=== PATIENT | female | born 1990 | race Caucasian/White ===

== ENCOUNTER → 2023-08-31 09:54 | Outpatient (BNVA) | payer OTHER, SELFPAY | PROVIDERS: PCP Internal Medicine; Visit Provider Surgery ==

== ENCOUNTER 2023-10-16 08:13 | Outpatient (AMB) | payer OTHER, SELFPAY ==
--- NOTE | 2023-10-16 09:10 | A.OFFVIS_ITS ---
VS Expanded 10/16/23 09:25 Height 5 ft 5.5 in Weight 218 lb 8 oz BMI 35.8 Body Fat % 37.2 Body Fat Mass 81.4 Fat Free Mass 137.4 Visceral Fat Rating 8 Body Water % 45 Body Water Mass 98.4 Basal Metabolic Rate/Score 1,901 Intake Visit Reasons: [employer] BMI 35.9 Allergies Penicillins [PENICILLINS] Allergy (Unknown, Verified 10/16/23 09:11) SWELLING Medication List - Last Reconciled 10/16/23 by Rufus Stearns MD albuterol sulfate 90 mcg/actuation 2 puffs inhalation Q6H PRN aspirin 81 mg PO DAILY nifedipine ER 90 mg PO DAILY HPI HPI [employer] SW[employer] BMI 35.9: Details: Start time: 9.02am, End time: 9.52am ?I spent 45 minutes speaking with the patient on the phone plus an additional 5 minutes reviewing and updating records for a total of 50 minutes HPI Comments Details: Previous weight loss: Saxenda and Marcintoza Wakes up: 10am (Works 3-11pm), Sleeps: 12,30am Breakfast: skips Lunch: 11am (sandwich or waffles, or eggs) 2nd Lunch: 1.30pm (chicken and rice) Dinner: 6.30pm (chicken and rice) Snacks: none Exercise: has a treadmill at home Fluids:Coffee: none, tea: none, soda: (Pepsi regular 1-2 cans per day), juice: none, ETOH: none PFSH Medical History (Updated 10/16/23 @ 09:47 by Rufus Stearns MD) GERD (gastroesophageal reflux disease) Asthma Back pain Hypertension Obesity Surgical History (Updated 10/16/23 @ 09:18 by Rufus Stearns MD) Previous back surgery History of delivery Physical Exam Vital Signs: BMI result Body Mass Index 35.8 Telehealth Telehealth Telehealth Platform: Telephone Location of provider rendering services: practice address Location of patient: address on file Patient Identification confirmed using: Name, : Yes Telehealth method: voice only Patient verbally consented to treatment: Yes Patient verbally consented to billing insurance company: Yes Patient informed of any privacy concerns related to visit: Yes Minutes spent on Phone/Video with Pt.: 50 Assessment & Plan Assessment & Plan (1) Obesity: Code(s): E66.9 - Obesity, unspecified Category: Medical Qualifiers: Body mass index: BMI 35.0-35.9 Obesity classification: adult class 2 (BMI 35 - 39.9) Obesity type: due to excess calories Serious obesity comor bidity presence: with serious comorbidity Qualified Code(s): E66.01 - Morbid (severe) obesity due to excess calories; Z68.35 - Body mass index [BMI] 35.0- 35.9, adult Plan: 1.? Plan for lap sleeve gastrectomy. If diaphragmatic or ventral hernias are present at time of surgery, these will be repaired laparoscopically as well. Risks and complications were discussed in detail including possible conversion to an open procedure, anastomotic leak, bleeding requiring transfusion, small bowel obstruction, , DVT and pulmonary embolism, cardiac, or pulmonary complications, as shelter complications such as anastomotic ulcer, insufficient weight loss and vitamin deficiencies. I emphasized the importance of close follow-up, adherence to instructions and good communication. 2. You will receive a link of our software katlin to generate an individualized nutritional and exercise plan specific for you. Please send me a screenshot of the plans you will generate Meal to include lean meat (beef, fish, pork, turkey, chicken), or omani yogurt, or egg whites, or beans with a salad with olive oil and fruits (berries, pears, apples, kiwi). Avoid salt, breads, potatoes, rice, pasta, desserts. ?3. If you choose shakes, each shake would be drunk slowly, like coffee in a period of 2 hours. ?4. If you choose bars, cut each bar in 4 pieces and eat each piece in 30min ?to make each bar last 2 hours. ?5. I emphasized the importance of measuring accurately the food portion and measure it when serving the food in plate ?6. The meal portions include a specific number of forks of meat and salad. You always eat the meat portion but you can replace up to half of salad/vegetables portion with rice, potatoes or pasta, or a fruit ?if you like. The less you do it the better weight loss will be. ?7. One full-size fork is what it can be scooped on the fork without falling aside and not what can be bit with the fork. Use regular forks like those you find in a typical restaurant. ?8.? Please send me weight measurements as soon as possible and then once a week. Always include your diet and exercise plan. 9. The best choice would be to purchase a stationary bike, elliptical or treadmill at home that can track calories. Let me know if you do so I can give you an exercise plan. ?10.?It is important of avoiding and for at least 18 months postoperatively and has been discussed at the infosession. ?11. Goal is to lose at least 1.5-2lbs per week ?12. Goal to lose 10% of your weight before surgery, which is about 22lbs. Ultimate weight goal: 196lbs before surgery 13. Please follow the diet plan exactly without any change. If you don't like something about the plan or you feel hungry you need to communicate with me so I can help you revise the plan. You should not change the plan yourself. Orders: Orders Complete Blood Count Auto Diff Today E66.9 - Obesity, unspecified, I10 - Essential (primary) hypertension, J45.909 - Unspecified asthma, uncomplicated, K21.9 - Gastro-esophageal reflux disease without esophagitis, Z68.35 - Body mass index [BMI] 35.0-35.9, adult Lipid Panel Today E66.9 - Obesity, unspecified, I10 - Essential (primary) hypertension, J45.909 - Unspecified asthma, uncomplicated, K21.9 - Gastro- esophageal reflux disease without esophagitis, Z68.35 - Body mass index [BMI] 35.0-35.9, adult Vitamin B12 and Folate Today E66.9 - Obesity, unspecified, I10 - Essential (primary) hypertension, J45.909 - Unspecified asthma, uncomplicated, K21.9 - Gastro-esophageal reflux disease without esophagitis, Z68.35 - Body mass index [BMI] 35.0-35.9, adult TSH reflex Free T4 Today E66.9 - Obesity, unspecified, I10 - Essential (primary ) hypertension, J45.909 - Unspecified asthma, uncomplicated, K21.9 - Gastro- esophageal reflux disease without esophagitis, Z68.35 - Body mass index [BMI] 35.0-35.9, adult US abdomen comp w elastography Today E66.9 - Obesity, unspecified, I10 - Essential (primary) hypertension, J45.909 - Unspecified asthma, uncomplicated, K21.9 - Gastro-esophageal reflux disease without esophagitis, Z68.35 - Body mass index [BMI] 35.0-35.9, adult XR chest 2V Today E66.9 - Obesity, unspecified, I10 - Essential (primary) hypertension, J45.909 - Unspecified asthma, uncomplicated, K21.9 - Gastro- esophageal reflux disease without esophagitis, Z68.35 - Body mass index [BMI] 35.0-35.9, adult ECG 12 lead EKG Today E66.9 - Obesity, unspecified, I10 - Essential (primary) hypertension, J45.909 - Unspecified asthma, uncomplicated, K21.9 - Gastro- esophageal reflux disease without esophagitis, Z68.35 - Body mass index [BMI] 35.0-35.9, adult FL upper GI w air Today E66.9 - Obesity, unspecified, I10 - Essential (primary) hypertension, J45.909 - Unspecified asthma, uncomplicated, K21.9 - Gastro- esophageal reflux disease without esophagitis, Z68.35 - Body mass index [BMI] 35.0-35.9, adult Insulin Today E66.9 - Obesity, unspecified, I10 - Essential (primary) hypertension, J45.909 - Unspecified asthma, uncomplicated, K21.9 - Gastro- esophageal reflux disease without esophagitis, Z68.35 - Body mass index [BMI] 35.0-35.9, adult Hemoglobin A1c Today E66.9 - Obesity, unspecified, I10 - Essential (primary) hypertension, J45.909 - Unspecified asthma, uncomplicated, K21.9 - Gastro- esophageal reflux disease without esophagitis, Z68.35 - Body mass index [BMI] 35.0-35.9, adult H Pylori Breath Test Today E66.9 - Obesity, unspecified, I10 - Essential (primary) hypertension, J45.909 - Unspecified asthma, uncomplicated, K21.9 - Gastro-esophageal reflux disease without esophagitis, Z68.35 - Body mass index [BMI] 35.0-35.9, adult IRON PROFILE Today E66.9 - Obesity, unspecified, I10 - Essential (primary) hypertension, J45.909 - Unspecified asthma, uncomplicated, K21.9 - Gastro- esophageal reflux disease without esophagitis, Z68.35 - Body mass index [BMI] 35.0-35.9, adult Comprehensive Met. Panel Today E66.9 - Obesity, unspecified, I10 - Essential (primary) hypertension, J45.909 - Unspecified asthma, uncomplicated, K21.9 - Gastro-esophageal reflux disease without esophagitis, Z68.35 - Body mass index [BMI] 35.0-35.9, adult Zinc Today E66.9 - Obesity, unspecified, I10 - Essential (primary) hypertension, J45.909 - Unspecified asthma, uncomplicated, K21.9 - Gastro- esophageal reflux disease without esophagitis, Z68.35 - Body mass index [BMI] 35.0-35.9, adult C Reactive Protein Today E66.9 - Obesity, unspecified, I10 - Essential (primary) hypertension, J45.909 - Unspecified asthma, uncomplicated, K21.9 - Gastro-esophageal reflux disease without esophagitis, Z68.35 - Body mass index [BMI] 35.0-35.9, adult Vitamin B1 Today E66.9 - Obesity, unspecified, I10 - Essential (primary) hypertension, J45.909 - Unspecified asthma, uncomplicated, K21.9 - Gastro- esophageal reflux disease without esophagitis, Z68.35 - Body mass index [BMI] 35.0-35.9, adult Vitamin A Today E66.9 - Obesity, unspecified, I10 - Essential (primary) hypertension, J45.909 - Unspecified asthma, uncomplicated, K21.9 - Gastro- esophageal reflux disease without esophagitis, Z68.35 - Body mass index [BMI] 35.0-35.9, adult Ferritin Today E66.9 - Obesity, unspecified, I10 - Essential (primary) hypertension, J45.909 - Unspecified asthma, uncomplicated, K21.9 - Gastro- esophageal reflux disease without esophagitis, Z68.35 - Body mass index [BMI] 35.0-35.9, adult Vitamin D 25-OH Total Today E66.9 - Obesity, unspecified, I10 - Essential (primary) hypertension, J45.909 - Unspecified asthma, uncomplicated, K21.9 - Gastro-esophageal reflux disease without esophagitis, Z68.35 - Body mass index [BMI] 35.0-35.9, adult Referrals Behavioral Health Referral E66.9 - Obesity, unspecified, I10 - Essential (primary) hypertension, J45.909 - Unspecified asthma, uncomplicated, K21.9 - Gastro-esophageal reflux disease without esophagitis, Z68.35 - Body mass index [BMI] 35.0-35.9, adult Nutrition/Dietitian Referral E66.9 - Obesity, unspecified, I10 - Essential (primary) hypertension, J45.909 - Unspecified asthma, uncomplicated, K21.9 - Gastro-esophageal reflux disease without esophagitis, Z68.35 - Body mass index [BMI] 35.0-35.9, adult
[2023-10-16 09:25] VITALS: BMI 35.8
== END 2023-10-16 09:54 | disposition home or self-care (01) ==
LOC: HO.HBS 08:13
PROVIDERS: PCP Internal Medicine; Visit Provider Surgery
DX: E66.01 Morbid (severe) obesity due to excess calories (principal); Z68.35 Body mass index [BMI] 35.0-35.9, adult
CPT/HCPCS: 99204

== ENCOUNTER → 2023-10-16 08:13 | Outpatient (BNVA) | payer OTHER, SELFPAY | PROVIDERS: PCP Internal Medicine; Visit Provider Surgery ==

== ENCOUNTER 2023-10-17 08:48 | Outpatient (REF) | payer OTHER, SELFPAY ==
--- NOTE | ~2023-10-17 | XR_ITS ---
EXAMINATION: XR CHEST CLINICAL INFORMATION: Obesity. Preop. COMPARISON: None available. TECHNIQUE: 2 views of the chest were obtained. FINDINGS: No significant abnormality is noted involving the heart, lungs, mediastinum, bony thorax or soft tissues. XR/XR chest 2V IMPRESSION: Unremarkable examination.
--- NOTE | 2023-10-17 08:57 | ECG_ITS ---
Test Reason : OBESITY Blood Pressure : / mmHG Vent. Rate : 080 BPM Atrial Rate : 080 BPM P-R Int : 162 ms QRS Dur : 080 ms QT Int : 384 ms P-R-T Axes : 051 030 028 degrees QTc Int : 442 ms Normal sinus rhythm Normal ECG No previous ECGs available Referred By: Rufus Stearns Electronically Signed By:MATILDA GARCIA MD
[2023-10-17 09:38] LABS: Basophils Percent Auto 0.7 % (0-2); Eosinophils Percent Auto 0.7 % (0-4); Hematocrit 40.9 % (37.0-47.0); Hemoglobin 13.6 g/dl (12.0-16.0); Imm Gran Abs Auto 0.03 X10*3/uL (0.00-0.03); Imm Gran Pct Auto 0.5 % (0.0-0.4); Lymphocytes Absolute Auto 1.7 X10*3/uL (1.2-4.9); Lymphocytes Percent Auto 31.4 % (20-40); MANUAL DIFF FLAG SCAN; Mean Corpuscular HGB Conc 33.3 g/dl (31.0-35.0); Mean Corpuscular Hemoglobin 28.5 pg (27.0-33.0); Mean Corpuscular Volume 85.7 fL (80.0-98.0); Monocytes Absolute Auto 0.3 X10*3/uL (0.1-1.2); Neutrophils Absolute Auto 3.3 x10*3/uL (2.0-8.3); Neutrophils Percent Auto 60.7 % (45-73); PLT CLUMP 1; Red Blood Count 4.77 X10*6/uL (4.20-5.50); Red Cell Distribution Width 13.2 % (11.0-16.0); SCAN SMEAR FLAG 1
[2023-10-17 09:51] LABS: Estimated Average Glucose 94 mg/dL; Hemoglobin A1c % 4.9 % (<6.0)
[2023-10-17 10:21] LABS: Platelet Count 223 X10*3/uL (160-400); White Blood Count 5.6 X10*3/uL (4.8-10.8)
[2023-10-17 10:22] LABS: Mean Platelet Volume 11.2 fL (9.4-12.3); SLIDE REVIEW VERIFIED
[2023-10-17 10:31] LABS: Alanine Aminotransferase 12 U/L (0-31); Albumin Level 4.1 g/dL (3.5-5.0); Alkaline Phosphatase 114 U/L (39-117); Anion Gap 15 (12-20); Aspartate Amino Transferase 14 U/L (5-31); Bilirubin Total 0.8 mg/dL (0.0-1.0); Blood Urea Nitrogen 13 mg/dL (9-16); C Reactive Protein 0.24 mg/dL (< or = 0.50); Calcium 9.1 mg/dL (8.4-10.2); Carbon Dioxide 18 mmol/L (22-29); Chloride 111 mmol/L (96-108); Cholesterol 164 mg/dL (<200); Estimated Glomerular Filt Rate > 60; Glucose Random 86 mg/dL (60-115); HDL Cholesterol 43 mg/dL (>40); Iron 62 mcg/dL (30-160); LDL Cholesterol Calculated 107 mg/dL (<100); Percent Iron Saturation 25 % (15-50); Potassium 3.5 mmol/L (3.3-5.1); Sodium 140 mmol/L (135-145); Total Iron Binding Capacity 248 mcg/dL (228-428); Total Protein 7.1 g/dL (6.5-8.0); Triglycerides 73 mg/dL (<150); Unsaturated Iron Binding 186 ug/dL
[2023-10-17 10:37] LABS: Ferritin 41 ng/mL (10-122); Insulin 6 uU/mL (2-29); TSH reflex Free T4 1.32 uIU/mL (0.32-4.0); Vitamin D 25-OH Total 15.6 ng/mL (>30)
[2023-10-17 10:52] LABS: Vitamin B12 532 pg/mL (200-900)
[2023-10-20 02:39] LABS: Zinc 72 mcg/dL (60-130)
[2023-10-20 03:49] LABS: Vitamin A 45 mcg/dL (38-98)
[2023-10-21 11:48] LABS: Vitamin B1 10 nmol/L (8-30)
== END 2023-10-17 08:49 | disposition home or self-care (01) ==
LOC: HO.LAB 08:48
PROVIDERS: PCP Nurse Practitioner Family; Visit Provider Surgery
DX: E66.9 Obesity, unspecified (principal); I10 Essential (primary) hypertension; J45.909 Unspecified asthma, uncomplicated; K21.9 Gastro-esophageal reflux disease without esophagitis; Z68.35 Body mass index [BMI] 35.0-35.9, adult
CPT/HCPCS: 36415; 71046; 80053; 80061; 82306; 82607; 82728; 82746; 83036; 83525; 83540; 84425; 84443; 84590; 84630; 85025; 86140; 93005

== ENCOUNTER → 2023-10-17 08:57 | Outpatient (BNV) | payer OTHER, SELFPAY | PROVIDERS: PCP Nurse Practitioner Family; Visit Provider Internal Medicine Cardiovascular Disease | DX: E66.9 Obesity, unspecified (principal) | CPT/HCPCS: 93010 ==

== ENCOUNTER 2023-10-24 10:20 | Outpatient (AMB) | payer OTHER, SELFPAY ==
--- NOTE | 2023-10-24 09:13 | MHC.WMTHER ---
Intake Intake Visit Reasons: TV BH Intake Allergies Penicillins [PENICILLINS] Allergy (Unknown, Verified 10/16/23 09:11) SWELLING [facility] Medical History (Updated 10/24/23 @ 09:25 by Nohemi Sage) GERD (gastroesophageal reflux disease) Asthma Back pain Hypertension Obesity Surgical History (Updated 10/16/23 @ 09:18 by Rufus Stearns MD) Previous back surgery History of delivery Behavioral Health Assessment Weight Management Therapy Therapy Notes Details Patient is looking to improve her health and quality by having weight loss surgery. She reported loosing one baby due to high blood pressure during . Patient is not in therapy and reported that she has never been. No history of problems with alcohol or drugs and no history of inpatient psychiatric treatment. Presenting Concerns Referral Source provider Reason for referral weight loss surgery evaluation Precipitating Event obesity Living Situation Current Living Situation Rent At risk of losing current housing? No Satisfied with current living situation? Yes Comments Patient lives with her boyfriend and her three children ages 1, 9, and 13 years old. Her boyfriend is the father of her 1 year old and the baby she lost. Food/Weight/Diet Expectations of change weight loss and maintenance History/Relationship with food Pt stated that she would go out to eat about 3x's a week (fast food and restaurant food), soda drinker Peps[employer] about 2 a day. Also late night eating due to her job, she would eat at 630 on her break and then after work she would eat again, mostly cereal and then go to sleep. Sometimes would skip breakfast. History/Relationship with weight Pt stated that she has been struggling with her weight since she had her last baby. She is about at her heaviest 230lbs. has since lost 6lbs since starting the program. History/Relationship with dieting tried exercise and eating healthy, also tried medications from her doctor Binge Eating Do you frequently eat large amounts of food in short periods of time, not feeling physically hungry? No Do you feel out of control when you eat a large amount of food in a short period of time? No Do you eat large amounts of food rapidly and typically alone? No Night Eating Do you wake up at least once during the night to eat? No If you wake up in the night, do you find that it is necessary to eat something in order to fall back asleep? No Do you have little or no appetite in the morning and feel very hungry in the evening, often overeating between dinner and when you go to bed? Yes Social History Family history and relationship Patient is one of six siblings and raised by both her parents. They are both still living. Pt is and lives with her boyfriend and three children. She reported suffering many losses in her life, last one in 2019 when her baby in the NICU. 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 no legal issues. Education Highest grade completed some college, medical numerical control operator Preferred learning style Auditory, Verbal, Written, Learn by doing and Visual Currently enrolled in educational program? No Interested in further educational program? 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 No Meaningful activities has a treadmill at home she uses. Financial Situation Describe current financial situation Occasional struggle Financial assistance? None Service Service? No Mental Health and Addiction Treatment Current/Past substance abuse? No Current/Past addictive behavior concerns? No Psychiatric history none reported Medical and Physical Health Summary Physical exam in the last year? Yes Pain Screening Current pain? Yes Pain in the last few months? Yes Comments back pain Medications Is the patient compliant with medications? Yes Does the patient have [facility] Guardian in place? Not applicable Does the patient use complimentary health approaches? No Trauma/Abuse History History of trauma? Yes Questionnaires PHQ-9 Over the last 2 weeks, how often have you been bothered by any of the following problems? 1. Little interest or pleasure in doing things: not at all 2. Feeling down, depressed, or hopeless: not at all 3. Trouble falling or staying asleep, or sleeping too much: several days 4. Feeling tired or having little energy: several days 5. Poor appetite or overeating: several days 6. Feeling bad about yourself - or that you are a failure or have let yourself or your family down: not at all 7. Trouble concentrating on things, such as reading the newspaper or watching television: not at all 8. Moving or speaking so slowly that other people could have noticed. Or the opposite - being so fidgety or restless that you have been moving around a lot more than usual: not at all 9. Thoughts that you would be better off or of hurting yourself in some way: not at all Total score: 3 Depression Screening Interpretation: Negative Depression Screening Done: Yes Source: Developed by Drs. Washington De La Cruz, Nehal Jasso, Lazaro Acosta and colleagues, with an educational pat from [employer]. Binge Eating Scale Group 1 A. I don't feel self-conscious about my wt. or body size when I'm with others. B. I feel concerned about how I look to others, but it normally does not make me fell disappointed with myself C. I do get self-conscious about my appearance and wt. which makes me feel disappointed in myself. D. I feel very self-conscious about my wt. and frequently I feel intense shame and disgust for myself. I try to avoid social contacts because of my self-consciousness. Response Group 1: B Group 2 A. I don't have any difficulty eating slowly in the proper manner. B. Although I seem to gobble down foods, I don't end up feeling stuffed because of eating to much. C. At times, I tend to eat quickly and then, I feel uncomfortably full afterwards. D. I have the habit of bolting down my food, without really chewing it. When this happens I usually feel uncomfortably stuffed because I've eaten to much. Response Group 2: A Group 3 A. I feel capable to control my eating urges when I want to. B. I feel like I have failed to control my eating more than the average person. C. I feel utterly helpless when it comes to feeling in control of my eating urges. D. Because I feel so helpless about controlling my eating I have become very desperate about trying to get control. Response Group 3: B Group 4 A. I don't have the habit of eating when I'm bored. B. I sometimes eat when I'm bored, but often I'm able to get busy and get my mind off food. C. I have a regular habit of eating when I'm bored, but occasionally, I can use some other activity to get my mind off eating. D. I have a strong habit of eating when I'm bored. Nothing seems to help me breath the habit. Response Group 4: A Group 5 A. I'm usually physically hungry when I eat something. B. Occasionally, I eat something on impulse even though I really am not hungry. C. I have the regular habit of eating foods, that I might not really enjoy, to satisfy a hungry feeling even though physically, I don't need the food. D. Although I'm not physically hungry, I get a hungry feeling in my mouth that only seems to be satisfied when I eat a food, like sandwich, that fills my mouth. Sometimes, when I eat the food to satisfy my mouth hunger, I then spit the food out so I won't gain weight. Response Group 5: A Group 6 A. I don't feel any guilt or self-hate after I overeat. B. After I overeat, occasionally I feel guilt or self-hate. C. Almost all the time I experience strong guilt or self-hate after I overeat. Response Group 6: A Group 7 A. I don't lose total control of my eating when dieting even after periods when I overeat. B. Sometimes when I eat a forbidden food on a diet, I feel like I blew it and eat even more. C. Frequently, I have the habit of saying to myself, I've blown it now, why not go all the way, when I overeat on a diet. When that happens I eat more. D. I have a regular habit of starting a strict diets for myself but I break the diets by going on an eating binge. My life seems to be either a feast or famine. Response Group 7: A Group 8 A. I rarely eat so much food that I feel uncomfortably stuffed afterwards. B. Usually about once a month, I each such a quantity of food, I end up feeling very stuffed. C. I have regular periods during the month when I eat large amounts of food, either at mealtime or at snacks. D. I eat so much food that I regularly feel quite uncomfortable after eating and sometimes a bit nauseous. Response Group 8: A Group 9 A. My level of calorie intake does not go up very high or go down very low on a regular basis. B. Sometimes after I overeat, I will try to reduce my caloric intake to almost nothing to compensate for the excess calories I've eaten. C. I have a regular habit of overeating during the night. It seems that my routine is not to be hungry in the morning but overeat in the evening. D. In my adult years, I have had week-long periods where I practically starve myself. This follows periods when I overeat. It seems I live a life of either feast or famine. Response Group 9: C Group 10 A. I usually am able to stop eating when I want to. I know when enough is enough. B. Every so often, I experience a compulsion to eat which I can't seem to control. C. Frequently, I experience strong urges to eat which I seem unable to control, but at other times I can control my eating urges. D. I feel incapable of controlling urges to eat. I have a fear of not being able to stop eating voluntarily. Response Group 10: A Group 11 A. I don't have any problem stopping eating when I feel full. B. I usually can stop eating when I feel full but occasionally overeat leaving me feeling uncomfortably stuffed. C. I have a problem stopping eating once I start and usually I feel uncomfortably stuffed after I eat a meal. D. Because I have a problem not being able to stop eating when I want, I sometimes have to induce vomiting to relieve my stuffed feeling. Response Group 11: A Group 12 A. I seem to eat just as much when I'm with others, Family social gatherings as when I'm by myself. B. Sometimes, when I'm with other persons, I don't eat as much as I want to eat because I'm self-conscious about my eating. C. Frequently, I eat only a small amount of food when others are present, because I'm very embarrassed about my eating. D. I feel so ashamed about overeating that I pick times to overeat when I know no one will see me. I feel like a closet eater. Response Group 12: A Group 13 A. I eat three meals a day with only an occasional between meal snack. B. I eat 3 meals a day, but I also normally snack between meals. C. When I am snacking heavily, I get in the habit of skipping regular meals. D. There are regular periods when I seem to be continually eating, with no planned meals. Response Group 13: B Group 14 A. I don't think much about trying to control unwanted eating urges. B. At least some of the time, I feel my thoughts are pre-occupied with trying to control my eating urges. C. I feel that frequently I spend much time thinking about how much I ate or about trying not to eat anymore. D. It seems to me that most of my waking hours are pre-occupied by thoughts about eating or not eating. I feel like I'm constantly struggling not to eat. Response Group 14: A Group 15 A. I don't think about food a great deal. B. I have strong craving for food but they last only for brief periods of time. C. I have days when I can't seem to think about anything else but food. D. Most of my days seem to be pre-occupied with thoughts about food. I feel like I live to eat. Response Group 15: A Group 16 A. I usually know whether or not I'm physically hungry. I take the right portion of food to satisfy me. B. Occasionally, I feel uncertain about knowing whether or not I'm physically hungry. A these times it's hard to know how much food I should take to satisfy me. C. Even though I might know how many calories I should eat, I don't have any idea what is a normal amount of food for me. Response Group 16: B Binge Eating Score: 6 Score less than 17 Minimal Risk Score between 18-26 Moderate Risk Score between 27-46 High Risk Assessment & Plan Assessment & Plan (1) Adjustment disorder, unspecified: Code(s): F43.20 - Adjustment disorder, unspecified (2) Obesity: Code(s): E66.9 - Obesity, unspecified Qualifiers: Obesity type: due to excess calories Obesity classification: adult class 2 (BMI 35 - 39.9) Serious obesity comorbidity presence: with serious comorbidity Body mass index: BMI 35.0-35.9 Qualified Code(s): E66.01 - Morbid (severe) obesity due to excess calories; Z68.35 - Body mass index [BMI] 35.0-35.9, adult Plan Patient denied any mental health history or other serious barriers. She is cleared for surgery when ready. Telehealth Telehealth Telehealth Platform: Telephone Location of provider rendering services: other Location of patient: address on file Patient Identification confirmed using: Name, : Yes Telehealth method: voice only Patient verbally consented to treatment: Yes Patient verbally consented to billing insurance company: Yes Patient informed of any privacy concerns related to visit: Yes Minutes spent on Phone/Video with Pt.: 45 Coding Level of Care Code Tele Psy Diag Eval ([id number]) Diagnoses Adjustment disorder, unspecified F43.20 Class 2 severe obesity due to excess calories with serious comorbidity and body mass index (BMI) of 35.0 to 35.9 in adult E66.01; Z68.35 Obesity type: due to excess calories Obesity classification: adult class 2 (BMI 35 - 39.9) Serious obesity comorbidity presence: with serious comorbidity Body mass index: BMI 35.0-35.9 Time Spent (min) 45
== END 2023-10-24 10:32 | disposition home or self-care (01) ==
LOC: HO.HBST 10:20
PROVIDERS: PCP Nurse Practitioner Family; Visit Provider Counselor Mental Health
DX: F43.20 Adjustment disorder, unspecified (principal); E66.01 Morbid (severe) obesity due to excess calories; Z68.35 Body mass index [BMI] 35.0-35.9, adult
CPT/HCPCS: 90791

== ENCOUNTER → 2023-10-24 10:20 | Outpatient (BNVA) | payer OTHER, SELFPAY | PROVIDERS: PCP Nurse Practitioner Family; Visit Provider Counselor Mental Health | DX: F43.20 Adjustment disorder, unspecified (principal); E66.01 Morbid (severe) obesity due to excess calories; Z68.35 Body mass index [BMI] 35.0-35.9, adult ==

== ENCOUNTER 2023-10-31 08:47 | Outpatient (REF) | payer OTHER, SELFPAY ==
--- NOTE | ~2023-10-31 | US_ITS ---
EXAMINATION: US COMPLETE ABDOMEN WITH LIVER ELASTOGRAPHY CLINICAL INFORMATION: Obesity. COMPARISON: None available. TECHNIQUE: Real-time imaging of the abdominal viscera. Noninvasive ultrasound liver fibrosis assessment is performed using Etienne ElastPQ point quantification shear wave elastography (2D-SWE) with a C5-2 MHz transducer. Multiple elastography samples are obtained. FINDINGS: PANCREAS: Pancreas could not be evaluated as it was obscured by bowel gas. ABDOMINAL AORTA: The proximal, middle, and distal aortic segments are normal in caliber. INFERIOR VENA CAVA: Visualized portions are normal. LIVER: The liver demonstrates normal contour. Minimal increased echogenicity suggests possible steatosis. No focal lesion or intrahepatic biliary duct dilatation. The right lobe measures 14.1 cm in length. The left lobe measures 8.1 cm in length. Portal flow is towards the liver (hepatopetal). Shear wave liver elastography median stiffness is 1.34 m/s (reference: normal median stiffness is 1.3 m/s or less). IQR/median stiffness to assess sampling precision is 0.06 (reference: good quality data set is IQR/median stiffness of 0.15 or less). GALLBLADDER: The gallbladder is physiologically distended without evidence of stones, sludge, polyps, wall thickening or pericholecystic fluid. COMMON BILE DUCT: Normal in caliber measuring 0.4 cm in diameter. RIGHT KIDNEY: Single small echogenic focus in the mid kidney measuring 3 mm without shadowing or twinkle artifact could be a nonobstructing calculus. No hydronephrosis. No additional renal calculi or focal parenchymal lesions. The kidney measures 10.1 cm in maximum dimension. LEFT KIDNEY: Overlying bowel gas obscures detail. No hydronephrosis. No renal calculi or focal parenchymal lesions. The kidney measures 10.8 cm in maximum dimension. SPLEEN: Normal. The spleen measures 9.8 cm in maximum dimension. FREE FLUID: None. US/US abdomen comp w elastography IMPRESSION: 1. Borderline echogenic liver suggesting steatosis. 2. Liver Elastography: In the absence of other known clinical signs, measurements rule out compensated advanced chronic liver disease. If there are known clinical signs, further testing may be needed for confirmation. REFERENCE: Society of Radiologists in Ultrasound Liver Stiffness Thresholds (2020): LIVER STIFFNESS THRESHOLDS: *Liver Stiffness equal or less than 1.3 m/s: High probability of being normal. *Liver Stiffness less than 1.7 m/s: In the absence of other known clinical signs, rules out compensated advanced chronic liver disease. *Liver Stiffness 1.7-2.1 m/s: Suggestive of compensated advanced chronic liver disease but need further test for confirmation. *Liver Stiffness over 2.1 m/s: Rules in compensated advanced chronic liver disease. *Liver Stiffness over 2.4 m/s: Suggestive of clinically significant portal hypertension. QUALITY OF DATA SET: *IQR/Median value equal or less than 0.15 implies a quality data set. *IQR/Median value over 0.15 implies a poor quality data set. SIGNIFICANT CHANGE FROM PRIOR EXAM: Significant change if liver stiffness measurement is 10% or greater from prior exam. OTHER CONSIDERATIONS: The stage of liver fibrosis may be overestimated in the setting of acute hepatitis, liver inflammation, elevated liver function tests, hepatic vascular congestion, obstructive cholestasis, non-fasting state, and infiltrative diseases such as amyloidosis and lymphoma. In some patients with NAFLD, the liver stiffness thresholds for compensated advanced chronic liver disease may be lower. In causes other than viral hepatitis and NAFLD, liver stiffness thresholds are not well established.
== END 2023-10-31 08:48 | disposition home or self-care (01) ==
LOC: HO.US 08:47
PROVIDERS: PCP Nurse Practitioner Family; Visit Provider Surgery
DX: E66.9 Obesity, unspecified (principal); I10 Essential (primary) hypertension; J45.909 Unspecified asthma, uncomplicated; K21.9 Gastro-esophageal reflux disease without esophagitis; Z68.35 Body mass index [BMI] 35.0-35.9, adult
CPT/HCPCS: 76700; 76981

== ENCOUNTER 2023-11-15 08:47 | Day surgery (SDC) | payer OTHER, SELFPAY ==
--- NOTE | 2023-11-13 12:42 | HO.ANESPROP2 ---
Documented by User: Kait Feliciano NP 11/13/23 12:42 HPI - Anesthesia Eval Consult details Narrative: 33yo F for Upper Endoscopy PMFSH Active Problems Active Problems: All Active Problems Vitamin D deficiency (Acute) Adjustment disorder, unspecified (Acute) GERD (gastroesophageal reflux disease) (Acute) Asthma (Acute) Back pain (Acute) Hypertension (Acute) BMI 35.0-35.9,adult (Acute) Obesity (Acute) Past Medical History Medical History GERD (gastroesophageal reflux disease) Asthma Back pain Hypertension Obesity Surgical History Surgical History Previous back surgery History of delivery Social History Social History Patient Tobacco Use Status: Never used Tobacco Meds Allergies Allergy/AdvReac Type Severity Reaction Status Date / Time Penicillins [PENICILLINS] Allergy Unknown SWELLING Verified 10/16/23 09:11 Home Medications ?Medication ?Instructions ?Recorded ?Confirmed ?Last Taken ?Type aspirin 81 mg tablet,delayed 81 mg PO DAILY 08/31/23 10/16/23 Unknown History release nifedipine 90 mg tablet,extended 90 mg PO DAILY 08/31/23 10/16/23 Unknown History release albuterol sulfate 90 mcg/actuation 2 puff inhalation Q6H PRN 10/16/23 10/16/23 Unknown History aerosol inhaler Assessment and Plan Assessment Anesthesia Assessment: Chart Reviewed Documented by User: Trudy Cabezas MD 11/15/23 16:26 PMFSH Active Problems Active Problems: All Active Problems Vitamin D deficiency (Acute) Adjustment disorder, unspecified (Acute) GERD (gastroesophageal reflux disease) (Acute) Asthma (Acute) Back pain (Acute) Hypertension (Acute)- did not take nifedipine today. Diastolic BP up to >100 BMI 35.0-35.9,adult (Acute) Obesity (Acute) Past Medical History Medical History GERD (gastroesophageal reflux disease) Asthma Back pain Hypertension Obesity Family History Family history of problems with anesthesia: No Surgical History Surgical History Previous back surgery History of delivery History of Problems with Anesthesia: No Social History Social History Patient Tobacco Use Status: Never used Tobacco Meds Allergies Allergy/AdvReac Type Severity Reaction Status Date / Time Penicillins [PENICILLINS] Allergy Unknown SWELLING Verified 10/16/23 09:11 Home Medications ?Medication ?Instructions ?Recorded ?Confirmed ?Last Taken ?Type aspirin 81 mg tablet,delayed 81 mg PO DAILY 08/31/23 10/16/23 Unknown History release nifedipine 90 mg tablet,extended 90 mg PO DAILY 08/31/23 10/16/23 Unknown History release albuterol sulfate 90 mcg/actuation 2 puff inhalation Q6H PRN 10/16/23 10/16/23 Unknown History aerosol inhaler Exam Height,Weight and Vital Signs: Height 5 ft 5.5 in Weight 91.342 kg Vital Signs Temp Pulse Resp BP Pulse Ox O2 Del Method 97.4 F 80 16 153/88 H 99 Room Air 11/15/23 10:14 11/15/23 10:14 11/15/23 10:14 11/15/23 10:14 11/15/23 10:14 11/15/23 10:14 Pertinent Lab Results Pertinent Lab Results: Lab Results 11/15/23 Range/Units 09:05 Urine Test NEGATIVE (NEGATIVE) Airway Mallampati Class: I TM Dist: >3cm Neck ROM: Full Partial: Lower Loose/Missing/Broken Teeth: Yes Heart: RRR Lungs: CTAB Assessment and Plan Assessment Anesthesia Assessment: Anesthesia Plan Discussed and Chart Reviewed Final Anesthetic Review Family History of Problems with Anesthesia: No History of Problems with Anesthesia: No NPO: Yes ASA Class: II Final Preanesthetic Review: No Changes in Pt Med Stat, Meds/Allgs Chart Reviewed, Consent Obtained/Reviewed and Anes Risks/Benef Reviewed Patient Risk: Intermediate Procedure Risk: Low Assessment/Block/Sedation in SS: Assess/Block/Sedation-SS Anesthetic Plan Anesthetic Plan: GA and TIVA Disposition: Standard PACU
[2023-11-13 12:51] VITALS: BMI 35.8
[2023-11-15 08:58] VITALS: BMI 33.0
[2023-11-15 09:16] LABS: UPreg QC Valid YES; Urine Pregnancy NEGATIVE (NEGATIVE)
--- NOTE | 2023-11-15 10:09 | P.HPSUR_ITS ---
Pre-Procedural Eval Section A - 24 Hr Update-Section A only Date of Service: 11/15/23 The patient is an INPATIENT: No The patient has been examined within 24 hours of the surgical procedure. The History & Physical has been completed within 30 days and I have reviewed it.: No Section B - Complete if H&P > 30 days Chief Complaint: Morbid (severe) obesity due to excess calories Details of Present Illness: GERD Relevant Family History (Specify if Yes): No Relevant Social History: None Present Medications: None Medical History: No relevant PMH History of Previous Operations: No relevant previous surgery Allergies: Allergies Allergy/AdvReac Type Severity Reaction Status Date / Time Penicillins [PENICILLINS] Allergy Unknown SWELLING Verified 10/16/23 09:11 Review of Systems Sugical H&P ROS: Negative: Constitution, Cardiovascular, Respiratory, Neurological, Psychiatric, Hem-Onc, Allergic/Immunologic, Gastrointestinal, Genitourinary, Musculoskeletal, Integumentary, Endocrine and Eyes /Ears/Nose/Throat Exam Surgical H&P Exam: Normal: HEENT, Normal: Heart, Normal: Lungs, Normal: Extremities, Normal: Abdomen, Normal: Skin and Normal: Neurological Plan Diagnosis/Plan: Unchanged (EGD to assess the anatomy of the stomach. Risks of bleeding and perforation were discussed with the patient and she is in agreement with the plan.) I have reviewed the history and physical and performed a pertinent physical examination on my patient. No changes have occurred unless specified. Time Spent With Patient Time: Total time managing care of this patient today ____ minutes.
[2023-11-15 10:14] VITALS: BP 153/88; PULSE 80; RESP 16; TEMP 36.3; O2SAT 99
--- NOTE | 2023-11-15 10:21 | PM.OP ---
Brief Operative Note Date of Service: 11/15/23 Pre-op diagnosis: GERD Post-op diagnosis: same Procedure: PROCEDURE DATE: 11/15/2023 PREOPERATIVE DIAGNOSIS: GERD POSTOPERATIVE DIAGNOSIS: ?Same as above. 1) normal endoscopy PROCEDURE: [id number] with biopsies Surgeon: Abel Stearns M.D.. Ph.D. Forensic Toxicologist: None ? Anesthesia: IV sedation Estimated blood loss: ?Minimal FINDINGS AND PROCEDURE: ? OPERATIVE INDICATIONS: ?The patient is a 33 year old female known to me who is interested in bariatric surgery. The patient has GERD. Based on this information I recommended an upper endoscopy to evaluate the patient's symptoms. Risks and complications of the surgery were discussed with the patient in advance particularly the possibility of perforation or bleeding that may require surgical intervention. The patient understood the risks and was in agreement with the plan. ? PROCEDURE: After informed consent was obtained by the patient, the patient was ?transferred to the Operating Room and was placed in the supine position.? After successful induction of IV sedation, a mouth block was inserted and the patient was placed in the left lateral decubitus position. An upper endoscopy was performed next, the oropharynx and esophagus appeared within the normal limits. There was no hiatal hernia. The z-line was smooth. Two biopsies were obtained from the distal esophagus 2-3 cm proximal to the GE junction and two additional biopsies from the GE junction. The stomach was entered and it appeared to be of normal size. There was no gastritis. There was no stricture or ulcer. A biopsy was obtained from the gastric fundus and the antrum. No significant bleeding was noted from any of the biopsy sites. Retroflexion of the scope revealed a normal GE junction. The scope was then advanced into the duodenum which appeared to be normal as well. At that point the duodenum ?and the stomach were decompressed and the scope was withdrawn from the patient's mouth. The patient extubated and was transferred in stable condition to the Recovery Room for further care. I was present and performed all steps of the procedure. There were no residents to assist with this case. Jayesh Stearns M.D., Ph.D. Surgeon: Rufus Stearns MD Anesthesia: MAC Was an Forensic Toxicologist used for this Procedure?: No Estimated blood loss (mL): 0 IV fluids (mL): 400 Urine output (mL): 0 (No Ruiz to record output) Pathology: other (1) antrum x1, 2) fundus x1, 3) GE junction x2, 4) distal esophagus x2) Condition: stable Disposition: PACU
[2023-11-15 11:21] VITALS: BP 136/87; PULSE 81; RESP 16; TEMP 36.4; O2SAT 98
[2023-11-15 11:36] VITALS: BP 153/102; PULSE 71; RESP 16; O2SAT 100
[2023-11-15 11:51] VITALS: BP 162/101; PULSE 71; RESP 16; TEMP 36.4; O2SAT 99
== END 2023-11-15 12:17 | disposition home or self-care (01) ==
PROVIDERS: Nurse Practitioner; PCP Nurse Practitioner Family; Visit Provider Surgery
PROC: 0DJ08ZZ Inspection of Upper Intestinal Tract, Via Natural or Artificial Opening Endoscopic (ICD-10-PCS; CPT 43235; principal; 2023-11-15 11:30)
DX: K21.9 Gastro-esophageal reflux disease without esophagitis (principal); E66.01 Morbid (severe) obesity due to excess calories; Z68.35 Body mass index [BMI] 35.0-35.9, adult; I10 Essential (primary) hypertension; J45.909 Unspecified asthma, uncomplicated; Z79.82 Long term (current) use of aspirin; Z79.899 Other long term (current) drug therapy; Z88.0 Allergy status to penicillin
CPT/HCPCS: 43239; 81025; 88305; 88313; 88342; J2704

== ENCOUNTER → 2023-11-15 08:47 | Outpatient (BNV) | payer OTHER, SELFPAY | PROVIDERS: PCP Nurse Practitioner Family; Visit Provider Surgery | DX: K21.9 Gastro-esophageal reflux disease without esophagitis (principal) | CPT/HCPCS: 43239 ==

== ENCOUNTER 2023-11-21 09:29 | Outpatient (REF) | payer OTHER, SELFPAY ==
--- NOTE | ~2023-11-21 | FL_ITS ---
EXAMINATION: XR FLUOROSCOPY UPPER GI WITH AIR CLINICAL INFORMATION: Preop evaluation prior to bariatric surgery COMPARISON: None TECHNIQUE: Fluoroscopic air contrast upper GI examination was performed utilizing standard techniques with thin and thick barium and effervescent granules. Numerous spot images were obtained. FINDINGS: Dual and single contrast images of the esophagus demonstrate a normal caliber, and contour. There is felinization of the mid esophageal mucosa. No definite evidence of mass or stricture. Mild granular appearance to the mid and distal esophageal mucosa may indicate erosive esophagitis. There is mild esophageal dysmotility. A small type I hiatal hernia is present. Gastroesophageal reflux is seen up to the midesophagus. Dual contrast and single contrast images of the stomach demonstrated normal contour and mucosal pattern without evidence of mass, ulceration, or other abnormality. Contrast freely passed into the gastric antrum and duodenal bulb without delay. Single and air-contrast images of the duodenal bulb demonstrate no abnormality. The duodenal sweep has a normal appearance, course, and mucosal fold appearance. No malrotation. FLUOROSCOPY TIME: 4 minutes 40 seconds Number of Spot Images: 13 Number of Cine: 13 DOSE AREA PRODUCT: 3131 uGy-m2 (microgray-meter squared) FL/FL upper GI w air IMPRESSION: 1. Felinization of the mid esophageal mucosa. This is a benign finding that is associated with chronic gastroesophageal reflux. 2. Small type I hiatal hernia. 3. Moderate gastroesophageal reflux. 4. Mild granular appearance to the mid and distal esophageal mucosa, possibly indicating underlying erosive esophagitis. This procedure was performed by Alen Durán PA-C, and supervised by Dr. Blount
== END 2023-11-21 09:30 | disposition home or self-care (01) ==
LOC: HO.XRAY 09:29
PROVIDERS: PCP Nurse Practitioner Family; Visit Provider Surgery
DX: E66.9 Obesity, unspecified (principal); Z68.35 Body mass index [BMI] 35.0-35.9, adult; K21.9 Gastro-esophageal reflux disease without esophagitis
CPT/HCPCS: 74246

== ENCOUNTER → 2023-11-21 09:30 | Outpatient (BNV) | payer OTHER, SELFPAY | PROVIDERS: PCP Nurse Practitioner Family; Visit Provider Physician Assistant Surgical | DX: E66.9 Obesity, unspecified (principal); Z01.818 Encounter for other preprocedural examination | CPT/HCPCS: 74246 ==

== ENCOUNTER 2023-11-22 12:35 | Outpatient (AMB) | payer OTHER, SELFPAY ==
--- NOTE | 2023-11-22 13:02 | A.OFFVIS_ITS ---
VS Expanded 11/22/23 13:09 BP 141/93 H Blood Pressure Location Rt brachial Blood Pressure Position Sitting Pulse 78 Pulse Source Pulse Oximeter Temp 96.9 F Temperature Source Temporal Artery Scan Pulse Oximetry 99 Oxygen Delivery Method Room Air Height 5 ft 5.5 in Weight 193 lb 9.6 oz BMI 31.7 Body Fat % 37.4 Body Fat Mass 72.4 Fat Free Mass 121.2 Visceral Fat Rating 7.0 Body Water % 44.9 Body Water Mass 86.8 Muscle Mass/Score 115.0 Basal Metabolic Rate/Score 1,680 Intake Visit Reasons: (OV) F/U SWL [employer] Consultant Required: No Allergies Penicillins [PENICILLINS] Allergy (Unknown, Verified 11/22/23 13:04) SWELLING Medication List - Last Reconciled 11/22/23 by MALCOLM Orta albuterol sulfate 90 mcg/actuation 2 puffs inhalation Q6H PRN aspirin 81 mg PO DAILY cholecalciferol (vitamin D3) 125 mcg PO DAILY losartan 25 mg PO DAILY nifedipine ER 90 mg PO DAILY omeprazole 40 mg PO DAILY HPI Comments Details: Patient is a pleasant 33-year-old female who returns to the office today in follow-up for surgical weight loss clinic. She was initially seen on 10/16/2023 with a weight of 218.8 lb and a BMI of 35.8. Weight today is 193.6 with a BMI of 31.7. She has lost 25.2 pounds or 11.5 % total body weight loss. She states she is doing very well and following the meal plans. She continues to use the Right BMI katlin and has no complaints. Meal plan: Pure protein rtd 4 oz/ 4 oz almond milk, 10-121 Pure protein bar, half,2-4 Meal with 6 forks protein, 6 forks veggies at5 pm Another half pure protein bar at 9-11 Drinking 64 oz water. Exercise plan Treadmill daily 280-300 calories. [facility] Medical History GERD (gastroesophageal reflux disease) Asthma Back pain Hypertension Obesity Surgical History Previous back surgery History of delivery Social History (Updated 11/22/23 @ 13:07 by Leigh Berry CMA) Alcohol intake: never Patient Tobacco Use Status: Never used Tobacco Physical Exam Vital Signs: Last Vital Signs Temp 96.9 F 11/22/23 13:09 Pulse 78 11/22/23 13:09 BP 141/93 H 11/22/23 13:09 Pulse Ox 99 11/22/23 13:09 Oxygen Delivery Method Room Air 11/22/23 13:09 BMI result Body Mass Index 31.7 Const General: healthy appearing and no acute distress Resp Effort & Inspection: normal respiratory effort Auscultation: clear to auscultation bilaterally Cardio Rate: regular rate Rhythm: regular rhythm GI Auscultation: normal bowel sounds Extrem General: Yes normal to inspection Assessment & Plan Assessment & Plan (1) Obesity: Code(s): E66.9 - Obesity, unspecified Category: Medical Qualifiers: Obesity type: due to excess calories Obesity classification: adult class 2 (BMI 35 - 39.9) Serious obesity comorbidity presence: with serious comorbidity Body mass index: BMI 35.0-35.9 Qualified Code(s): E66.01 - Morbid (severe) obesity due to excess calories; Z68.35 - Body mass index [BMI] 35.0- 35.9, adult Plan: Patient is making excellent progress. She is following the directions on the right BMI katlin. she is exercising appropriately. We will have her return to the office in approximately 1 month.
[2023-11-22 13:09] VITALS: BP 141/93; PULSE 78; TEMP 36.1; O2SAT 99; BMI 31.7
== END 2023-11-22 13:38 | disposition home or self-care (01) ==
PROVIDERS: PCP Nurse Practitioner Family; Visit Provider Physician Assistant Surgical
DX: E66.01 Morbid (severe) obesity due to excess calories (principal); Z68.35 Body mass index [BMI] 35.0-35.9, adult
CPT/HCPCS: 99213

== ENCOUNTER → 2023-11-22 12:35 | Outpatient (BNVA) | payer OTHER, SELFPAY | PROVIDERS: PCP Nurse Practitioner Family; Visit Provider Physician Assistant Surgical | DX: E66.9 Obesity, unspecified (principal); Z68.31 Body mass index [BMI] 31.0-31.9, adult | CPT/HCPCS: 99212 ==

== ENCOUNTER 2023-12-26 09:43 | Outpatient (AMB) | payer OTHER, SELFPAY ==
--- NOTE | 2023-12-26 09:31 | A.OFFVIS_ITS ---
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 She was initially seen on 10/16/2023 with a weight of 218.8 lb and a BMI of 35.8. Weight today is 188.8 with a BMI of 30.9. She has lost 30 pounds or 13.7 % total body weight loss. She states she is doing very well and following the meal plans. She continues to use the [employer] katlin and has no complaints. Meal plan: Pure protein rtd 4 oz/ 4 oz almond milk, 10-12 Pure protein bar, half,2-4 Meal with 6 forks protein, 6 forks veggies at 5 pm Another half pure protein bar at 9-11 Drinking 64 oz water. Exercise plan Treadmill daily 280-300 calories. [facility] Medical History GERD (gastroesophageal reflux disease) Asthma Back pain Hypertension Obesity Surgical History Previous back surgery History of delivery Social History (Updated 11/22/23 @ 13:07 by Leigh Berry CMA) Alcohol intake: never Patient Tobacco Use Status: Never used Tobacco Telehealth Telehealth Telehealth Platform: Telephone Location of provider rendering services: practice address Location of patient: address on file Patient Identification confirmed using: Name, : Yes Telehealth method: voice only Patient verbally consented to treatment: Yes Patient verbally consented to billing insurance company: Yes Patient informed of any privacy concerns related to visit: Yes Minutes spent on Phone/Video with Pt.: 10 Assessment & Plan Assessment & Plan (1) Obesity: Code(s): E66.9 - Obesity, unspecified Category: Medical Qualifiers: Obesity type: due to excess calories Obesity classification: adult class 2 (BMI 35 - 39.9) Serious obesity comorbidity presence: with serious comorbidity Body mass index: BMI 35.0-35.9 Qualified Code(s): E66.01 - Morbid (severe) obesity due to excess calories; Z68.35 - Body mass index [BMI] 35.0- 35.9, adult Plan: Patient is doing very well, updating her progress on the katlin. She has lost 13% total body weight since starting the program in October. We will refer her back to Dr. Stearns for continued preoperative care.
[2023-12-26 09:33] VITALS: BMI 30.9
== END 2023-12-26 09:50 | disposition home or self-care (01) ==
LOC: HO.HBS 09:43
PROVIDERS: PCP Nurse Practitioner Family; Visit Provider Physician Assistant Surgical
DX: E66.01 Morbid (severe) obesity due to excess calories (principal); Z68.35 Body mass index [BMI] 35.0-35.9, adult
CPT/HCPCS: 99213

== ENCOUNTER → 2023-12-26 09:43 | Outpatient (BNVA) | payer OTHER, SELFPAY | PROVIDERS: PCP Nurse Practitioner Family; Visit Provider Physician Assistant Surgical ==

== ENCOUNTER → 2024-02-01 10:21 | Outpatient (BNVA) | payer OTHER, SELFPAY | PROVIDERS: PCP Nurse Practitioner Family; Visit Provider Surgery ==

== ENCOUNTER 2024-02-02 07:55 | Outpatient (AMB) | payer OTHER, SELFPAY ==
--- NOTE | 2024-02-02 09:14 | MHC.OFFVISWM ---
VS Expanded 02/02/24 09:27 Height 5 ft 5.5 in Weight 181 lb 6 oz BMI 29.7 Body Fat % 37.2 Body Fat Mass 67.5 Fat Free Mass 114.2 Visceral Fat Rating 12 Body Water % 43 Body Water Mass 78 Basal Metabolic Rate/Score 1,487 Intake Visit Reasons: TV Pre Op LSG 02/07/24 Allergies Penicillins [PENICILLINS] Allergy (Intermediate, Verified 02/02/24 09:15) SWELLING Medication List - Last Reconciled 02/02/24 by Rufus Stearns MD albuterol sulfate 90 mcg/actuation 2 puffs inhalation Q6H PRN aspirin 81 mg PO DAILY cholecalciferol (vitamin D3) 125 mcg PO DAILY losartan 25 mg PO DAILY nifedipine ER 90 mg PO DAILY omeprazole 40 mg PO DAILY ondansetron 4 mg PO Q12H pantoprazole 40 mg PO DAILY polyethylene glycol 3350 17 grams PO DAILY sucralfate 10 mL PO BID HPI HPI TV Pre Op LSG 02/07/24: Details: Start time: 9.07amam, End time: 9.40am ?I spent 18 minutes speaking with the patient on the phone plus an additional 5 minutes reviewing and updating records for a total of 23 minutes HPI Comments Details: Overall weight loss: 37.2lbs, or 17% TBWL Is doing 2 premade Pure protein shakes (4oz of the shake plus 4oz almond milk), one ONE protein bar and one meal (6 forks of protein and 6 forks of salad or vegetables) Exercise: is doing treadmill daily for 300 calories PFSH Medical History (Updated 02/01/24 @ 13:55 by Caity Arana RN) GERD (gastroesophageal reflux disease) Asthma Back pain Hypertension Obesity Surgical History (Updated 02/01/24 @ 09:59 by Caity Arana RN) History of esophagogastroduodenoscopy (EGD) Previous back surgery History of delivery Social History (Updated 11/22/23 @ 13:07 by Leigh Berry CMA) Are you a primary manager primary care to a significant other at home: No Do you presently have visiting nurse or other home services: No Alcohol intake: never Patient Tobacco Use Status: Never used Tobacco Telehealth Telehealth Telehealth Platform: Telephone Location of provider rendering services: practice address Location of patient: address on file Patient Identification confirmed using: Name, : Yes Telehealth method: voice only Patient verbally consented to treatment: Yes Patient verbally consented to billing insurance company: Yes Patient informed of any privacy concerns related to visit: Yes Minutes spent on Phone/Video with Pt.: 23 Assessment & Plan Assessment & Plan (1) Obesity: Code(s): E66.9 - Obesity, unspecified Category: Medical Qualifiers: Obesity type: due to excess calories Obesity classification: adult class 2 (BMI 35 - 39.9) Serious obesity comorbidity presence: with serious comorbidity Body mass index: BMI 35.0-35.9 Qualified Code(s): E66.01 - Morbid (severe) obesity due to excess calories; Z68.35 - Body mass index [BMI] 35.0-35.9, adult Plan: 1. Plan for lap sleeve gastrectomy including upper GI endoscopy. All tests has been completed and reviewed and the patient is cleared for the surgery. ?If diaphragmatic or ventral hernias are present at time of surgery, these will be repaired laparoscopically as well. Risks and complications were discussed in detail including possible conversion to an open procedure, anastomotic leak, bleeding requiring transfusion, small bowel obstruction, , DVT and pulmonary embolism, cardiac, or pulmonary complications, as [facility] complications such as anastomotic ulcer, insufficient weight loss and vitamin deficiencies. I emphasized the importance of close follow-up, adherence to instructions and good communication. So far she has proven to be an excellent communicator and very compliant with all our directions accomplishing a great weight loss. I believe that she is an excellent candidate and she is ready. 2. Preop prescriptions were provided and explained the purpose of each one. Need to be purchased preop. Start Pantoprazole now as you get it from the pharmacy, 1 pill per day. Sucralfate and Zofran are for after surgery as needed. 3. Bowel prep: please do 7 packets ?of Miralax mixing each one with a an 8oz glass of water, crystal light, gatorade zero, or propel ?on 02/05/24 and the same amount on 02/06/24. The Miralax you begin with one packet at a time in 8oz water or crystal light, gatorade zero, or propel ?as early in the day as you can and you do them back to back until you finish them. Continue the protein shakes during ?the bowel prep. 4. Needs to purchase 1oz medicine cups . 5. Needs to purchase Children's liquid Tylenol for postop pain control. 6. She needs to stop the aspirin as of today 02/02/24. Avoid aspirin, motrin, Advil, Aleve, Ibuprofen, Naproxyn. Tylenol is OK. 7. She needs to purchase the Celebrate 4:1 protein shakes from the hospital's gift shop. 8. Importance of adherence to postop folllow-up and recommendations was underscored and she understands that. 9. Stop food and bars as of tomorrow 02/03/24 and continue with only the premade ?Pure protein shakes. Use the Nub[employer] katlin to create a meal plan (aggressive with only shakes) and send me a screenshot of the plan 10. No soups, broths or V8 11. The patient's?medical?history has been reviewed and they are considered low risk for post op DVT and therefore DVT prophylaxis is not considered necessary. Travel after surgery was reviewed. The patient has not disclosed any travel plans during the first 30 days after surgery and they have been advised that within the first 30 days after surgery any bus, plane, train or car travel over 2 hours in duration is contraindicated due to the possibility of developing blood clots from immobility. Any travel, needs to include periods of ambulation of 10 minutes in duration every 2 hours.? Patient was instructed to discuss any plans for travel during this period with their bariatric surgeon.? 12. Please take at the day of surgery the following medications: Only the Losartan and Nifedipine under the following parameters: Going forward please measure your blood pressure daily in the morning. If the blood pressure is: Below 120/70: do not take the Losartan or Nifedipine 121/71 to 130/80: Take 30mg Nifedipine 131/81: 140/90: take 90mg Nifedipine Over 141/91: take 30mg Nifedipine and 25mg Losartan 13. Stop any control pills and don't use them for one month after surgery 14. Absolutely no smoking or vaping, or marijuana until the surgery and for at least the first 4 weeks. Only nicotine patches are allowed. 15. Send me weight measurements on Monday02/07/24, on the day of surgery before you go to the hospital. 16. Avoid any steroids by mouth for any reason. Let me know if someone prescribes them to you 17. These instructions supersede anything else you read in the handbook, anything you watched in videos or classes or you were told by any other provider. If there is any conflict, you follow the above instructions and nothing else. Medications: New pantoprazole 40 mg PO DAILY 90 tabs 0RF K20.90 - Esophagitis, unspecified without bleeding, K21.9 - Gastro-esophageal reflux disease without esophagitis sucralfate 10 mL PO BID 600 mL 2RF K20.90 - Esophagitis, unspecified without bleeding, K21.9 - Gastro-esophageal reflux disease without esophagitis polyethylene glycol 3350 Mix each measuring cup with 8oz of water, Crystal light, or Gatorade zero, or Propel and do 7 measuring cups on 02/05/24 and another 7 measuring cups on 02/06/24 17 grams PO DAILY 238 grams 0RF Z01.818 - Encounter for other preprocedural examination ondansetron Denies any nausea/vomiting/GERD/pain/complications 4 mg PO Q12H 20 tabs 0RF nausea and vomiting R11.0 - Nausea
[2024-02-02 09:27] VITALS: BMI 29.7
== END 2024-02-02 09:41 | disposition home or self-care (01) ==
LOC: HO.HBS 07:55
PROVIDERS: PCP Nurse Practitioner Family; Visit Provider Surgery
DX: E66.01 Morbid (severe) obesity due to excess calories (principal); Z68.35 Body mass index [BMI] 35.0-35.9, adult
CPT/HCPCS: 99213

== ENCOUNTER → 2024-02-02 07:55 | Outpatient (BNVA) | payer OTHER, SELFPAY | PROVIDERS: PCP Nurse Practitioner Family; Visit Provider Surgery ==

== ENCOUNTER 2024-02-07 06:02 | Inpatient (IN) | payer OTHER, SELFPAY ==
[2024-02-01 10:13] LABS: MANUAL DIFF FLAG NO
[2024-02-01 10:34] LABS: Basophils Absolute Auto 0.1 X10*3/uL (0.0-0.2); Basophils Percent Auto 0.8 % (0-2); Eosinophils Percent Auto 0.7 % (0-4); Hematocrit 38.8 % (37.0-47.0); Hemoglobin 13.2 g/dl (12.0-16.0); Imm Gran Abs Auto 0.02 X10*3/uL (0.00-0.03); Imm Gran Pct Auto 0.3 % (0.0-0.4); Lymphocytes Absolute Auto 1.6 X10*3/uL (1.2-4.9); Lymphocytes Percent Auto 26.8 % (20-40); Mean Corpuscular Hemoglobin 29.3 pg (27.0-33.0); Mean Platelet Volume 10.4 fL (9.4-12.3); Monocytes Absolute Auto 0.3 X10*3/uL (0.1-1.2); Monocytes Percent Auto 4.7 % (2-11); Neutrophils Absolute Auto 3.9 x10*3/uL (2.0-8.3); Neutrophils Percent Auto 66.7 % (45-73); Platelet Count 234 X10*3/uL (160-400); Red Blood Count 4.51 X10*6/uL (4.20-5.50); Red Cell Distribution Width 13.7 % (11.0-16.0); White Blood Count 5.9 X10*3/uL (4.8-10.8)
[2024-02-01 10:37] LABS: INTERNATIONAL NORM RATIO 1.1 (0.9-1.1); Prothrombin Time 13.9 SEC (11.1-13.3)
[2024-02-01 10:40] LABS: Partial Thromboplastin Time 32.6 SEC (26.0-36.8)
[2024-02-01 10:55] LABS: Estimated Average Glucose 85 mg/dL; Hemoglobin A1c % 4.6 % (<6.0)
[2024-02-01 11:21] LABS: Alanine Aminotransferase 14 U/L (0-31); Albumin Level 4.5 g/dL (3.5-5.0); Alkaline Phosphatase 97 U/L (39-117); Anion Gap 11 (12-20); Aspartate Amino Transferase 13 U/L (5-31); Bilirubin Total 0.5 mg/dL (0.0-1.0); Blood Urea Nitrogen 8 mg/dL (9-16); C Reactive Protein < 0.10 mg/dL (< or = 0.50); Calcium 9.4 mg/dL (8.4-10.2); Carbon Dioxide 22 mmol/L (22-29); Chloride 110 mmol/L (96-108); Cholesterol 171 mg/dL (<200); Estimated Glomerular Filt Rate > 60; Ferritin 64 ng/mL (10-122); Glucose Random 94 mg/dL (60-115); HDL Cholesterol 41 mg/dL (>40); Iron 54 mcg/dL (30-160); LDL Cholesterol Calculated 112 mg/dL (<100); Percent Iron Saturation 22 % (15-50); Potassium 3.5 mmol/L (3.3-5.1); Sodium 139 mmol/L (135-145); TSH reflex Free T4 0.99 uIU/mL (0.32-4.0); Total Iron Binding Capacity 249 mcg/dL (228-428); Total Protein 7.2 g/dL (6.5-8.0); Triglycerides 90 mg/dL (<150); Unsaturated Iron Binding 195 ug/dL; Vitamin D 25-OH Total 31.2 ng/mL (>30)
[2024-02-01 11:25] LABS: Vitamin B12 544 pg/mL (200-900)
[2024-02-01 13:50] VITALS: BMI 29.3
--- NOTE | 2024-02-02 14:10 | P.CONAN_ITS ---
Documented by User: Kait Feliciano NP 02/02/24 14:11 HPI - Anesthesia Eval Consult details Narrative: 34yo F for Gastrectomy Sleeve,EGD,possible diaphragmatic hernia,possible ventral hernia,possible open PMFSH Active Problems Active Problems: All Active Problems Pre-op evaluation (Acute) Esophagitis determined by biopsy (Acute) Vitamin D deficiency (Acute) Adjustment disorder, unspecified (Acute) BMI 35.0-35.9,adult (Acute) GERD (gastroesophageal reflux disease) (Acute) Asthma (Acute) Back pain (Acute) Hypertension (Acute) Obesity (Acute) Past Medical History Medical History GERD (gastroesophageal reflux disease) Asthma Back pain Hypertension Obesity Family History Family history of problems with anesthesia: No Surgical History Surgical History History of esophagogastroduodenoscopy (EGD) Previous back surgery History of delivery History of Problems with Anesthesia: No Social History Social History Are you a primary technical healthcare consultant to a significant other at home: No Do you presently have visiting nurse or other home services: No Alcohol intake: never Patient Tobacco Use Status: Never used Tobacco Use of substances other than those prescribed or required for medical reasons: No Have you been hit, kicked, punched, or otherwise hurt by someone within the past year? If so, by whom?: No Are you DNR?: No Advance Directives Information Provided: Yes (as above noted) Advance Directives on File: No Recently lost weight without trying: No Eating poorly because of decreased appetite: No Nutrition Risks: No Nutritional Risk Patient : No FDLMP: 01/24/24 : No Poor oral hygiene: No (3 missing teeth-lower) Meds Allergies Allergy/AdvReac Type Severity Reaction Status Date / Time Penicillins [PENICILLINS] Allergy Intermediate SWELLING Verified 02/07/24 06:10 Home Medications ?Medication ?Instructions ?Recorded ?Confirmed ?Last Taken ?Type aspirin 81 mg tablet,delayed 81 mg PO DAILY 08/31/23 02/07/24 02/02/24 History release nifedipine 90 mg tablet,extended 90 mg PO DAILY 08/31/23 02/07/24 02/05/24 History release albuterol sulfate 90 mcg/actuation 2 puff inhalation Q6H PRN 10/16/23 02/02/24 Unknown History aerosol inhaler Shortness Of Breath Or Wheezing losartan 25 mg tablet 25 mg PO DAILY 11/22/23 02/07/24 02/05/24 History Exam Height,Weight and Vital Signs: Height 5 ft 5.5 in Weight 81.102 kg Pertinent Lab Results Pertinent Lab Results: Laboratory Tests 02/01/24 02/01/24 10:00 10:12 WBC 5.9 RBC 4.51 Hgb 13.2 Hct 38.8 MCV 86.0 MCH 29.3 MCHC 34.0 RDW 13.7 Plt Count 234 MPV 10.4 Immature Gran % (Auto) 0.3 Neut % (Auto) 66.7 Lymph % (Auto) 26.8 Hardy % (Auto) 4.7 Eos % (Auto) 0.7 Baso % (Auto) 0.8 Lymph # (Auto) 1.6 Hardy # (Auto) 0.3 Eos # (Auto) 0.0 Baso # (Auto) 0.1 Abs Immat Gran (auto) 0.02 Absolute Neuts (auto) 3.9 Absolute Nucleated RBC 0.000 Nucleated RBC % (auto) 0.0 PT 13.9 H INR 1.1 APTT 32.6 Sodium 139 Potassium 3.5 Chloride 110 H Carbon Dioxide 22 Anion Gap 11 L BUN 8 L Creatinine 0.77 Estim Creat Clear Calc TNP Estimated GFR > 60 Random Glucose 94 Estimat Average Glucose 85 Hemoglobin A1c % 4.6 Calcium 9.4 Iron 54 TIBC 249 % Saturation 22 Unsat Iron Binding 195 Ferritin 64 Total Bilirubin 0.5 AST 13 ALT 14 Alkaline Phosphatase 97 C-Reactive Protein < 0.10 Total Protein 7.2 Albumin 4.5 Triglycerides 90 Cholesterol 171 LDL Cholesterol, Calc 112 H HDL Cholesterol 41 Vitamin B12 544 25-OH Vitamin D Total 31.2 TSH 0.99 Blood Type AB Positive Antibody Screen NEGATIVE Narrative Narrative: EKG 10/2023 Vent. Rate : 080 BPM Atrial Rate : 080 BPM P-R Int : 162 ms QRS Dur : 080 ms QT Int : 384 ms P-R-T Axes : 051 030 028 degrees QTc Int : 442 ms Normal sinus rhythm Normal ECG No previous ECGs available Assessment and Plan Assessment Anesthesia Assessment: Chart Reviewed Final Anesthetic Review Family History of Problems with Anesthesia: No History of Problems with Anesthesia: No Documented by User: Nabila Guevara MD 02/07/24 07:36 PMFSH Past Medical History Medical History GERD (gastroesophageal reflux disease) Asthma Back pain Hypertension Obesity Surgical History Surgical History History of esophagogastroduodenoscopy (EGD) Previous back surgery History of delivery Social History Social History Are you a primary technical healthcare consultant to a significant other at home: No Do you presently have visiting nurse or other home services: No Alcohol intake: never Patient Tobacco Use Status: Never used Tobacco Use of substances other than those prescribed or required for medical reasons: No Have you been hit, kicked, punched, or otherwise hurt by someone within the past year? If so, by whom?: No Are you DNR?: No Advance Directives Information Provided: Yes (as above noted) Advance Directives on File: No Recently lost weight without trying: No Eating poorly because of decreased appetite: No Nutrition Risks: No Nutritional Risk Patient : No FDLMP: 01/24/24 : No Poor oral hygiene: No (3 missing teeth-lower) Meds Allergies Allergy/AdvReac Type Severity Reaction Status Date / Time Penicillins [PENICILLINS] Allergy Intermediate SWELLING Verified 02/07/24 06:10 Home Medications ?Medication ?Instructions ?Recorded ?Confirmed ?Last Taken ?Type aspirin 81 mg tablet,delayed 81 mg PO DAILY 08/31/23 02/07/24 02/02/24 History release nifedipine 90 mg tablet,extended 90 mg PO DAILY 08/31/23 02/07/24 02/05/24 History release albuterol sulfate 90 mcg/actuation 2 puff inhalation Q6H PRN 10/16/23 02/02/24 Unknown History aerosol inhaler Shortness Of Breath Or Wheezing losartan 25 mg tablet 25 mg PO DAILY 11/22/23 02/07/24 02/05/24 History Exam Airway Mallampati Class: II TM Dist: >3cm Neck ROM: Full Loose/Missing/Broken Teeth: No Heart: RRR Lungs: CTA Assessment and Plan Assessment Anesthesia Assessment: Anesthesia Plan Discussed Final Anesthetic Review NPO: Yes ASA Class: II Final Preanesthetic Review: Meds/Allgs Chart Reviewed, Consent Obtained/Reviewed and Anes Risks/Benef Reviewed Patient Risk: Low Procedure Risk: Intermediate Anesthetic Plan Anesthetic Plan: GA Disposition: Standard PACU
[2024-02-05 09:33] LABS: Zinc 68 mcg/dL (60-130)
[2024-02-07] VITALS (15 sets, daily range): BP systolic 139–174; BP diastolic 77–100; PULSE 66–85; RESP 12–18; TEMP 36.1–36.7; O2SAT 100; BMI 29.2
--- OUTSIDE RECORDS SUMMARY | 2024-02-07 06:07 | XMS_ITS | Continuity of Care Document ---
Author Organization [facility] ter Address [address] [place] [address]- Care Team Providers Care Flaring Machine Operator Name Role Phone Mattie NOLAN, Kathy Mendoza Primary Care Physicia n [place] [facility] [place] - 10/12/[address] [address]- Encounter Diagnosis COVID-19(Final) - 10/12/21 Chest pain(Final) - 10/12/21 Shortness of breath(Final) - 10/12/21 (Final) - 10/12/21 Asthma(Final) - 10/12/21 Discharge Disposition: A-D/C Home Attending Physician: Cristi Sunshine MD Admitting Physician: Cristi Sunshine MD Referring Physician: Not on Staff, Referring MD Allergies, Adverse Reactions, Alerts Substance Reaction Severity Status penicillin hives Active Immunizations Given and Recorded Vaccine Date Status Refusal Reason SARS-CoV-2 (COVID-19) mRNA-1273 vaccine 10/28/20 R ecorded SARS-CoV-2 (COVID-19) mRNA-1273 vaccine 09/30/20 R ecorded tetanus/diphtheria/pertussis, acel(Tdap) 03/26/20 Given influenza virus vaccine, inactivated 03/10/20 Give n influenza virus vaccine, inactivated 04/06/18 Alfred rded Medications acetaminophen 325 mg oral capsule 2 capsule = 650 mg, By Mouth, Every 6 hours, PRN as needed for pain, # 90 capsule, 0 Refills, Acute10/14/21 15:15:00 EDT, 10/12/21 14:50:00 EDT, Capsule, [id number], Partial fill upon patient request if the prescription is for a schedule II o... Start Date: 10/12/21 Stop Date: 10/14/21 Status: Ordered Albuterol (Eqv-ProAir HFA) 90 mcg/inh inhalation aerosol 2 puffs, Inhalation, Every 6 hours, PRN Wheezing/Shortness of Breath, # 1 each, 2 Refills, Acute 10/18/21 15:45:00 EDT, 10/12/21 14:50:00 EDT, [id number], Partial fill upon patient request ifthe prescription is for a schedule II opioid drug.,... Start Date: 10/12/21 Stop Date: 10/18/21 Status: Ordered albuterol inhaler (OP) 0 Refills, Maintenance Start Date: 12/11/19 Status: Ordered NIFEdipine (Eqv-Procardia XL) 30 mg oral tablet, extended release 1 tablet, By Mouth, Daily, # 90 tablet, 1 Refills, [id number], 165.5, cm, 02/01/21 14:07:00 EDT, Height, 94.9, kg, 01/01/21 18:12:00 EDT, Dry Weight Start Date: 06/09/21 Status: Ordered ondansetron 4 mg oral tablet, disintegrating 1 tablet = 4 mg, By Mouth, Every 8 hours, PRN Nausea & Vomiting, # 10 tablet, 0 Refills, Acute 10/14/21 15:00:00 EDT, 10/12/21 14:49:00 EDT, Tablet, [id number], Partial fill upon patient request if the prescription is for a schedule II opioid... Start Date: 10/12/21 Stop Date: 10/14/21 Status: Ordered Paxlovid 150 mg-100 mg oral tablet See Instructions, 300 mg nirmatrelvir(2 tablets) with 100 mg ritonavir(1 tablet). All 3 tablets taken together twice daily for 5 days, with or without food, # 30 tablet, 0 Refills, Maintenance, 10/12/21 14:50:00 EDT, [id number], Partial fill... Start Date: 10/12/21 Status: Ordered Multivitamins By Mouth, Daily, 0 Refills, Maintenance, 12/13/20 16:24:00 EDT, Partial fill upon patient request if the prescription is for a schedule II opioid drug. Start Date: 12/13/20 Status: Ordered Problem List Condition Effective Dates Status Health Status Inform ant Asthma(Confirmed) Active COVID-19(Confirmed) 1 10/12/21 Active Chronic hypertension(Confirmed) 2018 Active Obese class II(Confirmed) Active 1Problem added by Discern Expert Results Radiology Reports * Exam Date Time Procedure Performing Provider Status 10/12/21 2:13 PM Chest Portable Jovani Thomas; Auth (Verified) Notes: (Chest Portable) Reason For Exam: Shortness of Breath RESULT: Chest Portable Chest Portable Hx of Present Illness: pt co cp sob since this am with NV abd pain, 9 weeks ; Reason: Shortness of Breath; Clinical Question(s): CHF Additional history provided: Positive COVID test on 10/11/2021. COMPARISON: Radiograph of the chest dated 03/15/2018. FINDINGS: LINES AND TUBES: None. LUNGS AND PLEURA: No focal consolidation or pleural effusion. Normal pulmonary vascularity. No pneumothorax. HEART, MEDIASTINUM AND ALLAN: Heart is normal in size. Normal upper mediastinal and hilar contour. BONES AND SOFT TISSUES: No acute abnormality. IMPRESSION: No focal consolidation or pleural effusion. WSN: [id number] Ordering Physician: Trina Garcia Dictated By: Edith Blanco MD Dictated Date/Time: 10/12/21 2:25 pm Reviewed By: Edith Blanco MD Signed By: Edith Blanco MD Signed Date/Time: 10/12/21 2:25 pm Transcribed By: LLOYD Transcribed Date/Time: 10/12/21 2:19 pm Vital Signs Most recent to oldest [Reference Range]: 1 2 3 Oxygen Saturation [94-100 %] 100 % (10/12/21 12:57 PM) 100 % (10/12/21 8:56 AM) 99 % (10/12/21 6:03 AM) Pulse Rate [55-90 bpm] 89 bpm (10/12/21 12:57 PM) 95 bpm *H* (10/12/21 8:56 AM) 85 bpm (10/12/21 6:03 AM) Blood Pressure [90-138/55-84 mm Hg] 134/87mm Hg (10/12/21 12:57 PM) 130/89mm Hg (10/12/21 8:56 AM) 136/89mm Hg (10/12/21 6:03 AM) Respiratory Rate [16-30 br/min] 18 br/min (10/12/21 12:57 PM) 16 br/min (10/12/21 8:56 AM) 18 br/min (10/12/21 6:03 AM) Temperature [96.8-100.4 DegF] 98.2 DegF (10/12/21 6:03 AM) 97.9 DegF (10/12/21 2:18 AM) 98.5 DegF (10/11/21 9:40 PM) Mode of Delivery (Oxygen) Room air (10/12/21 12:57 PM) Room air (10/12/21 6:03 AM) Room air (10/12/21 2:18 AM) Blood pressure sites Arm, left (10/12/21 12:57 PM) Arm, left (10/12/21 6:03 AM) Arm, left (10/12/21 2:18 AM) Temperature Route Oral (10/12/21 6:03 AM) Oral (10/12/21 2:18 AM) Oral (10/11/21 9:40 PM) Social History Social History Type Response Smoking Status Never (less than 100 in lifetime) entered on: 03/23/20 Sex
--- OUTSIDE RECORDS SUMMARY | 2024-02-07 06:07 | XMS_ITS | Continuity of Care Document ---
Author Organization [facility] Adult Address [address] [place] [address]- Care Team Providers Care Exhibition Specialist Name Role Phone Mattie NOLAN, Kathy Mendoza Primary Care Physicia n [place] [facility] [place](s): 12/10/20 - 01/09/21 [facility] Adult [address] [place] [address]- Allergies, Adverse Reactions, Alerts Substance Reaction Severity Status penicillin hives Active Immunizations Given and Recorded Vaccine Date Status Refusal Reason SARS-CoV-2 (COVID-19) mRNA-1273 vaccine 10/28/20 R ecorded SARS-CoV-2 (COVID-19) mRNA-1273 vaccine 09/30/20 R ecorded tetanus/diphtheria/pertussis, acel(Tdap) 03/26/20 Given influenza virus vaccine, inactivated 03/10/20 Give n influenza virus vaccine, inactivated 04/06/18 Alfred rded Medications albuterol inhaler (OP) 0 Refills, Maintenance Start Date: 12/11/19 Status: Ordered aspirin 81 mg oral delayed release tablet 162 mg, 2, tablet, By Mouth, Daily, # 60 tablet, Refills 6, Tot. Refills 6, Maintenance, 12/09/20 16:13:00 EDT, Route to Pharmacy Electronically, [facility]/pharmacy #[id number], Partial fill upon patient requestif the prescription is for a schedule II opioid edgar... Start Date: 12/09/20 Stop Date: 07/07/21 Status: Ordered NIFEdipine 30 mg oral tablet, extended release 30 mg, 1, tablet, By Mouth, Daily, # 30 tablet, Refills 5, Tot. Refills 5, Maintenance, 12/10/20 15:18:00 EDT, Route to Pharmacy Electronically, [facility]/pharmacy #[id number], 165.5, cm, 11/19/20 15:50:00 EDT, Height, 98, kg, 03/24/20 9:28:00 EDT, Dry Weight Start Date: 12/10/20 Status: Ordered Multivitamins By Mouth, Daily, 0 Refills, Maintenance, 12/13/20 16:24:00 EDT, Partial fill upon patient request if the prescription is for a schedule II opioid drug. Start Date: 12/13/20 Status: Ordered Problem List Condition Effective Dates Status Health Status Inform ant Asthma(Confirmed) Active Chronic hypertension(Confirmed) 2018 Active Incomplete miscarriage(Confirmed) Active Social History Social History Type Response Smoking Status Never (less than 100 in lifetime) entered on: 03/23/20 Sex
--- OUTSIDE RECORDS SUMMARY | 2024-02-07 06:07 | XMS_ITS | Continuity of Care Document ---
Author Organization [facility] Address [address], [address] [place] [address]- Care Team Providers Care Police Shift Commander Name Role Phone Mattie CITRUS FRUIT COLORER, Kathy Kelly Primary Care Physicia n Encounter [facility] [place] Date(s): 12/22/20 - 12/29/20 [facility] [address], [address] [place] [address]- Attending Physician: Braulio DODGE [OB], Latonia Pimentel Admitting Physician: Anastasiia Delgadillo MD Referring Physician: Nga Sanderson MD Allergies, Adverse Reactions, Alerts Substance Reaction [...] 12/09/20 16:13:00 EDT, Route to Pharmacy Electronically, [facility]/pharmacy #[id number], Partial fill upon patient requestif the prescription is for a schedule II opioid edgar... Start Date: 12/09/20 Stop Date: 07/07/21 Status: Ordered NIFEdipine 30 mg oral tablet, extended release 30 mg, 1, tablet, By Mouth, Daily, # 30 tablet, Refills 5, Tot. Refills 5, Maintenance, 12/10/20 15:18:00 EDT, Route to Pharmacy Electronically, [facility]/pharmacy #[id number], 165.5, cm, 11/19/20 15:50:00 EDT, Height, [...] ant Asthma(Confirmed) Active Chronic hypertension(Confirmed) 2018 Active Social History Social History Type Response Smoking Status Never (less than 100 in lifetime) entered on: 03/23/20 Sex
--- OUTSIDE RECORDS SUMMARY | 2024-02-07 06:07 | XMS_ITS | Continuity of Care Document ---
Author Organization [facility] Adult Address [address] [place] [address]- Care Team Providers Care Public Space Attendant Name Role Phone Dean Hi NP Primary Care Physician [phone] Encounter [facility] [place] Date(s): 08/04/23 - 09/03/23 [facility] Adult [address] [place] [address]- Allergies, Adverse Reactions, Alerts Substance Reaction Severity Status penicillin hives Active Immunizations Given and Recorded Vaccine Date Status Refusal Reason influenza virus vaccine, inactivated 03/16/23 Give n influenza virus vaccine, inactivated 05/20/22 Give n influenza virus vaccine, inactivated 11/09/21 Give n influenza virus vaccine, inactivated 03/10/20 Give n influenza virus vaccine, inactivated 04/06/18 Alfred rded hepatitis B adult vaccine 08/19/22 Given [id number] 12y+ bivalent booster vax 05/25/22 Recorded tetanus/diphtheria/pertussis, acel(Tdap) 02/17/22 Given tetanus/diphtheria/pertussis, acel(Tdap) 03/26/20 Given tetanus/diphtheria/pertussis, acel(Tdap) 12/26/06 Recorded tetanus/diphtheria/pertussis, acel(Tdap) 02/07/02 Recorded SARS-CoV-2 (COVID-19) mRNA-1273 vaccine 10/28/20 R ecorded SARS-CoV-2 (COVID-19) mRNA-1273 vaccine 09/30/20 R ecorded Measles/Mumps/Rubella Virus Vaccine 11/16/11 Recor ded Measles/Mumps/Rubella Virus Vaccine 09/02/93 Recor ded Measles/Mumps/Rubella Virus Vaccine 02/02/91 Recor ded Varicella Virus Vaccine 6/13/12 Recorded Hepatitis B Vaccine (old term) 03/31/11 Recorded Hepatitis B Vaccine (old term) 12/24/10 Recorded Hepatitis B Vaccine (old term) 10/10/97 Recorded Hepatitis B Vaccine (old term) 08/02/95 Recorded Hepatitis B Vaccine (old term) 05/04/95 Recorded Human Papillomavirus Vaccine 12/21/10 Recorded Human Papillomavirus Vaccine 03/31/08 Recorded Human Papillomavirus Vaccine 12/26/06 Recorded Influenza Virus Vaccine (oldterm) 03/31/08 Recorde d Meningococcal Conjugate Vaccine 10/19/05 Recorded diphtheria/tetanus/pertussis, acel(DTaP) 05/04/95 Recorded diphtheria/tetanus/pertussis, acel(DTaP) 07/05/91 Recorded diphtheria/tetanus/pertussis, acel(DTaP) 90 Recorded diphtheria/tetanus/pertussis, acel(DTaP) 90 Recorded diphtheria/tetanus/pertussis, acel(DTaP) 90 Recorded Poliovirus Vaccine, Inactivated 02/02/94 Recorded Poliovirus Vaccine, Inactivated 07/05/91 Recorded Poliovirus Vaccine, Inactivated 90 Recorded Poliovirus Vaccine, Inactivated 90 Recorded Haemophilus B Conj Vaccine (oldterm) 07/05/91 Alfred rded Haemophilus B Conj Vaccine (oldterm) 02/02/91 Alfred rded Medications albuterol inhaler (OP) 0 Refills, Maintenance Start Date: 12/11/19 Status: Ordered aspirin 81 mg oral delayed release tablet 81 mg, 1, tablet, By Mouth, Daily, # 90 tablet, Refills 3, Tot. Refills 3, Maintenance, 01/16/23 9:54:00 EDT, Route to Pharmacy Electronically, [facility]/pharmacy #[id number], Partial fill upon patient request if the prescription is for a schedule II opioid drug.... Start Date: 01/16/23 Status: Ordered liraglutide 18 mg/3 mL subcutaneous solution = 2.4 mg, Subcutaneous Injection, Daily, # 15 mL, 4 Refills, Maintenance, 06/15/23 17:22:00 EST, Solution, [facility]/pharmacy #[id number], Partial fill upon patient request if the prescription is for a schedule II opioid drug., 165, cm, 05/04/23 12:10:00 EST, Hei... Start Date: 06/15/23 Stop Date: 09/07/24 Status: Ordered Mirena 52 mg intrauterine device 1 each = 52 mg, Intrauterine, Once, # 1 each, 0 Refills, Soft Stop, 03/28/22 11:00:00 EDT, [facility], Partial fill upon patient request if the prescription is for a schedule II opioid drug., 166, cm, 03/21/22 8:47:00 EDT, Height, 10... Start Date: 03/28/22 Status: Ordered NIFEdipine (Eqv-Procardia XL) 90 mg oral tablet, extended release 1 tablet, By Mouth, Daily, # 90 tablet, 1 Refills, Maintenance, 08/30/23 9:04:00 EDT, [facility], 165, cm, 05/04/23 12:10:00 EST, Height, 98, kg, 12/12/22 16:10:00 EDT, Dry Weight Start Date: 08/30/23 Status: Ordered Pen [place], 31 G x 5 mm BD Ultra Fine III See Instructions, # 100 each, Refills 3, Tot. Refills 3, Maintenance, use to inject Victoza daily, 03/28/23 14:20:00 EDT, Supply, 165, cm, 03/16/23 10:56:00 EDT, Height, 98, kg, 12/12/22 16:10:00 EDT, Dry Weight Start Date: 03/28/23 Status: Ordered Problem List Condition Confirmation Course Effective Dates Status Health St atus Informant Asthma Confirmed Active Chronic hypertension Confirmed 2018 Active Severe obesity (BMI 35.0-39.9) with comorbidity Confirmed Active Social History Social History Type Response Smoking Status Never (less than 100 in lifetime) entered on: 10/13/21 Sex Patient Care team information Care Team Personnel Name: Dean Hi NP Position: S PCO Associate Professional Member Role: PCP Address: Address: [address] [place] [address]- Care Team Related Persons Name: JILL HAMILTON Address: Address: home [address] [place] [address] [place] Name: KARTIK HAMILTON Address: Address: home [address] [place] [address] [place] Name: GIOVANY HAMILTON Address: home [address] [place] [address] Name: SAMMY WHARTON Address: home [address] [place] [address]
--- OUTSIDE RECORDS SUMMARY | 2024-02-07 06:07 | XMS_ITS | Continuity of Care Document ---
Author Organization [facility] Adult Address [address] [place] [address]- Care Team Providers Care Loader Magazine Grinder Name Role Phone Kolton NOLAN, Dean Adame Primary Care Physician [phone] Encounter [facility] [place] Date(s): 11/29/23 - 12/29/23 [facility] [address] [place] [address] [[email or web address]] Attending Physician: AdmCiera cisneros Admitting Physician: AdmtrCiera Referring Physician: Admtr, Ar8 Allergies, Adverse Reactions, Alerts Substance Reaction Severity Status penicillin hives Active Immunizations Given and Recorded Vaccine Date Status Refusal Reason influenza virus vaccine, inactivated 03/16/23 Give n influenza virus vaccine, inactivated 05/20/22 Give n influenza virus vaccine, inactivated 11/09/21 Give n influenza virus vaccine, inactivated 03/10/20 Give n influenza virus vaccine, inactivated 04/06/18 Alfred rded hepatitis B adult vaccine 08/19/22 Given [id number] 12y+ bivalent booster vax 05/25/22 Recorded tetanus/diphtheria/pertussis, acel(Tdap) 02/17/22 Given tetanus/diphtheria/pertussis, acel(Tdap) 03/26/20 Given tetanus/diphtheria/pertussis, acel(Tdap) 12/26/06 Recorded tetanus/diphtheria/pertussis, acel(Tdap) 02/07/02 Recorded SARS-CoV-2 (COVID-19) mRNA-1273 vaccine 10/28/20 R ecorded SARS-CoV-2 (COVID-19) mRNA-1273 vaccine 09/30/20 R ecorded Measles/Mumps/Rubella Virus Vaccine 11/16/11 Recor ded Measles/Mumps/Rubella Virus Vaccine 09/02/93 Recor ded Measles/Mumps/Rubella Virus Vaccine 02/02/91 Recor ded Varicella Virus Vaccine 11/16/11 Recorded Hepatitis B Vaccine (old term) 03/31/11 [...] 01/16/23 9:54:00 EDT, Route to Pharmacy Electronically, [facility]/pharmacy #[id number], Partial fill upon patient request if the prescription is for a schedule II opioid drug.... Start Date: 01/16/23 Status: Ordered D-5000 125 MCG (5000 UT) TABS D-5000 125 MCG (5000 UT) TABS, 0 Refills, Maintenance, 11/27/23 13:25:00 EDT Start Date: 11/27/23 Status: Ordered liraglutide 18 mg/3 mL subcutaneous solution = 2.4 mg, Subcutaneous Injection, Daily, # 15 mL, 4 Refills, Maintenance, 09/07/24 17:22:00 EDT, Solution, [facility], Partial fill upon patient request if the prescription is for a schedule II opioid drug., 165, cm, 11/06/23 8:55:00... Start Date: 09/07/24 Stop Date: 12/01/25 Status: Ordered losartan 25 mg oral tablet 1 tablet = 25 mg, By Mouth, Daily, # 90 tablet, 0 Refills, Maintenance, 11/06/23 9:22:00 EDT, Tablet, [facility]/pharmacy #[id number], Partial fill upon patient request if the prescription is for a schedule II opioid drug., 165, cm, 11/06/23 8:55:00 EDT, Height, 9... Start Date: 11/06/23 Status: Ordered Medrol 4 mg oral tablet 1 pack/packet, By Mouth, Once, as directed on package labeling, # 21 tablet, 0 Refills, Soft Stop, 11/29/23 13:38:00 EDT, Tablet, [facility]/pharmacy #[id number], Partial fill upon patient request if the prescription is for a schedule II opioid drug., 165, cm, ... Start Date: 11/29/23 Status: Ordered Mirena 52 mg intrauterine device 1 each = 52 mg, Intrauterine, Once, # 1 each, 0 Refills, Soft Stop, 03/28/22 11:00:00 EDT, [facility], Partial fill upon patient request if the prescription is for a schedule II opioid drug., 166, cm, 03/21/22 8:47:00 EDT, Height, 10... Start Date: 03/28/22 Status: Ordered nabumetone 750 mg oral tablet 1 tablet = 750 mg, By Mouth, 2 times a day, PRN Pain , Moderate, with food, # 28 tablet, 0 Refills,Maintenance, 11/29/23 13:38:00 EDT, [facility]t, [id number], Partial fill upon patient request if the prescription is for a schedule II opioid drug.... Start Date: 11/29/23 Stop Date: 12/13/23 Status: Ordered NIFEdipine (Eqv-Procardia XL) 90 mg oral tablet, extended release 1 tablet, By Mouth, Daily, # 90 tablet, 1 Refills, Maintenance, 08/30/23 9:04:00 EDT, [facility], 165, cm, 05/04/23 12:10:00 EST, Height, 98, kg, 12/12/22 16:10:00 EDT, Dry Weight Start Date: 08/30/23 Status: Ordered omeprazole 40 mg oral enteric coated capsule 0 Refills, Maintenance, 11/27/23 13:24:00 EDT, Partial fill upon patient request if the prescription is for a schedule II opioid drug. Start Date: 11/27/23 Status: Ordered Pen [place], 31 G x 5 mm BD Ultra Fine III See Instructions, # 100 each, Refills 3, Tot. Refills 3, Maintenance, use to inject Victoza daily, 03/28/23 14:20:00 EDT, Supply, 165, cm, 03/16/23 10:56:00 EDT, Height, 98, kg, 12/12/22 16:10:00 EDT, Dry Weight Start Date: 03/28/23 Status: Ordered Super-Strength D-5000 oral tablet 0 Refills, Maintenance, 11/27/23 13:25:00 EDT, Partial fill upon patient request if the prescription is for a schedule II opioid drug. Start Date: 11/27/23 Status: Ordered Problem List Condition Confirmation Course Effective Dates Status Health St atus Informant Asthma Confirmed Active Chronic low back pain Confirmed Active Chronic hypertension Confirmed 2018 Active Obese class I Confirmed Active Social History Social History Type Response Smoking Status Never (less than 100 in lifetime) entered on: 10/13/21 Sex Radiology * Event Display: IR Special Procedures, Non- Authored Date: * Event Display: Ultrasound Abdomen, Non- Authored Date: * Event Display: X-Ray Chest, Non- Authored Date: Patient Care team information Care Team Personnel Name: Dean Hi NP Position: [facility] PCO Associate Professional Member Role: PCP Address: Address: [facility] [address]rd [place] [address]- [place] Care Team Related Persons Name: JILL HAMILTON Address: [id number] Address: home [address] [address] [place] Name: KARTIK HAMILTON Address: [address] Address: home [address] [place] [address] [place] Name: GIOVANY HAMILTON Address: home [address] [place] [address] Name: SAMMY WHARTON Address: home [address] [place] [address]
--- OUTSIDE RECORDS SUMMARY | 2024-02-07 06:07 | XMS_ITS | Continuity of Care Document ---
Author Organization [facility] Adult Address [address] [place] [address]- Care Team Providers Care Primary School Teacher Name Role Phone Mattie NOLAN, Kathy Mendoza Primary Care Physicia n Encounter [facility] [place](s): 06/28/21 - 07/28/21 [facility] Adult [address] [place] [address]- Attending Physician: AdmCiera cisneros Admitting Physician: Admtr, Ciera Referring Physician: Admtr, Ar8 Allergies, Adverse Reactions, [...] Mouth, Daily, # 90 tablet, 1 Refills, [facility], 165.5, cm, 02/01/21 14:07:00 EDT, Height, 94.9, kg, 01/01/21 18:12:00 EDT, Dry Weight Start Date: 06/09/21 Status: Ordered Multivitamins By Mouth, Daily, 0 Refills, Maintenance, 12/13/20 16:24:00 EDT, Partial fill upon patient request if the prescription is for a schedule II opioid drug. Start Date: 12/13/20 Status: Ordered Problem List Condition Effective Dates Status Health Status Inform ant Asthma(Confirmed) Active Chronic hypertension(Confirmed) 2018 Active Obese class II(Confirmed) Active Social History Social History Type Response Smoking Status Never (less than 100 in lifetime) entered on: 03/23/20 Sex
--- OUTSIDE RECORDS SUMMARY | 2024-02-07 06:07 | XMS_ITS | Continuity of Care Document ---
Author Organization [facility] Reynaldo [employer] Address [address], [address]t [place] [address]- Care Team Providers Care Senior Packaging Engineer Name Role Phone Mattie NOLAN, Kathy Mendoza Primary Care [facility]icia n [id number]20[facility] Calebmadelin HuffmanLightSail Energ[facility] [address], [address]th [place] [address]- Attending Physician: Braulio DODGE [OB], Latonia Pimentel Referring Physician: Edie Mccormick MD Polina Allergies, Adverse Reactions, Alerts Substance Reaction Severity Status penicillin hives Active Immunizations Given and Recorded Vaccine Date Status Refusal Reason influenza virus vaccine, inactivated 11/09/21 Give n influenza virus vaccine, inactivated 03/10/20 Give n influenza virus vaccine, inactivated 04/06/18 Alfred rded SARS-CoV-2 (COVID-19) mRNA-1273 vaccine 10/28/20 R ecorded SARS-CoV-2 (COVID-19) mRNA-1273 vaccine 09/30/20 R ecorded tetanus/diphtheria/pertussis, acel(Tdap) 03/26/20 Given Medications albuterol inhaler (OP) 0 Refills, Maintenance Start Date: 12/11/19 Status: Ordered Aspirin 81mg Aspirin 81mg, 0 Refills, Maintenance, 11/09/21 11:30:00 EDT Start Date: 11/09/21 Status: Ordered Monurol 3 g oral granule for reconstitution 1 each = 3 Gm, By Mouth, Once, # 3 each, 0 Refills, Soft Stop, 10/27/21 13:53:00 EDT, [facility]/pharmacy #[id number], Partial fill upon patient request if the prescription is for a schedule II opioid drug., 165.5, cm, 10/13/21 17:30:00 EDT, Height, 96.3, kg, 10/03... Start Date: 10/27/21 Status: Ordered NIFEdipine (Eqv-Procardia XL) 30 mg oral tablet, extended release 1 tablet, By Mouth, Daily, # 90 tablet, 1 Refills, [id number], 165.5, cm, 02/01/21 14:07:00 EDT, Height, 94.9, kg, 01/01/21 18:12:00 EDT, Dry Weight Start Date: 06/09/21 Status: Ordered Paxlovid 150 mg-100 mg oral tablet See Instructions, 300 mg nirmatrelvir(2 tablets) with 100 mg ritonavir(1 tablet). All 3 tablets taken together twice daily for 5 days, with or without food, # 30 tablet, 0 Refills, Maintenance, 10/12/21 14:50:00 EDT, [facility]/pharmacy #[id number], Partial fill... Start Date: 10/12/21 Status: Ordered Multivitamins By Mouth, Daily, 0 Refills, Maintenance, 12/13/20 16:24:00 EDT, Partial fill upon patient request if the prescription is for a schedule II opioid drug. Start Date: 12/13/20 Status: Ordered Problem List Condition Effective Dates Status Health Status Inform ant Abnormal chromosomal and gen etic finding on screening mother(Confirmed) Active Penicillin allergy(Confirmed) Active Asthma(Confirmed) Active COVID-19(Confirmed) 1 10/12/21 Active History of classical cesarea n section(Confirmed) Active History of poor growth(Confirmed) Active Chronic hypertension(Confirmed) 2018 Active Obese class II(Confirmed) Active (Confirmed) Active UTI symptoms(Confirmed) Active 1Problem added by Discern Expert Vital Signs Most recent to oldest [Reference Range]: 1 Height 165.5 cm (12/13/21 11:32 AM) Weight 96.33 kg (12/13/21 11:32 AM) Body Mass Index [18.5-24.99] 35.17 *>HHI* (12/13/21 11:32 AM) Blood Pressure [90-138/55-84 mm Hg] 122/ 86mm Hg (12/13/21 11:32 AM) Blood pressure sites Arm, right (12/13/21 11:32 AM) Weight Obtained Via Standing scale (12/13/21 11:32 AM) Social History Social History Type Response Smoking Status Never (less than 100 in lifetime) entered on: 10/13/21 Sex
--- OUTSIDE RECORDS SUMMARY | 2024-02-07 06:07 | XMS_ITS | Continuity of Care Document ---
Author Organization [facility] Caleb Jacobs n's [facility] Address [address], 4t [place] [address]- Care Team Providers Care Telephone Instrument Supervisor Name Role Phone Lazarus Chahal MD Primary Care [id number] - [facility]28/20 [facility] [place] HuffmanFle[facility] [address], [address] [place], [place] [address] Attending Physician: Shea Ruiz MD Referring Physician: Catarina Yu MD Allergies, Adverse Reactions, Alerts Substance Reaction Severity Status penicillin hives Active Immunizations Given and Recorded Vaccine Date Status Refusal Reason tetanus/diphtheria/pertussis, acel(Tdap) 03/26/20 Given influenza virus vaccine, inactivated 03/10/20 Give n Medications albuterol inhaler (OP) 0 Refills, Maintenance Start Date: 12/11/19 Status: Ordered Liletta 52 mg intrauterine device 1 each = 52 mg, Once, 0 Refills, Maintenance, 05/18/20 14:38:00 EST, Partial fill upon patient request if the prescription is for a schedule II opioid drug. Start Date: 05/18/20 Status: Ordered NIFEdipine 30 mg oral tablet, extended release 30 mg, 1, tablet, By Mouth, Daily, # 30 tablet, Refills 2, Tot. Refills 2, Maintenance, 05/18/20 14:26:00 EST, Route to Pharmacy Electronically, [facility] #[id number], 165, cm, 05/18/20 14:08:00 EST, Height, 98, kg, 03/24/20 9:28:00 EDT, Dry Weight Start Date: 05/18/20 Status: Ordered Problem List Condition Effective Dates Status Health Status Inform ant Asthma(Confirmed) Active Chronic hypertension(Confirmed) 2018 Active Encounter for IUD insertion(Confirmed) Active exam(Confirmed) Active Severe preeclampsia(Confirmed) Active Social History Social History Type Response Smoking Status Never (less than 100 in lifetime) entered on: 03/23/20 Sex
--- OUTSIDE RECORDS SUMMARY | 2024-02-07 06:07 | XMS_ITS | Continuity of Care Document ---
Author Organization [facility] Reynaldo [facility] [facility] Address [address], [address]t [place] [address]- Care Team Providers Care Soap Inspector Name Role Phone [place]ton FACILITATOR, Dean Adame [id number] 12/[facility] - [facility]30/[facility] [employer] [facility] [address], 4[address] [place], [place] [address] Attending Physician: Catarina Yu MD Referring Physician: Edie Mccormick MD Polina Allergies, Adverse Reactions, Alerts Substance Reaction Severity Status penicillin hives Active Immunizations Given and Recorded Vaccine Date Status Refusal Reason tetanus/diphtheria/pertussis, acel(Tdap) 02/17/22 Given tetanus/diphtheria/pertussis, acel(Tdap) 03/26/20 Given influenza virus vaccine, inactivated 11/09/21 Give n influenza virus vaccine, inactivated 03/10/20 Give n influenza virus vaccine, inactivated 04/06/18 Alfred rded SARS-CoV-2 (COVID-19) mRNA-1273 vaccine 10/28/20 R ecorded SARS-CoV-2 (COVID-19) mRNA-1273 vaccine 09/30/20 R ecorded Medications albuterol inhaler (OP) 0 Refills, Maintenance Start Date: 12/11/19 Status: Ordered Mirena 52 mg intrauterine device 1 each = 52 mg, Intrauterine, Once, # 1 each, 0 Refills, Soft Stop, 03/28/22 11:00:00 EDT, [facility], Partial fill upon patient request if the prescription is for a schedule II opioid drug., 166, cm, 03/21/22 8:47:00 EDT, Height, 10... Start Date: 03/28/22 Status: Ordered naphazoline 0.012% ophthalmic gel forming solution 2 drops, Eyes, Both, 4 times a day, # 15 mL, 0 Refills, Maintenance, 04/07/22 9:35:00 EDT, Solution, [facility]/pharmacy #[id number], Partial fill upon patient request if the prescription is for a schedule II opioid drug., 2 drops Eyes, Both 4 times a day, 165, cm... Start Date: 04/07/22 Status: Ordered NIFEdipine (Eqv-Procardia XL) 30 mg oral tablet, extended release 1 tablet = 30 mg, By Mouth, Daily, # 90 tablet, 0 Refills, Maintenance, 03/17/22 14:21:00 EDT, ER Tablet, [facility]/pharmacy #[id number], Partial fill upon patient request if the prescription is for a schedule II opioid drug., 166, cm, 03/15/22 15:20:00 EDT, [facility]... Start Date: 03/17/22 Status: Ordered Multivitamins By Mouth, Daily, 0 Refills, Maintenance, 12/13/20 16:24:00 EDT, Partial fill upon patient request if the prescription is for a schedule II opioid drug. Start Date: 12/13/20 Status: Ordered Problem List Condition Confirmation Course Effective Dates Status Health St atus Informant Asthma Confirmed Active Chronic hypertension Confirmed 2018 Active Obese class I Confirmed Active exam Confirmed Active Wound infection after surgery Confirmed Active Social History Social History Type Response Smoking Status Never (less than 100 in lifetime) entered on: 10/13/21 Sex Patient Care team information Care Team Personnel Name: Dean Hi NP Position: S PCO Associate Professional Member Role: PCP Address: Address: [address] [place] [address] 3rd [place] [address]- Care Team Related Persons Name: KARTIK HAMILTON Address: Address: [address] [address] Name: GIOVANY HAMILTON Address: home [address] [address] Name: SAMMY WHARTON Address: home [address] [place] [address] Name: KAVITA URIAS Address: Address: [address] [address]
--- OUTSIDE RECORDS SUMMARY | 2024-02-07 06:07 | XMS_ITS | Continuity of Care Document ---
Author Organization [facility] ter Address [address] [place] [address]- Care Team Providers Care Media Law Faculty Member Name Role Phone Lazarus Chahal MD Primary Care Physician En[place] [facility] Date(s): 03/23/20 - 03/29/[address] [address]- [facility] Discharge Disposition: A-D/C Home Attending Physician: Shea Ruiz MD Admitting Physician: Shea Ruiz MD Referring Physician: Shea Ruiz MD Allergies, Adverse Reactions, Alerts Substance Reaction Severity Status penicillin hives Active Immunizations Given and Recorded Vaccine Date Status Refusal Reason tetanus/diphtheria/pertussis, acel(Tdap) 03/26/20 Given influenza virus vaccine, inactivated 03/10/20 Give n Medications Acetaminophen 0 Refills, Maintenance, 03/10/20 17:11:00 EDT Start Date: 03/10/20 Status: Ordered acetaminophen 325 mg oral tablet 650 mg, By Mouth, Every 4 hours, (1-3), may give 325mg per patient preference and re-dose with 325mg within 4 hours if needed. Patient should only receive a total of 650mg of Acetaminophen every 4 hours., # 50 tablet, Refills 0, Tot. Refills 0, Main... Start Date: 03/29/20 Status: Ordered albuterol inhaler (OP) 0 Refills, Maintenance Start Date: 12/11/19 Status: Ordered aspirin 81 mg oral delayed release tablet 162 mg, 2, tablet, By Mouth, Daily, # 90 tablet, Refills 6, Tot. Refills 6, Maintenance, 02/26/20 16:20:00 EDT, Route to Pharmacy Electronically, [facility] #[id number], 165, cm, 02/06/20 14:42:00 EDT, Height, 94.8, kg, 02/12/20 16:09:00 EDT, Dry... Start Date: 02/26/20 Status: Ordered ibuprofen 800 mg oral tablet 800 mg, 1, tablet, By Mouth, Every 8 hours, # 40 tablet, Refills 0, Tot. Refills 0, Maintenance, 03/29/20 11:06:00 EDT, Route to Pharmacy Electronically, [facility] #[id number], 165, cm, 03/28/20 9:11:00 EDT, Height, 98, kg, 03/24/20 9:28:00 EDT,... Start Date: 03/29/20 Status: Ordered NIFEdipine 30 mg oral tablet, extended release 30 mg, 1, tablet, By Mouth, Daily, # 30 tablet, Refills 0, Tot. Refills 0, Maintenance, 03/29/20 11:07:00 EDT, Route to Pharmacy Electronically, [facility] #[id number], 165, cm, 03/28/20 9:11:00EDT, Height, 98, kg, 03/24/20 9:28:00 EDT, Dry Weight Start Date: 03/29/20 Status: Ordered oxyCODONE 5 mg oral tablet 5 mg, 1, tablet, By Mouth, Every 3 hours, PRN, (7-10), # 7 tablet, Refills 0, Tot. Refills 0, Maintenance, Pain , Severe, 03/29/20 11:07:00 EDT, Route to Pharmacy Electronically, [facility][id number], Partial fill upon patient request, 165, cm,... Start Date: 03/29/20 Status: Ordered simethicone 80 mg oral tablet, chewable 80 mg, Chew, 3 times a day, PRN, # 12 tablet, Refills 0, Tot. Refills 0, Maintenance, Gas, 03/29/2011:07:00 EDT, Route to Pharmacy Electronically, [facility] #[id number], 165, cm, 03/28/20 9:11:00 EDT, Height, 98, kg, 03/24/20 9:28:00 EDT, Dry W... Start Date: 03/29/20 Status: Ordered Problem List Condition Effective Dates Status Health Status Inform ant Bleeding in early (Confirmed) Active Asthma(Confirmed) Active Chronic hypertension(Confirmed) 2018 Active Procedures Procedure Date Related Diagnosis Body Site Status delivery only; 03/25/20 C ompleted Vital Signs Most recent to oldest [Reference Range]: 1 2 3 4 Height 165 cm (03/28/20 9:11 AM) 165 cm (03/26/20 11:33 PM) 165 cm (03/24/20 2:15 AM) Weight 98.4 kg (03/24/20 12:59 PM) 98 kg (03/24/20 2:15 AM) 98 kg (03/23/20 8:52 PM) Oxygen Saturation [94-100 %] 98 % (03/27/20 4:41 PM) 100 % (03/27/20 8:39 AM) 99 % (03/26/20 6:30 PM) Pulse Rate [55-90 bpm] 16 bpm *L* (03/25/20 1:30 PM) 20 bpm *L* (03/25/20 11:30 AM) 73 bpm (03/24/20 2:15 AM) Body Mass Index [18.5-24.99] 36 *>HHI* (03/24/20 2:15 AM) Blood Pressure [90-138/55-84 mm Hg] 158/92mm Hg *H* (03/29/20 12:55 PM) 147/97mm Hg *H* (03/29/20 10:00 AM) 146/93mm Hg *H* (03/29/20 8:00 AM) Respiratory Rate [16-30 br/min] 18 br/min (03/29/20 9:03 AM) 18 br/min (03/29/20 9:03 AM) 18 br/min (03/28/20 8:32 PM) 18 br/min (03/28/20 8:32 PM) Temperature [96.8-100.4 DegF] 97.9 DegF (03/29/20 8:00 AM) 98.3 DegF (03/28/20 1:20 PM) 98.2 DegF (03/27/20 4:41 PM) Mode of Delivery (Oxygen) Room air (03/27/20 10:50 PM) Room air (03/27/20 9:52 PM) Room air (03/27/20 4:41 PM) Blood pressure sites Arm, left (03/25/20 8:44 PM) Arm, left (03/25/20 8:15 PM) Arm, left (03/25/20 8:00 PM) Temperature Route Axillary (03/29/20 8:00 AM) Axillary (03/28/20 1:20 PM) Oral (03/26/20 9:00 AM) Dry Weight 98 kg (03/24/20 2:15 AM) Weight Obtained Via Standing scale (03/24/20 12:59 PM) Patient/family stated (03/24/20 2:15 AM) Standing scale (03/23/20 11:31 AM) Social History Social History Type Response Smoking Status Never (less than 100 in lifetime) entered on: 03/23/20 Sex
--- OUTSIDE RECORDS SUMMARY | 2024-02-07 06:07 | XMS_ITS | Continuity of Care Document ---
Author Organization [employer] Address [address], 4t [place] [address]- Care Team Providers Care Stroboroma Operator Name Role Phone Mattie NOLAN, Kathy Mendoza Primary Care Physicia n [id number] Date[facility]/12/21 - 05/12/21 [facility]bmadelin [facility]Specialty[facility] [address], [address] [place], [place] [address] Allergies, Adverse Reactions, Alerts Substance Reaction Severity [...] Maintenance Start Date: 12/11/19 Status: Ordered NIFEdipine 30 mg oral tablet, extended release 30 mg, 1, tablet, By Mouth, Daily, # 30 tablet, Refills 5, Tot. Refills 5, Maintenance, 12/10/20 15:18:00 EDT, Route to Pharmacy Electronically, [facility]/pharmacy #[id number], 165.5, cm, 11/19/20 15:50:00 EDT, Height, 98, [...]
--- OUTSIDE RECORDS SUMMARY | 2024-02-07 06:07 | XMS_ITS | Continuity of Care Document ---
Author Organization [facility] Address [address] [place] [address]- Care Team Providers Care Holistic Nutritionist Name Role Phone Mattie NOLAN, Kathy Mendoza Primary Care Physicia n Encounter [facility] ACCT R [id number] Date(s): 11/19/20 - 11/26/20 [facility] [address] [place] [address]- [place] Encounter Diagnosis Chronic hypertension(Discharge Diagnosis) - 11/19/20 Attending Physician: Mattie NOLAN, Kathy Mendoza Allergies, Adverse Reactions, Alerts Substance Reaction Severity [...] By Mouth, Daily, # 30 tablet, Refills 3, Tot. Refills 3, Maintenance, 09/02/20 13:37:00 EDT, Route to Pharmacy Electronically, [facility]/pharmacy #[id number], 165, cm, 09/01/20 16:54:00 EDT, Height, 98, kg, 03/24/20 9:28:00 EDT, Dry Weight Start Date: 09/02/20 Status: Ordered Problem List Condition Effective Dates Status Health Status Inform ant Asthma(Confirmed) Active Chronic hypertension(Confirmed) 2018 Active Diagnosis Diagnosis Type Effective Dates Health Status Clinical Service Informant Chronic hypertension Discharge Diagnosis 11/19/20 Vital Signs Most recent to oldest [Reference Range]: 1 Height 165.5 cm (11/19/20 3:50 PM) Weight 94.8 kg (11/19/20 3:50 PM) Oxygen Saturation [94-100 %] 100 % (11/19/20 3:50 PM) Pulse Rate [55-90 bpm] 83 bpm (11/19/20 3:50 PM) Body Mass Index [18.5-24.99] 34.61 *>HHI* (11/19/20 3:50 PM) Blood Pressure [90-138/55-84 mm Hg] 128/ 83mm Hg (11/19/20 3:50 PM) Mode of Delivery (Oxygen) Room air (11/19/20 3:50 PM) Blood pressure sites Arm, left (11/19/20 3:50 PM) Weight Obtained Via Standing scale (11/19/20 3:50 PM) Social History Social History Type Response Smoking Status Never (less than 100 in lifetime) entered on: 03/23/20 Sex
--- OUTSIDE RECORDS SUMMARY | 2024-02-07 06:07 | XMS_ITS | Continuity of Care Document ---
Author Organization [facility] Caleb smithmaurisio [facility] Address [address], 4t [place] [address]- Care Team Providers Care Educational Diagnostician Name Role Phone Mattie NOLAN, Kathy Mendoza Primary Care Physicia n Encounter [facility] [place] Date(s): 09/04/20 - 12/19/20 [facility] Caleb Guillorys [facility] [address], 4th [place] [address]- Attending Physician: Not on Staff, Attending MD Referring Physician: Not on Staff, Referring [...] 12/09/20 16:13:00 EDT, Route to Pharmacy Electronically, [facility]/pharmacy #[id number], Partial fill upon patient requestif the prescription is for a schedule II opioid edgar... Start Date: 12/09/20 Stop Date: 07/07/21 Status: Ordered NIFEdipine 30 mg oral tablet, extended release 30 mg, 1, tablet, By Mouth, Daily, # 30 tablet, Refills 5, Tot. Refills 5, Maintenance, 12/10/20 15:18:00 EDT, Route to Pharmacy Electronically, [facility]/pharmacy #[id number], 165.5, cm, 11/19/20 15:50:00 EDT, Height, [...]
--- OUTSIDE RECORDS SUMMARY | 2024-02-07 06:07 | XMS_ITS | Continuity of Care Document ---
Author Organization [facility]aleb [facility] Address [address], [address]t [place] [address]- Care Team Providers Care Senior Security Analyst Name Role Phone Mattie NOLAN, Kathy Mendoza Primary Care Physicia n Encounter [facility] Date(s): 11/03/20 - 11/10/20 [facility]The [facility] [address], [address]th [place] [address]- Attending Physician: Braulio DODGE [OB], Latonia Pimentel Referring Physician: Mattie NOLAN, Kathy Mendoza Allergies, Adverse Reactions, Alerts Substance Reaction Severity Status penicillin hives Active Immunizations Given and Recorded Vaccine Date Status Refusal Reason SARS-CoV-2 (COVID-19) mRNA-1273 vaccine 10/28/20 R ecorded SARS-CoV-2 (COVID-19) mRNA-1273 vaccine 09/30/20 R ecorded tetanus/diphtheria/pertussis, acel(Tdap) 03/26/20 Given influenza virus vaccine, inactivated 03/10/20 Give n influenza virus vaccine, inactivated 04/06/18 Alferd rded Medications albuterol inhaler (OP) 0 Refills, Maintenance Start Date: 12/11/19 Status: Ordered NIFEdipine 30 mg oral tablet, extended release 30 mg, 1, tablet, By Mouth, Daily, # 30 tablet, Refills 3, Tot. Refills 3, Maintenance, 09/02/20 13:37:00 EDT, Route to Pharmacy Electronically, [facility]/pharmacy #[id number], 165, cm, 09/01/20 16:54:00 EDT, Height, 98, kg, 03/24/20 9:28:00 EDT, Dry Weight Start Date: 09/02/20 Status: Ordered Problem List Condition Effective Dates Status Health Status Inform ant Asthma(Confirmed) Active Chronic hypertension(Confirmed) 2018 Active Vital Signs Most recent to oldest [Reference Range]: 1 Height 165 cm (11/03/20 12:13 PM) Blood Pressure [90-138/55-84 mm Hg] 140/ 89mm Hg *H* (11/03/20 12:13 PM) Blood pressure sites Arm, right (11/03/20 12:13 PM) Social History Social History Type Response Smoking Status Never (less than 100 in lifetime) entered on: 03/23/20 Sex
--- OUTSIDE RECORDS SUMMARY | 2024-02-07 06:07 | XMS_ITS | Continuity of Care Document ---
Author Organization [facility] Adult Address [address] [place] [address]- Care Team Providers Care End Trimmer Name Role Phone Lazarus Chahal MD Primary Care Physician [phone] Encounter [facility] Date(s): 07/21/20 - 08/20/20 [facility] [address] [place] [address]- Allergies, Adverse Reactions, Alerts Substance Reaction Severity [...] 05/18/20 14:26:00 EST, Route to Pharmacy Electronically, [facility] #[id number], 165, cm, 05/18/20 14:08:00 EST, Height, 98, kg, 03/24/20 9:28:00 EDT, Dry Weight Start Date: 05/18/20 Status: Ordered Problem List Condition Effective Dates Status Health Status Inform ant Asthma(Confirmed) Active Chronic hypertension(Confirmed) 2018 Active Social History Social History Type Response Smoking Status Never (less than 100 in lifetime) entered on: 03/23/20 Sex
--- OUTSIDE RECORDS SUMMARY | 2024-02-07 06:07 | XMS_ITS | Continuity of Care Document ---
Author Organization [facility] ter Address [address] [place] [address]- Care Team Providers Care Production Quality Manager Name Role Phone Mattie NOLAN, Kathy Mendoza Primary Care Physicia n [place] [facility] [place] 12[place]13/20 - 12/13/[address] [address] Discharge Disposition: A-D/C Home Attending Physician: Geovanna Ocampo DO Admitting Physician: Geovanna Ocampo DO Referring Physician: Geovanna Ocampo DO Allergies, Adverse Reactions, Alerts Substance Reaction Severity [...] EDT, Route to Pharmacy Electronically, [facility]/pharmacy #[id number], Partial fill upon patient requestif the prescription [...] recent to oldest [Reference Range]: 1 2 Weight 96.3 kg (12/13/20 4:03 PM) Oxygen Saturation [94-100 %] 100 % (12/13/20 4:03 PM) Pulse Rate [55-90 bpm] 92 bpm *H* (12/13/20 4:21 PM) 102 bpm *H* (12/13/20 4:03 PM) Blood Pressure [90-138/55-84 mm Hg] 130/ 84mm Hg (12/13/20 4:21 PM) 129/97mm Hg (12/13/20 4:03 PM) Respiratory Rate [16-30 br/min] 18 br/mi n (12/13/20 4:21 PM) 18 br/min (12/13/20 4:03 PM) Temperature [96.8-100.4 DegF] 98.2 DegF (12/13/20 4:03 PM) Mode of Delivery (Oxygen) Room air (12/13/20 4:03 PM) Blood pressure sites Arm, right (12/13/20 4:21 PM) Arm, left 1 (12/13/20 4:03 PM) Temperature Route Oral (12/13/20 4:03 PM) Dry Weight 96.3 kg (12/13/20 4:03 PM) Weight Obtained Via Standing scale (12/13/20 4:03 PM) Dry Weight Obtained Via Standing scale (12/13/20 4:03 PM) 1Result Comment: left arm measured at 36cm Social History Social History Type Response Smoking Status Never (less than 100 in lifetime) entered on: 03/23/20 Sex
--- OUTSIDE RECORDS SUMMARY | 2024-02-07 06:07 | XMS_ITS | Continuity of Care Document ---
Author Organization [facility] smithKay[facility] [employer] Address [address], 4t [place] [address]- Care Team Providers Care Capacity Planning Engineer Name Role Phone Mattie NOLAN, Kathy Mendoza Primary Care Physicia n [id number]): [facility] [address], 4th [address] [place], [place] [address] Attending Physician: Not on Staff, Attending MD Referring Physician: Melanie Sanchez MD Allergies, Adverse Reactions, Alerts Substance Reaction [...] 0 Refills, Soft Stop, 10/27/21 13:53:00 EDT, [facility]/pharmacy #[id number], Partial fill upon patient request if the prescription is for a schedule II opioid drug., 165.5, cm, 10/13/21 17:30:00 EDT, Height, 96.3, kg, 10/03... Start Date: 10/27/21 Status: Ordered NIFEdipine (Eqv-Procardia XL) 30 mg oral tablet, extended release 1 tablet, By Mouth, Daily, # 90 tablet, 1 Refills, [id number], 165.5, cm, 02/01/21 14:07:00 EDT, Height, 94.9, kg, 01/01/21 18:12:00 EDT, Dry Weight Start Date: 06/09/21 Status: Ordered Paxlovid 150 mg-100 mg oral tablet See Instructions, 300 mg nirmatrelvir(2 tablets) with 100 mg ritonavir(1 tablet). All 3 tablets taken together twice daily for 5 days, with or without food, # 30 tablet, 0 Refills, Maintenance, 10/12/21 14:50:00 EDT, [facility]/pharmacy #[id number], Partial fill... Start Date: 10/12/21 Status: Ordered Multivitamins By Mouth, Daily, 0 Refills, Maintenance, 12/13/20 16:24:00 EDT, Partial fill upon patient request if the prescription is for a schedule II opioid drug. Start Date: 12/13/20 Status: Ordered Problem List Condition Effective Dates Status Health Status Inform ant Asthma(Confirmed) Active COVID-19(Confirmed) 1 10/12/21 Active Chronic hypertension(Confirmed) 2018 Active Obese class I(Confirmed) Active 1Problem added by Discern Expert Social History Social History Type Response Smoking Status Never (less than 100 in lifetime) entered on: 10/13/21 Sex
--- OUTSIDE RECORDS SUMMARY | 2024-02-07 06:07 | XMS_ITS | Continuity of Care Document ---
Author Organization [facility] Address [address], 4t [place] [address]- Care Team Providers Care Rn Integrity Name Role Phone Kolton NOLAN, Dean Adame Primary Care Physician [phone] [place] [facility] [place] 03/28[place]22 [facility] Caleb Guillorys [facility] [address], [address]th [address] [place], [place] [address] Attending Physician: Kin DODGE, Nga Pate Allergies, Adverse Reactions, Alerts Substance Reaction Severity [...] Refills, Maintenance Start Date: 12/11/19 Status: Ordered Bactrim 400 mg-80 mg oral tablet 1 tablet, By Mouth, 2 times a day, # 14 tablet, 0 Refills, Acute 04/08/22 19:21:00 EDT, 03/17/22 19:21:00 EDT, Tablet, [id number], Partial fill upon patient request if the prescription is fora schedule II opioid drug., 1 tablet By Mouth 2 gualberto... Start Date: 03/17/22 Stop Date: 04/08/22 Status: Ordered ibuprofen 600 mg oral tablet 600 mg, 1, tablet, By Mouth, 4 times a day, # 40 tablet, Refills 0, Tot. Refills 0, Maintenance, 02/26/22 8:34:00 EDT, Route to Pharmacy Electronically, [facility]/pharmacy #[id number], Partial fill upon patient request if the prescription is for a schedule II opi... Start Date: 02/26/22 Status: Ordered MiraLax oral powder for reconstitution = 17 Gm, By Mouth, Daily, dissolve in water before taking, # 255 Gm, 0 Refills, Maintenance, 02/26/22 8:34:00 EDT, REC Powder, [id number], Partial fill upon patient request if the prescription is for a schedule II opioid drug., 17 Gm By Mouth... Start Date: 02/26/22 Status: Ordered Mirena 52 mg intrauterine device 1 each = 52 mg, Intrauterine, Once, # 1 each, 0 Refills, Soft Stop, 03/28/22 11:00:00 EDT, [facility], Partial fill upon patient request if the prescription is for a schedule II opioid drug., 166, cm, 03/21/22 8:47:00 EDT, Height, 10... Start Date: 03/28/22 Status: Ordered NIFEdipine (Eqv-Procardia XL) 30 mg oral tablet, extended release 1 tablet = 30 mg, By Mouth, Daily, # 90 tablet, 0 Refills, Maintenance, 03/17/22 14:21:00 EDT, ER Tablet, [facility]/pharmacy #[id number], Partial fill upon patient request if the prescription is for a schedule II opioid drug., 166, cm, 03/15/22 15:20:00 EDT, Heig... Start Date: 03/17/22 Status: Ordered NIFEdipine 30 mg oral tablet, extended release 30 mg, 1, tablet, By Mouth, Daily, # 90 tablet, Refills 0, Tot. Refills 0, Maintenance, 02/26/22 8:34:00 EDT, Route to Pharmacy Electronically, [facility]/pharmacy #[id number], Partial fill upon patient request if the prescription is for a schedule II opioid drug.... Start Date: 02/26/22 Status: Ordered Multivitamins By Mouth, Daily, 0 Refills, Maintenance, 12/13/20 16:24:00 EDT, Partial fill upon patient request if the prescription is for a schedule II opioid drug. Start Date: 12/13/20 Status: Ordered Tylenol 325 mg oral tablet 650 mg, 2, tablet, By Mouth, Every 4 hours, PRN, # 40 tablet, Refills 0, Tot. Refills 0, Maintenance, for pain, 02/26/22 8:34:00 EDT, Route to Pharmacy Electronically, [facility]/pharmacy #[id number], Partial fill upon patient request if the prescription is for a... Start Date: 02/26/22 Status: Ordered Problem List Condition Confirmation Course Effective Dates Status Health St atus Informant Abnormal chromosomal and genetic finding on screening mother Confirmed Active Penicillin allergy Confirmed Active Asthma Confirmed Active COVID-19 1 Confirmed 10/12/21 Active History of classical section Confirmed Active History of poor growth Confirmed Active Chronic hypertension Confirmed 2018 Active Obese class II Confirmed Active Wound infection after surgery Confirmed Active 1Problem added by Discern Expert Vital Signs Most recent to oldest [Reference Range]: 1 Height 166 cm (03/21/22 8:47 AM) Weight 98.18 kg (03/21/22 8:47 AM) Body Mass Index [18.5-24.99 kg/m2] 35.63 kg/m2 *>HHI* (03/21/22 8:47 AM) Blood Pressure [90-138/55-84 mm Hg] 120/ 90mm Hg (03/21/22 8:47 AM) Blood pressure sites Arm, left (03/21/22 8:47 AM) Weight Obtained Via Standing scale (03/21/22 8:47 AM) Social History Social History Type Response Smoking Status Never (less than 100 in lifetime) entered on: 10/13/21 Sex Patient Care team information Personnel Name: Dean Hi NP Address: Address: [address]rd floor [place], [place] [address]
--- OUTSIDE RECORDS SUMMARY | 2024-02-07 06:07 | XMS_ITS | Continuity of Care Document ---
Author Organization [facility] [employer] Address [address], [address]t [place] [address]- Care Team Providers Care Bisque Ware Dipper Name Role Phone Mattie NOLAN, Kathy Mendoza Primary Care Physicia n En[place] [facility] [place] Date(s): 02/01/21 - 03/03/21 [facility] [employer] [address], [address]th [address] [place], [place] [address] Attending Physician: AdmCiera cisneros Admitting Physician: AdmtrCiera [...] 12/10/20 15:18:00 EDT, Route to Pharmacy Electronically, [facility]/pharmacy #[id number], 165.5, cm, 11/19/20 15:50:00 EDT, [...]
--- OUTSIDE RECORDS SUMMARY | 2024-02-07 06:07 | XMS_ITS | Continuity of Care Document ---
Author Organization [facility] Address [address] [place] [address]- Care Team Providers Care Associate Professor Of Forestry Name Role Phone Dean Hi NP Primary Care Physician [place] [facility] [place](s): 01/16/23 - 01/23/23 [facility] [address] [place] [address]- Encounter Diagnosis Low back pain(Discharge Diagnosis) - 01/16/23 Severe obesity (BMI 35.0-39.9) with comorbidity(Discharge Diagnosis) - 01/16/23 Chronic hypertension(Discharge Diagnosis) - 01/16/23 Asthma(Discharge Diagnosis) - 01/16/23 Attending Physician: Not on Staff, Attending MD Allergies, Adverse Reactions, Alerts Substance Reaction Severity Status penicillin hives Active Immunizations Given and Recorded Vaccine Date Status Refusal Reason hepatitis B adult vaccine 08/19/22 Given [id number] 12y+ bivalent booster vax 05/25/22 Recorded influenza virus vaccine, inactivated 05/20/22 Give n influenza virus vaccine, inactivated 11/09/21 Give n influenza virus vaccine, inactivated 03/10/20 Give n influenza virus vaccine, inactivated 04/06/18 Alfred rded tetanus/diphtheria/pertussis, acel(Tdap) 02/17/22 Given tetanus/diphtheria/pertussis, acel(Tdap) 03/26/20 [...] 01/16/23 9:54:00 EDT, Route to Pharmacy Electronically, [facility]/pharmacy #[id number], Partial fill upon patient request if the prescription is for a schedule II opioid drug.... Start Date: 01/16/23 Status: Ordered Mirena 52 mg intrauterine device 1 each = 52 mg, Intrauterine, Once, # 1 each, 0 Refills, Soft Stop, 03/28/22 11:00:00 EDT, [facility], Partial fill upon patient request if the prescription is for a schedule II opioid drug., 166, cm, 03/21/22 8:47:00 EDT, Height, 10... Start Date: 03/28/22 Status: Ordered naproxen 500 mg oral tablet 1 tablet = 500 mg, By Mouth, 2 times a day, PRN Pain , Moderate, for 14 days, with food, # 28 tablet, 0 Refills, Acute 01/30/23 9:53:00 EDT, 01/16/23 9:53:00 EDT, Tablet, [id number], Partial fill upon patient request if the prescription is for... Start Date: 01/16/23 Stop Date: 01/30/23 Status: Ordered NIFEdipine (Eqv-Procardia XL) 90 mg oral tablet, extended release 1 tablet = 90 mg, By Mouth, Daily, # 90 tablet, 1 Refills, Maintenance, 08/03/22 16:35:00 EST, [id number], Partial fill upon patient request if the prescription is for a schedule II opioid drug., 165, cm, 08/03/22 16:33:00 EST, Height, 96.6, k... Start Date: 08/03/22 Status: Ordered Multivitamins By Mouth, Daily, 0 Refills, Maintenance, 12/13/20 16:24:00 EDT, Partial fill upon patient request if the prescription is for a schedule II opioid drug. Start Date: 12/13/20 Status: Ordered Problem List Condition Confirmation Course Effective Dates Status Health St atus Informant Asthma Confirmed Active Chronic hypertension Confirmed 2018 Active Severe obesity (BMI 35.0-39.9) with comorbidity Confirmed Active Diagnosis Diagnosis Type Effective Dates Health Status Clinical Service Informant Low back pain Discharge Diagnosis 01/16/23 Severe obesity (BMI 35.0-39.9) with comorbidity Discharge Diagnosis 01/16/23 Chronic hypertension Discharge Diagnosis 01/16/23 Asthma Discharge Diagnosis 01/16/23 Vital Signs Most recent to oldest [Reference Range]: 1 2 Height 165 cm (01/16/23 10:39 AM) 165 cm (01/16/23 9:15 AM) Weight 103.5 kg (01/16/23 9:15 AM) Oxygen Saturation [94-100 %] 100 % (01/16/23 9:15 AM) Pulse Rate [55-90 bpm] 85 bpm (01/16/23 10:39 AM) 109 bpm *H* (01/16/23 9:15 AM) Body Mass Index [18.5-24.99 kg/m2] 38.02 kg/m2 *>HHI* (01/16/23 9:15 AM) Blood Pressure [90-138/55-84 mm Hg] 135/ 82mm Hg (01/16/23 9:15 AM) Temperature [96.8-100.4 DegF] 98.6 DegF (01/16/23 9:15 AM) Mode of Delivery (Oxygen) Room air (01/16/23 9:15 AM) Blood pressure sites Arm, left (01/16/23 9:15 AM) Temperature Route Oral (01/16/23 9:15 AM) Weight Obtained Via Standing scale (01/16/23 9:15 AM) Social History Social History Type Response Smoking Status Never (less than 100 in lifetime) entered on: 10/13/21 Sex Consult note * Zainab Rosas RN: PERFORM, SIGN, VERIFY Event Display: Consult Authored Date: Patient: KAVITA URIAS Age: 33 years Sex: Female : 1990 Associated Diagnoses: None Author: Zainab Rosas RN Visit Information Referral Request: Non-Surgical. Referring Physician: Dean Hi NP. Results Review Pain Location Low back pain How long have you had pain Ongoing Pain the result of an injury ? Cleaning Fridge Numbness present No Weakness present No Pain Assessment 0-10 Scale Worst pain in last 2 weeks9. Least pain in last 2 weeks6. Aggravating activities Sitting Alleviating activities None specific Loss of bowel/bladder control No Previous Radiology Studies X-Ray Lumbar xray 01/16/23 [facility] Previous Treatments Physical Therapy Treatment effectiveNONE Previous back/neck surgery Yes Apr 2019 Medications used for pain control Ibuprofen Tylenol Note * Tsering Newell: PERFORM, SIGN, VERIFY Event Display: Patient Education/Instruction Authored Date: [id number] [facility] Clinical Summary Name KAVITA URIAS Age 33 Years 1990 PCP eDan Hi NP PCP Visit Date 01/16/2023 08:54:00 Additional Instructions: Scheduled Appointments?? Future Appointments ?*[facility] ?[address],??[address] ?Phone:??--?Fax:??-- ?Appt. Date:??03/16/2023?10:40 AM ?Scheduled Provider:??Dean Hi NP Follow-Up Instructions ?? Diagnosis Unspecified asthma, uncomplicated; Essential (primary) hypertension; Low back pain, unspecified; Morbid (severe) obesity due to excess calories Medications: Please continue your medications until treatment is completed or stopped by your provider. Discuss any questions related to medications with your provider. New Medications [facility]/pharmacy #[id number], [address] [place], [place] [phone], [phone] Naproxen (naproxen 500 mg oral tablet) 1 tab(s) Oral twice a day as needed Pain , Moderate for 14 Days. with food. Refills: 0. Next Dose: Medications to Continue Taking That Have [facility]anged [id number], [address] [place], [place] [phone], [phone] - Aspirin (aspirin 81 mg oral delayed release tablet) 1 tab(s) Oral Daily. Refills: 3. Next Dose: Medications to Continue with No Changes These medications were not printed or sent to your pharmacy Albuterol (albuterol inhaler (OP)) Next Dose: Levonorgestrel (Mirena 52 mg intrauterine device) 1 Each Intrauterine once. Refills: 0. Next Dose: Multivitamin, ( Multivitamins) Oral Daily. Next Dose: NIFEdipine (NIFEdipine (Eqv-Procardia XL) 90 mg oral tablet, extended release) 1 tab(s) Oral Daily.Refills: 1. Next Dose: No Longer Take the Following Medications Naphazoline Ophthalmic (naphazoline 0.012% ophthalmic gel forming solution) 2 Drops Both eyes 4 times a day. Refills: 0. Allergy Info:?? penicillin Medications Given This Visit Future Orders ?Lumbar Spine 2 or 3 Views? Order Date:01/16/23?- Complete on or after?01/16/23 Vital Signs Height 165 cm Weight 103.5 kg BMI 38.02 kg/m2 Blood Pressure 135 mm Hg/82 mm Hg Temperature 98.6 DegF Pulse Rate 85 bpm Respiratory Rate 02 Sat Mode of Delivery 100 %/Room air You can now view a summary of your hospital visit from the comfort of your home through a free online portal called uControl. [employer]Control is a website that allows you to securely view your medical information including discharge summary, medications and follow-up visits. ??You can alsosend a secure electronic message to your doctor???s office to request appointments, renew medications or just ask a question. You can enroll at [email or web address] or register during your next office visit. Disclaimer:?? The information provided is of a general nature and is intended to be used in conjunction with the recommendations and advice of your health care practitioner. ??Every effort has been made to ensure that the information provided is accurate and complete at the time it is provided to you however, as your needs change, or, as new ??information becomes available, different or additional instructions may be required. If you have questions, please consult with your primary care provider or pharmacist, as appropriate. ??This information is not intended to serve as substitution for assessment and evaluation by a qualified health care provider. If you do not have a primary care provider, you may find a [facility] provider by calling [facility] [employer] at [phone]. For information about the plan of care including goals and instructions for your diagnosis, please see the patient education orders section of this document. Patient Education Materials?? The content of this educational material or handout may have been modified, supplemented, or adapted from its original content and format to support your individualized medical care. * Tsering Newell: PERFORM, SIGN, VERIFY Event Display: Patient Education/Instruction Authored Date: [id number] [facility] *[facility] Clinical Summary Name KAVITA URIAS Age 33 Years 1990 PCP Dean Hi NP PCP Visit Date 01/16/2023 08:54:00 Additional Instructions: Scheduled Appointments?? Future Appointments ?*[facility] ?[address] ?Phone:??--?Fax:??-- ?Appt. Date:??03/16/2023?10:40 AM ?Scheduled Provider:??Dean Hi NP Follow-Up Instructions ?? Diagnosis Unspecified asthma, uncomplicated; Essential (primary) hypertension; Low back pain, unspecified; Morbid (severe) obesity due to excess calories Medications: Please continue your medications until treatment is completed or stopped by your provider. Discuss any questions related to medications with your provider. New Medications [id number], [address] [place], [place] [phone], [phone] Naproxen (naproxen 500 mg oral tablet) 1 tab(s) Oral twice a day as needed Pain , Moderate for 14 Days. with food. Refills: 0. Next Dose: Medications to Continue Taking That Have Changed [id number], [address] [place], [place] [phone], [phone] - Aspirin (aspirin 81 mg oral delayed release tablet) 1 tab(s) Oral Daily. Refills: 3. Next Dose: Medications to Continue with No Changes These medications were not printed or sent to your pharmacy Albuterol (albuterol inhaler (OP)) Next Dose: Levonorgestrel (Mirena 52 mg intrauterine device) 1 Each Intrauterine once. Refills: 0. Next Dose: Multivitamin, ( Multivitamins) Oral Daily. Next Dose: NIFEdipine (NIFEdipine (Eqv-Procardia XL) 90 mg oral tablet, extended release) 1 tab(s) Oral Daily.Refills: 1. Next Dose: No Longer Take the Following Medications Naphazoline Ophthalmic (naphazoline 0.012% ophthalmic gel forming solution) 2 Drops Both eyes 4 times a day. Refills: 0. Allergy Info:?? penicillin Medications Given This Visit Future Orders ?Lumbar Spine 2 or 3 Views? Order Date:01/16/23?- Complete on or after?01/16/23 Vital Signs Height 165 cm Weight 103.5 kg BMI 38.02 kg/m2 Blood Pressure 135 mm Hg/82 mm Hg Temperature 98.6 DegF Pulse Rate 109 bpm Respiratory Rate 02 Sat Mode of Delivery 100 %/Room air You can now view a summary of your hospital visit from the comfort of your home through a free online portal called uControl. [employer]Control is a website that allows you to securely view your medical information including discharge summary, medications and follow-up visits. ??You can alsosend a secure electronic message to your doctor???s office to request appointments, renew medications or just ask a question. You can enroll at [email or web address] or register during your next office visit. Disclaimer:?? The information provided is of a general nature and is intended to be used in conjunction with the recommendations and advice of your health care practitioner. ??Every effort has been made to ensure that the information provided is accurate and complete at the time it is provided to you however, as your needs change, or, as new ??information becomes available, different or additional instructions may be required. If you have questions, please consult with your primary care provider or pharmacist, as appropriate. ??This information is not intended to serve as substitution for assessment and evaluation by a qualified health care provider. If you do not have a primary care provider, you may find a [facility] provider by calling [facility] [employer] at [phone]. For information about the plan of care including goals and instructions for your diagnosis, please see the patient education orders section of this document. Patient Education Materials?? The content of this educational material or handout may have been modified, supplemented, or adapted from its original content and format to support your individualized medical care. Patient Care team information Care Team Personnel Name: Dean Hi NP Position: S PCO Associate Professional Member Role: PCP Address: Address: [email or web address] [place] [address]- Care Team Related Persons Name: JILL HAMILTON Address: [id number] Address: home [address] [address] [place] Name: KARTIK HAMILTON Address: [address] Address: home [address] [place] [address] Name: ALFONSO GIOVANY Address: home [address] [place] [address] Name: SAMMY WHARTON Address: home [address] [place] [address]
--- OUTSIDE RECORDS SUMMARY | 2024-02-07 06:07 | XMS_ITS | Continuity of Care Document ---
Author Organization [facility] Caleb Jacobs [employer] [facility] Address [address], [address] [place] [address]- Care Team Providers Care Casing Cooker Name Role Phone Lazarus Chahal MD Primary Care Phys[id number] - [facility]01/20 [facility] Calebmadelin [facility] [facility] [address]th [place] [address]- [facility] Attending Physician: Melanie Sanchez MD Referring Physician: Catarina Yu MD Allergies, Adverse Reactions, Alerts Substance Reaction Severity Status penicillin hives Active Medications albuterol inhaler (OP) 0 Refills, Maintenance Start Date: 12/11/19 Status: Ordered aspirin 81 mg oral delayed release tablet 162 mg, 2, tablet, By Mouth, Daily, # 90 tablet, Refills 6, Tot. Refills 6, Maintenance, 02/26/20 16:20:00 EDT, [id number], 165, cm, 02/06/20 14:42:00 EDT, Height, 94.8, kg, 02/12/20 16:09:00 EDT, Dry... Start Date: 02/26/20 Status: Ordered Multivitamins By Mouth, Daily, 0 Refills, Maintenance, 12/11/19 21:49:00 EDT Start Date: 12/11/19 Status: Ordered Unisom 25 mg oral tablet 1 tablet = 25 mg, By Mouth, Daily, 0 Refills, Maintenance, 01/02/20 16:32:00 EDT Start Date: 01/02/20 Status: Ordered Vitamin B6 25 mg oral tablet 1 tablet = 25 mg, By Mouth, Daily, 0 Refills, Maintenance, 01/02/20 16:31:00 EDT Start Date: 01/02/20 Status: Ordered Problem List Condition Effective Dates Status Health Status Inform ant Bleeding in early (Confirmed) Active Asthma(Confirmed) Active Chronic hypertension(Confirmed) 2018 Active Social History Social History Type Response Smoking Status Never (less than 100 in lifetime); Tobacco user in household: No entered on: 12/30/19 Sex
--- OUTSIDE RECORDS SUMMARY | 2024-02-07 06:07 | XMS_ITS | Continuity of Care Document ---
Author Organization [facility] Adult Address [address] [place] [address]- Care Team Providers Care Combination Man Name Role Phone Mattie NOLAN, Kathy Mendoza Primary Care Physicia n Encounter [facility] [place] [facility] ACCT R [id number] Date(s): 11/04/20 - 11/11/20 [facility] Adult [address] [place] [address]- [place] Encounter Diagnosis Asthma(Discharge Diagnosis) - 11/04/20 Attending Physician: Not on Staff, Attending MD [...] 09/02/20 13:37:00 EDT, Route to Pharmacy Electronically, [facility]/pharmacy #[id number], 165, cm, 09/01/20 16:54:00 EDT, Height, 98, kg, 03/24/20 9:28:00 EDT, Dry Weight Start Date: 09/02/20 Status: Ordered Problem List Condition Effective Dates Status Health Status Inform ant Asthma(Confirmed) Active Chronic hypertension(Confirmed) 2018 Active Diagnosis Diagnosis Type Effective Dates Health Status Clini santiago Service Informant Asthma Discharge Diagnosis 11/04/20 Vital Signs Most recent to oldest [Reference Range]: 1 2 Height 165.5 cm (11/04/20 4:04 PM) 165.5 cm (11/04/20 3:44 PM) Weight 95.5 kg (11/04/20 3:44 PM) Oxygen Saturation [94-100 %] 100 % (11/04/20 3:44 PM) Pulse Rate [55-90 bpm] 83 bpm (11/04/20 3:44 PM) Body Mass Index [18.5-24.99] 34.87 *>HHI* (11/04/20 3:44 PM) Blood Pressure [90-138/55-84 mm Hg] 137/ 85mm Hg (11/04/20 4:04 PM) 145/90mm Hg *H* (11/04/20 3:44 PM) Mode of Delivery (Oxygen) Room air (11/04/20 3:44 PM) Blood pressure sites Arm, left (11/04/20 3:44 PM) Weight Obtained Via Standing scale (11/04/20 3:44 PM) Social History Social History Type Response Smoking Status Never (less than 100 in lifetime) entered on: 03/23/20 Sex
--- OUTSIDE RECORDS SUMMARY | 2024-02-07 06:07 | XMS_ITS | Continuity of Care Document ---
Author Organization [facility] Adult Address [address] [place] [address]- Care Team Providers Care Ecological Technical Officer Name Role Phone Kolton NOLAN, Dean Adame Primary Care Physician Encounter [facility] Date(s): 08/03/22 - 10/05/22 [facility] Adult [address] [place] [address] [address] Attending Physician: Not on Staff, Attending MD Allergies, Adverse Reactions, Alerts Substance Reaction Severity Status penicillin hives Active Immunizations Given and Recorded Vaccine Date Status Refusal Reason hepatitis B adult vaccine 08/19/22 Given [id number] 12y+ bivalent booster vax 05/25/22 Recorded influenza [...] 81 mg, 1, tablet, By Mouth, Daily, Refills 0, Maintenance, 08/03/22 16:10:00 EST, Partial fill uponpatient request if the prescription is for a schedule II opioid drug. Start Date: 08/03/22 Status: Ordered Mirena 52 mg intrauterine device 1 each = 52 mg, Intrauterine, Once, # 1 each, 0 Refills, Soft Stop, 03/28/22 11:00:00 EDT, [facility] [employer], Partial fill upon patient request if the prescription is for a schedule II opioid drug., 166, cm, 03/21/22 8:47:00 EDT, Height, 10... Start Date: 03/28/22 Status: Ordered naphazoline 0.012% ophthalmic gel forming solution 2 drops, Eyes, Both, 4 times a day, # 15 mL, 0 Refills, Maintenance, 04/07/22 9:35:00 EDT, Solution, [id number], Partial fill upon patient request if the prescription is for a schedule II opioid drug., 2 drops Eyes, Both 4 times a day, 165, cm... Start Date: 04/07/22 Status: Ordered NIFEdipine (Eqv-Procardia XL) 90 mg [...] Associate Professional Member Role: PCP Address: Address: [address] [place] [address] 3rd [place] [address]- Care Team Related Persons Name: JILL HAMILTON Address: Address: home [address] [address] [place] Name: KARTIK HAMILTON Address: Address: home [address] [address] [place] Name: GIOVANY HAMILTON Address: home [address] [address] Name: SAMMY WHARTON Address: home [address] [facility] [address] [place] [address]
--- OUTSIDE RECORDS SUMMARY | 2024-02-07 06:07 | XMS_ITS | Continuity of Care Document ---
Author Organization [facility] Reynaldo smiths [facility] Address [address] [facility], [address]t [place] [address]- Care Team Providers Care System Integration Engineer Name Role Phone Mattie NOLAN, Kathy Mendoza Primary Care Physicia n Encounter [facility] Date(s): 01/05/21 - 01/12/21 [facility] [address] [facility] [address], 4th [place] [address]- Attending Physician: Anastasiia Delgadilol MD Referring Physician: Nga Sanderson MD Allergies, [...] 12/09/20 16:13:00 EDT, Route to Pharmacy Electronically, [facility]/pharmacy #[id number], Partial fill upon patient requestif the prescription is for a schedule II opioid edgar... Start Date: 12/09/20 Stop Date: 07/07/21 Status: Ordered NIFEdipine 30 mg oral tablet, extended release 30 mg, 1, tablet, By Mouth, Daily, # 30 tablet, Refills 5, Tot. Refills 5, Maintenance, 12/10/20 15:18:00 EDT, Route to Pharmacy Electronically, [facility]/pharmacy #[id number], 165.5, cm, 11/19/20 15:50:00 [...]
--- OUTSIDE RECORDS SUMMARY | 2024-02-07 06:07 | XMS_ITS | Continuity of Care Document ---
Author Organization [facility] Adult Address [address] [place] [address]- Care Team Providers Care Chief Medical Physicist Name Role Phone Kolton NOLAN, Dean Adame Primary Care Physician Encounter [facility] Date(s): 08/03/22 - 08/10/22 [facility] Adult [address] [place] [address]- Encounter Diagnosis Not immune to hepatitis B virus(Discharge Diagnosis) - 08/03/22 Attending Physician: Not on Staff, Attending MD Allergies, Adverse Reactions, Alerts Substance Reaction Severity Status penicillin hives Active Immunizations Given and Recorded Vaccine Date Status Refusal Reason [id number] 12y+ bivalent booster vax 05/25/22 Recorded influenza [...] 0 Refills, Soft Stop, 03/28/22 11:00:00 EDT, [facility], Partial fill upon patient request if the [...] tablet, 1 Refills, Maintenance, 08/03/22 16:35:00 EST, [facility]/pharmacy #[id number], Partial fill upon patient request if [...] Diagnosis Diagnosis Type Effective Dates Health Status Cl inical Service Informant Not immune to hepatitis B virus Discharge Diagnosis 08/03/22 Vital Signs Most recent to oldest [Reference Range]: 1 2 3 Height 165 cm (08/03/22 4:33 PM) 165 cm (08/03/22 4:14 PM) 165 cm (08/03/22 3:51 PM) Weight 95.8 kg (08/03/22 3:51 PM) Oxygen Saturation [94-100 %] 100 % (08/03/22 3:51 PM) Pulse Rate [55-90 bpm] 84 bpm (08/03/22 3:51 PM) Body Mass Index [18.5-24.99 kg/m2] 35.19 kg/m2 *>HHI* (08/03/22 3:51 PM) Blood Pressure [90-138/55-84 mm Hg] 150/90mm Hg *H* (08/03/22 4:33 PM) 166/124mm Hg *H* (08/03/22 4:14 PM) 140/90mm Hg *H* (08/03/22 3:51 PM) Mode of Delivery (Oxygen) Room air (08/03/22 3:51 PM) Blood pressure sites Arm, left (08/03/22 4:33 PM) Arm, right (08/03/22 4:14 PM) Arm, right (08/03/22 3:51 PM) Weight Obtained Via Standing scale (08/03/22 3:51 PM) Social History Social History Type Response Smoking Status Never (less than 100 in lifetime) entered on: 10/13/21 Sex Note * Laura Seay: PERFORM, SIGN, VERIFY Event Display: Patient Education/Instruction Authored Date: [id number] [facility] *[facility] Clinical Summary Name KAVITA URIAS Age 32 Years 1990 PCP Dean Hi NP PCP Visit Date 08/03/2022 15:46:00 Additional Instructions: Scheduled Appointments?? Future Appointments ?*[facility] ?Phone:??--?Fax:??-- ?Appt. Date:??08/19/2022?9:00 AM ?Scheduled Provider:??[facility] Adult Med Clinical ?*[facility] ?[address],??[address] ?Phone:??--?Fax:??-- ?Appt. Date:??09/05/2022?10:40 AM ?Scheduled Provider:??Dean Hi NP Follow-Up Instructions ?? With: Address: When: Dean Hi NP 08/03/2022 12:00 AM Diagnosis Body mass index [BMI] 35.0-35.9, adult; Unspecified asthma, uncomplicated; Other specified health status; Morbid (severe) obesity due to excess calories; Essential (primary) hypertension; Elevated white blood cell count, unspecified Medications: Please continue your medications until treatment is completed or stopped by your provider. Discuss any questions related to medications with your provider. New Medications [facility]/pharmacy #[id number], [address] [place] [phone], [phone] NIFEdipine (NIFEdipine (Eqv-Procardia XL) 90 mg oral tablet, extended release) 1 tab(s) Oral Daily.Refills: 1. Next Dose: Medications to Continue with No Changes These medications were not printed or sent to your pharmacy Albuterol (albuterol inhaler (OP)) Next Dose: Aspirin (aspirin 81 mg oral delayed release tablet) 1 tab(s) Oral Daily. Next Dose: Levonorgestrel (Mirena 52 mg intrauterine device) 1 Each Intrauterine once. Refills: 0. Next Dose: Multivitamin, ( Multivitamins) Oral Daily. Next Dose: Naphazoline Ophthalmic (naphazoline 0.012% ophthalmic gel forming solution) 2 Drops Both eyes 4 times a day. Refills: 0. Next Dose: Allergy Info:?? penicillin Medications Given This Visit Future Orders ?No future orders Vital Signs Height 165 cm Weight 95.8 kg BMI 35.19 kg/m2 Blood Pressure 150 mm Hg/90 mm Hg Temperature Pulse Rate 84 bpm Respiratory Rate 02 Sat Mode of Delivery 100 %/Room air You can now view a summary of your hospital visit from the comfort of your home through a free online portal called [employer]. [employer] is a website that allows you to securely view your medical information including discharge summary, medications and follow-up visits. ??You can alsosend a secure electronic message to your doctor???s office to request appointments, renew medications or just ask a question. You can enroll at [email or web address] or register during your next office visit. [...] primary care provider, you may find a [facility] provider by calling [facility] Newsbound Link at [phone]. For information about the plan of care [...] Professional Member Role: PCP Address: Address: [address]rd [place] [address]- Care Team Related Persons Name: JILL HAMILTON Address: Address: home [address] [address] Name: KARTIK HAMILTON Address: [address] Address: home [address] [place] [address] [place] Name: GIOVANY HAMILTON Address: home [address] [place] [address] Name: SAMMY WHARTON Address: home [address] [facility] [address] [place] [address]
--- OUTSIDE RECORDS SUMMARY | 2024-02-07 06:07 | XMS_ITS | Continuity of Care Document ---
Author Organization [facility] Caleb ramons [facility] Address [address] [facility], 4t [place] [address]- Care Team Providers Care Glove Turner Name Role Phone Lazarus Chahal MD Primary Care Physician [id number] Date(s): 04/01/20 - 04/08/20 [facility] Calebmadelin HuffmanSpace[employer] [address] [facility] [address], 4th [place] [address]- [facility] Attending Physician: Nga Sanderson MD Referring Physician: Lazarus Chahal MD Allergies, Adverse Reactions, Alerts Substance Reaction [...] 02/26/20 16:20:00 EDT, Route to Pharmacy Electronically, [id number], 165, cm, 02/06/20 14:42:00 EDT, Height, 94.8, kg, 02/12/20 16:09:00 EDT, Dry... Start Date: 02/26/20 Status: Ordered ibuprofen 800 mg oral tablet 800 mg, 1, tablet, By Mouth, Every 8 hours, # 40 tablet, Refills 0, Tot. Refills 0, Maintenance, 03/29/20 11:06:00 EDT, Route to Pharmacy Electronically, [id number], 165, cm, 03/28/20 9:11:00 EDT, Height, 98, kg, 03/24/20 9:28:00 EDT,... Start Date: 03/29/20 Status: Ordered NIFEdipine 30 mg oral tablet, extended release 30 mg, 1, tablet, By Mouth, Daily, # 30 tablet, Refills 0, Tot. Refills 0, Maintenance, 03/29/20 11:07:00 EDT, Route to Pharmacy Electronically, [facility] #[id number], 165, cm, 03/28/20 9:11:00EDT, Height, 98, kg, 03/24/20 9:28:00 EDT, Dry Weight Start Date: 03/29/20 Status: Ordered oxyCODONE 5 mg oral tablet 5 mg, 1, tablet, By Mouth, Every 3 hours, PRN, (7-10), # 7 tablet, Refills 0, Tot. Refills 0, Maintenance, Pain , Severe, 03/29/20 11:07:00 EDT, Route to Pharmacy Electronically, [id number], Partial fill upon patient request, 165, cm,... Start Date: 03/29/20 Status: Ordered simethicone 80 mg oral tablet, chewable 80 mg, Chew, 3 times a day, PRN, # 12 tablet, Refills 0, Tot. Refills 0, Maintenance, Gas, 03/29/2011:07:00 EDT, Route to Pharmacy Electronically, [id number], 165, cm, 03/28/20 9:11:00 EDT, Height, 98, [...]
--- OUTSIDE RECORDS SUMMARY | 2024-02-07 06:07 | XMS_ITS | Continuity of Care Document ---
Author Organization [facility] Caleb Jacobs nprabha Hill Address [address] [facility], 4t [place] [address]- Care Team Providers Care Door Frame Assembler Machine Name Role Phone Lazarus Chahal MD Primary Care Physician Encounter [place] Date(s): 12/30/19 - 01/06/20 [facility] Caleb HuffmanAshlar Holdingss [facility] [address] [facility], 4th [place] [address]- [facility] Attending Physician: Kin DODGE, Nga Pate Referring Physician: Joselo Denton MD Allergies, Adverse Reactions, Alerts Substance Reaction Severity Status penicillin hives Active Medications albuterol inhaler (OP) 0 Refills, Maintenance Start Date: 12/11/19 Status: Ordered aspirin 81 mg oral delayed release tablet 162 mg, 2, tablet, By Mouth, Daily, # 90 tablet, Refills 6, Tot. Refills 6, Maintenance, 01/02/20 16:30:00 EDT, [id number], 165, cm, 01/02/20 15:49:00 EDT, Height, 90.9, kg, 12/30/19 15:20:00 EDT, Dry... Start Date: 01/02/20 Status: Ordered Multivitamins By Mouth, Daily, 0 [...] Procedure Date Related Diagnosis Body Site Status Extraction of wisdom tooth Completed Vital Signs Most recent to oldest [Reference Range]: 1 Height 165 cm (12/30/19 3:20 PM) Dry Weight 90.9 kg (12/30/19 3:20 PM) Dry Weight Obtained Via Patient/family s tated (12/30/19 3:20 PM) Social History Social History Type Response Smoking Status Never (less than 100 in lifetime); Tobacco user in household: No entered on: 12/30/19 Sex
--- OUTSIDE RECORDS SUMMARY | 2024-02-07 06:07 | XMS_ITS | Continuity of Care Document ---
Author Organization [facility] Caleb Jacobs nprabha Hill Address [address] [facility], 4t [place] [address]- Care Team Providers Care Selector Packer Name Role Phone Lazarus Chahal MD Primary Care Physician [phone] [place] [facility] Date(s): 01/02/20 - 01/09/20 [facility] Caleb HuffmanHyper[employer]ests [facility] [address] [facility], 4th [place] [address]- [facility] Attending Physician: Catarina Yu MD Referring Physician: Joselo Denton MD Allergies, Adverse Reactions, Alerts Substance Reaction Severity Status penicillin hives Active Medications albuterol inhaler (OP) 0 Refills, Maintenance Start Date: 12/11/19 Status: Ordered aspirin 81 mg oral delayed release tablet 162 mg, 2, tablet, By Mouth, Daily, # 90 tablet, Refills 6, Tot. Refills 6, Maintenance, 01/02/20 16:30:00 EDT, Route to Pharmacy Electronically, [facility][id number], 165, cm, 01/02/20 15:49:00 EDT, Height, 90.9, [...] Active Asthma(Confirmed) Active Chronic hypertension(Confirmed) 2018 Active Vital Signs Most recent to oldest [Reference Range]: 1 Height 165 cm (01/02/20 3:49 PM) Weight 93.05 kg (01/02/20 3:49 PM) Body Mass Index [18.5-24.99] 34.18 *>HHI* (01/02/20 3:49 PM) Blood Pressure [90-138/55-84 mm Hg] 128/ 89mm Hg (01/02/20 3:49 PM) Blood pressure sites Arm, right (01/02/20 3:49 PM) Weight Obtained Via Standing scale (01/02/20 3:49 PM) Social History Social History Type Response Smoking Status Never (less than 100 in lifetime); Tobacco user in household: No entered on: 12/30/19 Sex
--- OUTSIDE RECORDS SUMMARY | 2024-02-07 06:07 | XMS_ITS | Continuity of Care Document ---
Author Organization [facility] ter Address [address] [place] [address]- Care Team Providers Care Platform Power Technician Name Role Phone Mattie NOLAN, Kathy Mendoza Primary Care Physicia n [place] [facility] [place](s[place] 10/17/21 - 10/18/[address] [address] Discharge Disposition: A-D/C Home Attending Physician: Marcos DODGE, Tay Paniagua Admitting Physician: Marcos DODGE, Tay Paniagua Referring Physician: Marcos DODGE, Tay Paniagua Allergies, Adverse Reactions, Alerts Substance Reaction Severity [...] Mouth, Daily, # 90 tablet, 1 Refills, [facility] [id number], 165.5, cm, 02/01/21 14:07:00 EDT, Height, 94.9, kg, 01/01/21 18:12:00 EDT, Dry Weight Start Date: 06/09/21 Status: Ordered Paxlovid 150 mg-100 mg oral tablet See Instructions, 300 mg nirmatrelvir(2 tablets) with 100 mg ritonavir(1 tablet). All 3 tablets taken together twice daily for 5 days, with or without food, # 30 tablet, 0 Refills, Maintenance, 10/12/21 14:50:00 EDT, [facility]/pharmacy #[id number], Partial fill... Start Date: 10/12/21 Status: Ordered [...] II(Confirmed) Active 1Problem added by Discern Expert Vital Signs Most recent to oldest [Reference Range]: 1 Oxygen Saturation [94-100 %] 100 % (10/17/21 10:34 PM) Pulse Rate [55-90 bpm] 75 bpm (10/17/21 10:34 PM) Blood Pressure [90-138/55-84 mm Hg] 134/ 89mm Hg (10/17/21 10:34 PM) Respiratory Rate [16-30 br/min] 18 br/mi n (10/17/21 10:34 PM) Temperature [96.8-100.4 DegF] 98.1 DegF (10/17/21 10:34 PM) Mode of Delivery (Oxygen) Room air (10/17/21 10:34 PM) Blood pressure sites Arm, left (10/17/21 10:34 PM) Temperature Route Oral (10/17/21 10:34 PM) Social History Social History Type Response Smoking Status Never (less than 100 in lifetime) entered on: 10/13/21 Sex
--- OUTSIDE RECORDS SUMMARY | 2024-02-07 06:07 | XMS_ITS | Continuity of Care Document ---
Author Organization [facility] Address [address] [facility], 4t [place] [address]- Care Team Providers Care Tobacco Weigher Name Role Phone Mattie NOLAN, Kathy Mendoza Primary Care Physicia n Encounter [facility] [place] [place] Date(s): 10/26/21 - 11/25/21 [facility] Calebmadelin [facility] [address] [facility], 4th [place] [address]- Allergies, Adverse Reactions, Alerts Substance Reaction Severity [...] 0 Refills, Soft Stop, 10/27/21 13:53:00 EDT, [facility]/pharmacy #[id number], Partial fill upon patient request if the prescription is for a schedule II opioid drug., 165.5, cm, 10/13/21 17:30:00 EDT, Height, 96.3, kg, 05/1... Start Date: 10/27/21 Status: Ordered NIFEdipine (Eqv-Procardia XL) 30 mg oral tablet, extended release 1 tablet, By Mouth, Daily, # 90 tablet, 1 Refills, [facility] [id number], 165.5, cm, 02/01/21 14:07:00 EDT, Height, 94.9, kg, 01/01/21 18:12:00 EDT, Dry Weight Start Date: 06/09/21 Status: Ordered Paxlovid 150 mg-100 mg oral tablet See Instructions, 300 mg nirmatrelvir(2 tablets) with 100 mg ritonavir(1 tablet). All 3 tablets taken together twice daily for 5 days, with or without food, # 30 tablet, 0 Refills, Maintenance, 10/12/21 14:50:00 EDT, [facility]/pharmacy #[id number], Partial fill... Start Date: 10/12/21 Status: [...]
--- OUTSIDE RECORDS SUMMARY | 2024-02-07 06:07 | XMS_ITS | Continuity of Care Document ---
Author Organization [facility] Address [address] [facility], 4t [place] [address]- Care Team Providers Care Quality Assurance Nurse Name Role Phone Mattie NOLAN, Kathy Mendoza Primary Care Physicia n [place] [facility] [place]21 - 09/02/21 [facility] [address] [facility], 4th [place] [address]- Allergies, Adverse Reactions, Alerts Substance Reaction Severity [...] Mouth, Daily, # 90 tablet, 1 Refills, [facility] [id number], 165.5, cm, 02/01/21 14:07:00 EDT, Height, 94.9, [...]
--- OUTSIDE RECORDS SUMMARY | 2024-02-07 06:07 | XMS_ITS | Continuity of Care Document ---
Author Organization [facility] Reynaldo n[facility] Address [address] [facility], 4t [place] [address]- Care Team Providers Care Paraoptometric Name Role Phone Kolton NOLAN, Dean Adame Primary Care Physician [facility] Date(s): 03/17/22 - 04/16/22 [facility] [address] [facility], 4th [address] [place], [place] [address] Allergies, Adverse Reactions, Alerts Substance Reaction Severity [...] 03/28/22 11:00:00 EDT, [facility], Partial fill upon patient request if [...] Refills, Maintenance, 03/17/22 14:21:00 EDT, ER Tablet, [facility]/pharmacy #[id number], Partial fill upon patient [...] 2018 Active Obese class II Confirmed Active exam Confirmed Active Wound infection after surgery Confirmed Active Social History Social History Type Response Smoking Status Never (less than 100 in lifetime) entered on: 10/13/21 Sex Patient Care team information Care Team Personnel Name: Dean Hi NP Position: S PCO Associate Professional Member Role: PCP Address: Address: [address] [place] [address] [address]rd floor [place], [place] [address] Care Team Related Persons Name: KARTIK HAMILTON Address: Address: home [address] [address] [place] Name: GIOVANY HAMILTON Address: home [address] [facility] [address] [address] Name: SAMMY WHARTON Address: home [address] [facility] [address] [place] [address] Name: KAVITA URIAS Address: [id number] Address: home [address] [address] [place]
--- OUTSIDE RECORDS SUMMARY | 2024-02-07 06:08 | XMS_ITS | Continuity of Care Document ---
Author Organization [facility] ter Address [address] [place] [id number]- Care Team Providers Care Security Systems Installer Name Role Phone Kolton NOLAN, Dean Adame Primary Care Physician Encounter [facility] [place] [place] Date(s): 04/07/22 - 04/07/[address] [address]- Encounter Diagnosis Allergic conjunctivitis of both eyes(Final) - 04/07/22 Discharge Disposition: A-D/C Home Attending Physician: Adeola Mclean MD Admitting Physician: Adeola Mclean MD Referring Physician: Not on Staff, Referring [...] 12/11/19 Status: Ordered aspirin 81 mg oral capsule 1 capsule = 81 mg, By Mouth, Every 4 hours, 0 Refills, Maintenance, 03/31/22 11:03:00 EDT, Partial fill upon patient request if the prescription is for a schedule II opioid drug. Start Date: 03/31/22 Status: Ordered Bactrim 400 mg-80 mg oral tablet 1 tablet, By Mouth, 2 times a day, # 14 tablet, 0 Refills, Acute 04/08/22 19:21:00 EDT, 03/17/22 19:21:00 EDT, Tablet, [facility]/pharmacy #[id number], Partial fill upon patient request if the prescription is fora schedule II opioid drug., 1 tablet By Mouth 2 gualberto... Start Date: 03/17/22 Stop Date: 04/08/22 Status: Ordered ibuprofen 600 mg oral tablet 600 mg, 1, tablet, By Mouth, 4 times a day, # 40 tablet, Refills 0, Tot. Refills 0, Maintenance, 02/26/22 8:34:00 EDT, Route to Pharmacy Electronically, [facility]/pharmacy #[id number], Partial fill upon patient request if the prescription is for a schedule II opi... Start Date: 02/26/22 Status: Ordered MiraLax oral powder for reconstitution = 17 Gm, By Mouth, Daily, dissolve in water before taking, # 255 Gm, 0 Refills, Maintenance, 02/26/22 8:34:00 EDT, REC Powder, [facility]/pharmacy #[id number], Partial fill upon patient request if the prescription is for a schedule II opioid drug., 17 Gm By Mouth... Start Date: 02/26/22 Status: Ordered Mirena 52 mg intrauterine device 1 each = 52 mg, Intrauterine, Once, # 1 each, 0 Refills, Soft Stop, 03/28/22 11:00:00 [facility] upon patient request if the prescription is for a schedule II opioid drug., 166, cm, 03/21/22 8:47:00 EDT, Height, 10... Start Date: 03/28/22 Status: Ordered naphazoline 0.012% ophthalmic gel forming solution 2 drops, Eyes, Both, 4 times a day, # 15 mL, 0 Refills, Maintenance, 04/07/22 9:35:00 EDT, Solution, [facility]/pharmacy #[id number], Partial fill upon patient request if the prescription is for a schedule II opioid drug., 2 drops Eyes, Both 4 times a day, 165, cm... Start Date: 04/07/22 Status: Ordered NIFEdipine (Eqv-Procardia XL) 30 mg oral tablet, extended release 1 tablet = 30 mg, By Mouth, Daily, # 90 tablet, 0 Refills, Maintenance, 03/17/22 14:21:00 EDT, ER Tablet, [facility]/pharmacy #[id number], Partial fill upon patient request if the prescription is for a schedule II opioid drug., 166, cm, 03/15/22 15:20:00 EDT, [facility]... Start Date: 03/17/22 Status: Ordered NIFEdipine 30 mg oral tablet, extended release 30 mg, 1, tablet, By Mouth, Daily, # 90 tablet, Refills 0, Tot. Refills 0, Maintenance, 02/26/22 8:34:00 EDT, Route to Pharmacy Electronically, [id number], Partial fill upon patient request [...] 02/26/22 8:34:00 EDT, Route to Pharmacy Electronically, [id number], Partial fill upon patient request [...] [Reference Range]: 1 2 Height 165 cm (04/07/22 9:58 AM) 165 cm (04/07/22 8:21 AM) Weight 96.6 kg (04/07/22 9:58 AM) 96.6 kg (04/07/22 8:21 AM) Oxygen Saturation [94-100 %] 99 % (04/07/22 9:58 AM) 100 % (11/3/22 8:21 AM) Pulse Rate [55-90 bpm] 77 bpm (04/07/22 9:58 AM) 80 bpm (04/07/22 8:21 AM) Body Mass Index [18.5-24.99 kg/m2] 35.48 kg/m2 *>HHI* (04/07/22 8:21 AM) Blood Pressure [90-138/55-84 mm Hg] 152/ 93mm Hg *H* (04/07/22 8:21 AM) Respiratory Rate [16-30 br/min] 16 br/mi n (04/07/22 9:58 AM) 16 br/min (04/07/22 8:21 AM) Temperature [96.8-100.4 DegF] 97.9 DegF (04/07/22 8:21 AM) Mode of Delivery (Oxygen) Room air (04/07/22 9:58 AM) Room air (04/07/22 8:21 AM) Blood pressure sites Arm, right (04/07/22 8:21 AM) Temperature Route Oral (04/07/22 8:21 AM) Dry Weight 96.6 kg (04/07/22 9:58 AM) 96.6 kg (04/07/22 8:21 AM) Weight Obtained Via Standing scale (04/07/22 8:21 AM) Dry Weight Obtained Via Standing scale (04/07/22 8:21 AM) Social History Social History Type Response Smoking Status Never (less than 100 in lifetime) entered on: 10/13/21 Sex Patient Care team information Personnel Name: Dean Hi NP Address: Address: [address] [facility] [address] [facility] [address]rd floor [place], [place] [address]
--- OUTSIDE RECORDS SUMMARY | 2024-02-07 06:08 | XMS_ITS | Continuity of Care Document ---
Author Organization [facility] Adult Address [address] [place] [address]- Care Team Providers Care Captain'S Assistant Name Role Phone Dean Hi NP Primary Care Physician [phone] Encounter [facility] Date(s): 05/19/22 - 06/18/22 [facility] [address] [place] [address]- Allergies, Adverse Reactions, Alerts Substance Reaction Severity Status penicillin hives Active Immunizations Given and Recorded Vaccine Date Status Refusal Reason influenza virus vaccine, inactivated 05/20/22 Give n [...] 0 Refills, Soft Stop, 03/28/22 11:00:00 EDT, [facility], Partial fill upon patient request if the prescription is for a schedule II opioid drug., 166, cm, 03/21/22 8:47:00 EDT, Height, 10... Start Date: 03/28/22 Status: Ordered naphazoline 0.012% ophthalmic gel forming solution 2 drops, Eyes, Both, 4 times a day, # 15 mL, 0 Refills, Maintenance, 04/07/22 9:35:00 EDT, Solution, [facility]/pharmacy #[id number], Partial fill upon patient request if the [...] opioid drug., 166, cm, 03/15/22 15:20:00 EDT, .. Start Date: 03/17/22 Status: Ordered Multivitamins By Mouth, Daily, 0 Refills, Maintenance, 12/13/20 16:24:00 EDT, Partial fill upon patient request if the prescription is for a schedule II opioid drug. Start Date: 12/13/20 Status: Ordered Problem List Condition Confirmation Course Effective Dates Status Health St atus Informant Asthma Confirmed Active Chronic hypertension Confirmed 2018 Active Obese class I Confirmed Active Wound infection after surgery Confirmed Active Social History Social History Type Response Smoking Status Never (less than 100 in lifetime) entered on: 10/13/21 Sex Patient Care team information Care Team Personnel Name: Dean Hi NP Position: S PCO Associate Professional Member Role: PCP Address: Address: [address] [place] [address] [address]rd [place] [address]- Care Team Related Persons Name: JILL HAMILTON Address: [address] Address: [address] [address] [place] Name: KARTIK HAMILTON Address: [address] Address: home [address] [address] [place] Name: GIOVANY HAMILTON Address: home [address] [address] Name: SAMMY WHARTON Address: home [address] [facility] [address] [place] [address]
--- OUTSIDE RECORDS SUMMARY | 2024-02-07 06:08 | XMS_ITS | Continuity of Care Document ---
Author [facility] Address [address], [address] [place] [address]- Care Team Providers Care Manager Wound Care Name Role Phone Mattie NOLAN, Kathy Mendoza Primary Care Physicia n [id number] [address] [place], [place] [address] Attending Physician: Jace DODGE, Edie Fish Referring Physician: Mattie NOLAN, Kathy Mendoza Allergies, [...] 0 Refills, Soft Stop, 10/27/21 13:53:00 EDT, [facility]/pharmacy #[id number], Partial fill upon patient request if the prescription is for a schedule II opioid drug., 165.5, cm, 10/13/21 17:30:00 EDT, Height, 96.3, kg, 10/03... Start Date: 10/27/21 Status: Ordered NIFEdipine (Eqv-Procardia XL) 30 mg oral tablet, extended release 1 tablet, By Mouth, Daily, # 90 tablet, 1 Refills, [id number], 165.5, cm, 02/01/21 14:07:00 EDT, Height, 94.9, kg, 01/01/21 18:12:00 EDT, Dry Weight Start Date: 06/09/21 Status: Ordered Paxlovid 150 mg-100 mg oral tablet See Instructions, 300 mg nirmatrelvir(2 tablets) with 100 mg ritonavir(1 tablet). All 3 tablets taken together twice daily for 5 days, with or without food, # 30 tablet, 0 Refills, Maintenance, 10/12/21 14:50:00 EDT, [facility]/pharmacy #[id number], Partial fill... Start Date: 10/12/21 Status: [...] I(Confirmed) Active 1Problem added by Discern Expert Vital Signs Most recent to oldest [Reference Range]: 1 Height 165.5 cm (11/09/21 11:29 AM) Weight 94.6 kg (11/09/21 11:29 AM) Body Mass Index [18.5-24.99] 34.54 *>HHI* (11/09/21 11:29 AM) Blood Pressure [90-138/55-84 mm Hg] 125/ 89mm Hg (11/09/21 11:29 AM) Blood pressure sites Arm, left (11/09/21 11:29 AM) Weight Obtained Via Standing scale (11/09/21 11:29 AM) Social History Social History Type Response Smoking Status Never (less than 100 in lifetime) entered on: 10/13/21 Sex
--- OUTSIDE RECORDS SUMMARY | 2024-02-07 06:08 | XMS_ITS | Continuity of Care Document ---
Author Organization [facility] Adult Address [address] [place] [address]- Care Team Providers Care Automotive Generator Repairer Name Role Phone Mattie NOLAN, Kathy Mendoza Primary Care Physicia n [id number] [address] [place] [address]- Encounter Diagnosis Encounter to establish care(Discharge Diagnosis) - 09/02/20 Asthma(Discharge Diagnosis) - 09/02/20 Chronic hypertension(Discharge Diagnosis) - 09/02/20 Attending Physician: Mattie NOLAN, Kathy Mendoza Referring Physician: Jovani Vincent MD Allergies, Adverse Reactions, Alerts Substance Reaction [...] 09/02/20 13:37:00 EDT, Route to Pharmacy Electronically, [facility]/pharmacy #[id number], 165, cm, 09/01/20 16:54:00 EDT, Height, 98, kg, 03/24/20 9:28:00 EDT, Dry Weight Start Date: 09/02/20 Status: Ordered Problem List Condition Effective Dates Status Health Status Inform ant Asthma(Confirmed) Active Chronic hypertension(Confirmed) 2018 Active Diagnosis Diagnosis Type Effective Dates Health Status Clinical Service Informant Chronic hypertension Discharge Diagnosis 09/02/20 Asthma Discharge Diagnosis 09/02/20 Encounter to establish care Discharge Diagnosis 09/02/20 Vital Signs Most recent to oldest [Reference Range]: 1 Height 165 cm (09/01/20 4:54 PM) Social History Social History Type Response Smoking Status Never (less than 100 in lifetime) entered on: 03/23/20 Sex
--- OUTSIDE RECORDS SUMMARY | 2024-02-07 06:08 | XMS_ITS | Continuity of Care Document ---
Author Organization [facility] Adult Address [address] [place] [address]- Care Team Providers Care Cloth Desizing Range Tender Name Role Phone Dean Hi NP Primary Care Physician Encounter [facility] Date(s): 11/29/23 - 12/06/23 [facility] [address] [place] [address]- Encounter Diagnosis Chronic hypertension(Discharge Diagnosis) - 11/29/23 Chronic low back pain with right-sided sciatica(Discharge Diagnosis) - 11/29/23 Chronic low back pain(Discharge Diagnosis) - 11/29/23 Attending Physician: Not on Staff, Attending MD [...] rded hepatitis B adult vaccine 08/19/22 Given [id number] 12y+ bivalent booster vax 05/25/22 Recorded tetanus/diphtheria/pertussis, [...] 01/16/23 9:54:00 EDT, Route to Pharmacy Electronically, [facility]/pharmacy #[id number], Partial fill upon patient request if the [...] 4 Refills, Maintenance, 09/07/24 17:22:00 EDT, Solution, [facility], Partial fill upon patient request if the prescription is for a schedule II opioid drug., 165, cm, 11/06/23 8:55:00... Start Date: 09/07/24 Stop Date: 12/01/25 Status: Ordered losartan 25 mg oral tablet 1 tablet = 25 mg, By Mouth, Daily, # 90 tablet, 0 Refills, Maintenance, 11/06/23 9:22:00 EDT, Tablet, [id number], Partial fill upon patient request if the prescription is for a schedule II opioid drug., 165, cm, 11/06/23 8:55:00 EDT, Height, 9... Start Date: 11/06/23 Status: Ordered Medrol 4 mg oral tablet 1 pack/packet, By Mouth, Once, as directed on package labeling, # 21 tablet, 0 Refills, Soft Stop, 11/29/23 13:38:00 EDT, Tablet, [id number], Partial fill upon patient request if the prescription is for a schedule II opioid drug., 165, cm, ... Start Date: 11/29/23 Status: Ordered Mirena 52 mg intrauterine device 1 each = 52 mg, Intrauterine, Once, # 1 each, 0 Refills, Soft Stop, 03/28/22 11:00:00 EDT, [facility], Partial fill upon patient request if the [...] Refills, Maintenance, 08/30/23 9:04:00 EDT, [id number], 165, cm, 05/04/23 12:10:00 EST, Height, 98, kg, 12/12/22 16:10:00 EDT, Dry Weight Start Date: 08/30/23 Status: Ordered omeprazole 40 mg oral enteric coated capsule 0 Refills, Maintenance, 11/27/23 13:24:00 EDT, Partial fill upon patient request if the prescription is for a schedule II opioid drug. Start Date: 11/27/23 Status: Ordered Pen [place], 31 G x 5 mm BD Ultra [...] 2018 Active Obese class I Confirmed Active Diagnosis Diagnosis Type Effective Dates Health Status Clinical Service Informant Chronic hypertension Discharge Diagnosis 11/29/23 Chronic low back pain with right-sided sciatica Discharge Diagnosis 11/29/23 Chronic low back pain Discharge Diagnosis 11/29/23 Vital Signs Most recent to oldest [Reference Range]: 1 Height 165 cm (11/29/23 1:13 PM) Weight 88.7 kg (11/29/23 1:13 PM) Oxygen Saturation [94-100 %] 100 % (11/29/23 1:13 PM) Pulse Rate [55-90 bpm] 105 bpm *H* (11/29/23 1:13 PM) Body Mass Index [18.5-24.99 kg/m2] 32.58 kg/m2 *>HHI* (11/29/23 1:13 PM) Blood Pressure [90-138/55-84 mm Hg] 111/ 79mm Hg (11/29/23 1:13 PM) Mode of Delivery (Oxygen) Room air (11/29/23 1:13 PM) Blood pressure sites Arm, left (11/29/23 1:13 PM) Weight Obtained Via Standing scale (11/29/23 1:13 PM) Social History Social History Type Response Smoking Status Never (less than 100 in lifetime) entered on: 10/13/21 Sex Note * Sherrill Villalobos: PERFORM Event Display: Patient Education/Instruction Authored Date: [id number] Ambulatory Adult Visit Summary [facility] [address] [place], [place] [id number] Name: KAVITA URIAS : 1990?? Visit: 11/29/2023 12:59?? Ambulatory Visit Instructions ?? Your Care Team Primary Care Provider Dean Hi NP? This Visit Provider Dean Hi NP Your Diagnosis Chronic hypertension Chronic low back pain with right-sided sciatica Chronic low back pain Diabetes mellitus screening Lipid screening Obese class I Vitals Signs Pulse Rate:??105 bpm??High Height: 165 cm Systolic Blood Pressure: 111 mm Hg Weight: 88.7 kg Diastolic Blood Pressure: 79 mm Hg Body Mass Index:??32.58 kg/m2??Critical Oxygen Saturation: 100 % Body surface area: 2.02 What to do next Future Orders Lipid Panel Non Fasting - Routine, Once, 11/29/23 13:42:00 EDT, Future Order, [facility], Blood?? Hemoglobin A1C (Monitoring) - Routine, Once, 11/29/23 13:42:00 EDT, Future Order, [facility], Blood?? ALT - Routine, Once, 11/29/23 13:42:00 EDT, Future Order, [facility], Blood?? Basic Metabolic Panel - Routine, Once, 11/29/23 13:42:00 EDT, Future Order, [facility], Blood?? TSH - Routine, Once, 11/29/23 13:42:00 EDT, Future Order, [facility], Blood?? Medications The list below reflects the information in our records and provided by you today along with any changes made during this visit. Please continue your medications until treatment is completed or stopped by your provider. If this is different from the information you have or there are other questions,please contact the prescribing provider. What How Much When Instructions New MethylPREDNISolone (Medrol 4 mg oral tablet) 1 pack/packet Oral Once as directed on package labeling ?? Pickup at [facility]/pharmacy #[id number] New Nabumetone (nabumetone 750 mg oral tablet) 1 tab(s) Oral Twice a day as needed for Pain , Moderate Duration: 14 Days with food ?? Pickup at [facility]/pharmacy #[id number] Unchanged Albuterol (albuterol inhaler (OP)) Unchanged Aspirin (aspirin 81 mg oral delayed release tablet) 1 tab(s) Oral Daily Unchanged Cholecalciferol (Super-Strength D-5000 oral tablet) Unchanged Durable Medical Equipment (Pen [place], 31 G x 5 mm BD Ultra Fine III) See instructions use to inject Victoza daily ?? Unchanged Levonorgestrel (Mirena 52 mg intrauterine device) 1 Each Intrauterine Once Unchanged liraglutide (liraglutide 18 mg/ 3 mL subcutaneous solution) 2.4 Milligram Subcutaneous Injection Daily Duration: 90 Days Unchanged Losartan (losartan 25 mg oral tablet) 1 tab(s) Oral Daily Unchanged Miscellaneous Rx (D-5000 125 MCG (5000 UT) TABS) Unchanged NIFEdipine (NIFEdipine (Eqv-Procardia XL) 90 mg oral tablet, extended release) 1 tab(s) Oral Daily Unchanged Omeprazole (omeprazole 40 mg oral enteric coated capsule) Pharmacy Information [facility]/pharmacy #[id number]: [address], [place] [id number] [phone] Test Performed Below is a partial list of the tests performed during your Visit. You may have had other tests and procedures not included in this list. Please discuss all test results with your provider. ALT?-- Results Pending -- Basic Metabolic Panel?-- Results Pending -- Hemoglobin A1C (Monitoring)?-- Results Pending -- Lipid Panel Non Fasting?-- Results Pending -- TSH?-- Results Pending -- You will be contacted within 72 hours with your results. Medications and Immunizations Administered Medications Given During Visit No medications given during this visit.?? Allergies (NKA means No Known Allergies) penicillin??(hives) Education Materials Below is the list of Educational Leaflet Providered with your Visit summary. [employer] Ignite Patient Education - Self-Care for Low Back Pain?? Common Emergency Awareness Tips IS IT A STROKE? Act FAST and Check for these signs: FACE Does the face look uneven? ARM Does one arm drift down? SPEECH Does their speech sound strange? TIME Call at any sign of stroke ?? Heart Attack Signs Chest discomfort: Most heart attacks involve discomfort in the center of the chest and lasts more than a few minutes, or goes away and comes back. It can feel like uncomfortable pressure, squeezing, fullness or pain. Discomfort in upper body: Symptoms can include pain or discomfort in one or both arms, back, neck, jaw or stomach. Shortness of breath: With or without discomfort. Other signs: Breaking out in a cold sweat, nausea, or lightheaded. Remember, MINUTES DO MATTER. If you experience any of these heart attack warning signs, call to get immediate medical attention! ?? Smoking can increase your chances of developing chronic health problems and can cause harmful effects to other family members in your house. If you smoke, you are strongly encouraged to quit. Please call [facility] Link at [phone] or [phone] ([phone]) or log in to [email or web address] for referrals to smoking cessation programs. ?? The National Suicide Prevention Hotline is available 26/12 if you or someone you know needs to find a reason to keep living. By calling 7-186-181-[employer] (8824) you'll be connected to a skilled, trained counselor at a crisis center in your area. [facility] [employer] Portal You can view and manage your care through the patient portal or by using a health care katlin of your choosing. [employer] is a website that allows you to securely view your medical information including your hospital discharge summary, office visit summaries, medications and follow-up visits. You can also request appointments, renew medications, and request access to your medical information using a health care katlin of your choosing, or just ask a question. You can enroll at [email or web address] or register during your next office visit. [facility], in keeping with [facility] guidance, no longer requires face masks for staff, patientsor visitors in most situations. Similiar to time spent indoors at other locations, there is the chance that you were exposed to repiratory viruses during your time with us (such as flu or COVID-19). If you develop symptoms concerning for a viral respiratory infection, please seek testing (and treatment if indicated) from your medical provider or home test kit. ?? Disclaimer: The information provided is of a general nature and is intended to be used in conjunction with the recommendations and advice of your health care practitioner. Every effort has been made to ensure that the information provided is accurate and complete at the time it is provided to you however, as your needs change, or, as new information becomes available, different or additional instructions may be required. ?? If you have questions, please consult with your primary care provider or pharmacist, as appropriate. This information is not intended to serve as substitution for assessment and evaluation by a qualified health care provider. If you do not have a primary care provider, you may find a [facility] provider by calling [facility] [employer] Link at [phone]. * Kolton NOLAN, Dean O: PERFORM Event Display: Patient Education Leaflets Authored Date: [id number] Self-Care for Low Back Pain ?? 15635 Self-Care for Low Back Pain Most people have low back pain now and then. In many cases, it isn???t serious, and self-care can help. Sometimes low back pain can be a sign of a bigger problem. Call your healthcare provider if your pain returns often or gets worse over time. There are plenty of ways to take care of your back. Get regular exercise, lose any excess weight, and practice good posture. Take a short rest Lying down during the day may be helpful for short periods of time if pain worsens with sitting or standing. It may help to have a pillow under the knees when lying on your back. But, keep in mind, long-term bed rest could be damaging. ?? Reduce pain and swelling Cold reduces swelling. Both cold and heat can reduce pain. Remember to protect your skin by placinga towel between your body and the ice or heat source. ??? For the first few days, apply an ice packfor 15 to??20 minutes, several times a day. To make a cold pack, put ice cubes in a plastic bag that seals at the top. A wrapped frozen bag of vegetables can also work as a cold pack. ??? After the first few days, try heat for 15 minutes at a time to ease pain. Always make sure the heating pad is wrapped. Never sleep on a heating pad. ??? Kpkr-lnq-hitfjwc medicine can help control pain and swelling. Try aspirin or a nonsteroidal anti- inflammatory drugs (NSAIDs) such as ibuprofen. ?? Exercise Exercise can help your back heal. It also helps your back get stronger and more flexible, preventing any reinjury. Ask your healthcare provider about specific exercises for your back. ?? Use good posture to avoid reinjury ??? When moving, bend at the hips and knees. Don???t bend at thewaist or twist around. ??? When lifting, keep the object close to your body. Lift heavy items usingyour legs, not your back. Don???t try to lift more than you can handle. ??? When sitting, keep yourlower back supported. Use a rolled-up towel as needed. Make sure your work area or desk is at the correct height. ??? Use a mirror to check your posture when you walk. Stand straight with shoulders back. Ask your healthcare providers for exercises that will improve your posture. ?? When to seek medical care Seek medical care right away if: ??? You can't stand or walk ??? You have a temperature over 100.4??F ( 38.0??C), or as advised by your healthcare provider ??? You have frequent, painful, or bloody urination ??? You have severe abdominal pain ??? You have a sharp, stabbing pain ??? Your pain is constant ??? You have pain, tingling, or numbness in your leg ??? You have weakness in one or both legsor problems with bladder, bowel, or sexual function. These symptoms should be seen by a healthcare provider right away. This is because they can be caused by compression of the nerve bundle at the base of the spine. ??? You feel pain in a new area of your back ??? You notice that the pain isn???t decreasing after more than a week ??? Your symptoms worsen or new symptoms develop ?? Last Reviewed Date: 2023 ?? 9517-9967 [employer]. All rights reserved. This information is not intended as a substitute for professional medical care. Always follow your healthcare professional's instructions. ?? Patient Care team information Care Team Personnel Name: Dean Hi NP Position: S PCO Associate Professional Member Role: PCP Address: Address: [address] [place] [address] [address] [place] [address]- Care Team Related Persons Name: JILL HAMILTON Address: [address] Address: home [address] [address] Name: KARTIK HAMILTON Address: [address] Address: home [address] [address] Name: GIOVANY HAMILTON Address: home [address] [address] Name: SAMMY WHARTON Address: home [address] [facility] [address] [place] [address]
--- OUTSIDE RECORDS SUMMARY | 2024-02-07 06:08 | XMS_ITS | Continuity of Care Document ---
Author Organization [facility] Address [address] [facility], [address]t [place] [address]- Care Team Providers Care Digital Advertising Analyst Name Role Phone Mattie NOLAN, Kathy Mendoza Primary Care Physicia n Encounter [facility] Date(s): 01/12/21 - 02/11/21 [facility] [address], 4th [place] [address]- Allergies, Adverse Reactions, Alerts Substance Reaction Severity [...] EDT, Route to Pharmacy Electronically, [facility]/pharmacy #[id number], 165.5, cm, 11/19/20 15:50:00 EDT, Height, [...]
--- OUTSIDE RECORDS SUMMARY | 2024-02-07 06:08 | XMS_ITS | Continuity of Care Document ---
Author Organization [facility] Address [address] [facility], 4t [place] [address]- Care Team Providers Care Input Output Clerk Name Role Phone Mattie NOLAN, Kathy Mendoza Primary Care Physicia n Encounter [facility] Date(s): 01/12/21 - 02/11/21 [facility] [address] [facility], 4th [address] [place], [place] [address] Allergies, Adverse Reactions, Alerts Substance [...] 12/10/20 15:18:00 EDT, Route to Pharmacy Electronically, [facility]/pharmacy #[id number], 165.5, cm, 11/19/20 15:50:00 EDT, [...]
--- OUTSIDE RECORDS SUMMARY | 2024-02-07 06:08 | XMS_ITS | Continuity of Care Document ---
Author Organization [facility] Address [address] [facility], 4t [place] [address]- Care Team Providers Care Manager Utilization Review Name Role Phone Mattie NOLAN, Kathy Mendoza Primary Care Physicia n [id number] Date(s): 09/20/21 - 10/20/21 [facility] [employer] [address] [facility], [address]th [place] [address]- Allergies, Adverse Reactions, Alerts Substance Reaction Severity [...] Mouth, Daily, # 90 tablet, 1 Refills, [id number], 165.5, cm, 02/01/21 14:07:00 EDT, Height, 94.9, kg, 01/01/21 18:12:00 EDT, Dry Weight Start Date: 06/09/21 Status: Ordered Paxlovid 150 mg-100 mg oral tablet See Instructions, 300 mg nirmatrelvir(2 tablets) with 100 mg ritonavir(1 tablet). All 3 tablets taken together twice daily for 5 days, with or without food, # 30 tablet, 0 Refills, Maintenance, 10/12/21 14:50:00 EDT, [facility]/pharmacy #[id number], Partial fill... Start Date: 10/12/21 Status: Ordered [...] II(Confirmed) Active 1Problem added by Discern Expert Social History Social History Type Response Smoking Status Never (less than 100 in lifetime) entered on: 10/13/21 Sex
--- OUTSIDE RECORDS SUMMARY | 2024-02-07 06:08 | XMS_ITS | Continuity of Care Document ---
Author Organization [facility] Address [address] [facility], [address] [place] [address]- Care Team Providers Care Fishing Tackle Repairer Name Role Phone Mattie NOLAN, Kathy Mendoza Primary Care Physicia n Encounter [place] Date(s): 12/08/20 - 01/07/21 [facility] [address] [facility], 4th [place] [address]- Allergies, Adverse Reactions, Alerts Substance Reaction Severity [...] 12/09/20 16:13:00 EDT, Route to Pharmacy Electronically, [facility]/pharmacy #[id number], Partial fill upon patient requestif the prescription is for a schedule II opioid edgar... Start Date: 12/09/20 Stop Date: 07/07/21 Status: Ordered NIFEdipine 30 mg oral tablet, extended release 30 mg, 1, tablet, By Mouth, Daily, # 30 tablet, Refills 5, Tot. Refills 5, Maintenance, 12/10/20 15:18:00 EDT, Route to Pharmacy Electronically, [facility]/pharmacy #[id number], 165.5, cm, 11/19/20 15:50:00 EDT, [...]
--- OUTSIDE RECORDS SUMMARY | 2024-02-07 06:08 | XMS_ITS | Continuity of Care Document ---
Author Organization [facility] Address [address] [facility], 4t [place] [address]- Care Team Providers Care Chemistry Quality Control Analyst Name Role Phone Lazarus Chahal MD Primary Care Physician [id number] Date(s): 02/26/20 - 06/25/20 [facility] [address] [facility], [address]th [address] [place], [place] [address] Attending Physician: Nga Sanderson MD Referring Physician: Catarina Yu MD Allergies, [...] 05/18/20 14:26:00 EST, Route to Pharmacy Electronically, [facility][id number], 165, cm, 05/18/20 14:08:00 EST, Height, 98, [...]
--- OUTSIDE RECORDS SUMMARY | 2024-02-07 06:08 | XMS_ITS | Continuity of Care Document ---
Author Organization [facility] Address [address] [facility], 4t [place] [address]- Care Team Providers Care Hull Drafter Name Role Phone Lazarus Chahal MD Primary Care Physician [phone] [id number] Date(s): 04/01/20 - 06/13/20 [facility] [address] [facility], 4th [address] [place], [place] [address] Attending Physician: Not on Staff, Attending MD Referring Physician: Carmen Cedeño CNM Allergies, Adverse Reactions, Alerts Substance Reaction Severity [...] 05/18/20 14:26:00 EST, Route to Pharmacy Electronically, [facility] #[id number], 165, cm, 05/18/20 14:08:00 EST, Height, 98, [...]
--- OUTSIDE RECORDS SUMMARY | 2024-02-07 06:08 | XMS_ITS | Continuity of Care Document ---
Author Organization [facility] Address [address] [place] [address]- Care Team Providers Care Entomology Professor Name Role Phone Dean Hi NP Primary Care Physician [phone] Encounter [facility] Date(s): 12/12/22 - 12/12/[address] [address]- Discharge Disposition: A-D/C Walkout Attending Physician: Not on Staff, Attending MD Admitting Physician: Not on Staff, Admitting MD Referring Physician: Not on Staff, Referring MD Allergies, Adverse Reactions, Alerts Substance Reaction Severity Status penicillin hives Active Immunizations Given and Recorded Vaccine Date Status Refusal Reason hepatitis B adult vaccine 08/19/22 Given [id number] 12y+ bivalent booster vax 05/25/22 Recorded influenza [...] 0 Refills, Soft Stop, 03/28/22 11:00:00 EDT, [facility], Partial fill upon patient request if [...] obesity (BMI 35.0-39.9) with comorbidity Confirmed Active Vital Signs Most recent to oldest [Reference Range]: 1 2 3 Height 165 cm (12/12/22 4:10 PM) Oxygen Saturation [94-100 %] 100 % (12/12/22 8:34 PM) 100 % (12/12/22 6:10 PM) 100 % (12/12/22 4:10 PM) Pulse Rate [55-90 bpm] 71 bpm (12/12/22 8:34 PM) 15 bpm *L* (12/12/22 6:10 PM) 70 bpm (12/12/22 4:10 PM) Blood Pressure [90-138/55-84 mm Hg] 183/115mm Hg *H* (12/12/22 8:34 PM) 153/120mm Hg *H* (12/12/22 6:10 PM) 153/114mm Hg *H* (12/12/22 4:10 PM) Respiratory Rate [16-30 br/min] 16 br/min (12/12/22 4:10 PM) Temperature [96.8-100.4 DegF] 98.0 DegF (12/12/22 8:34 PM) 98.1 DegF (12/12/22 6:10 PM) 98.2 DegF (12/12/22 4:10 PM) Mode of Delivery (Oxygen) Room air (12/12/22 8:34 PM) Room air (12/12/22 6:10 PM) Room air (12/12/22 4:10 PM) Blood pressure sites Arm, left (12/12/22 8:34 PM) Arm, left (12/12/22 6:10 PM) Arm, left (12/12/22 4:10 PM) Temperature Route Oral (12/12/22 8:34 PM) Oral (12/12/22 6:10 PM) Oral (12/12/22 4:10 PM) Dry Weight 98 kg (12/12/22 4:10 PM) Dry Weight Obtained Via Patient/family s tated (12/12/22 4:10 PM) Social History Social History Type Response Smoking Status Never (less than 100 in lifetime) entered on: 10/13/21 Sex Patient Care team information Care Team Personnel Name: Dean Hi NP Position: [facility] PCO Associate Professional Member Role: PCP Address: Address: [address] [place] [address] 3rd [place] [address]- Care Team Related Persons Name: JILL HAMILTON Address: Address: home [address] [address] [place] Name: KARTIK HAMILTON Address: Address: home [address] [place] [address] [place] Name: GIOVANY HAMILTON Address: home [address] [address] Name: SAMMY WHARTON Address: home [address] [facility] [address] [place] [address]
--- OUTSIDE RECORDS SUMMARY | 2024-02-07 06:08 | XMS_ITS | Continuity of Care Document ---
Author Organization [facility] Adult Address [address] [place] [address]- Care Team Providers Care Ground Crew Chief Name Role Phone Kolton NOLAN, Dean Adame Primary Care Physician Encounter [facility] Date(s): 06/15/23 - 07/15/23 [facility] Adult [address] [place] [id number] Allergies, Adverse Reactions, Alerts Substance Reaction Severity Status penicillin hives Active Immunizations Given and Recorded Vaccine Date Status Refusal Reason influenza virus vaccine, inactivated 03/16/23 Give n influenza virus vaccine, inactivated 05/20/22 Give n influenza virus vaccine, inactivated 11/09/21 Give n influenza virus vaccine, inactivated 03/10/20 Give n influenza virus vaccine, inactivated 04/06/18 Alfred rded hepatitis B adult vaccine 08/19/22 Given [id number] 12y+ bivalent booster vax 05/25/22 Recorded tetanus/diphtheria/pertussis, [...] 01/16/23 9:54:00 EDT, Route to Pharmacy Electronically, [facility]/pharmacy #[id number], Partial fill upon patient request if the prescription is for a schedule II opioid drug.... Start Date: 01/16/23 Status: Ordered liraglutide 18 mg/3 mL subcutaneous solution = 2.4 mg, Subcutaneous Injection, Daily, # 15 mL, 4 Refills, Maintenance, 06/15/23 17:22:00 EST, Solution, [facility]/pharmacy #[id number], Partial fill upon patient request if the prescription is for a schedule II opioid drug., 165, cm, 05/04/23 12:10:00 EST, Hei... Start Date: 06/15/23 Stop Date: 09/07/24 Status: Ordered Mirena 52 mg intrauterine device 1 each = 52 mg, Intrauterine, Once, # 1 each, 0 Refills, Soft Stop, 03/28/22 11:00:00 EDT, [facility], Partial fill upon patient request if the prescription is for a schedule II opioid drug., 166, cm, 03/21/22 8:47:00 EDT, Height, 10... Start Date: 03/28/22 Status: Ordered NIFEdipine (Eqv-Procardia XL) 90 mg oral tablet, extended release 1 tablet, By Mouth, Daily, # 90 tablet, 0 Refills, Maintenance, 02/19/23 15:29:00 EDT, [id number], 165, cm, 01/16/23 10:39:00 EDT, Height, 98, kg, 12/12/22 16:10:00 EDT, Dry Weight Start Date: 02/19/23 Status: Ordered Pen [place], 31 G x 5 mm BD Ultra [...] Associate Professional Member Role: PCP Address: Address: [address] [place] [address] 3rd [place] [address]- Care Team Related Persons Name: JILL HAMILTON Address: Address: home [address] [place] [address] [place] Name: KARTIK HAMILTON Address: [address] Address: home [address] [place] [address] [place] Name: GIOVANY HAMILTON Address: home [address] [place] [address] Name: SAMMY WHARTON Address: home [address] [facility] [address] [place] [address]
--- OUTSIDE RECORDS SUMMARY | 2024-02-07 06:08 | XMS_ITS | Continuity of Care Document ---
Author Organization [facility] Address [address] [facility], 4t [place] [address]- Care Team Providers Care Student Services Representative Name Role Phone Mattie NOLAN, Kathy Mendoza Primary Care Physicia n Encounter [facility] Date(s): 10/27/21 - 11/26/21 [facility] Calebmadelin HuffmanBUKAs [facility] [address] [facility], 4th [place] [address]- Allergies, Adverse Reactions, Alerts Substance Reaction Severity [...] 0 Refills, Soft Stop, 10/27/21 13:53:00 EDT, [facility]/pharmacy #[id number], Partial fill upon patient request if the prescription is for a schedule II opioid drug., 165.5, cm, 10/13/21 17:30:00 EDT, Height, 96.3, kg, 05/1... Start Date: 10/27/21 Status: Ordered NIFEdipine (Eqv-Procardia XL) 30 mg oral tablet, extended release 1 tablet, By Mouth, Daily, # 90 tablet, 1 Refills, [facility] [id number], 165.5, cm, 02/01/21 14:07:00 EDT, Height, 94.9, kg, 01/01/21 18:12:00 EDT, Dry Weight Start Date: 06/09/21 Status: Ordered Paxlovid 150 mg-100 mg oral tablet See Instructions, 300 mg nirmatrelvir(2 tablets) with 100 mg ritonavir(1 tablet). All 3 tablets taken together twice daily for 5 days, with or without food, # 30 tablet, 0 Refills, Maintenance, 10/12/21 14:50:00 EDT, [facility]/pharmacy #[id number], Partial fill... Start Date: 10/12/21 Status: [...]
--- OUTSIDE RECORDS SUMMARY | 2024-02-07 06:08 | XMS_ITS | Continuity of Care Document ---
Author Organization [facility] ter Address [address] [place] [address]- Care Team Providers Care Glass Loading Equipment Tender Name Role Phone Lazarus Chahal MD Primary Care Physician [place] [facility] Date(s): 03/05/20 - 03/05/[address] [address]- [facility] Discharge Disposition: A-D/C Home Attending Physician: Nga Sanderson MD Admitting Physician: Nga Sanderson MD Referring Physician: Nga Sanderson MD Allergies, Adverse Reactions, Alerts Substance Reaction Severity Status penicillin hives Active Medications albuterol inhaler (OP) 0 Refills, Maintenance Start Date: 12/11/19 Status: Ordered aspirin 81 mg oral delayed release tablet 162 mg, 2, tablet, By Mouth, Daily, # 90 tablet, Refills 6, Tot. Refills 6, Maintenance, 02/26/20 16:20:00 EDT, Route to Pharmacy Electronically, [facility] #[id number], 165, cm, 02/06/20 14:42:00 EDT, Height, 94.8, kg, 02/12/20 16:09:00 EDT, Dry... Start Date: 02/26/20 Status: Ordered Multivitamins By Mouth, Daily, 0 Refills, Maintenance, 12/11/19 21:49:00 EDT Start Date: 12/11/19 Status: Ordered Reglan 10 mg oral tablet 1 tablet = 10 mg, By Mouth, 3 times a day before meals and bedtime, 0 Refills, Maintenance, 03/05/20 12:50:00 EDT Start Date: 03/05/20 Status: Ordered Unisom 25 mg oral tablet [...] to oldest [Reference Range]: 1 2 Weight 96.5 kg (03/05/20 12:37 PM) Blood Pressure [90-138/55-84 mm Hg] 118/ 76mm Hg (03/05/20 1:00 PM) Respiratory Rate [16-30 br/min] 18 br/mi n (03/05/20 3:38 PM) 18 br/min (03/05/20 1:00 PM) Temperature [96.8-100.4 DegF] 98.1 DegF (03/05/20 12:37 PM) Mode of Delivery (Oxygen) Room air (03/05/20 1:00 PM) Blood pressure sites Arm, left (03/05/20 1:00 PM) Temperature Route Oral (03/05/20 12:37 PM) Dry Weight 96.5 kg (03/05/20 12:37 PM) Social History Social History Type Response Smoking Status Never (less than 100 in lifetime); Tobacco user in household: No entered on: 12/30/19 Sex
--- OUTSIDE RECORDS SUMMARY | 2024-02-07 06:08 | XMS_ITS | Continuity of Care Document ---
Author Organization [facility] Caleb Jacobs n's [facility] Address [address] [facility], 4t [place] [address]- Care Team Providers Care Carpet Floor Layer Apprentice Name Role Phone Lazarus Chahal MD Primary Care Physician [id number] Date[facility] 02/12/20 - 06/11/20 [facility] Calebmadelin HuffmanIMayGous [facility] [address] [facility], 4th [address] [place], [place] [address] Attending Physician: Shea Ruiz MD Referring Physician: [...] 05/18/20 14:26:00 EST, Route to Pharmacy Electronically, [facility] #[id number], 165, cm, 05/18/20 14:08:00 EST, Height, 98, [...]
--- OUTSIDE RECORDS SUMMARY | 2024-02-07 06:08 | XMS_ITS | Continuity of Care Document ---
Author Organization [facility] ter Address [address] [place] [address]- Care Team Providers Care Operational Review Sergeant Name Role Phone Kolton NOLAN, Dean Adame Primary Care Physician [phone] Encounter [facility] Date(s): 02/20/22 - 02/26/[address] [address]- Discharge Disposition: A-D/C Home Attending Physician: Catarina Yu MD Admitting Physician: Catarina Yu MD Referring Physician: Catarina Yu MD Allergies, [...] (COVID-19) mRNA-1273 vaccine 09/30/20 R ecorded Medications Acetaminophen Tablet 650 mg, Tablet, By Mouth, (1-3), may give 325mg per patient preference and re- dose with 325mg within 4 hours, if needed. Patient should only receive a total of 650mg of Acetaminophen every 4 hours., 02/26/22 5:00:00 EDT Start Date: 02/26/22 Stop Date: 02/26/22 Status: Completed albuterol inhaler (OP) 0 Refills, Maintenance Start Date: 12/11/19 Status: Ordered ibuprofen 600 mg oral tablet 600 mg, 1, tablet, By Mouth, 4 times a day, # 40 tablet, Refills 0, Tot. Refills 0, Maintenance, 02/26/22 8:34:00 EDT, Route to Pharmacy Electronically, [facility]/pharmacy #[id number], Partial fill upon patient request if the prescription is for a schedule II opi... Start Date: 02/26/22 Status: Ordered Ibuprofen Tablet 800 mg, Tablet, By Mouth, (4-6), may give 400mg per patient preference and re- dose with 400mg within 8 hours, if needed. Patient should only receive a total of 800mg of Ibuprofen every 8 hours., 02/26/22 5:00:00 EDT Start Date: 02/26/22 Stop Date: 02/26/22 Status: Completed MiraLax oral powder for reconstitution = 17 Gm, By Mouth, Daily, dissolve in water before taking, # 255 Gm, 0 Refills, Maintenance, 02/26/22 8:34:00 EDT, REC Powder, [facility]/pharmacy #[id number], Partial fill upon patient request if the prescription is for a schedule II opioid drug., 17 Gm By Mouth... Start Date: 02/26/22 Status: Ordered NIFEdipine 30 mg oral tablet, extended release 30 mg, 1, tablet, By Mouth, Daily, # 90 tablet, Refills 0, Tot. Refills 0, Maintenance, 02/26/22 8:34:00 EDT, Route to [facility]acy [facility]ically, [id number], Partial fill upon patient request if the prescription is for a schedule II opioid drug.... Start Date: 02/26/22 Status: Ordered oxyCODONE 5 mg oral tablet 5 mg, 1, tablet, By Mouth, Every 6 hours, PRN, # 12 tablet, Refills 0, Tot. Refills 0, Acute 03/12/22 8:34:00 EDT, as needed for pain, 02/26/22 8:34:00 EDT, Route to Pharmacy Electronically, [id number], Partial fill upon patient request, 166,... Start Date: 02/26/22 Stop Date: 03/12/22 Status: Ordered Multivitamins By Mouth, Daily, 0 [...] 8:34:00 EDT, Route to Pharmacy Electronically, [facility]/pharmacy #[id number], Partial fill upon patient request if the prescription is for a... Start Date: 02/26/22 Status: Ordered Problem List Condition Effective Dates Status Health Status Inform ant Abnormal chromosomal and gen etic finding on screening mother(Confirmed) Active Penicillin allergy(Confirmed) Active Asthma(Confirmed) Active COVID-19(Confirmed) 1 10/12/21 Active History of classical cesarea n section(Confirmed) Active History of poor growth(Confirmed) Active Chronic hypertension(Confirmed) 2018 Active Obese class II(Confirmed) Active 1Problem added by Discern Expert Procedures Procedure Date Related Diagnosis Body Site Status delivery only; 02/23/22 C ompleted Vital Signs Most recent to oldest [Reference Range]: 1 2 3 Height 166 cm (02/26/22 9:00 AM) 166 cm (02/20/22 11:46 PM) 166 cm (02/20/22 8:27 PM) Weight 100.4 kg (02/20/22 11:46 PM) 100.4 kg (02/20/22 8:26 PM) Oxygen Saturation [94-100 %] 98 % (02/26/22 4:56 AM) 99 % (02/25/22 11:49 PM) 99 % (02/25/22 8:33 PM) Pulse Rate [55-90 bpm] 101 bpm *H* (02/26/22 9:00 AM) 99 bpm *H* (02/20/22 11:46 PM) 100 bpm *H* (02/20/22 8:27 PM) Body Mass Index [18.5-24.99] 36.43 *>HHI* (02/20/22 11:46 PM) Blood Pressure [90-138/55-84 mm Hg] 142/86mm Hg *H* (02/26/22 9:00 AM) 146/95mm Hg *H* (02/26/22 4:56 AM) 141/85mm Hg *H* (02/25/22 11:49 PM) Respiratory Rate [16-30 br/min] 18 br/min (02/26/22 10:02 AM) 18 br/min (02/26/22 10:02 AM) 18 br/min (02/26/22 9:00 AM) Temperature [96.8-100.4 DegF] 97.6 DegF (02/26/22 9:00 AM) 97.6 DegF (02/26/22 4:56 AM) 97.7 DegF (02/25/22 8:33 PM) Mode of Delivery (Oxygen) Room air (02/26/22 4:56 AM) Room air (02/25/22 11:49 PM) Room air (02/25/22 8:33 PM) Blood pressure sites Arm, left (02/25/22 7:45 PM) Arm, left (02/25/22 11:56 AM) Arm, left (02/23/22 8:30 PM) Temperature Route Oral (02/26/22 9:00 AM) Oral (02/26/22 4:56 AM) Oral (02/25/22 8:33 PM) Dry Weight 100.4 kg (02/20/22 11:46 PM) 100.4 kg (02/20/22 8:26 PM) Weight Obtained Via Standing scale (02/20/22 8:26 PM) Social History Social History Type Response Smoking Status Never (less than 100 in lifetime) entered on: 10/13/21 Sex Care Team Personnel Name: Dean Hi NP Address: [address] [place] [address] [address] [place], [place] [address]
--- OUTSIDE RECORDS SUMMARY | 2024-02-07 06:08 | XMS_ITS | Continuity of Care Document ---
Author Organization [facility] Caleb ramons [facility] Address [address] [facility], 4t [place] [address]- Care Team Providers Care Cloth Sander Name Role Phone Lazarus Chahal MD Primary Care Physician [place] [facility] [place] 04/04/20 [facility] Calebmadelin HuffmanPrivy Groupes [facility] [address] [facility], 4th [place] [address]- [facility] Allergies, Adverse Reactions, Alerts Substance Reaction Severity [...] 02/26/20 16:20:00 EDT, Route to Pharmacy Electronically, [facility] #[id number], 165, cm, 02/06/20 14:42:00 EDT, Height, 94.8, kg, 02/12/20 16:09:00 EDT, Dry... Start Date: 02/26/20 Status: Ordered ibuprofen 800 mg oral tablet 800 mg, 1, tablet, By Mouth, Every 8 hours, # 40 tablet, Refills 0, Tot. Refills 0, Maintenance, 03/29/20 11:06:00 EDT, Route to Pharmacy Electronically, [facility] #[id number], 165, cm, 03/28/20 9:11:00 EDT, Height, 98, kg, 03/24/20 9:28:00 EDT,... Start Date: 03/29/20 Status: Ordered NIFEdipine 30 mg oral tablet, extended release 30 mg, 1, tablet, By Mouth, Daily, # 30 tablet, Refills 0, Tot. Refills 0, Maintenance, 03/29/20 11:07:00 EDT, Route to Pharmacy Electronically, [facility] #[id number], 165, cm, 03/28/20 9:11:00EDT, Height, 98, kg, 03/24/20 9:28:00 EDT, Dry Weight Start Date: 03/29/20 Status: Ordered oxyCODONE 5 mg oral tablet 5 mg, 1, tablet, By Mouth, Every 3 hours, PRN, (7-10), # 7 tablet, Refills 0, Tot. Refills 0, Maintenance, Pain , Severe, 03/29/20 11:07:00 EDT, Route to Pharmacy Electronically, [facility]#[id number], Partial fill upon patient request, 165, cm,... Start Date: 03/29/20 Status: Ordered simethicone 80 mg oral tablet, chewable 80 mg, Chew, 3 times a day, PRN, # 12 tablet, Refills 0, Tot. Refills 0, Maintenance, Gas, 03/29/2011:07:00 EDT, Route to Pharmacy Electronically, [facility] #[id number], 165, cm, 03/28/20 9:11:00 EDT, Height, 98, [...]
--- OUTSIDE RECORDS SUMMARY | 2024-02-07 06:08 | XMS_ITS | Continuity of Care Document ---
Author Organization [facility] Address [address] [facility], 4t [place] [address]- Care Team Providers Care Sound Art Instructor Name Role Phone Mattie NOLAN, Kathy Mendoza Primary Care Physicia n [id number] Date[facility] - 11/10/[facility] Huffman[facility] [address] [facility], 4th [address] [place], [place] [address] Attending Physician: Anastasiia Delgadillo MD Referring Physician: Edie Mccormick MD Polina [...] 0 Refills, Soft Stop, 10/27/21 13:53:00 EDT, [facility]/pharmacy #[id number], Partial fill upon patient request if the prescription is for a schedule II opioid drug., 165.5, cm, 10/13/21 17:30:00 EDT, Height, 96.3, kg, 10/03... Start Date: 10/27/21 Status: Ordered NIFEdipine (Eqv-Procardia XL) 30 mg oral tablet, extended release 1 tablet, By Mouth, Daily, # 90 tablet, 1 Refills, [facility], 165.5, cm, 02/01/21 14:07:00 EDT, Height, 94.9, kg, 01/01/21 18:12:00 EDT, Dry Weight Start Date: 06/09/21 Status: Ordered Paxlovid 150 mg-100 mg oral tablet See Instructions, 300 mg nirmatrelvir(2 tablets) with 100 mg ritonavir(1 tablet). All 3 tablets taken together twice daily for 5 days, with or without food, # 30 tablet, 0 Refills, Maintenance, 10/12/21 14:50:00 EDT, [facility]/pharmacy #[id number], Partial fill... Start Date: 10/12/21 Status: [...]
--- OUTSIDE RECORDS SUMMARY | 2024-02-07 06:08 | XMS_ITS | Continuity of Care Document ---
Author Organization [facility] Address [address] [place] [address] el[address], [address] [place] [address]- Care Team Providers Care Geriatric Physical Therapist Name Role Phone Kolton NETWORK OPERATIONS MANAGER, Daen Adame Primary Care Physician [facility]counter [facility] Date(s): 11/27/23 - 12/04/23 [facility] [address] [place] [address] Drive [address] [place], [place] [address] Attending Physician: Jessica Webster DO Referring Physician: Emerita DODGE, Adria Badillo Allergies, Adverse Reactions, Alerts Substance Reaction Severity Status penicillin hives Active Immunizations Given and Recorded Vaccine Date Status Refusal Reason influenza virus vaccine, inactivated 03/16/23 Give n influenza virus vaccine, inactivated 05/20/22 Give n influenza virus vaccine, inactivated 11/09/21 Give n influenza virus vaccine, inactivated 03/10/20 Give n influenza virus vaccine, inactivated 04/06/18 Alfred rded hepatitis B adult vaccine 08/19/22 Given [id number] 12y+ bivalent booster vax 05/25/22 Recorded tetanus/diphtheria/pertussis, [...] 01/16/23 9:54:00 EDT, Route to Pharmacy Electronically, [facility]/pharmacy #[id number], Partial fill upon patient request if the [...] 4 Refills, Maintenance, 09/07/24 17:22:00 EDT, Solution, [facility], Partial fill upon patient request if the prescription is for a schedule II opioid drug., 165, cm, 11/06/23 8:55:00... Start Date: 09/07/24 Stop Date: 12/01/25 Status: Ordered losartan 25 mg oral tablet 1 tablet = 25 mg, By Mouth, Daily, # 90 tablet, 0 Refills, Maintenance, 11/06/23 9:22:00 EDT, Tablet, [facility]/pharmacy #[id number], Partial fill upon patient request if the prescription is for a schedule II opioid drug., 165, cm, 11/06/23 8:55:00 EDT, Height, 9... Start Date: 11/06/23 Status: Ordered Medrol 4 mg oral tablet 1 pack/packet, By Mouth, Once, as directed on package labeling, # 21 tablet, 0 Refills, Soft Stop, 11/29/23 13:38:00 EDT, Tablet, [facility]/pharmacy #[id number], Partial fill upon patient request if the prescription is for a schedule II opioid drug., 165, cm, ... Start Date: 11/29/23 Status: Ordered Mirena 52 mg intrauterine device 1 each = 52 mg, Intrauterine, Once, # 1 each, 0 Refills, Soft Stop, 03/28/22 11:00:00 EDT, [facility], Partial fill upon patient request if the [...] Refills, Maintenance, 08/30/23 9:04:00 EDT, [facility], 165, cm, 05/04/23 12:10:00 EST, Height, 98, kg, 12/12/22 16:10:00 EDT, Dry Weight Start Date: 08/30/23 Status: Ordered omeprazole 40 mg oral enteric coated capsule 0 Refills, Maintenance, 11/27/23 13:24:00 EDT, Partial fill upon patient request if the prescription is for a schedule II opioid drug. Start Date: 11/27/23 Status: Ordered Pen [place], 31 G [...] 2018 Active Obese class I Confirmed Active Vital Signs Most recent to oldest [Reference Range]: 1 Height 165 cm (11/27/23 1:25 PM) Weight 92 kg (11/27/23 1:25 PM) Body Mass Index [18.5-24.99 kg/m2] 33.79 kg/m2 *>HHI* (11/27/23 1:25 PM) Social History Social History Type Response Smoking Status Never (less than 100 in lifetime) entered on: 10/13/21 Sex Patient Care team information Care Team Personnel Name: Dean Hi NP Position: S PCO Associate Professional Member Role: PCP Address: [address] [place] [address]- Care Team Related Persons Name: JILL HAMILTON Address: [address] Address: home [address] [address] [place] Name: KARTIK HAMILTON Address: [address] Address: home [address] [place] [address] [place] Name: GIOVANY HAMILTON Address: home [address] [place] [address] Name: SAMMY WHARTON Address: home [address] [facility] [address] [place] [address]
--- OUTSIDE RECORDS SUMMARY | 2024-02-07 06:08 | XMS_ITS | Continuity of Care Document ---
Author Organization [facility] Adult Address [address] [place] [address]- Care Team Providers Care District Home Economics Agent Name Role Phone Kolton NOLAN, Dean Adame Primary Care Physician [phone] Encounter [facility] Date(s): 09/05/22 - 10/05/22 [facility] Adult [address] [place], [place] [address] Attending Physician: Ciera Núñez Admitting Physician: AdmtrCiera Referring Physician: Admtr, Ar8 Allergies, Adverse Reactions, Alerts Substance Reaction Severity Status penicillin hives Active Immunizations Given and Recorded Vaccine Date Status Refusal Reason hepatitis B adult vaccine 08/19/22 Given [id number] 12y+ bivalent booster vax 05/25/22 Recorded influenza [...] 0 Refills, Soft Stop, 03/28/22 11:00:00 EDT, [facility], Partial fill upon patient request [...] Associate Professional Member Role: PCP Address: Address: [address] [place] [address] 3rd [place] [address]- Care Team Related Persons Name: JILL HAMILTON Address: [address] Address: home [address] [address] [place] Name: KARTIK HAMILTNO Address: [address] Address: home [address] [address] [place] Name: GIOVANY HAMILTON Address: home [address] [address] Name: SAMMY WHARTON Address: home [address] [facility] [address] [place] [address]
--- OUTSIDE RECORDS SUMMARY | 2024-02-07 06:08 | XMS_ITS | Continuity of Care Document ---
Author Organization [facility] Address [address] [place] [address]- Care Team Providers Care Fixture Builder Name Role Phone Mattie NOLAN, Kathy Mendoza Primary Care Physicia n [place] [facility] [place] 03[place]01[place]21 - 03/31/21 [facility] [address] [place] [address]- Allergies, Adverse Reactions, Alerts Substance Reaction Severity [...] 12/10/20 15:18:00 EDT, Route to Pharmacy Electronically, [facility]/pharmacy #[id number], 165.5, cm, 11/19/20 15:50:00 EDT, Height, 98, [...]
--- OUTSIDE RECORDS SUMMARY | 2024-02-07 06:08 | XMS_ITS | Continuity of Care Document ---
Author Organization [facility] Address Unknown Care Team Providers Care Wall Washer Name Role Phone Dean Hi NP Primary Care Physician [phone] En[place] [facility] [place] Date(s): 11/25/21 - 12/25/21 [facility] Attending Physician: Admtr, Gonzalo8 Admitting Physician: Admtr, Ar8 Referring Physician: Admtr, Ar8 Allergies, Adverse Reactions, [...] 0 Refills, Soft Stop, 10/27/21 13:53:00 EDT, [facility]/pharmacy #[id number], Partial fill upon patient request if the prescription is for a schedule II opioid drug., 165.5, cm, 10/13/21 17:30:00 EDT, Height, 96.3, kg, 10/03... Start Date: 10/27/21 Status: Ordered NIFEdipine (Eqv-Procardia XL) 30 mg oral tablet, extended release 1 tablet, By Mouth, Daily, # 90 tablet, 1 Refills, [facility], 165.5, cm, 02/01/21 14:07:00 EDT, Height, 94.9, kg, 01/01/21 18:12:00 EDT, Dry Weight Start Date: 06/09/21 Status: Ordered Paxlovid 150 mg-100 mg oral tablet See Instructions, 300 mg nirmatrelvir(2 tablets) with 100 mg ritonavir(1 tablet). All 3 tablets taken together twice daily for 5 days, with or without food, # 30 tablet, 0 Refills, Maintenance, 10/12/21 14:50:00 EDT, [facility]/pharmacy #[id number], Partial fill... Start Date: 10/12/21 Status: [...] History of poor growth(Confirmed) Active Chronic hypertension(Confirmed) 2017 Active Obese class II(Confirmed) Active (Confirmed) Active UTI symptoms(Confirmed) Active 1Problem added by Discern Expert Social History Social History Type Response Smoking Status Never (less than 100 in lifetime) entered on: 10/13/21 Sex
--- OUTSIDE RECORDS SUMMARY | 2024-02-07 06:08 | XMS_ITS | Continuity of Care Document ---
Author Organization [facility] [employer]aldo [employer] [facility] Address [address], 4t [place] [address]- Care Team Providers Care Property Worker Name Role Phone Kolton CENTREX RADIO OPERATOR, Dean O Primary Care Physician [id number] Date[facility]s): [facility]/02/22 - 05/07/22 [facility] [employer] [facility] [address], 4th [address] [place], [place] [address] Attending Physician: Anastasiia Delgadillo MD Referring Physician: Melanie Sanchez MD Allergies, [...] 03/28/22 11:00:00 EDT, [facility], Partial fill upon patient request if the prescription is for a schedule II opioid drug., 166, cm, 03/21/22 8:47:00 EDT, Height, 10... Start Date: 03/28/22 Status: Ordered naphazoline 0.012% ophthalmic gel forming solution 2 drops, Eyes, Both, 4 times a day, # 15 mL, 0 Refills, Maintenance, 04/07/22 9:35:00 EDT, Solution, [facility]/pharmacy #[id number], Partial fill upon patient request if the prescription is for a schedule II opioid drug., 2 drops Eyes, Both 4 times a day, 165, cm... Start Date: 04/07/22 Status: Ordered NIFEdipine (Eqv-Procardia XL) 30 mg oral tablet, extended release 1 tablet = 30 mg, By Mouth, Daily, # 90 tablet, 0 Refills, Maintenance, 03/17/22 14:21:00 EDT, ER Tablet, [facility]/pharmacy #[id number], Partial fill upon patient [...] Professional Member Role: PCP Address: Address: [address] [place] [address] 3rd [place] [address]- Care Team Related Persons Name: KARTIK HAMILTON Address: Address: home [address] [address] Name: GIOVANY HAMILTON Address: home [address] [address] Name: SAMMY WHRATON Address: home [address] [place] [address] Name: KAVITA URIAS Address: Address: home [address] [address]
--- OUTSIDE RECORDS SUMMARY | 2024-02-07 06:08 | XMS_ITS | Continuity of Care Document ---
Author Organization [facility] Reynaldo n's [facility] Address [address], 4t [place] [address]- Care Team Providers Care Consulting Sales Manager Name Role Phone Kolton COMPUTER PERIPHERAL EQUIPMENT OPERATOR, Dean Adame Primary Care Physician En[place] [facility] [place] Date(s): 03/15/22 - 03/22/22 [facility] [address], 4th [place] [address]- Attending Physician: Kin DODGE, Nga Pate Referring Physician: Tay Mann MD Allergies, Adverse Reactions, Alerts Substance Reaction [...] 19:21:00 EDT, 03/17/22 19:21:00 EDT, Tablet, [id number], Partial fill upon patient request if the prescription is fora schedule II opioid drug., 1 tablet By Mouth 2 gualberto... Start Date: 03/17/22 Stop Date: 04/08/22 Status: Ordered ibuprofen 600 mg oral tablet 600 mg, 1, tablet, By Mouth, 4 times a day, # 40 tablet, Refills 0, Tot. Refills 0, Maintenance, 02/26/22 8:34:00 EDT, Route to Pharmacy Electronically, [facility]/pharmacy #[id number], Partial fill upon patient request if the prescription is for a schedule II opi... Start Date: 02/26/22 Status: Ordered MiraLax oral powder for reconstitution = 17 Gm, By Mouth, Daily, dissolve in water before taking, # 255 Gm, 0 Refills, Maintenance, 02/26/22 8:34:00 EDT, REC Powder, [facility]/pharmacy #[id number], Partial fill upon patient request if the prescription is for a schedule II opioid drug., 17 Gm By Mouth... Start Date: 02/26/22 Status: Ordered NIFEdipine (Eqv-Procardia XL) 30 mg oral tablet, extended release 1 tablet = 30 mg, By Mouth, Daily, # 90 tablet, 0 Refills, Maintenance, 03/17/22 14:21:00 EDT, ER Tablet, [facility]/pharmacy #[id number], Partial fill upon patient request if the prescription is for a schedule II opioid drug., 166, cm, 03/15/22 15:20:00 EDT, Heig... Start Date: 03/17/22 Status: Ordered NIFEdipine 30 mg oral tablet, extended release 30 mg, 1, tablet, By Mouth, Daily, # 90 tablet, Refills 0, Tot. Refills 0, Maintenance, 02/26/22 8:34:00 EDT, Route to Pharmacy Electronically, [facility]/pharmacy #[id number], Partial fill upon patient request [...] 02/26/22 8:34:00 EDT, Route to Pharmacy Electronically, [facility]/pharmacy #[id number], Partial fill upon patient request if the [...] oldest [Reference Range]: 1 Height 166 cm (03/15/22 3:20 PM) Weight 97.27 kg (03/15/22 3:20 PM) Body Mass Index [18.5-24.99 kg/m2] 35.3 kg/m2 *>HHI* (03/15/22 3:20 PM) Blood Pressure [90-138/55-84 mm Hg] 108/ 80mm Hg (03/15/22 3:20 PM) Blood pressure sites Arm, right (03/15/22 3:20 PM) Weight Obtained Via Standing scale (03/15/22 3:20 PM) Social History Social History Type Response Smoking Status Never (less than 100 in lifetime) entered on: 10/13/21 Sex Patient Care team information Personnel Name: Dean Hi NP Address: Address: [address] [place] [address] 3rd floor [place], [place] [address]
--- OUTSIDE RECORDS SUMMARY | 2024-02-07 06:09 | XMS_ITS | Continuity of Care Document ---
Author Organization [facility] Caleb Jacobs [facility] [facility] Address [address], 4t [place] [address]- Care Team Providers Care Oil Spreader Operator Name Role Phone Joselo Denton MD Primary Care Physician [place] [facility] [place] Date(s): 12/20/19 - 12/27/19 [facility] Caleb Women[employer] [facility] [address], 4th [place] [address]- [facility] Attending Physician: Melanie Sanchez MD Allergies, Adverse Reactions, Alerts Substance Reaction Severity Status penicillin hives Active Medications albuterol inhaler (OP) 0 Refills, Maintenance Start Date: 12/11/19 Status: Ordered Multivitamins By Mouth, Daily, 0 Refills, Maintenance, 12/11/19 21:49:00 EDT Start Date: 12/11/19 Status: Ordered Problem List Condition Effective Dates Status Health Status Inform ant Bleeding in early (Confirmed) Active Asthma(Confirmed) Active Chronic hypertension(Confirmed) 2018 Active Cervical mass(Confirmed) Active Vital Signs Most recent to oldest [Reference Range]: 1 Height 165 cm (12/20/19 3:53 PM) Weight 94.36 kg (12/20/19 3:53 PM) Body Mass Index [18.5-24.99] 34.66 *>HHI* (12/20/19 3:53 PM) Blood Pressure [90-138/55-84 mm Hg] 127/ 76mm Hg (12/20/19 3:53 PM) Blood pressure sites Arm, right (12/20/19 3:53 PM) Weight Obtained Via Standing scale (12/20/19 3:53 PM) Social History Social History Type Response Smoking Status Never (less than 100 in lifetime) entered on: 12/11/19 Sex
--- OUTSIDE RECORDS SUMMARY | 2024-02-07 06:09 | XMS_ITS | Continuity of Care Document ---
Author Organization [facility] Address [address] [place] [address]- Care Team Providers Care Gear Grinding Machine Operator Name Role Phone Mattie NOLAN, Kathy Mendoza Primary Care Physicia n [place] [facility] [place] Date(s): 03/01/21 - 03/31/21 [facility] Adult [address] [place] [address]- Allergies, Adverse Reactions, Alerts Substance Reaction Severity [...] 12/10/20 15:18:00 EDT, Route to Pharmacy Electronically, [facility]/pharmacy #[id number], 165.5, cm, 11/19/20 15:50:00 EDT, Height, 98, [...]
--- OUTSIDE RECORDS SUMMARY | 2024-02-07 06:09 | XMS_ITS | Continuity of Care Document ---
Author Organization [facility] [employer]aldo [employer] [facility] Address [address], 4t [place] [address]- Care Team Providers Care Editor Continuity And Script Name Role Phone Kolton FOREST ECOLOGIST, Dean Adame Primary Care Physician [place] [facility] [place]): [place]23[place]21 - 12/30/21 [facility] [employer] [facility] [address], 4th [address] [place], [place] [address] Attending Physician: Edie Mccormick MD Polina Allergies, Adverse [...] 0 Refills, Soft Stop, 10/27/21 13:53:00 EDT, [facility]/pharmacy #[id number], Partial fill upon patient request if the prescription is for a schedule II opioid drug., 165.5, cm, 10/13/21 17:30:00 EDT, Height, 96.3, kg, 10/03... Start Date: 10/27/21 Status: Ordered NIFEdipine (Eqv-Procardia XL) 30 mg oral tablet, extended release 1 tablet, By Mouth, Daily, # 90 tablet, 1 Refills, [id number], 165.5, cm, 02/01/21 14:07:00 EDT, Height, 94.9, kg, 01/01/21 18:12:00 EDT, Dry Weight Start Date: 06/09/21 Status: Ordered Paxlovid 150 mg-100 mg oral tablet See Instructions, 300 mg nirmatrelvir(2 tablets) with 100 mg ritonavir(1 tablet). All 3 tablets taken together twice daily for 5 days, with or without food, # 30 tablet, 0 Refills, Maintenance, 10/12/21 14:50:00 EDT, [facility]/pharmacy #[id number], Partial fill... Start Date: 10/12/21 [...]
--- OUTSIDE RECORDS SUMMARY | 2024-02-07 06:09 | XMS_ITS | Continuity of Care Document ---
Author Organization [facility] Adult Address [address] [place] [address]- Care Team Providers Care Golf Club Assembler Name Role Phone Mattie NOLAN, Kathy Mendoza Primary Care Physicia n Encounter [facility] [place] Date(s): 11/03/20 - 12/03/20 [facility] Adult [address] [place] [address]- Allergies, Adverse Reactions, Alerts Substance Reaction Severity [...] 09/02/20 13:37:00 EDT, Route to Pharmacy Electronically, [facility]/pharmacy #[id number], 165, cm, 09/01/20 16:54:00 EDT, Height, 98, kg, 03/24/20 9:28:00 EDT, Dry Weight Start Date: 09/02/20 Status: Ordered Problem List Condition Effective Dates Status Health Status Inform ant Asthma(Confirmed) Active Chronic hypertension(Confirmed) 2018 Active Social History Social History Type Response Smoking Status Never (less than 100 in lifetime) entered on: 03/23/20 Sex
--- OUTSIDE RECORDS SUMMARY | 2024-02-07 06:09 | XMS_ITS | Continuity of Care Document ---
Author Organization [facility] Adult Address [address] [place] [address]- Care Team Providers Care Storage Facility Housekeeper Name Role Phone Kolton NOLAN, Dean Adame Primary Care Physician [place] [facility] [place](s): 05/04/23 - 05/11/23 [facility] [address] [place] [address]- Encounter Diagnosis Annual physical exam(Discharge Diagnosis) - 05/04/23 Asthma(Discharge Diagnosis) - 05/04/23 Chronic hypertension(Discharge Diagnosis) - 05/04/23 Severe obesity (BMI 35.0-39.9) with comorbidity(Discharge Diagnosis) - 05/04/23 Attending Physician: Not on Staff, Attending MD [...] rded hepatitis B adult vaccine 08/19/22 Given [id number] 12y+ bivalent booster vax 05/25/22 Recorded tetanus/diphtheria/pertussis, [...] 01/16/23 9:54:00 EDT, Route to Pharmacy Electronically, [facility]/pharmacy #[id number], Partial fill upon patient request if the prescription is for a schedule II opioid drug.... Start Date: 01/16/23 Status: Ordered liraglutide 18 mg/3 mL subcutaneous solution = 1.8 mg, Subcutaneous Injection, Daily, # 9 mL, 2 Refills, Maintenance, 06/22/23 9:29:00 EST, [facility], [id number], Partial fill upon patient request if the prescription is for a schedule IIopioid drug. OK to dispense 2 pack, 165, cm, ... Start Date: 06/22/23 Stop Date: 09/20/23 Status: Ordered Mirena 52 mg intrauterine device 1 each = 52 mg, Intrauterine, Once, # 1 each, 0 Refills, Soft Stop, 03/28/22 11:00:00 EDT, [facility], Partial fill upon patient request if the prescription is for a schedule II opioid drug., 166, cm, 03/21/22 8:47:00 EDT, Height, 10... Start Date: 03/28/22 Status: Ordered NIFEdipine (Eqv-Procardia XL) 90 mg oral tablet, extended release 1 tablet, By Mouth, Daily, # 90 tablet, 0 Refills, Maintenance, 02/19/23 15:29:00 EDT, [id number], 165, cm, 01/16/23 10:39:00 EDT, Height, 98, kg, 12/12/22 16:10:00 EDT, Dry Weight Start Date: 02/19/23 Status: Ordered Pen Macon, 31 G x 5 mm BD Ultra [...] Effective Dates Health Status Clinical Service Informant Annual physical exam Discharge Diagnosis 05/04/23 Asthma Discharge Diagnosis 05/04/23 Chronic hypertension Discharge Diagnosis 05/04/23 Severe obesity (BMI 35.0-39.9) with comorbidity Discharge Diagnosis 05/04/23 Vital Signs Most recent to oldest [Reference Range]: 1 2 3 Height 165 cm (05/04/23 12:10 PM) 165 cm (05/04/23 11:45 AM) 165 cm (05/04/23 11:41 AM) Weight 102 kg (05/04/23 11:41 AM) Oxygen Saturation [94-100 %] 100 % (05/04/23 11:41 AM) Pulse Rate [55-90 bpm] 100 bpm *H* (05/04/23 11:41 AM) Body Mass Index [18.5-24.99 kg/m2] 37.47 kg/m2 *>HHI* (05/04/23 11:41 AM) Blood Pressure [90-138/55-84 mm Hg] 136/84mm Hg (05/04/23 12:10 PM) 142/93mm Hg *H* (05/04/23 11:45 AM) 154/97mm Hg *H* (05/04/23 11:41 AM) Mode of Delivery (Oxygen) Room air (05/04/23 11:41 AM) Blood pressure sites Arm, left (05/04/23 12:10 PM) Arm, left (05/04/23 11:45 AM) Arm, left (05/04/23 11:41 AM) Weight Obtained Via Standing scale (05/04/23 11:41 AM) Social History Social History Type Response Smoking Status Never (less than 100 in lifetime) entered on: 10/13/21 Sex Note * Babar Pierce: PERFORM, SIGN, VERIFY Event Display: Patient Education/Instruction Authored Date: [id number] [facility] *[facility] [place] [facility] Clinical Summary Name KAVITA URIAS Age 33 Years 1990 PCP Dean Hi NP PCP Visit Date 05/04/2023 11:26:00 Additional Instructions: Scheduled Appointments?? Future Appointments ?No Future Appointments Scheduled Follow-Up Instructions ?? With: Address: When: Dean Hi NP Comments: 6 months f/u?? 1 year HUPD Diagnosis Essential (primary) hypertension; Unspecified asthma, uncomplicated; Morbid (severe) obesity due toexcess calories; Encounter for screening for diabetes mellitus; Encounter for general adult medicalexamination without abnormal findings; Encounter for screening for lipoid disorders Medications: Please continue your medications until treatment is completed or stopped by your provider. Discuss any questions related to medications with your provider. New Medications [id number] [address], [place] [id number], [phone] liraglutide (liraglutide 18 mg/3 mL subcutaneous solution) 1.8 Milligram Subcutaneous Injection Daily for 30 Days. Refills: 2. Next Dose: Medications to Continue with No Changes These medications were not printed or sent to your pharmacy Albuterol (albuterol inhaler (OP)) Next Dose: Aspirin (aspirin 81 mg oral delayed release tablet) 1 tab(s) Oral Daily. Refills: 3. Next Dose: Durable Medical Equipment (Pen Macon, 31 G x 5 mm BD Ultra Fine III) use to inject Victoza daily.Refills: 3. Next Dose: Levonorgestrel (Mirena 52 mg intrauterine device) 1 Each Intrauterine once. Refills: 0. Next Dose: NIFEdipine (NIFEdipine (Eqv-Procardia XL) 90 mg oral tablet, extended release) 1 tab(s) Oral Daily.Refills: 0. Next Dose: Allergy Info:?? penicillin Medications Given This Visit Future Orders ?Hemoglobin A1C (Monitoring)? Order Date:05/04/23?- Complete on or after?05/04/23 ?TSH? Order Date:05/04/23?- Complete on or after?05/04/23 ?ALT? Order Date:05/04/23?- Complete on or after?05/04/23 ?Lipid Panel Non Fasting? Order Date:05/04/23?- Complete on or after?05/04/23 Vital Signs Height 165 cm Weight 102 kg BMI 37.47 kg/m2 Blood Pressure 136 mm Hg/84 mm Hg Temperature Pulse Rate 100 bpm Respiratory Rate 02 Sat Mode of Delivery 100 %/Room air You can now view a summary of your hospital visit from the comfort of your home through a free online portal called [employer]. [employer] is a website that allows you to securely view your medical information including discharge summary, medications and follow-up visits. ??You can alsosend a secure electronic message to your doctor???s office to request appointments, renew medications or just ask a question. You can enroll at [email or web address] or register during your next office visit. [...] care provider, you may find a [facility] provider by calling [facility] [employer] Link at [phone]. [facility], in keeping with [facility] guidance, no longer requires face masks for staff, patientsor visitors in most situations. Similar to time spent indoors at other locations, there is the chance that you were exposed to respiratory viruses during your time with us (such as flu or COVID-19).? If you develop symptoms concerning for a viral respiratory infection, please seek testing (and treatment if indicated) from your medical provider or home test kit. For information about the plan of care including goals and instructions for your diagnosis, please see the patient education orders section of this document. Patient Education Materials?? The content of this educational material or handout may have been modified, supplemented, or adapted from its original content and format to support your individualized medical care. Prevention Guidelines,??Women Ages 18 to 39 Screening tests and vaccines are an important part of managing your health. Health counseling is essential, too. Below are guidelines for these, for women ages 18 to 39. Talk with your healthcare provider to make sure you???re up-to-date on what you need. Screening Who needs it How often Alcohol misuse All women in this age group At routine exams Blood pressure All women in this age group Every 2 years if your blood pressure is less than 120/80 mm Hg; yearly if your systolic blood pressure is 120 to 139 mm Hg, or your diastolic blood pressure reading is 80 to 89 mm Hg Breast cancer All women in this age group should talk with their healthcare providers about the need for clinicalbreast exams (CBE)1 Clinical breast exam every 3 years1 Cervical cancer Women ages 21 and older Women between ages 21 and 29 should have a Pap test every 3 years; women between ages 30 and 65 areadvised to have a Pap test plus an HPV test every 5 years Chlamydia Sexually active women ages 24 and younger, and women at increased risk for infection Every 3 years if you're at risk or have symptoms Depression All women in this age group At routine exams Diabetes mellitus, type 2 Adults with no symptoms who are overweight or obese and have 1 or more other risk factors for diabetes At least every 3 years Gonorrhea Sexually active women at increased risk for infection At routine exams Hepatitis C Anyone at increased risk At routine exams HIV All women At routine exams Obesity All women in this age group At routine exams Syphilis Women at increased risk for infection ??? talk with your healthcare provider At routine exams Tuberculosis Women at increased risk for infection ??? talk with your healthcare provider Ask your healthcare provider Vision All women in this age group At least 1 complete exam in your 20s, and 2 in your 30s Vaccine2 Who needs it How often Chickenpox (varicella) All women in this age group who have no record of this infection or vaccine 2 doses; the second dose should be given 4 to 8 weeks after the first dose Hepatitis A Women at increased risk for infection ??? talk with your healthcare provider 2 doses given at least 6 months apart Hepatitis B Women at increased risk for infection ??? talk with your healthcare provider 3 doses over 6 months; second dose should be given 1 month after the first dose; the third dose should be given at least 2 months after the second dose and at least 4 months after the first dose Haemophilus influenzae??Type B (HIB) Women at increased risk for infection ??? talk with your healthcare provider 1 to 3 doses Human papillomavirus (HPV) All women in this age group up to age 26 3 doses; the second dose should be given 1 to 2 months after the first dose and the third dose given 6 months after the first dose Influenza (flu) All women in this age group Once a year Measles, mumps, rubella (MMR) All women in this age group who have no record of these infections or vaccines 1 or 2 doses Meningococcal Women at increased risk for infection ??? talk with your healthcare provider 1 or more doses Pneumococcal conjugate vaccine (PCV13)??and pneumococcal polysaccharide??vaccine??(PPSV23) Women at increased risk for infection ??? talk with your healthcare provider PCV13: 1 dose ages 19 to 65 (protects against 13 types of pneumococcal bacteria) PPSV23: 1 to??2 doses through age 64, or 1 dose at 65 or older (protects against 23 types of pneumococcal bacteria) Tetanus/diphtheria/pertussis (Td/Tdap) booster All women in this age group Td every 10 years, or a one-time dose of Tdap instead of a Td booster after age 18, then Td every 10 years Counseling Who needs it How often BRCA gene mutation testing for breast and ovarian cancer susceptibility Women with increased risk for having gene mutation When your risk is known Breast cancer and chemoprevention Women at high risk for breast cancer When your risk is known Diet and exercise Women who are overweight or obese When diagnosed, and then at routine exams Domestic violence Women at the age in which they are able to have children At routine exams Sexually transmitted infection prevention Women who are sexually active At routine exams Skin cancer Prevention of skin cancer in fair-skinned adults through age 24 At routine exams Use of tobacco and the health effects it can cause All women in this age group Every visit 1According to the ACS, women ages 20 to 39 years should have a clinical breast exam (CBE) as part of their routine health exam every 3 years, and breast self- exams are an option for women starting intheir 20s.??However, the ??USPSTF does not recommend CBE. 2Those who are 18 years of age, who are not up-to-date on their childhood immunizations, should receive all appropriate catch-up vaccines recommended by the CDC. ?? 3782-5786 [employer]. [address] [place] [address], [place] [address]. All rights reserved. This information is not intended as a substitute for professional medical care. Always follow your healthcare professional's instructions. Patient Care team information Care Team Personnel Name: Dean Hi NP Position: S PCO Associate Professional Member Role: PCP Address: Address: [address] [place] [address] [address]rd [place], [place] [address] Care Team Related Persons Name: JILL HAMILTON Address: [address] Address: home [address] [address] [place] Name: AKRTIK HAMILTON Address: [address] Address: home [address] [address] [place] Name: GIOVANY HAMILTON Address: home [address] [address] Name: SAMMY WHARTON Address: home [address] [place] [address]
--- OUTSIDE RECORDS SUMMARY | 2024-02-07 06:09 | XMS_ITS | Continuity of Care Document ---
Author Organization [facility] Caleb ramons [facility] Address [address], 4t [place] [address]- Care Team Providers Care Silverer Name Role Phone Lazarus Chahal MD Primary [id number] Date(s[facility] - 07[facility]27/20 [facility] Caleb HuffmanCranite Systemss [facility] [address], 4th Floor [place], [place] [address] Attending Physician: Boston Nazario MD Referring Physician: Latonia Ramsey MD Allergies, Adverse Reactions, Alerts Substance Reaction [...] 05/18/20 14:26:00 EST, Route to Pharmacy Electronically, [facility] #[id number], 165, cm, 05/18/20 14:08:00 EST, Height, 98, kg, 03/24/20 9:28:00 EDT, Dry Weight Start Date: 05/18/20 Status: Ordered Problem List Condition Effective Dates Status Health Status Inform ant Asthma(Confirmed) Active Chronic hypertension(Confirmed) 2018 Active Vital Signs Most recent to oldest [Reference Range]: 1 Height 165 cm (07/20/20 11:12 AM) Weight 98.18 kg (07/20/20 11:12 AM) Body Mass Index [18.5-24.99] 36.06 *>HHI* (07/20/20 11:12 AM) Blood Pressure [90-138/55-84 mm Hg] 143/ 93mm Hg *H* (07/20/20 11:12 AM) Blood pressure sites Arm, left (07/20/20 11:12 AM) Weight Obtained Via Standing scale (07/20/20 11:12 AM) Social History Social History Type Response Smoking Status Never (less than 100 in lifetime) entered on: 03/23/20 Sex
--- OUTSIDE RECORDS SUMMARY | 2024-02-07 06:09 | XMS_ITS | Continuity of Care Document ---
Author Organization [facility] Address [address] [place] [address]- Care Team Providers Care Divemaster Name Role Phone Kolton NOLAN, Dean Adame Primary Care Physician [facility]counter [facility] Date(s): 06/28/23 - 07/28/23 [facility] [address] [place] [address] Allergies, Adverse Reactions, Alerts Substance Reaction Severity Status penicillin hives Active Immunizations Given and Recorded Vaccine Date Status Refusal Reason influenza virus vaccine, inactivated 03/16/23 Give n influenza virus vaccine, inactivated 05/20/22 Give n influenza virus vaccine, inactivated 11/09/21 Give n influenza virus vaccine, inactivated 03/10/20 Give n influenza virus vaccine, inactivated 04/06/18 Alfred rded hepatitis B adult vaccine 08/19/22 Given [id number] 12y+ bivalent booster vax 05/25/22 Recorded tetanus/diphtheria/pertussis, [...] 01/16/23 9:54:00 EDT, Route to Pharmacy Electronically, [facility]/pharmacy #[id number], Partial fill upon patient request if the prescription is for a schedule II opioid drug.... Start Date: 01/16/23 Status: Ordered liraglutide 18 mg/3 mL subcutaneous solution = 2.4 mg, Subcutaneous Injection, Daily, # 15 mL, 4 Refills, Maintenance, 06/15/23 17:22:00 EST, Solution, [facility]/pharmacy #[id number], Partial fill upon patient request if the prescription is for a schedule II opioid drug., 165, cm, 05/04/23 12:10:00 EST, Hei... Start Date: 06/15/23 Stop Date: 09/07/24 Status: Ordered Mirena 52 mg intrauterine device 1 each = 52 mg, Intrauterine, Once, # 1 each, 0 Refills, Soft Stop, 03/28/22 11:00:00 EDT, [facility], Partial fill upon patient request if the prescription is for a schedule II opioid drug., 166, cm, 03/21/22 8:47:00 EDT, Height, 10... Start Date: 03/28/22 Status: Ordered NIFEdipine (Eqv-Procardia XL) 90 mg oral tablet, extended release 1 tablet, By Mouth, Daily, # 90 tablet, 0 Refills, Maintenance, 02/19/23 15:29:00 EDT, [id number], 165, cm, 01/16/23 10:39:00 EDT, Height, 98, kg, 12/12/22 16:10:00 EDT, Dry Weight Start Date: 02/19/23 Status: Ordered Pen [place], 31 G x 5 mm BD Ultra [...] Associate Professional Member Role: PCP Address: Address: [address] [place] [address] 3rd [place] [address]- Care Team Related Persons Name: JILL HAMILTON Address: Address: home [address] [place] [address] [place] Name: KARTIK HAMILTON Address: [address] Address: home [address] [place] [address] [place] Name: GIOVANY HAMILTON Address: home [address] [place] [address] Name: SAMMY WHARTON Address: home [address] [place] [address]
--- OUTSIDE RECORDS SUMMARY | 2024-02-07 06:09 | XMS_ITS | Continuity of Care Document ---
Author Organization [facility] ter Address [address] [place] [address]- Care Team Providers Care Supervisor Cigar Processing Name Role Phone Joselo Denton MD Primary Care Physician [place] [facility] [place] 12/11/19 - 12/11/[address] [address]- [facility] Discharge Disposition: Transferred to an intermediate care faci Attending Physician: Not on Staff, Attending MD [...] [Reference Range]: 1 2 Height 165 cm (12/11/19 9:06 PM) 165 cm (12/11/19 8:35 PM) Weight 93.2 kg (12/11/19 9:06 PM) 93.2 kg (12/11/19 8:35 PM) Oxygen Saturation [94-100 %] 100 % (12/11/19 8:35 PM) Pulse Rate [55-90 bpm] 88 bpm (12/11/19 8:35 PM) Body Mass Index [18.5-24.99] 34.23 *>HHI* (12/11/19 8:35 PM) Blood Pressure [90-138/55-84 mm Hg] 135/ 82mm Hg (12/11/19 8:35 PM) Respiratory Rate [16-30 br/min] 16 br/mi n (12/11/19 8:35 PM) Temperature [96.8-100.4 DegF] 98.2 DegF (12/11/19 8:35 PM) Mode of Delivery (Oxygen) Room air (12/11/19 8:35 PM) Blood pressure sites Arm, right (12/11/19 8:35 PM) Temperature Route Oral (12/11/19 8:35 PM) Dry Weight 93.2 kg (12/11/19 9:06 PM) 93.2 kg (12/11/19 8:35 PM) Weight Obtained Via Standing scale (12/11/19 8:35 PM) Dry Weight Obtained Via Standing scale (12/11/19 8:35 PM) Social History Social History Type Response Smoking Status Never (less than 100 in lifetime) entered on: 12/11/19 Sex
--- OUTSIDE RECORDS SUMMARY | 2024-02-07 06:09 | XMS_ITS | Continuity of Care Document ---
Author Organization [facility] Address [address], 4t [place] [address]- Care Team Providers Care Reed Or Wind Instrument Tuner Name Role Phone Kolton NOLAN, Dean Adame Primary Care Physician Encounter [facility] Date(s): 03/09/22 - 04/08/22 [facility] [address], 4th [address] [place], [place] [address] Allergies, Adverse Reactions, [...] opioid drug. Start Date: 03/31/22 Status: Ordered ibuprofen 600 mg oral tablet 600 mg, 1, tablet, By Mouth, 4 times a day, # 40 tablet, Refills 0, Tot. Refills 0, Maintenance, 02/26/22 8:34:00 EDT, Route to Pharmacy Electronically, [facility]/pharmacy #[id number], Partial fill upon patient request if the prescription is for a schedule II opi... Start Date: 02/26/22 Status: Ordered MiraLax oral powder for reconstitution = 17 Gm, By Mouth, Daily, dissolve in water before taking, # 255 Gm, 0 Refills, Maintenance, 02/26/22 8:34:00 EDT, REC Powder, [facility]/pharmacy #[id number], Partial fill upon patient request if the prescription is for a schedule II opioid drug., 17 Gm By Mouth... Start Date: 02/26/22 Status: Ordered Mirena 52 mg intrauterine device 1 each = 52 mg, Intrauterine, Once, # 1 each, 0 Refills, Soft Stop, 03/28/22 11:00:00 EDT, [facility], Partial fill upon patient request if the prescription is for a schedule II opioid drug., 166, cm, 03/21/22 8:47:00 EDT, Height, 10... Start Date: 03/28/22 Status: Ordered naphazoline 0.012% ophthalmic gel forming solution 2 drops, Eyes, Both, 4 times a day, # 15 mL, 0 Refills, Maintenance, 04/07/22 9:35:00 EDT, Solution, [facility]/pharmacy #[id number], Partial fill upon patient request if the prescription is for a schedule II opioid drug., 2 drops Eyes, Both 4 times a day, 165, cm... Start Date: 04/07/22 Status: Ordered NIFEdipine (Eqv-Procardia XL) 30 mg oral tablet, extended release 1 tablet = 30 mg, By Mouth, Daily, # 90 tablet, 0 Refills, Maintenance, 03/17/22 14:21:00 EDT, ER Tablet, [facility]/pharmacy #[id number], Partial fill upon patient request if the prescription is for a schedule II opioid drug., 166, cm, 03/15/22 15:20:00 EDT, Heig... Start Date: 03/17/22 Status: Ordered NIFEdipine 30 mg oral tablet, extended release 30 mg, 1, tablet, By Mouth, Daily, # 90 tablet, Refills 0, Tot. Refills 0, Maintenance, 02/26/22 8:34:00 EDT, Route to Pharmacy Electronically, [facility]/pharmacy #[id number], Partial fill upon [...] 02/26/22 8:34:00 EDT, Route to Pharmacy Electronically, [facility]/pharmacy #[id number], Partial fill upon [...] Confirmed Active 1Problem added by Discern Expert Social History Social History Type Response Smoking Status Never (less than 100 in lifetime) entered on: 10/13/21 Sex Patient Care team information Personnel Name: Dean Hi NP Address: Address: [address] [place] [address] [address] [place] [address]-
--- OUTSIDE RECORDS SUMMARY | 2024-02-07 06:09 | XMS_ITS | Continuity of Care Document ---
Author Organization [facility] Caleb Jacobs [email or web address] Address [address], 4t [place] [address]- Care Team Providers Care Heat Treat Worker Name Role Phone Mattie NOLAN, Kathy Mendoza Primary Care Physicia n [id number] Date(s): 09/17/21 - 09/24/21 [facility] Calebmadelin [email or web address] [address], 4th [address] [place], [place] [address] Attending Physician: Anastasiia Delgadillo MD Referring Physician: Joselo Rivera MD Allergies, Adverse Reactions, Alerts Substance Reaction [...] Mouth, Daily, # 90 tablet, 1 Refills, [id number], 165.5, cm, 02/01/21 14:07:00 EDT, Height, 94.9, [...]
--- OUTSIDE RECORDS SUMMARY | 2024-02-07 06:09 | XMS_ITS | Continuity of Care Document ---
Author Organization [facility] ter Address [address] [place] [address]- Care Team Providers Care Dike Supervisor Name Role Phone Kolton NOLAN, Dean Adame Primary Care Physician [place] [facility] Date[place] 02/26/22 - 06/18/[address] [address] Discharge Disposition: A-D/C Home Attending Physician: Catarina [...] 0 Refills, Soft Stop, 03/28/22 11:00:00 EDT, [facility], Partial fill upon patient request if the prescription is for a schedule II opioid drug., 166, cm, 03/21/22 8:47:00 EDT, Height, 10... Start Date: 03/28/22 Status: Ordered naphazoline 0.012% ophthalmic gel forming solution 2 drops, Eyes, Both, 4 times a day, # 15 mL, 0 Refills, Maintenance, 04/07/22 9:35:00 EDT, Solution, [facility]/pharmacy #[id number], Partial fill upon patient request if the prescription is for a schedule II opioid drug., 2 drops Eyes, Both 4 times a day, 165, cm... Start Date: 04/07/22 Status: Ordered NIFEdipine (Eqv-Procardia XL) 30 mg oral tablet, extended release 1 tablet = 30 mg, By Mouth, Daily, # 90 tablet, 0 Refills, Maintenance, 03/17/22 14:21:00 EDT, ER Tablet, [id number], Partial fill upon patient request if the [...] Team Personnel Name: Dean Hi NP Position: [facility] PCO Associate Professional Member Role: PCP Address: Address: [address] [place] [address] [address] [place] [address]- Care Team Related Persons Name: JILL HAMILTON Address: [address] Address: home [address] [address] [place] Name: KARTIK HAMILTON Address: [address] Address: home [address] [address] [place] Name: GIOVANY HAMILTON Address: home [address] [address] Name: SAMMY WHARTON Address: home [address] [facility] [address] [place] [address]
--- OUTSIDE RECORDS SUMMARY | 2024-02-07 06:09 | XMS_ITS | Continuity of Care Document ---
Author Organization [facility] Caleb Jacobs n's [facility] Address [address], 4t [place] [address]- Care Team Providers Care Paralegal Supervisor Name Role Phone Lazarus Chahal MD Primary Care Physician [phone] [id number] Date[facility]s): 03/20/20 - 07/18/20 [facility] Caleb Women's [facility] [address], 4th Floor [place], [place] [address] Attending Physician: Catarina Yu MD Allergies, Adverse Reactions, [...] 05/18/20 14:26:00 EST, Route to Pharmacy Electronically, [facility][id number], 165, cm, 05/18/20 14:08:00 EST, Height, 98, [...]
--- OUTSIDE RECORDS SUMMARY | 2024-02-07 06:09 | XMS_ITS | Continuity of Care Document ---
Author Organization [facility] Address [address] [place] [address]- Care Team Providers Care Pet Feeder Name Role Phone Mattie NOLAN, Kathy Mendoza Primary Care Physicia n Encounter [facility] [place] Date(s): 03/01/21 - 03/31/21 [facility] [address] [place] [address]- Allergies, Adverse Reactions, Alerts Substance Reaction Severity [...] 12/10/20 15:18:00 EDT, Route to Pharmacy Electronically, [facility]/pharmacy #[id number], 165.5, cm, 11/19/20 15:50:00 EDT, Height, 98, [...]
--- OUTSIDE RECORDS SUMMARY | 2024-02-07 06:09 | XMS_ITS | Continuity of Care Document ---
Author Organization [facility] Caleb smith's [facility] Address [address] [facility], 4t [place] [address]- Care Team Providers Care Outside Cutter Name Role Phone Lazarus Chahal MD Primary Care Physician [place] [facility] [place] 02[place]12[place]20 - 03/13/20 [facility] Girardmadelin [facility] [address] [facility], 4th [place] [address]- [facility] Allergies, Adverse Reactions, Alerts Substance Reaction Severity Status penicillin hives Active Immunizations Given and Recorded Vaccine Date Status Refusal Reason influenza virus vaccine, inactivated 03/10/20 Give n Medications Acetaminophen 0 Refills, Maintenance, 03/10/20 17:11:00 EDT Start Date: 03/10/20 Status: Ordered albuterol inhaler (OP) 0 Refills, Maintenance Start Date: 12/11/19 Status: Ordered aspirin 81 mg oral delayed release tablet 162 mg, 2, tablet, By Mouth, Daily, # 90 tablet, Refills 6, Tot. Refills 6, Maintenance, 02/26/20 16:20:00 EDT, Route to Pharmacy Electronically, [facility][id number], 165, cm, 02/06/20 14:42:00 EDT, Height, 94.8, kg, 02/12/20 16:09:00 EDT, Dry... Start Date: 02/26/20 Status: Ordered Reglan 10 mg oral tablet [...]
--- OUTSIDE RECORDS SUMMARY | 2024-02-07 06:09 | XMS_ITS | Continuity of Care Document ---
Author Organization [facility] ter Address [address] [place] [address]- Care Team Providers Care Hand Scudder Name Role Phone Dean Hi NP Primary Care Physician [phone] [place] [facility] Date(s): 03/09/22 - 03/09/[address] [address]- Encounter Diagnosis Encounter for wound care(Discharge Diagnosis) - 03/09/22 Discharge Disposition: A-D/C Home Attending Physician: Boston Nazario MD Admitting Physician: Boston Nazario MD Referring Physician: Boston Nazario MD Allergies, Adverse Reactions, Alerts Substance Reaction [...] 02/26/22 8:34:00 EDT, Route to Pharmacy Electronically, [facility]/pharmacy #[id number], Partial fill upon patient request if the [...] 2018 Active Obese class II Confirmed Active 1Problem added by Discern Expert Diagnosis Diagnosis Type Effective Dates Health Status Cl inical Service Informant Encounter for wound care Discharge Diagnosis 03/09/22 Vital Signs Most recent to oldest [Reference Range]: 1 2 3 Height 166 cm (03/09/22 4:34 PM) 166 cm (03/09/22 4:25 PM) Weight 97.3 kg (03/09/22 4:25 PM) Oxygen Saturation [94-100 %] 100 % (03/09/22 4:32 PM) 100 % (03/09/22 4:25 PM) 100 % (03/09/22 4:00 PM) Pulse Rate [55-90 bpm] 89 bpm (03/09/22 4:25 PM) 89 bpm (03/09/22 4:00 PM) Body Mass Index [18.5-24.99 kg/m2] 35.31 kg/m2 *>HHI* (03/09/22 4:25 PM) Blood Pressure [90-138/55-84 mm Hg] 134/84mm Hg (03/09/22 4:32 PM) Respiratory Rate [16-30 br/min] 18 br/min (03/09/22 4:32 PM) 18 br/min (03/09/22 4:25 PM) 18 br/min (03/09/22 4:00 PM) Temperature [96.8-100.4 DegF] 98.2 DegF (03/09/22 4:25 PM) 98.0 DegF (03/09/22 4:00 PM) Mode of Delivery (Oxygen) Room air (03/09/22 4:32 PM) Blood pressure sites Arm, left (03/09/22 4:32 PM) Temperature Route Oral (03/09/22 4:25 PM) Oral (03/09/22 4:00 PM) Weight Obtained Via Standing scale (03/09/22 4:25 PM) Social History Social History Type Response Smoking Status Never (less than 100 in lifetime) entered on: 10/13/21 Sex Patient Care team information Personnel Name: Dean Hi NP Address: Address: [address] [place] [address]- [place]
--- OUTSIDE RECORDS SUMMARY | 2024-02-07 06:09 | XMS_ITS | Continuity of Care Document ---
Author Organization [facility] Caleb Jacobs n's [facility] Address [address] [facility], 4t [place] [address]- Care Team Providers Care Rn Imcu Name Role Phone Lazarus Chahal MD Primary Care Physician [id number] Date(s): 04/10/20 - 06/13/20 [facility] [place] [employer] [address] [facility], 4th Floor [place], [place] [address] Attending Physician: Tay Mann MD Referring Physician: Lazarus Chahal MD Allergies, [...] 05/18/20 14:26:00 EST, Route to Pharmacy Electronically, [facility] #[id number], 165, cm, 05/18/20 14:08:00 EST, Height, 98, [...]
--- OUTSIDE RECORDS SUMMARY | 2024-02-07 06:09 | XMS_ITS | Continuity of Care Document ---
Author Organization [facility] Reynaldo n's [facility] Address [address] [facility], 4t [place] [address]- Care Team Providers Care Hi Ranger Operator Name Role Phone Kolton NOLAN, Dean Adame Primary Care Physician [facility]counter [facility] Date(s): 04/07/22 - 06/23/22 [facility] Caleb Huffman's [facility] [address], 4th [place] [address]- Attending Physician: Not on Staff, Attending MD Referring Physician: Catarina Yu MD Allergies, [...] 0 Refills, Soft Stop, 03/28/22 11:00:00 EDT, [facility], Partial fill upon patient request if the prescription is for a schedule II opioid drug., 166, cm, 03/21/22 8:47:00 EDT, Height, 10... Start Date: 03/28/22 Status: Ordered naphazoline 0.012% ophthalmic gel forming solution 2 drops, Eyes, Both, 4 times a day, # 15 mL, 0 Refills, Maintenance, 04/07/22 9:35:00 EDT, Solution, [facility]/pharmacy #[id number], Partial fill upon patient request if the prescription is for a schedule II opioid drug., 2 drops Eyes, Both 4 times a day, 165, cm... Start Date: 04/07/22 Status: Ordered NIFEdipine (Eqv-Procardia XL) 30 mg oral tablet, extended release 1 tablet = 30 mg, By Mouth, Daily, # 90 tablet, 0 Refills, Maintenance, 03/17/22 14:21:00 EDT, ER Tablet, [id number], Partial fill upon patient request if the prescription is for a schedule II opioid drug., 166, cm, 03/15/22 15:20:00 EDT, Madisyn... Start Date: 03/17/22 Status: Ordered Multivitamins By [...] Team Personnel Name: Dean Hi NP Position: [facility] PCO Associate Professional Member Role: PCP Address: Address: [address] [place] [address] 3rd [place] [address]- Care Team Related Persons Name: JILL HAMILTON Address: [address] Address: home [address] [address] [place] Name: KARTIK HAMILTON Address: [address] Address: home [address] [address] [place] Name: GIOVANY HAMILTON Address: home [address] [address] Name: SAMMY WHARTON Address: home [address] [facility] [address] [place] [address]
--- OUTSIDE RECORDS SUMMARY | 2024-02-07 06:09 | XMS_ITS | Continuity of Care Document ---
Author Organization [facility] Reynaldo n's [facility] Address [address] [facility], 4t [place] [address]- Care Team Providers Care Cement Mason Helper Name Role Phone Kolton NOLAN, Dean Adame Primary Care Physician [place] [facility] Date(s): 03/31/22 - 04/07/22 [facility] Calebmadelin Guillorys [facility] [address] [facility], 4th [place] [address]- Attending Physician: Catarina Yu MD Referring Physician: Kisha Kaur DO Allergies, Adverse Reactions, Alerts Substance Reaction [...] 04/08/22 19:21:00 EDT, 03/17/22 19:21:00 EDT, Tablet, [facility]/pharmacy #[id number], Partial fill upon patient request if the prescription is fora schedule II opioid drug., 1 tablet By Mouth 2 gualberto... Start Date: 03/17/22 Stop Date: 04/08/22 Status: Ordered ibuprofen 600 mg oral tablet 600 mg, 1, tablet, By Mouth, 4 times a day, # 40 tablet, Refills 0, Tot. Refills 0, Maintenance, 02/26/22 8:34:00 EDT, Route to Pharmacy Electronically, [facility]/pharmacy #[id number], Partial fill upon patient request if the prescription is for a schedule II opi... Start Date: 02/26/22 Status: Ordered MiraLax oral powder for reconstitution = 17 Gm, By Mouth, Daily, dissolve in water before taking, # 255 Gm, 0 Refills, Maintenance, 02/26/22 8:34:00 EDT, REC Powder, [facility]/pharmacy #[id number], Partial fill upon patient request if the prescription is for a schedule II opioid drug., 17 Gm By Mouth... Start Date: 02/26/22 Status: Ordered Mirena 52 mg intrauterine device 1 each = 52 mg, Intrauterine, Once, # 1 each, 0 Refills, Soft Stop, 03/28/22 11:00:00 EDT, [facility], Partial fill upon patient request if the [...] oldest [Reference Range]: 1 Height 166 cm (03/31/22 11:01 AM) Weight 98.5 kg (03/31/22 11:01 AM) Body Mass Index [18.5-24.99 kg/m2] 35.75 kg/m2 *>HHI* (03/31/22 11:01 AM) Blood Pressure [90-138/55-84 mm Hg] 147/ 86mm Hg *H* (03/31/22 11:01 AM) Blood pressure sites Arm, right (03/31/22 11:01 AM) Weight Obtained Via Standing scale (03/31/22 11:01 AM) Social History Social History Type Response Smoking Status Never (less than 100 in lifetime) entered on: 10/13/21 Sex Patient Care team information Personnel Name: Dean Hi NP Address: Address: [address] [place] [id number]
--- OUTSIDE RECORDS SUMMARY | 2024-02-07 06:09 | XMS_ITS | Continuity of Care Document ---
Author Organization [facility] Address [address] [place] [address] eloisa, [address] [place] [address]- Care Team Providers Care Arch Support Technician Name Role Phone Kolton NOLAN, Dean Adame Primary Care Physician Encounter [facility] Date(s): 01/08/24 - 01/15/24 [facility] [address] [place] [address] Drive [address] [place], [place] [address] Attending Physician: Jessica Webster DO Allergies, Adverse Reactions, Alerts Substance Reaction Severity Status penicillin hives Active Immunizations Given and Recorded Vaccine Date Status Refusal Reason influenza virus vaccine, inactivated 03/16/23 Give n influenza virus vaccine, inactivated 05/20/22 Give n influenza virus vaccine, inactivated 11/09/21 Give n influenza virus vaccine, inactivated 03/10/20 Give n influenza virus vaccine, inactivated 04/06/18 Alfred rded hepatitis B adult vaccine 08/19/22 Given [id number] 12y+ bivalent booster vax 05/25/22 Recorded tetanus/diphtheria/pertussis, [...] 01/16/23 9:54:00 EDT, Route to Pharmacy Electronically, [facility]/pharmacy #[id number], Partial fill upon patient request if the [...] 4 Refills, Maintenance, 09/07/24 17:22:00 EDT, Solution, [facility], Partial fill upon patient request if the prescription is for a schedule II opioid drug., 165, cm, 11/06/23 8:55:00... Start Date: 09/07/24 Stop Date: 12/01/25 Status: Ordered losartan 25 mg oral tablet 1 tablet = 25 mg, By Mouth, Daily, # 90 tablet, 0 Refills, Maintenance, 11/06/23 9:22:00 EDT, Tablet, [facility]/pharmacy #[id number], Partial fill upon patient request if [...] 0 Refills, Soft Stop, 03/28/22 11:00:00 EDT, [facility] [employer], Partial fill upon patient request if the [...] Refills, Maintenance, 08/30/23 9:04:00 EDT, [id number], 165, cm, 05/04/23 12:10:00 EST, Height, 98, kg, 12/12/22 16:10:00 EDT, Dry Weight Start Date: 08/30/23 Status: Ordered omeprazole 40 mg oral enteric coated capsule 0 Refills, Maintenance, 11/27/23 13:24:00 EDT, Partial fill upon patient request if the prescription is for a schedule II opioid drug. Start Date: 11/27/23 Status: Ordered Pen [place], 31 G x 5 mm BD Ultra [...] Team Personnel Name: Dean Hi NP Position: [facility] PCO Associate Professional Member Role: PCP Address: Address: [address] [place] [address] 3rd [place] [address]- Care Team Related Persons Name: JILL HAMILTON Address: [address] Address: home [address] [address] [place] Name: KARTIK HAMILTON Address: [address] Address: home [address] [address] [place] Name: GIOVANY HAMILTON Address: home [address] [address] Name: SAMMY WHARTON Address: home [address] [facility] [address] [place] [address]
--- OUTSIDE RECORDS SUMMARY | 2024-02-07 06:09 | XMS_ITS | Continuity of Care Document ---
Author Organization [facility] [employer]aelb ramons [employer] Address [address], 4t [place] [address]- Care Team Providers Care Maintenance Carpenter Name Role Phone Lazarus Chahal MD Primary Care Physician [phone] Encounter [facility] Date(s): 03/12/20 - 03/19/20 [facility] Calebmadelin Guillorys [facility] [address], 4th [place] [address]- [facility] Attending Physician: Nga Sanderson MD Referring Physician: Carmen Cedeño CNM Allergies, [...] 02/26/20 16:20:00 EDT, [id number], 165, cm, 02/06/20 14:42:00 EDT, Height, 94.8, [...]
--- OUTSIDE RECORDS SUMMARY | 2024-02-07 06:09 | XMS_ITS | Continuity of Care Document ---
Author Organization [facility] Reynaldo n's [facility] Address [address], 4t [place] [address]- Care Team Providers Care Chief Operating Engineer Name Role Phone Kolton NOLAN, Dean Adame Primary Care Physician [place] [facility] 12/04/21 - 04/03/22 [facility] [address], 4th [place] [address]- Attending Physician: Laura DODGE, Melanie Pate Referring Physician: Edie Mccormick MD Allergies, Adverse Reactions, Alerts Substance Reaction [...] 04/08/22 19:21:00 EDT, 03/17/22 19:21:00 EDT, Tablet, [facility]/pharmacy #[id number], Partial fill upon patient request if the prescription is fora schedule II opioid drug., 1 tablet By Mouth 2 gualberto... Start Date: 03/17/22 Stop Date: 04/08/22 Status: Ordered ibuprofen 600 mg oral tablet 600 mg, 1, tablet, By Mouth, 4 times a day, # 40 tablet, Refills 0, Tot. Refills 0, Maintenance, 02/26/22 8:34:00 EDT, Route to Pharmacy Electronically, [facility]/pharmacy #[id number], Partial fill upon patient request if the prescription is for a schedule II opi... Start Date: 02/26/22 Status: Ordered MiraLax oral powder for reconstitution = 17 Gm, By Mouth, Daily, dissolve in water before taking, # 255 Gm, 0 Refills, Maintenance, 02/26/22 8:34:00 EDT, REC Powder, [facility]/pharmacy #[id number], Partial fill upon patient request if the prescription is for a schedule II opioid drug., 17 Gm By Mouth... Start Date: 02/26/22 Status: Ordered Mirena 52 mg intrauterine device 1 each = 52 mg, Intrauterine, Once, # 1 each, 0 Refills, Soft Stop, 03/28/22 11:00:00 EDT, [facility], Partial fill upon patient request if the prescription is for a schedule II opioid drug., 166, cm, 03/21/22 8:47:00 EDT, Height, 10... Start Date: 03/28/22 Status: Ordered NIFEdipine (Eqv-Procardia XL) 30 mg oral tablet, extended release 1 tablet = 30 mg, By Mouth, Daily, # 90 tablet, 0 Refills, Maintenance, 03/17/22 14:21:00 EDT, ER Tablet, [facility]/pharmacy #[id number], Partial fill upon patient request if the prescription is for a schedule II opioid drug., 166, cm, 03/15/22 15:20:00 EDT, Heig... Start Date: 03/17/22 Status: Ordered NIFEdipine 30 mg oral tablet, extended release 30 mg, 1, tablet, By Mouth, Daily, # 90 tablet, Refills 0, Tot. Refills 0, Maintenance, 02/26/22 8:34:00 EDT, Route to Pharmacy Electronically, [facility]/pharmacy #[id number], Partial fill upon patient request [...] 02/26/22 8:34:00 EDT, Route to Pharmacy Electronically, [facility]/pharmacy #[id number], Partial fill upon patient request [...] Name: Dean Hi NP Address: Address: [address] 3rd floor [place], [place] [address]
--- OUTSIDE RECORDS SUMMARY | 2024-02-07 06:09 | XMS_ITS | Continuity of Care Document ---
Author Organization [facility] Address [address] [place] [address]- Care Team Providers Care Molder Fitting Name Role Phone Lazarus Chahal MD Primary Care Physician Encounter [facility] Date(s): 03/29/20 - 05/29/[address] [address]- Discharge Disposition: A-D/C Home Attending Physician: Shea [...] 05/18/20 14:26:00 EST, Route to Pharmacy Electronically, [facility] #[id number], 165, cm, 05/18/20 14:08:00 EST, Height, 98, [...]
--- OUTSIDE RECORDS SUMMARY | 2024-02-07 06:09 | XMS_ITS | Continuity of Care Document ---
Author Organization [facility] Caleb ramons [facility] Address [address], 4t [place] [address]- Care Team Providers Care Habilitation Worker Name Role Phone Lazarus Chahal MD Primary Care Physician [id number] Date(s): 03/10/20 - 03/17/20 [facility] Calebmadelin HuffmanPolyP[facility] [address], 4th [place] [address]- [facility] Attending Physician: Melanie Sanchez MD Referring Physician: [...] 02/26/20 16:20:00 EDT, Route to Pharmacy Electronically, [facility] #[id number], 165, cm, 02/06/20 14:42:00 EDT, Height, 94.8, [...] [Reference Range]: 1 2 Height 165 cm (03/10/20 5:15 PM) 165 cm (03/10/20 5:08 PM) Weight 99 kg (03/10/20 5:08 PM) Body Mass Index [18.5-24.99] 36.36 *>HHI* (03/10/20 5:08 PM) Blood Pressure [90-138/55-84 mm Hg] 147/ 85mm Hg *H* (03/10/20 5:15 PM) 158/81mm Hg *H* (03/10/20 5:08 PM) Blood pressure sites Arm, right (03/10/20 5:15 PM) Arm, right (03/10/20 5:08 PM) Dry Weight 99 kg (03/10/20 5:08 PM) Weight Obtained Via Standing scale (03/10/20 5:08 PM) Dry Weight Obtained Via Standing scale (03/10/20 5:08 PM) Social History Social History Type Response Smoking Status Never (less than 100 in lifetime); Tobacco user in household: No entered on: 12/30/19 Sex
--- OUTSIDE RECORDS SUMMARY | 2024-02-07 06:09 | XMS_ITS | Continuity of Care Document ---
Author Organization [facility] [employer] Address [address], 4t [place] [address]- Care Team Providers Care Molding Line Operator Name Role Phone Mattie NOLAN, Kathy Mendoza Primary Care Physicia n [place] [facility] Date(s): 12/31/20 - 01/30/21 [facility] [address], 4th [place] [address]- Allergies, Adverse Reactions, Alerts Substance Reaction Severity [...] 12/09/20 16:13:00 EDT, Route to Pharmacy Electronically, [facility]/pharmacy #[id number], Partial fill upon patient requestif the prescription is for a schedule II opioid edgar... Start Date: 12/09/20 Stop Date: 07/07/21 Status: Ordered NIFEdipine 30 mg oral tablet, extended release 30 mg, 1, tablet, By Mouth, Daily, # 30 tablet, Refills 5, Tot. Refills 5, Maintenance, 12/10/20 15:18:00 EDT, Route to Pharmacy Electronically, [facility]/pharmacy #[id number], 165.5, cm, 11/19/20 15:50:00 EDT, [...]
--- OUTSIDE RECORDS SUMMARY | 2024-02-07 06:09 | XMS_ITS | Continuity of Care Document ---
Author Organization [facility] [employer] Address [address], 4t [place] [address]- Care Team Providers Care House Cleaner Supervisor Name Role Phone Mattie NOLAN, Kathy Mendoza Primary Care Physicia n Encounter [facility] ACCT R [id number] Date(s): 11/03/20 - 12/03/20 [facility]aleb [facility] [address], 4th [place] [address]- Attending Physician: Admtr, Ar8 Admitting Physician: Admtr, Ar8 Referring Physician: Admtr, [...] 09/02/20 13:37:00 EDT, Route to Pharmacy Electronically, [facility]/pharmacy #[id number], 165, cm, 09/01/20 16:54:00 EDT, Height, 98, kg, 03/24/20 9:28:00 EDT, Dry Weight Start Date: 09/02/20 Status: Ordered Problem List Condition Effective Dates Status Health Status Inform ant Asthma(Confirmed) Active Chronic hypertension(Confirmed) 2018 Active Social History Social History Type Response Smoking Status Never (less than 100 in lifetime) entered on: 03/23/20 Sex
--- OUTSIDE RECORDS SUMMARY | 2024-02-07 06:09 | XMS_ITS | Continuity of Care Document ---
Author Organization [facility] [employer] Address [address], [place] [address]- Care Team Providers Care Productivity Engineer Name Role Phone Mattie NOLAN, Kathy Mendoza Primary Care Physicia n Encounter [facility] [place] [facility] Date(s): 12/09/20 - 02/04/21 [facility] [address] [facility] [address] [facility] [address], 4th [place] [address]- Attending Physician: Kin DODGE, Nga Pate Allergies, [...] 12/10/20 15:18:00 EDT, Route to Pharmacy Electronically, [facility]/pharmacy #[id number], 165.5, cm, 11/19/20 15:50:00 EDT, Height, 98, [...]
--- OUTSIDE RECORDS SUMMARY | 2024-02-07 06:09 | XMS_ITS | Continuity of Care Document ---
Author Organization [facility] Caleb Jacobs n's [facility] Address [address] [facility], 4t [place] [address]- Care Team Providers Care Tractor Trailer Mechanic Name Role Phone Kolton NOLAN, Dean Adame Primary Care Physician Encounter [facility] Date(s): 02/11/22 - 06/11/22 [facility] [address], 4th Floor [place], [place] [address] Attending Physician: Catarian Yu MD Allergies, Adverse Reactions, Alerts Substance [...] 0 Refills, Soft Stop, 03/28/22 11:00:00 EDT, [facility], Partial fill upon patient request if the prescription is for a schedule II opioid drug., 166, cm, 03/21/22 8:47:00 EDT, Height, 10... Start Date: 03/28/22 Status: Ordered naphazoline 0.012% ophthalmic gel forming solution 2 drops, Eyes, Both, 4 times a day, # 15 mL, 0 Refills, Maintenance, 04/07/22 9:35:00 EDT, Solution, [facility]/pharmacy #[id number], Partial fill upon patient request if the prescription is for a schedule II opioid drug., 2 drops Eyes, Both 4 times a day, 165, cm... Start Date: 04/07/22 Status: Ordered NIFEdipine (Eqv-Procardia XL) 30 mg oral tablet, extended release 1 tablet = 30 mg, By Mouth, Daily, # 90 tablet, 0 Refills, Maintenance, 03/17/22 14:21:00 EDT, ER Tablet, [id number], Partial fill upon patient request if the prescription is for a schedule II opioid drug., 166, cm, 03/15/22 15:20:00 EDT, [facility]... Start Date: 03/17/22 Status: Ordered Multivitamins By [...] Team Personnel Name: Dean Hi NP Position: [facility] PCO Associate Professional Member Role: PCP Address: Address: [address] [place] [address] 3rd [place] [address]- Care Team Related Persons Name: JILL HAMILTON Address: [address] Address: home [address] [address] [place] Name: KARTIK HAMILTON Address: [address] Address: home [address] [address] [place] Name: GIOVANY HAMILTON Address: home [address] [address] Name: SAMMY WHARTON Address: home [address] [facility] [address] [place] [address]
--- OUTSIDE RECORDS SUMMARY | 2024-02-07 06:09 | XMS_ITS | Continuity of Care Document ---
Author Organization [facility] Caleb Jacobs nMister [employer] [facility] Address [address], 4t [place] [address]- Care Team Providers Care Labor Delivery Rn Name Role Phone Lazarus Chahal MD Primary Care Physician [phone] [id number] Date(s): 02/28/20 - 03/06/20 [facility] Girardmadelin HuffmanMister [employer] [facility] [address] [address] [facility], 4th [place] [address]- [facility] Attending Physician: Nga Sanderson MD Allergies, Adverse Reactions, Alerts Substance Reaction Severity Status penicillin hives Active Medications albuterol inhaler (OP) 0 Refills, Maintenance Start Date: 12/11/19 Status: Ordered aspirin 81 mg oral delayed release tablet 162 mg, 2, tablet, By Mouth, Daily, # 90 tablet, Refills 6, Tot. Refills 6, Maintenance, 02/26/20 16:20:00 EDT, [id number], 165, cm, 02/06/20 14:42:00 EDT, Height, 94.8, [...]
--- OUTSIDE RECORDS SUMMARY | 2024-02-07 06:09 | XMS_ITS | Continuity of Care Document ---
Author Organization [facility] Address [address] [place] [address]- Care Team Providers Care Corporate Sales Trainer Name Role Phone Dean Hi NP Primary Care Physician Encounter [facility] Date(s): 01/03/23 - 02/02/23 [facility] [address] [place] [address]- Allergies, Adverse Reactions, Alerts Substance Reaction Severity Status penicillin hives Active Immunizations Given and Recorded Vaccine Date Status Refusal Reason hepatitis B adult vaccine 08/19/22 Given [id number] 12y+ bivalent booster vax 05/25/22 Recorded influenza [...] 01/16/23 9:54:00 EDT, Route to Pharmacy Electronically, [facility]/pharmacy #[id number], Partial fill upon patient request if the prescription is for a schedule II opioid drug.... Start Date: 01/16/23 Status: Ordered Mirena 52 mg intrauterine device 1 each = 52 mg, Intrauterine, Once, # 1 each, 0 Refills, Soft Stop, 03/28/22 11:00:00 EDT, [facility], Partial fill upon patient request if the prescription is for a schedule II opioid drug., 166, cm, 03/21/22 8:47:00 EDT, Height, 10... Start Date: 03/28/22 Status: Ordered NIFEdipine (Eqv-Procardia XL) 90 mg oral tablet, extended release 1 tablet = 90 mg, By Mouth, Daily, # 90 tablet, 1 Refills, Maintenance, 08/03/22 16:35:00 EST, [id number], Partial fill upon patient request if the [...] Team Personnel Name: Dean Hi NP Position: [facility] PCO Associate Professional Member Role: PCP Address: Address: [address] [place] [address]- Care Team Related Persons Name: JILL HAMILTON Address: [address] Address: home [address] [address] [place] Name: KARTIK HAMILTON Address: [address] Address: home [address] [address] [place] Name: GIOVANY HAMILTON Address: home [address] [address] Name: SAMMY WHARTON Address: home [address] [facility] [address] [place] [address]
--- OUTSIDE RECORDS SUMMARY | 2024-02-07 06:09 | XMS_ITS | Continuity of Care Document ---
Author Organization [facility] Caleb ramons Address [address] [facility] [facility], 4t [place] [address]- Care Team Providers Care Hole Puncher Strap Name Role Phone Lazarus Chahal MD Primary Care Physician [phone] [facility] Date(s): 04/14/20 - 05/14/20 [facility] Caleb Guillorys [facility] [address] [facility], 4th Floor [place], [place] [address] Allergies, Adverse Reactions, Alerts Substance Reaction [...] 02/26/20 16:20:00 EDT, Route to Pharmacy Electronically, [facility] #[id number], 165, cm, 02/06/20 14:42:00 EDT, Height, 94.8, kg, 02/12/20 16:09:00 EDT, Dry... Start Date: 02/26/20 Status: Ordered ibuprofen 800 mg oral tablet 800 mg, 1, tablet, By Mouth, Every 8 hours, # 40 tablet, Refills 0, Tot. Refills 0, Maintenance, 03/29/20 11:06:00 EDT, Route to Pharmacy Electronically, [facility] #[id number], 165, cm, 03/28/20 9:11:00 EDT, Height, 98, kg, 03/24/20 9:28:00 EDT,... Start Date: 03/29/20 Status: Ordered NIFEdipine 30 mg oral tablet, extended release 30 mg, 1, tablet, By Mouth, Daily, # 30 tablet, Refills 0, Tot. Refills 0, Maintenance, 04/27/20 15:42:00 EST, Route to Pharmacy Electronically, [facility] #[id number], 165, cm, 03/28/20 9:11:00EDT, Height, 98, kg, 03/24/20 9:28:00 EDT, Dry Weight Start Date: 04/27/20 Status: Ordered simethicone 80 mg oral tablet, chewable 80 mg, Chew, 3 times a day, PRN, # 12 tablet, Refills 0, Tot. Refills 0, Maintenance, Gas, 03/29/2011:07:00 EDT, Route to Pharmacy Electronically, [facility] #[id number], 165, cm, 03/28/20 9:11:00 EDT, Height, 98, kg, 03/24/20 9:28:00 EDT, Dry W... Start Date: 03/29/20 Status: Ordered Problem List Condition Effective Dates Status Health Status Inform ant Asthma(Confirmed) Active Chronic hypertension(Confirmed) 2018 Active exam(Confirmed) Active Severe preeclampsia(Confirmed) Active Social History Social History Type Response Smoking Status Never (less than 100 in lifetime) entered on: 03/23/20 Sex
--- OUTSIDE RECORDS SUMMARY | 2024-02-07 06:09 | XMS_ITS | Continuity of Care Document ---
Author Organization [facility] Reynaldo smith's [facility] Address [address] [facility], 4t [place] [address]- Care Team Providers Care Telephone Plant Power Operator Name Role Phone Mattie NOLAN, Kathy Mendoza Primary Care Physicia n Encounter [facility] ACCT R [id number] Date(s): 04/16/21 - 05/16/21 [facility] [facility] [address] [facility], 4th Floor [place], [place] [address] Attending Physician: Admtr, [id number] Admitting Physician: Admtr, [...] 12/10/20 15:18:00 EDT, Route to Pharmacy Electronically, [facility]/pharmacy #[id number], 165.5, cm, 11/19/20 15:50:00 EDT, [...]
--- OUTSIDE RECORDS SUMMARY | 2024-02-07 06:09 | XMS_ITS | Continuity of Care Document ---
Author Organization [facility] Address [address] [place] [address]- Care Team Providers Care Aircraft Charter Dispatcher Name Role Phone Lazarus Chahal MD Primary Care Physician [place] [facility] [place] 12/10/19 - [facility]09[facility] [address] [place] [address]- [facility] Allergies, Adverse Reactions, Alerts Substance Reaction Severity Status penicillin hives Active Medications albuterol inhaler (OP) 0 Refills, Maintenance Start Date: 12/11/19 Status: Ordered aspirin 81 mg oral delayed release tablet 162 mg, 2, tablet, By Mouth, Daily, # 90 tablet, Refills 6, Tot. Refills 6, Maintenance, 01/02/20 16:30:00 EDT, Route to Pharmacy Electronically, [facility] #[id number], 165, cm, 01/02/20 15:49:00 EDT, Height, 90.9, [...]
--- OUTSIDE RECORDS SUMMARY | 2024-02-07 06:09 | XMS_ITS | Continuity of Care Document ---
Author Organization [facility] [employer]do [employer] [facility] Address [address] [facility], 4t [place] [address]- Care Team Providers Care Agricultural Real Estate Agent Name Role Phone Kolton EDUCATION REP, Dean Adame Primary Care Physician [id number]s): 01/07[facility]22 - 05/07/22 [facility] [employer] [facility] [employer] [facility] [address] [facility], 4th Floor [place], [place] [address] Attending Physician: Catarina Yu MD Referring Physician: [...] 0 Refills, Soft Stop, 03/28/22 11:00:00 EDT, [facility] [employer], Partial fill upon patient request if the prescription is for a schedule II opioid drug., 166, cm, 03/21/22 8:47:00 EDT, Height, 10... Start Date: 03/28/22 Status: Ordered naphazoline 0.012% ophthalmic gel forming solution 2 drops, Eyes, Both, 4 times a day, # 15 mL, 0 Refills, Maintenance, 04/07/22 9:35:00 EDT, Solution, [facility]/pharmacy #[id number], Partial fill upon patient request if the prescription is for a schedule II opioid drug., 2 drops Eyes, Both 4 times a day, 165, cm... Start Date: 04/07/22 Status: Ordered NIFEdipine (Eqv-Procardia XL) 30 mg oral tablet, extended release 1 tablet = 30 mg, By Mouth, Daily, # 90 tablet, 0 Refills, Maintenance, 03/17/22 14:21:00 EDT, ER Tablet, [facility]/pharmacy #[id number], Partial fill upon patient [...] Associate Professional Member Role: PCP Address: Address: [address] [place] [address] 3rd [place] [address]- Care Team Related Persons Name: KARTIK HAMILTON Address: Address: home [address] [address] Name: GIOVANY HAMILTON Address: home [address] [address] Name: SAMMY WHARTON Address: home [address] [facility] [address] [place] [address] Name: KAVITA URIAS Address: Address: home [address] [address]
--- OUTSIDE RECORDS SUMMARY | 2024-02-07 06:09 | XMS_ITS | Continuity of Care Document ---
Author Organization [facility] [employer]aleb smiths Group Address [address] [facility], 4t [place] [address]- Care Team Providers Care Mold Insert Changer Name Role Phone Mattie NOLAN, Kathy Mendoza Primary Care Physicia n En[place] [facility] [place] Date(s): 01/08/21 - [facility]07/21 [facility] [address] [facility], 4th [place] [address]- Allergies, Adverse Reactions, Alerts Substance Reaction Severity [...]
--- OUTSIDE RECORDS SUMMARY | 2024-02-07 06:10 | XMS_ITS | Continuity of Care Document ---
Author Organization [facility] [employer]do smithVol[employer]field [employer] Address [address] [facility], 4t [place] [address]- Care Team Providers Care Monotype Machinist Name Role Phone Mattie NOLAN, Kathy Mendoza Primary Care Physicia n [id number] Date(s): 10/27/21 - 11/26/21 [facility] Huffman[facility] [address] [facility], 4th [place] [address]- Allergies, Adverse Reactions, Alerts Substance Reaction Severity [...] 0 Refills, Soft Stop, 10/27/21 13:53:00 EDT, [facility]/pharmacy #[id number], Partial fill upon patient request if the prescription is for a schedule II opioid drug., 165.5, cm, 10/13/21 17:30:00 EDT, Height, 96.3, kg, 10/03... Start Date: 10/27/21 Status: Ordered NIFEdipine (Eqv-Procardia XL) 30 mg oral tablet, extended release 1 tablet, By Mouth, Daily, # 90 tablet, 1 Refills, [facility] STORE [id number], 165.5, cm, 02/01/21 14:07:00 EDT, Height, 94.9, kg, 01/01/21 18:12:00 EDT, Dry Weight Start Date: 06/09/21 Status: Ordered Paxlovid 150 mg-100 mg oral tablet See Instructions, 300 mg nirmatrelvir(2 tablets) with 100 mg ritonavir(1 tablet). All 3 tablets taken together twice daily for 5 days, with or without food, # 30 tablet, 0 Refills, Maintenance, 10/12/21 14:50:00 EDT, [facility]/pharmacy #[id number], Partial fill... Start Date: [...]
--- OUTSIDE RECORDS SUMMARY | 2024-02-07 06:10 | XMS_ITS | Continuity of Care Document ---
Author Organization [facility] Caleb Jacobs nReciclatas [facility] Address [address] [facility], [address] [address]- Care Team Providers Care Tile Mason Name Role Phone Lazarus Chahal MD Primary Care Physician [id number] Date(s[facility] 12/27/19 - 01/26/20 [facility] [place] HuffmanReciclat[facility] [address] [facility], 4th [place] [address]- [place] Allergies, Adverse Reactions, Alerts Substance Reaction Severity Status penicillin hives Active Medications albuterol inhaler (OP) 0 Refills, Maintenance Start Date: 12/11/19 Status: Ordered aspirin 81 mg oral delayed release tablet 162 mg, 2, tablet, By Mouth, Daily, # 90 tablet, Refills 6, Tot. Refills 6, Maintenance, 01/02/20 16:30:00 EDT, Route to Pharmacy Electronically, [id number], 165, cm, 01/02/20 15:49:00 EDT, Height, 90.9, [...]
--- OUTSIDE RECORDS SUMMARY | 2024-02-07 06:10 | XMS_ITS | Continuity of Care Document ---
Author Organization [facility] Caleb Jacobs n's [facility] Address [address] [facility], 4t [place] [address]- Care Team Providers Care Glass Cleaner Name Role Phone Kolton NOLAN, Dean Adame Primary Care Physician [phone] [facility] Date[facility]s): 05[facility]02[facility]22 - [facility] [address], 4th Floor [place], [place] [address] Allergies, Adverse Reactions, Alerts Substance [...] 0 Refills, Soft Stop, 03/28/22 11:00:00 EDT, [facility], Partial fill upon patient request if the prescription is for a schedule II opioid drug., 166, cm, 03/21/22 8:47:00 EDT, Height, 10... Start Date: 03/28/22 Status: Ordered naphazoline 0.012% ophthalmic gel forming solution 2 drops, Eyes, Both, 4 times a day, # 15 mL, 0 Refills, Maintenance, 04/07/22 9:35:00 EDT, Solution, [facility]/pharmacy #[id number], Partial fill upon patient request if the [...] Associate Professional Member Role: PCP Address: Address: [address] [place] [address] [address] [place] [address]- Care Team Related Persons Name: JILL HAMILTON Address: [address] Address: home [address] [address] [place] Name: KARTIK HAMILTON Address: [address] Address: home [address] [address] [place] Name: GIOVANY HAMILTON Address: home [address] [address] Name: SAMMY WHARTON Address: home [address] [facility] [address] [place] [address]
--- OUTSIDE RECORDS SUMMARY | 2024-02-07 06:10 | XMS_ITS | Continuity of Care Document ---
Author Organization [facility] Adult Address [address] [place] [address]- Care Team Providers Care Ethics Officer Name Role Phone Kolton NOLAN, Dean Adame Primary Care Physician [phone] Encounter [facility] Date(s): 05/17/22 - 06/16/22 [facility] [address] [place] [address]- Allergies, Adverse Reactions, Alerts Substance Reaction Severity [...] 0 Refills, Soft Stop, 03/28/22 11:00:00 EDT, [facility], Partial fill upon patient request if the prescription is for a schedule II opioid drug., 166, cm, 03/21/22 8:47:00 EDT, Height, 10... Start Date: 03/28/22 Status: Ordered naphazoline 0.012% ophthalmic gel forming solution 2 drops, Eyes, Both, 4 times a day, # 15 mL, 0 Refills, Maintenance, 04/07/22 9:35:00 EDT, Solution, [facility]/pharmacy #[id number], Partial fill upon patient request if the [...] opioid drug., 166, cm, 03/15/22 15:20:00 EDT, Chris. Start Date: 03/17/22 Status: Ordered Multivitamins By [...] Associate Professional Member Role: PCP Address: Address: [address] [place] [address] 3rd [place] [address]- [place] Care Team Related Persons Name: JILL HAMILTON Address: [address] Address: home [address] [address] [place] Name: KARTIK HAMILTON Address: [address] Address: home [address] [address] [place] Name: GIOVANY HAMILTON Address: home [address] [address] Name: SAMMY WHARTON Address: home [address] [facility] [address] [place] [address]
--- OUTSIDE RECORDS SUMMARY | 2024-02-07 06:10 | XMS_ITS | Continuity of Care Document ---
Author Organization [facility] [employer] Address [address] [facility], 4t [place] [address]- Care Team Providers Care Sole Seamer Name Role Phone Mattie NOLAN, Kathy Mendoza Primary Care Physicia n Encounter [facility] Date(s): 12/17/20 - 01/16/21 [facility] [address] [facility], 4th [place] [address]- Allergies, Adverse Reactions, Alerts Substance Reaction Severity [...] 12/09/20 16:13:00 EDT, Route to Pharmacy Electronically, [facility]/pharmacy #[id number], Partial fill upon patient requestif the prescription is for a schedule II opioid edgar... Start Date: 12/09/20 Stop Date: 07/07/21 Status: Ordered NIFEdipine 30 mg oral tablet, extended release 30 mg, 1, tablet, By Mouth, Daily, # 30 tablet, Refills 5, Tot. Refills 5, Maintenance, 12/10/20 15:18:00 EDT, Route to Pharmacy Electronically, [facility]/pharmacy #[id number], 165.5, cm, 11/19/20 15:50:00 [...]
--- OUTSIDE RECORDS SUMMARY | 2024-02-07 06:10 | XMS_ITS | Continuity of Care Document ---
Author Organization [facility] [employer]aldo smithWork[employer] [facility] Address [address] [facility], 4t [place] [address]- Care Team Providers Care Assistant Corporation Counsel Name Role Phone Kolton UROLOGY TEACHER, Dean Adame Primary Care Physician [id number] Date(s): 01/06/22 - 01/13/22 [facility] HuffmanWorkhints [facility] [address] [facility], 4th [place] [address]- Attending Physician: Catarina Yu MD Referring Physician: [...] 0 Refills, Soft Stop, 10/27/21 13:53:00 EDT, [facility]/pharmacy #[id number], Partial fill upon patient request if the prescription is for a schedule II opioid drug., 165.5, cm, 10/13/21 17:30:00 EDT, Height, 96.3, kg, 10/03... Start Date: 10/27/21 Status: Ordered NIFEdipine (Eqv-Procardia XL) 30 mg oral tablet, extended release 1 tablet, By Mouth, Daily, # 90 tablet, 1 Refills, [id number], 165.5, cm, 02/01/21 14:07:00 EDT, Height, 94.9, kg, 01/01/21 18:12:00 EDT, Dry Weight Start Date: 06/09/21 Status: Ordered Paxlovid 150 mg-100 mg oral tablet See Instructions, 300 mg nirmatrelvir(2 tablets) with 100 mg ritonavir(1 tablet). All 3 tablets taken together twice daily for 5 days, with or without food, # 30 tablet, 0 Refills, Maintenance, 10/12/21 14:50:00 EDT, [facility]/pharmacy #[id number], Partial fill... Start Date: 10/12/21 [...] hypertension(Confirmed) 2018 Active Obese class II(Confirmed) Active UTI symptoms(Confirmed) Active 1Problem added by Discern Expert Vital Signs Most recent to oldest [Reference Range]: 1 Height 165.5 cm (01/06/22 11:14 AM) Weight 98.2 kg (01/06/22 11:14 AM) Body Mass Index [18.5-24.99] 35.85 *>HHI* (01/06/22 11:14 AM) Blood Pressure [90-138/55-84 mm Hg] 128/ 83mm Hg (01/06/22 11:14 AM) Blood pressure sites Arm, right (01/06/22 11:14 AM) Weight Obtained Via Standing scale (01/06/22 11:14 AM) Social History Social History Type Response Smoking Status Never (less than 100 in lifetime) entered on: 10/13/21 Sex
--- OUTSIDE RECORDS SUMMARY | 2024-02-07 06:10 | XMS_ITS | Continuity of Care Document ---
Author Organization [facility] [employer] Address [address] [facility], 4t [place] [address]- Care Team Providers Care Trim Attacher Name Role Phone Mattie NOLAN, Kathy Mendoza Primary Care Physicia n [place] [facility] [place] Date(s): 11/30/20 - [facility]30/20 [facility] [address] [facility], 4th [place] [address]- Allergies, Adverse Reactions, Alerts Substance Reaction Severity [...] 12/09/20 16:13:00 EDT, Route to Pharmacy Electronically, [facility]/pharmacy #[id number], Partial fill upon patient requestif the prescription is for a schedule II opioid edgar... Start Date: 12/09/20 Stop Date: 07/07/21 Status: Ordered NIFEdipine 30 mg oral tablet, extended release 30 mg, 1, tablet, By Mouth, Daily, # 30 tablet, Refills 5, Tot. Refills 5, Maintenance, 12/10/20 15:18:00 EDT, Route to Pharmacy Electronically, [facility]/pharmacy #[id number], 165.5, cm, 11/19/20 15:50:00 EDT, [...]
--- OUTSIDE RECORDS SUMMARY | 2024-02-07 06:10 | XMS_ITS | Continuity of Care Document ---
Author Organization [facility] [employer]do [employer]Sh[employer] Group Address [address] [facility], 4t [place] [address]- Care Team Providers Care Gang Worker Name Role Phone Mattie NOLAN, Kathy Mendoza Primary Care Physicia n [facility] [id number] Date(s): 10/13/21 - 10/20/21 [facility] Calebmadelin HuffmanShipping Companys [facility] [address] [facility], 4th [place] [address]- Attending Physician: Kin DODGE, Nga Pate Referring Physician: Mattie NOLAN, Kathy Mendoza Allergies, [...] Mouth, Daily, # 90 tablet, 1 Refills, [facility] STORE 37424, 165.5, cm, 02/01/21 14:07:00 EDT, Height, 94.9, kg, 01/01/21 18:12:00 EDT, Dry Weight Start Date: 06/09/21 Status: Ordered Paxlovid 150 mg-100 mg oral tablet See Instructions, 300 mg nirmatrelvir(2 tablets) with 100 mg ritonavir(1 tablet). All 3 tablets taken together twice daily for 5 days, with or without food, # 30 tablet, 0 Refills, Maintenance, 10/12/21 14:50:00 EDT, [facility]/pharmacy #[id number], Partial fill... Start Date: 10/12/21 Status: Ordered [...] oldest [Reference Range]: 1 Height 165.5 cm (10/13/21 5:30 PM) Weight 96.3 kg (10/13/21 5:30 PM) Body Mass Index [18.5-24.99] 35.16 *>HHI* (10/13/21 5:30 PM) Dry Weight 96.3 kg (10/13/21 5:30 PM) Weight Obtained Via Standing scale (10/13/21 5:30 PM) Social History Social History Type Response Smoking Status Never (less than 100 in lifetime) entered on: 10/13/21 Sex
--- OUTSIDE RECORDS SUMMARY | 2024-02-07 06:10 | XMS_ITS | Continuity of Care Document ---
Author Organization [facility] Adult Address [address] [place] [address]- Care Team Providers Care Dynamite Packing Machine Operator Name Role Phone Mattie NOLAN, Kathy Mendoza Primary Care Physicia n [place] [facility] [place] 11/12/21 - 12/12/21 [facility] [address] [place] [address]- [place] Allergies, Adverse Reactions, Alerts Substance Reaction Severity [...] 0 Refills, Soft Stop, 10/27/21 13:53:00 EDT, [facility]/pharmacy #[id number], Partial fill upon patient request if the prescription is for a schedule II opioid drug., 165.5, cm, 10/13/21 17:30:00 EDT, Height, 96.3, kg, 10/03... Start Date: 10/27/21 Status: Ordered NIFEdipine (Eqv-Procardia XL) 30 mg oral tablet, extended release 1 tablet, By Mouth, Daily, # 90 tablet, 1 Refills, [facility], 165.5, cm, 02/01/21 14:07:00 EDT, Height, 94.9, kg, 01/01/21 18:12:00 EDT, Dry Weight Start Date: 06/09/21 Status: Ordered Paxlovid 150 mg-100 mg oral tablet See Instructions, 300 mg nirmatrelvir(2 tablets) with 100 mg ritonavir(1 tablet). All 3 tablets taken together twice daily for 5 days, with or without food, # 30 tablet, 0 Refills, Maintenance, 10/12/21 14:50:00 EDT, [facility]/pharmacy #[id number], Partial fill... Start Date: 10/12/21 Status: Ordered [...]
--- OUTSIDE RECORDS SUMMARY | 2024-02-07 06:10 | XMS_ITS | Continuity of Care Document ---
Author Organization [facility] Adult Address [address] [place] [address]- Care Team Providers Care Improvement Coordinator Name Role Phone Dean Hi NP Primary Care Physician [phone] [place] [facility] [place] 03/22/23 - 04/21/23 [facility] Adult [address] [place] [address]- Allergies, Adverse Reactions, Alerts Substance Reaction Severity Status penicillin hives Active Immunizations Given and Recorded Vaccine Date Status Refusal Reason influenza virus vaccine, inactivated 03/16/23 Give n influenza virus vaccine, inactivated 05/20/22 Give n influenza virus vaccine, inactivated 11/09/21 Give n influenza virus vaccine, inactivated 03/10/20 Give n influenza virus vaccine, inactivated 04/06/18 Alfred rded hepatitis B adult vaccine 08/19/22 Given [id number] 12y+ bivalent booster vax 05/25/22 Recorded tetanus/diphtheria/pertussis, [...] 01/16/23 9:54:00 EDT, Route to Pharmacy Electronically, [facility]/pharmacy #[id number], Partial fill upon patient request if the prescription is for a schedule II opioid drug.... Start Date: 01/16/23 Status: Ordered liraglutide 18 mg/3 mL subcutaneous solution = 0.6 mg, Subcutaneous Injection, Daily, # 15 mL, 2 Refills, Maintenance, 03/24/23 9:29:00 EDT, Solution, [facility]/pharmacy #[id number], Partial fill upon patient request if the prescription is for a schedule II opioid drug. OK to dispense 2 pack, 165, cm, 03/16... Start Date: 03/24/23 Stop Date: 06/22/23 Status: Ordered Mirena 52 mg intrauterine device 1 each = 52 mg, Intrauterine, Once, # 1 each, 0 Refills, Soft Stop, 03/28/22 11:00:00 EDT, [facility], Partial fill upon patient request if the prescription is for a schedule II opioid drug., 166, cm, 03/21/22 8:47:00 EDT, Height, 10... Start Date: 03/28/22 Status: Ordered NIFEdipine (Eqv-Procardia XL) 90 mg oral tablet, extended release 1 tablet, By Mouth, Daily, # 90 tablet, 0 Refills, Maintenance, 02/19/23 15:29:00 EDT, [id number], 165, cm, 01/16/23 10:39:00 EDT, Height, 98, kg, 12/12/22 16:10:00 EDT, Dry Weight Start Date: 02/19/23 Status: Ordered Pen [place] [facility], 31 G x 5 mm BD Ultra [...] Role: PCP Address: Address: [address] [facility] 3rd [place] [address]- Care Team Related Persons Name: JILL HAMILTON Address: Address: home [address] [address] [place] Name: KARTIK HAMILTON Address: Address: home [address] [place] Name: GIOVANY HAMILTON Address: home [address] [place] [address] Name: WHARTONSAMMY Address: home [address] [facility] [address] [place] [address]
--- OUTSIDE RECORDS SUMMARY | 2024-02-07 06:10 | XMS_ITS | Continuity of Care Document ---
Author Organization [facility] Reynaldo nGlintss [facility] Address [address] [facility], 4t [place] [address]- Care Team Providers Care Barrel Waterer Name Role Phone Kolton NOLAN, Dean Adame Primary Care Physician [id number] Date(s): 11/10/21 - 03/06/22 [facility] Calebmadelin HuffmanGlintss [facility] [address] [facility], 4th [place] [address]- Attending Physician: Melanie Sanchez MD Referring Physician: Edie Mccormick MD Polina [...] EDT, Route to Pharmacy Electronically, [facility]/pharmacy #[id number], Partial fill upon patient request if the [...] Personnel Name: Dean Hi NP Address: Address: [address] [place] [address]
--- OUTSIDE RECORDS SUMMARY | 2024-02-07 06:10 | XMS_ITS | Continuity of Care Document ---
Author Organization [facility] Address [address] [place] [address]- Care Team Providers Care Furniture Stainer Name Role Phone Kolton NOLAN, Dean Adame Primary Care Physician [facility] Date(s): 08/03/22 - 09/18/22 [facility] [address] [place] [address] Attending Physician: Not on Staff, Attending MD Allergies, Adverse Reactions, Alerts Substance Reaction Severity Status penicillin hives Active Immunizations Given and Recorded Vaccine Date Status Refusal Reason hepatitis B adult vaccine 08/19/22 Given [id number] 12y+ bivalent booster vax 05/25/22 Recorded influenza [...] 0 Refills, Soft Stop, 03/28/22 11:00:00 EDT, [facility], Partial fill upon patient request if the [...] Associate Professional Member Role: PCP Address: Address: [address] [place] [address] 3rd [place] [address]- Care Team Related Persons Name: JILL HAMILTON Address: Address: home [address] [address] [place] Name: KARTIK HAMILTON Address: Address: home [address] [address] [place] Name: GIOVANY HAMILTON Address: home [address] [address] Name: SAMMY WHARTON Address: home [address] [facility] [address] [place] [address]
--- OUTSIDE RECORDS SUMMARY | 2024-02-07 06:10 | XMS_ITS | Continuity of Care Document ---
Author Organization [facility] Caleb Jacobs nMake Workss [facility] Address [address] [facility], 4t [place] [address]- Care Team Providers Care Gis Specialist Name Role Phone Lazarus Chahal MD Primary Care Physician [place] [facility] Date(s[place] 01/03/20 - 02/02/20 [facility] [place] HuffmanMake Works[facility] [address] [facility], 4th [place] [address]- [place] Allergies, Adverse Reactions, Alerts Substance Reaction Severity Status penicillin hives Active Medications albuterol inhaler (OP) 0 Refills, Maintenance Start Date: 12/11/19 Status: Ordered aspirin 81 mg oral delayed release tablet 162 mg, 2, tablet, By Mouth, Daily, # 90 tablet, Refills 6, Tot. Refills 6, Maintenance, 01/02/20 16:30:00 EDT, Route to Pharmacy Electronically, [facility] #[id number], 165, cm, 01/02/20 15:49:00 EDT, Height, 90.9, [...]
--- OUTSIDE RECORDS SUMMARY | 2024-02-07 06:10 | XMS_ITS | Continuity of Care Document ---
Author Organization [facility] ter Address [address] [place] [address]- Care Team Providers Care Retort Engineer Name Role Phone Kolton NOLAN, Dean Adame Primary Care Physician [place] [facility] 11/15/21 - 03/26/[address] [address] Attending Physician: [place] Nazario MD Referring Physician: Boston [...] 19:21:00 EDT, 03/17/22 19:21:00 EDT, [id number], Partial fill upon patient request if the prescription is fora schedule II opioid drug., 1 tablet By Mouth 2 gualberto... Start Date: 03/17/22 Stop Date: 04/08/22 Status: Ordered ibuprofen 600 mg oral tablet 600 mg, 1, tablet, By Mouth, 4 times a day, # 40 tablet, Refills 0, Tot. Refills 0, Maintenance, 02/26/22 8:34:00 EDT, Route to Pharmacy Electronically, [facility]/pharmacy #[id number], Partial fill upon patient [...] 03/17/22 14:21:00 EDT, ER Tablet, [facility]/pharmacy #[id number], Partial fill upon patient request if the prescription is for a schedule II opioid drug., 166, cm, 03/15/22 15:20:00 EDT, [facility]... Start Date: 03/17/22 Status: Ordered NIFEdipine 30 mg oral tablet, extended release 30 mg, 1, tablet, By Mouth, Daily, # 90 tablet, Refills 0, Tot. Refills 0, Maintenance, 02/26/22 8:34:00 EDT, Route to Pharmacy Electronically, [facility]/pharmacy #[id number], Partial fill upon patient [...] Personnel Name: Dean Hi NP Address: Address: [address] [place] [address] 3rd floor [place], [place] [address]
--- OUTSIDE RECORDS SUMMARY | 2024-02-07 06:10 | XMS_ITS | Continuity of Care Document ---
Author Organization [facility] [employer] Address [address] [facility], 4t [place] [address]- Care Team Providers Care Truck Driver Teamster Name Role Phone Mattie NOLAN, Kathy Mendoza Primary Care Physicia n Encounter [facility] Date(s): 02/01/21 - 02/08/21 [facility] Caleb Huffmantamycas [facility] [address] [facility], 4th [place] [address]- Attending Physician: [place] Nazario MD Referring Physician: Mattie NOLAN, Kathy Mendoza Allergies, [...] 12/10/20 15:18:00 EDT, Route to Pharmacy Electronically, [facility]/pharmacy #[id number], 165.5, cm, 11/19/20 15:50:00 EDT, [...] oldest [Reference Range]: 1 Height 165.5 cm (02/01/21 2:07 PM) Weight 97.27 kg (02/01/21 2:07 PM) Body Mass Index [18.5-24.99] 35.51 *>HHI* (02/01/21 2:07 PM) Blood Pressure [90-138/55-84 mm Hg] 152/ 94mm Hg *H* (02/01/21 2:07 PM) Blood pressure sites Leg, left (02/01/21 2:07 PM) Weight Obtained Via Standing scale (02/01/21 2:07 PM) Social History Social History Type Response Smoking Status Never (less than 100 in lifetime) entered on: 03/23/20 Sex
--- OUTSIDE RECORDS SUMMARY | 2024-02-07 06:10 | XMS_ITS | Continuity of Care Document ---
Author Organization [facility] Adult Address [address] [place] [address]- Care Team Providers Care Complex Care Nurse Name Role Phone Dean Hi NP Primary Care Physician [phone] Encounter [facility] Date(s): 05/19/22 - 06/18/22 [facility] Adult [address] [place] [address]- Allergies, Adverse Reactions, Alerts Substance Reaction Severity [...] Soft Stop, 03/28/22 11:00:00 EDT, [facility], Partial fill upon patient request if the prescription is for a schedule II opioid drug., 166, cm, 03/21/22 8:47:00 EDT, Height, 10... Start Date: 03/28/22 Status: Ordered naphazoline 0.012% ophthalmic gel forming solution 2 drops, Eyes, Both, 4 times a day, # 15 mL, 0 Refills, Maintenance, 04/07/22 9:35:00 EDT, Solution, [facility]/pharmacy #[id number], Partial fill upon patient request if the [...] Professional Member Role: PCP Address: Address: [address] [place] [address] 3rd [place] [address]- Care Team Related Persons Name: JILL HAMILTON Address: [address] Address: home [address] [address] [place] Name: KARTIK HAMILTON Address: [address] Address: home [address] [address] [place] Name: GIOVANY HAMILTON Address: home [address] [address] Name: SAMMY WHARTON Address: home [address] [place] [address]
--- OUTSIDE RECORDS SUMMARY | 2024-02-07 06:10 | XMS_ITS | Continuity of Care Document ---
Author Organization [facility] Adult Address [address] [place] [address]- Care Team Providers Care Frog Or Oyster Farmworker Name Role Phone Dean Hi NP Primary Care Physician [phone] [place] [facility] [place] 08/[place]/23 - 09/29/23 [facility] Adult [address] [place] [address]- Allergies, Adverse Reactions, Alerts Substance Reaction Severity Status penicillin hives Active Immunizations Given and Recorded Vaccine Date Status Refusal Reason influenza virus vaccine, inactivated 03/16/23 Give n influenza virus vaccine, inactivated 05/20/22 Give n influenza virus vaccine, inactivated 11/09/21 Give n influenza virus vaccine, inactivated 03/10/20 Give n influenza virus vaccine, inactivated 04/06/18 Alfred rded hepatitis B adult vaccine 08/19/22 Given [id number] 12y+ bivalent booster vax 05/25/22 Recorded tetanus/diphtheria/pertussis, [...] 01/16/23 9:54:00 EDT, Route to Pharmacy Electronically, [facility]/pharmacy #[id number], Partial fill upon patient request if the prescription is for a schedule II opioid drug.... Start Date: 01/16/23 Status: Ordered liraglutide 18 mg/3 mL subcutaneous solution = 2.4 mg, Subcutaneous Injection, Daily, # 15 mL, 4 Refills, Maintenance, 06/15/23 17:22:00 EST, Solution, [facility]/pharmacy #[id number], Partial fill upon patient request if the prescription is for a schedule II opioid drug., 165, cm, 05/04/23 12:10:00 EST, Hei... Start Date: 06/15/23 Stop Date: 09/07/24 Status: Ordered Mirena 52 mg intrauterine device 1 each = 52 mg, Intrauterine, Once, # 1 each, 0 Refills, Soft Stop, 03/28/22 11:00:00 EDT, [facility] [employer], Partial fill upon patient request if the prescription is for a schedule II opioid drug., 166, cm, 03/21/22 8:47:00 EDT, Height, 10... Start Date: 03/28/22 Status: Ordered NIFEdipine (Eqv-Procardia XL) 90 mg oral tablet, extended release 1 tablet, By Mouth, Daily, # 90 tablet, 1 Refills, Maintenance, 08/30/23 9:04:00 EDT, [id number], 165, cm, 05/04/23 12:10:00 EST, Height, 98, kg, 12/12/22 16:10:00 EDT, Dry Weight Start Date: 08/30/23 Status: Ordered Pen [place], 31 G x 5 mm BD Ultra [...] Professional Member Role: PCP Address: Address: [address] 3rd [place] [address]- Care Team Related Persons Name: JILL HAMILTON Address: Address: home [address] [address] [place] Name: KARTIK HAMILTON Address: Address: home [address] [address] [place] Name: GIOVANY HAMILTON Address: home [address] [place] [address] Name: SAMMY WHARTON Address: home [address] [facility] [address] [place] [address]
--- OUTSIDE RECORDS SUMMARY | 2024-02-07 06:10 | XMS_ITS | Continuity of Care Document ---
Author Organization [facility] Address [address] [place] [address]- Care Team Providers Care Acute Care Registered Nurse Name Role Phone Dean Hi NP Primary Care Physician Encounter [facility] Date(s): 05/25/22 - 06/24/22 [facility] [address] [place] [address]- Allergies, Adverse Reactions, Alerts Substance Reaction Severity [...] Refills, Soft Stop, 03/28/22 11:00:00 EDT, [facility], Partial fill upon patient request if the prescription is for a schedule II opioid drug., 166, cm, 03/21/22 8:47:00 EDT, Height, 10... Start Date: 03/28/22 Status: Ordered naphazoline 0.012% ophthalmic gel forming solution 2 drops, Eyes, Both, 4 times a day, # 15 mL, 0 Refills, Maintenance, 04/07/22 9:35:00 EDT, Solution, [facility]/pharmacy #[id number], Partial fill upon patient request if the [...] Associate Professional Member Role: PCP Address: Address: [address] [place] [address] 3rd [place] [address]- Care Team Related Persons Name: JILL HAMILTON Address: [address] Address: home [address] [address] [place] Name: KARTIK HAMILTON Address: [address] Address: home [address] [address] [place] Name: GIOVANY HAMILTON Address: home [address] [address] Name: SAMMY WHARTON Address: home [address] [facility] [address] [place] [address]
--- OUTSIDE RECORDS SUMMARY | 2024-02-07 06:10 | XMS_ITS | Continuity of Care Document ---
Author Organization [facility] Reynaldo nVoya[employer]ges [facility] Address [address], 4t [place] [address]- Care Team Providers Care Human Resources Partner Name Role Phone Kolton INBOUND SALES CONSULTANT, Dean O Primary Care Physician [id number] Date(s): 02/17/22 - 02/24/22 [facility] Calebmadelin HuffmanVoya.ges [facility] [address], 4th Floor [place], [place] [address] Attending Physician: Catarina Yu MD Referring Physician: [...] 12/11/19 Status: Ordered aspirin 81 mg oral tablet, chewable 162 mg, 2, tablet, Chew, Daily, Refills 0, Maintenance, 02/20/22 20:33:00 EDT, Partial fill upon patient request if the prescription is for a schedule II opioid drug. Start Date: 02/20/22 Stop Date: 03/22/22 Status: Ordered Aspirin 81mg Aspirin 81mg, 0 Refills, Maintenance, 11/09/21 11:30:00 EDT Start Date: 11/09/21 Status: Ordered Monurol 3 g oral granule for reconstitution 1 each = 3 Gm, By Mouth, Once, # 3 each, 0 Refills, Soft Stop, 10/27/21 13:53:00 EDT, [id number], Partial fill upon patient request if the prescription is for a schedule II opioid drug., 165.5, cm, 10/13/21 17:30:00 EDT, Height, 96.3, kg, 10/03... Start Date: 10/27/21 Status: Ordered NIFEdipine (Eqv-Procardia XL) 30 mg oral tablet, extended release 1 tablet, By Mouth, Daily, # 90 tablet, 1 Refills, [id number], 165.5, cm, 02/01/21 14:07:00 EDT, Height, 94.9, [...] oldest [Reference Range]: 1 Height 165.5 cm (02/17/22 9:29 AM) Weight 102.07 kg (02/17/22 9:29 AM) Body Mass Index [18.5-24.99] 37.27 *>HHI* (02/17/22 9:29 AM) Blood Pressure [90-138/55-84 mm Hg] 139/ 76mm Hg *H* (02/17/22 9:29 AM) Blood pressure sites Arm, right (02/17/22 9:29 AM) Weight Obtained Via Standing scale (02/17/22 9:29 AM) Social History Social History Type Response Smoking Status Never (less than 100 in lifetime) entered on: 10/13/21 Sex Care Team Personnel Name: Dean Hi NP Address: [address] [facility] 3rd floor [place], [place] [address]
--- OUTSIDE RECORDS SUMMARY | 2024-02-07 06:10 | XMS_ITS | Continuity of Care Document ---
Author Organization [facility] ter Address [address] [place] [address]- Care Team Providers Care Metrology Technician Name Role Phone Lazarus Chahal MD Primary Care Physician [phone] Encounter [facility] [place] Date(s): 12/26/19 - 01/26/[address] [address]- [facility] Attending Physician: Melanie Sanchez MD Admitting Physician: Melanie Sanchez MD Referring Physician: Melanie Sanchez MD Allergies, Adverse Reactions, Alerts Substance Reaction Severity Status penicillin hives Active Medications albuterol inhaler (OP) 0 Refills, Maintenance Start Date: 12/11/19 Status: Ordered aspirin 81 mg oral delayed release tablet 162 mg, 2, tablet, By Mouth, Daily, # 90 tablet, Refills 6, Tot. Refills 6, Maintenance, 01/02/20 16:30:00 EDT, [id number], 165, cm, 01/02/20 15:49:00 EDT, Height, 90.9, [...]
--- OUTSIDE RECORDS SUMMARY | 2024-02-07 06:10 | XMS_ITS | Continuity of Care Document ---
Author Organization [facility] Reynaldo nRussian [facility] Address [address], 4t [place] [address]- Care Team Providers Care Machinist First Class Name Role Phone Mattie NOLAN, Kathy Mendoza Primary Care Physicia n [id number] Date(s): 04/12/21 - 05/16/21 [facility] [address], 4th Floor [place], [place] [address] Attending Physician: Melanie Sanchez MD Referring Physician: Mattie NOLAN, Kathy Mendoza [...] 12/10/20 15:18:00 EDT, Route to Pharmacy Electronically, [facility]/pharmacy #[id number], 165.5, cm, 11/19/20 15:50:00 EDT, [...]
--- OUTSIDE RECORDS SUMMARY | 2024-02-07 06:10 | XMS_ITS | Continuity of Care Document ---
Author Organization [facility] Reynaldo n's [facility] Address [address], 4t [place] [address]- Care Team Providers Care Audiovisual Equipment Operator Name Role Phone Kolton NOLAN, Dean Adame Primary Care Physician Encounter [facility] [place] [place] Date(s): 12/17/21 - 04/16/22 [facility] Thayermadelin HuffmanZapoints [facility] [address], 4th Floor [place], [place] [address] Attending Physician: Catarina Yu MD Referring [...] 03/28/22 11:00:00 EDT, [facility], Partial fill upon patient request if the prescription is for a schedule II opioid drug., 166, cm, 03/21/22 8:47:00 EDT, Height, 10... Start Date: 03/28/22 Status: Ordered naphazoline 0.012% ophthalmic gel forming solution 2 drops, Eyes, Both, 4 times a day, # 15 mL, 0 Refills, Maintenance, 04/07/22 9:35:00 EDT, Solution, [facility]/pharmacy #[id number], Partial fill upon patient request if the prescription is for a schedule II opioid drug., 2 drops Eyes, Both 4 times a day, 165, cm... Start Date: 04/07/22 Status: Ordered NIFEdipine (Eqv-Procardia XL) 30 mg oral tablet, extended release 1 tablet = 30 mg, By Mouth, Daily, # 90 tablet, 0 Refills, Maintenance, 03/17/22 14:21:00 EDT, ER Tablet, [facility]/pharmacy #[id number], Partial fill upon patient request if [...] Team Personnel Name: Dean Hi NP Position: [facility] PCO Associate Professional Member Role: PCP Address: Address: [address] [place] [address] 3rd [place] [address]- Care Team Related Persons Name: KARTIK HAMILTON Address: Address: home [address] [address] Name: GIOVANY HAMILTON Address: home [address] [address] Name: SAMMY WHARTON Address: home [address] [facility] [address] [place] [address] Name: KAVITA URIAS Address: [address] Address: home [address] [address]
--- OUTSIDE RECORDS SUMMARY | 2024-02-07 06:10 | XMS_ITS | Continuity of Care Document ---
Author Organization [facility] Adult Address [address] [place] [address]- Care Team Providers Care Boat Finisher Name Role Phone Mattie NOLAN, Kathy Mendoza Primary Care Physicia n Encounter [facility] Date(s): 03/01/21 - 03/31/21 [facility] Adult [address] [place] [address]- Allergies, Adverse Reactions, Alerts Substance Reaction Severity [...] 12/10/20 15:18:00 EDT, Route to Pharmacy Electronically, [facility]/pharmacy #[id number], 165.5, cm, 11/19/20 15:50:00 EDT, Height, 98, [...]
--- OUTSIDE RECORDS SUMMARY | 2024-02-07 06:10 | XMS_ITS | Continuity of Care Document ---
Author Organization [facility] Reynaldo nExcaliard Pharmaceuticalss [facility] Address [address], 4t [place] [address]- Care Team Providers Care Head Usher Name Role Phone Kolton NATURAL GAS ENGINEER, Dean O Primary Care Physician [id number] Date(s): 01/19/22 - 01/26/22 [facility] Caleb NathanaelExcaliard Pharmaceuticalss [facility] [address] [facility], 4th Floor [place], [place] [address] Attending Physician: Anastasiia Delgadillo MD Referring Physician: Braulio DODGE [OB], Latonia Pimentel Allergies, Adverse Reactions, Alerts Substance Reaction Severity [...] 0 Refills, Soft Stop, 10/27/21 13:53:00 EDT, [facility]/pharmacy #[id number], Partial fill upon patient request if the prescription is for a schedule II opioid drug., 165.5, cm, 10/13/21 17:30:00 EDT, Height, 96.3, kg, 10/03... Start Date: 10/27/21 Status: Ordered NIFEdipine (Eqv-Procardia XL) 30 mg oral tablet, extended release 1 tablet, By Mouth, Daily, # 90 tablet, 1 Refills, [facility], 165.5, cm, 02/01/21 14:07:00 EDT, Height, 94.9, kg, 01/01/21 18:12:00 EDT, Dry Weight Start Date: 06/09/21 Status: Ordered Paxlovid 150 mg-100 mg oral tablet See Instructions, 300 mg nirmatrelvir(2 tablets) with 100 mg ritonavir(1 tablet). All 3 tablets taken together twice daily for 5 days, with or without food, # 30 tablet, 0 Refills, Maintenance, 10/12/21 14:50:00 EDT, [id number], Partial fill... Start Date: 10/12/21 Status: Ordered [...]
--- OUTSIDE RECORDS SUMMARY | 2024-02-07 06:10 | XMS_ITS | Continuity of Care Document ---
Author Organization [facility] ter Address [address] [place] [address]- Care Team Providers Care Informatics Nurse Specialist Name Role Phone Mattie NOLAN, Kathy Mendoza Primary Care Physicia n [place] [facility] Date(s): 12/19/21 - 12/19/[address] [address]- Encounter Diagnosis Allergic reaction(Final) - 12/19/21 Discharge Disposition: A-D/C Home Attending Physician: Juany Mari MD Admitting Physician: Juany Mari MD Referring Physician: Not on Staff, Referring [...] 0 Refills, Soft Stop, 10/27/21 13:53:00 EDT, [facility]/pharmacy #[id number], Partial fill upon patient request if the prescription is for a schedule II opioid drug., 165.5, cm, 10/13/21 17:30:00 EDT, Height, 96.3, kg, 10/03... Start Date: 10/27/21 Status: Ordered NIFEdipine (Eqv-Procardia XL) 30 mg oral tablet, extended release 1 tablet, By Mouth, Daily, # 90 tablet, 1 Refills, [facility], 165.5, cm, 02/01/21 14:07:00 EDT, Height, 94.9, kg, 01/01/21 18:12:00 EDT, Dry Weight Start Date: 06/09/21 Status: Ordered Paxlovid 150 mg-100 mg oral tablet See Instructions, 300 mg nirmatrelvir(2 tablets) with 100 mg ritonavir(1 tablet). All 3 tablets taken together twice daily for 5 days, with or without food, # 30 tablet, 0 Refills, Maintenance, 10/12/21 14:50:00 EDT, [facility]/pharmacy #[id number], Partial fill... Start Date: 10/12/21 [...] 3 Oxygen Saturation [94-100 %] 100 % (12/19/21 10:03 PM) 100 % (12/19/21 9:03 PM) 100 % (12/19/21 7:36 PM) Pulse Rate [55-90 bpm] 80 bpm (12/19/21 10:03 PM) 93 bpm *H* (12/19/21 9:03 PM) 79 bpm (12/19/21 7:36 PM) Blood Pressure [90-138/55-84 mm Hg] 127/82mm Hg (12/19/21 10:03 PM) 129/85mm Hg (12/19/21 9:03 PM) 152/96mm Hg *H* (12/19/21 7:36 PM) Respiratory Rate [16-30 br/min] 16 br/min (12/19/21 10:03 PM) 16 br/min (12/19/21 9:03 PM) 18 br/min (12/19/21 7:36 PM) Temperature [96.8-100.4 DegF] 97.9 DegF (12/19/21 4:58 PM) Mode of Delivery (Oxygen) Room air (12/19/21 4:58 PM) Room air (12/19/21 4:54 PM) Blood pressure sites Arm, left (12/19/21 10:03 PM) Arm, left (12/19/21 9:03 PM) Arm, left (12/19/21 7:36 PM) Temperature Route Oral (12/19/21 4:58 PM) Social History Social History Type Response Smoking Status Never (less than 100 in lifetime) entered on: 10/13/21 Sex
--- OUTSIDE RECORDS SUMMARY | 2024-02-07 06:10 | XMS_ITS | Continuity of Care Document ---
Author Organization [facility] Reynaldo n's [facility] Address [address] [facility], 4t [place] [address]- Care Team Providers Care Gastroenterology Physician Name Role Phone Kolton NOLAN, Dean O Primary Care Physician [place] [facility] [place] 04/07/22 - 04/14/22 [facility] Ninnekahmadelin Huffman's [facility] [address], 4th Floor [place], [place] [address] Attending Physician: Catarina Yu MD Allergies, Adverse [...] 0 Refills, Soft Stop, 03/28/22 11:00:00 EDT, [facility], Partial fill upon patient request if the prescription is for a schedule II opioid drug., 166, cm, 03/21/22 8:47:00 EDT, Height, 10... Start Date: 03/28/22 Status: Ordered naphazoline 0.012% ophthalmic gel forming solution 2 drops, Eyes, Both, 4 times a day, # 15 mL, 0 Refills, Maintenance, 04/07/22 9:35:00 EDT, Solution, [facility]/pharmacy #[id number], Partial [...] Active Wound infection after surgery Confirmed Active Vital Signs Most recent to oldest [Reference Range]: 1 Height 165 cm (04/07/22 3:52 PM) Weight 97.72 kg (04/07/22 3:52 PM) Pulse Rate [55-90 bpm] 86 bpm (04/07/22 3:52 PM) Body Mass Index [18.5-24.99 kg/m2] 35.89 kg/m2 *>HHI* (04/07/22 3:52 PM) Blood Pressure [90-138/55-84 mm Hg] 132/ 93mm Hg (04/07/22 3:52 PM) Respiratory Rate [16-30 br/min] 22 br/mi n (04/07/22 3:52 PM) Blood pressure sites Arm, left (04/07/22 3:52 PM) Social History Social History Type Response Smoking Status Never (less than 100 in lifetime) entered on: 10/13/21 Sex Patient Care team information Care Team Personnel Name: Dean Hi NP Position: [facility] PCO Associate Professional Member Role: PCP Address: Address: [address] [facility] 3rd [place] [address]- Care Team Related Persons Name: KARTIK HAMILTON Address: Address: home [address] [address] Name: GIOVANY HAMILTON Address: home [address] [address] Name: SAMMY WHARTON Address: home [address] [facility] [address] [place] [address] Name: KAVITA URIAS Address: Address: home [address] [address]
--- OUTSIDE RECORDS SUMMARY | 2024-02-07 06:10 | XMS_ITS | Continuity of Care Document ---
Author Organization [facility] [employer] Address [address] [facility], 4t [place] [address]- Care Team Providers Care Planishing Hammer Operator Name Role Phone Mattie NOLAN, Kathy Mendoza Primary Care Physicia n En[facility] Date(s): 01/01/21 - [facility]31[facility] [address] [facility], 4th [place] [address]- Allergies, Adverse Reactions, Alerts Substance Reaction Severity [...] 12/09/20 16:13:00 EDT, Route to Pharmacy Electronically, [facility]/pharmacy #[id number], Partial fill upon patient requestif the prescription is for a schedule II opioid edgar... Start Date: 12/09/20 Stop Date: 07/07/21 Status: Ordered NIFEdipine 30 mg oral tablet, extended release 30 mg, 1, tablet, By Mouth, Daily, # 30 tablet, Refills 5, Tot. Refills 5, Maintenance, 12/10/20 15:18:00 EDT, Route to Pharmacy Electronically, [facility]/pharmacy #[id number], 165.5, cm, 11/19/20 15:50:00 EDT, [...]
--- OUTSIDE RECORDS SUMMARY | 2024-02-07 06:10 | XMS_ITS | Continuity of Care Document ---
Author Organization [facility] [employer] Address [address] [facility], 4t [place] [address]- Care Team Providers Care Detailer Pharmaceuticals Name Role Phone Mattie NOLAN, Kathy Mendoza Primary Care Physicia n [place] [facility] [place] 11/27/20 - [facility] [address] [facility], 4th [place] [address]- Allergies, Adverse Reactions, Alerts Substance Reaction Severity [...] 12/09/20 16:13:00 EDT, Route to Pharmacy Electronically, [facility]/pharmacy #[id number], Partial fill upon patient requestif the prescription is for a schedule II opioid edgar... Start Date: 12/09/20 Stop Date: 07/07/21 Status: Ordered NIFEdipine 30 mg oral tablet, extended release 30 mg, 1, tablet, By Mouth, Daily, # 30 tablet, Refills 5, Tot. Refills 5, Maintenance, 12/10/20 15:18:00 EDT, Route to Pharmacy Electronically, [facility]/pharmacy #[id number], 165.5, cm, 11/19/20 15:50:00 [...]
--- OUTSIDE RECORDS SUMMARY | 2024-02-07 06:10 | XMS_ITS | Continuity of Care Document ---
Author Organization [facility] Adult Address [address] [place] [address]- Care Team Providers Care Web Sizer Name Role Phone Kolton NOLAN, Dean Adame Primary Care Physician [phone] [facility] [facility] [id number] Date(s): 04/26/22 - 05/03/22 [facility] Adult [address] [place] [address]- Encounter Diagnosis Chronic hypertension(Discharge Diagnosis) - 04/26/22 Attending Physician: Ashley Doe MD Allergies, Adverse Reactions, Alerts Substance Reaction [...] 0 Refills, Soft Stop, 03/28/22 11:00:00 EDT, [facility], Partial fill upon patient request if the prescription is for a schedule II opioid drug., 166, cm, 03/21/22 8:47:00 EDT, Height, 10... Start Date: 03/28/22 Status: Ordered naphazoline 0.012% ophthalmic gel forming solution 2 drops, Eyes, Both, 4 times a day, # 15 mL, 0 Refills, Maintenance, 04/07/22 9:35:00 EDT, Solution, [facility]/pharmacy #[id number], Partial fill upon patient request if the prescription is for a schedule II opioid drug., 2 drops Eyes, Both 4 times a day, 165, cm... Start Date: 04/07/22 Status: Ordered NIFEdipine (Eqv-Procardia XL) 30 mg oral tablet, extended release 1 tablet = 30 mg, By Mouth, Daily, # 90 tablet, 0 Refills, Maintenance, 03/17/22 14:21:00 EDT, ER Tablet, [facility]/pharmacy #[id number], Partial fill upon patient request [...] Active Wound infection after surgery Confirmed Active Diagnosis Diagnosis Type Effective Dates Health Status Clinical Service Informant Chronic hypertension Discharge Diagnosis 04/26/22 Vital Signs Most recent to oldest [Reference Range]: 1 Height 165 cm (04/26/22 3:51 PM) Weight 94.3 kg (04/26/22 3:51 PM) Oxygen Saturation [94-100 %] 100 % (04/26/22 3:51 PM) Pulse Rate [55-90 bpm] 86 bpm (04/26/22 3:51 PM) Body Mass Index [18.5-24.99 kg/m2] 34.64 kg/m2 *>HHI* (04/26/22 3:51 PM) Blood Pressure [90-138/55-84 mm Hg] 129/ 86mm Hg (04/26/22 3:51 PM) Temperature [96.8-100.4 DegF] 97.9 DegF (04/26/22 3:51 PM) Mode of Delivery (Oxygen) Room air (04/26/22 3:51 PM) Blood pressure sites Arm, left (04/26/22 3:51 PM) Temperature Route Oral (04/26/22 3:51 PM) Weight Obtained Via Standing scale (04/26/22 3:51 PM) Social History Social History Type Response Smoking Status Never (less than 100 in lifetime) entered on: 10/13/21 Sex Note * Tsering Newell: PERFORM, SIGN, VERIFY Event Display: Patient Education/Instruction Authored Date: [id number] [facility] *[facility] [place] [facility] Clinical Summary Name KAVITA URIAS Age 32 Years 1990 PCP Kolton NOLAN, Dean Adame PCP Visit Date 04/26/2022 15:47:00 Additional Instructions: Scheduled Appointments?? Future Appointments ?*[facility] ?[address]??[place],??[place],??[address] ?Phone:??--?Fax:??-- ?Appt. Date:??05/20/2022?3:40 PM ?Scheduled Provider:??Kin DODGE, Nga Pate Follow-Up Instructions ?? Diagnosis Medications: Please continue your medications until treatment is completed or stopped by your provider. Discuss any questions related to medications with your provider. Medications to Continue with No Changes These medications were not printed or sent to your pharmacy Albuterol (albuterol inhaler (OP)) Next Dose: Levonorgestrel (Mirena 52 mg intrauterine device) 1 Each Intrauterine once. Refills: 0. Next Dose: Multivitamin, ( Multivitamins) Oral Daily. Next Dose: Naphazoline Ophthalmic (naphazoline 0.012% ophthalmic gel forming solution) 2 Drops Both eyes 4 times a day. Refills: 0. Next Dose: NIFEdipine (NIFEdipine (Eqv-Procardia XL) 30 mg oral tablet, extended release) 1 tab(s) Oral Daily.Refills: 0. Next Dose: Allergy Info:?? penicillin Medications Given This Visit Future Orders ?No future orders Vital Signs Height 165 cm Weight 94.3 kg BMI 34.64 kg/m2 Blood Pressure 129 mm Hg/86 mm Hg Temperature 97.9 DegF Pulse Rate 86 bpm Respiratory Rate 02 Sat Mode of Delivery 100 %/Room air You can now view a summary of your hospital visit from the comfort of your home through a free online portal called [employer]. [employer] is a website that allows you to securely view your medical information including discharge summary, medications and follow-up visits. ??You can alsosend a secure electronic message to your doctor???s office to request appointments, renew medications or just ask a question. You can enroll at [email or web address] or register during your next office visit. [...] care provider, you may find a [facility] provider by calling [facility] [employer] at [phone]. For information about the plan of care [...] Team Personnel Name: Dean Hi NP Position: [facility] PCO Associate Professional Member Role: PCP Address: Address: [address] [place] [address] 3rd floor [place], [place] [address] Care Team Related Persons Name: KARTIK HAMILTON Address: Address: home [address] [address] Name: GIOVANY HAMILTON Address: home [address] [address] Name: SAMMY WHARTON Address: home [address] [facility] [address] [place] [address] Name: KAVITA URIAS Address: [address] Address: home [address] [address]
--- OUTSIDE RECORDS SUMMARY | 2024-02-07 06:10 | XMS_ITS | Continuity of Care Document ---
Author Organization [facility] Address [address] [facility], 4t [place] [address]- Care Team Providers Care Patent Legal Assistant Name Role Phone Mattie NOLAN, Kathy Mendoza Primary Care Physicia n [id number] Date(s): 11/12/21 - 12/12/21 [facility] [address] [facility], 4th Floor [place], [place] [address] Allergies, Adverse Reactions, Alerts Substance Reaction [...] 0 Refills, Soft Stop, 10/27/21 13:53:00 EDT, [facility]/pharmacy #[id number], Partial fill upon patient request if the prescription is for a schedule II opioid drug., 165.5, cm, 10/13/21 17:30:00 EDT, Height, 96.3, kg, 10/03... Start Date: 10/27/21 Status: Ordered NIFEdipine (Eqv-Procardia XL) 30 mg oral tablet, extended release 1 tablet, By Mouth, Daily, # 90 tablet, 1 Refills, [id number], 165.5, cm, 02/01/21 14:07:00 EDT, Height, 94.9, kg, 01/01/21 18:12:00 EDT, Dry Weight Start Date: 06/09/21 Status: Ordered Paxlovid 150 mg-100 mg oral tablet See Instructions, 300 mg nirmatrelvir(2 tablets) with 100 mg ritonavir(1 tablet). All 3 tablets taken together twice daily for 5 days, with or without food, # 30 tablet, 0 Refills, Maintenance, 10/12/21 14:50:00 EDT, [facility]/pharmacy #[id number], Partial fill... Start Date: 10/12/21 [...]
--- OUTSIDE RECORDS SUMMARY | 2024-02-07 06:11 | XMS_ITS | Continuity of Care Document ---
Author Organization [facility] Adult Address [address] [place] [address]- Care Team Providers Care Carousel Attendant Name Role Phone Dean Hi NP Primary Care Physician [phone] Encounter [facility] Date(s): 03/24/23 - 04/23/23 [facility] Adult [address] [place] [address]- Allergies, Adverse Reactions, Alerts Substance Reaction Severity Status penicillin hives Active Immunizations Given and Recorded Vaccine Date Status Refusal Reason influenza virus vaccine, inactivated 03/16/23 Give n influenza virus vaccine, inactivated 05/20/22 Give n influenza virus vaccine, inactivated 11/09/21 Give n influenza virus vaccine, inactivated 03/10/20 Give n influenza virus vaccine, inactivated 04/06/18 Alfred rded hepatitis B adult vaccine 08/19/22 Given [id number] 12y+ bivalent booster vax 05/25/22 Recorded tetanus/diphtheria/pertussis, [...] 01/16/23 9:54:00 EDT, Route to Pharmacy Electronically, [facility]/pharmacy #[id number], Partial fill upon patient request if the prescription is for a schedule II opioid drug.... Start Date: 01/16/23 Status: Ordered liraglutide 18 mg/3 mL subcutaneous solution = 0.6 mg, Subcutaneous Injection, Daily, # 15 mL, 2 Refills, Maintenance, 03/24/23 9:29:00 EDT, Solution, [facility]/pharmacy #[id number], Partial fill upon patient request if the prescription is for a schedule II opioid drug. OK to dispense 2 pack, 165, cm, 03/16... Start Date: 03/24/23 Stop Date: 06/22/23 Status: Ordered Mirena 52 mg intrauterine device 1 each = 52 mg, Intrauterine, Once, # 1 each, 0 Refills, Soft Stop, 03/28/22 11:00:00 EDT, [facility], Partial fill upon patient request if the prescription is for a schedule II opioid drug., 166, cm, 03/21/22 8:47:00 EDT, Height, 10... Start Date: 03/28/22 Status: Ordered NIFEdipine (Eqv-Procardia XL) 90 mg oral tablet, extended release 1 tablet, By Mouth, Daily, # 90 tablet, 0 Refills, Maintenance, 02/19/23 15:29:00 EDT, [id number], 165, cm, 01/16/23 10:39:00 EDT, Height, 98, kg, 12/12/22 16:10:00 EDT, Dry Weight Start Date: 02/19/23 Status: Ordered Pen [place], 31 G x 5 mm BD Ultra [...] Professional Member Role: PCP Address: Address: [address] [facility] 3rd [place] [address]- Care Team Related Persons Name: JILL HAMILTON Address: Address: home [address] [address] [place] Name: KARTIK HAMILTON Address: Address: home [address] [place] Name: GIOVANY HAMILTON Address: home [address] [place] [address] Name: WHARTONSAMMY Address: home [address] [facility] [address] [place] [address]
--- OUTSIDE RECORDS SUMMARY | 2024-02-07 06:11 | XMS_ITS | Continuity of Care Document ---
Author Organization [facility] Address [address] [facility], 4t [place] [address]- Care Team Providers Care Pants Busheler Name Role Phone Kolton NOLAN, Dean Adame Primary Care Physician Encounter [facility] Date(s): 05/20/22 - 05/27/22 [facility] Caleb Guillorys [facility] [address], 4th Floor [place], [place] [address] Attending Physician: Catarina Yu MD Referring Physician: Dean Hi NP Allergies, Adverse Reactions, Alerts Substance Reaction Severity [...] 0 Refills, Maintenance, 04/07/22 9:35:00 EDT, Solution, [id number], Partial fill upon patient request if the prescription is for a schedule II opioid drug., 2 drops Eyes, Both 4 times a day, 165, cm... Start Date: 04/07/22 Status: Ordered NIFEdipine (Eqv-Procardia XL) 30 mg oral tablet, extended release 1 tablet = 30 mg, By Mouth, Daily, # 90 tablet, 0 Refills, Maintenance, 03/17/22 14:21:00 EDT, ER Tablet, [id number], Partial fill upon patient request if the [...] oldest [Reference Range]: 1 Height 165 cm (05/20/22 1:21 PM) Weight 93.9 kg (05/20/22 1:21 PM) Body Mass Index [18.5-24.99 kg/m2] 34.49 kg/m2 *>HHI* (05/20/22 1:21 PM) Blood Pressure [90-138/55-84 mm Hg] 150/ 89mm Hg *H* (05/20/22 1:21 PM) Blood pressure sites Arm, left (05/20/22 1:21 PM) Weight Obtained Via Standing scale (05/20/22 1:21 PM) Social History Social History Type Response Smoking Status Never (less than 100 in lifetime) entered on: 10/13/21 Sex Patient Care team information Care Team Personnel Name: Dean Hi NP Position: S PCO Associate Professional Member Role: PCP Address: Address: [address] [place] [address] [place] [address]- Care Team Related Persons Name: JILL HAMILTON Address: Address: home [address] [address] [place] Name: KARTIK HAMILTON Address: Address: home [address] [address] [place] Name: GIOVANY HAMILTON Address: home [address] [address] Name: SAMMY WHARTON Address: home [address] [place] [address] 2 [place] [address]
--- OUTSIDE RECORDS SUMMARY | 2024-02-07 06:11 | XMS_ITS | Continuity of Care Document ---
Author Organization [facility] Reynaldo n[facility]berry[facility] Address [address] [facility], 4t [place] [address]- Care Team Providers Care School Principal Name Role Phone Kolton MACHINE SPRING FORMER, Dean O Primary Care Physician [phone] [id number] Date(s): 03/04/22 - 03/11/22 [facility] Caleb NathanaelRanberrys [facility] [address] [facility], 4th Floor [place], [place] [address] Attending Physician: Kin DODGE, Nga Pate Referring Physician: Kisha Kaur DO Allergies, Adverse [...] Route to Pharmacy Electronically, [facility]/pharmacy #[id number], Partial fill upon patient request if the [...] oldest [Reference Range]: 1 Height 166 cm (03/04/22 3:42 PM) Weight 97.72 kg (03/04/22 3:42 PM) Body Mass Index [18.5-24.99 kg/m2] 35.46 kg/m2 *>HHI* (03/04/22 3:42 PM) Blood Pressure [90-138/55-84 mm Hg] 143/ 93mm Hg *H* (03/04/22 3:42 PM) Blood pressure sites Arm, left (03/04/22 3:42 PM) Weight Obtained Via Standing scale (03/04/22 3:42 PM) Social History Social History Type Response Smoking Status Never (less than 100 in lifetime) entered on: 10/13/21 Sex Patient Care team information Personnel Name: Dean Hi NP Address: Address: [address] [place] [address] 3rd [place] [address]-
--- OUTSIDE RECORDS SUMMARY | 2024-02-07 06:11 | XMS_ITS | Continuity of Care Document ---
Author Organization [facility] Caleb Jacobs [facility] Address [address] [facility], 4t [place] [address]- Care Team Providers Care Software Quality Assurance Specialist Name Role Phone Lazarus Chahal MD Primary Care Physician [phone] [id number] Date(s): 12/24/19 - 01/23/20 [facility] Peoriamadelin HuffmanSunseas [facility] [address] [facility], 4th [place] [address]- [place] Allergies, Adverse Reactions, Alerts Substance Reaction Severity Status penicillin hives Active Medications albuterol inhaler (OP) 0 Refills, Maintenance Start Date: 12/11/19 Status: Ordered aspirin 81 mg oral delayed release tablet 162 mg, 2, tablet, By Mouth, Daily, # 90 tablet, Refills 6, Tot. Refills 6, Maintenance, 01/02/20 16:30:00 EDT, Route to Pharmacy Electronically, [facility] #[id number], 165, cm, 01/02/20 15:49:00 EDT, Height, 90.9, [...]
--- OUTSIDE RECORDS SUMMARY | 2024-02-07 06:11 | XMS_ITS | Continuity of Care Document ---
Author Organization [facility] Reynaldo n's [facility] Address [address] [facility], 4t [place] [address]- Care Team Providers Care Customs Consultant Name Role Phone Kolton GRAVITY PROSPECTING OPERATOR HELPER, Dean Adame Primary Care Physician Encounter [facility] Date(s): 03/17/22 - 04/16/22 [facility] Huffman's [facility] [address] [facility], 4th [address] [place], [place] [address] Allergies, Adverse Reactions, Alerts Substance [...] Soft Stop, 03/28/22 11:00:00 EDT, [facility], Partial fill upon patient request if [...] 03/17/22 14:21:00 EDT, ER Tablet, [facility]/pharmacy #[id number], Partial fill [...] Associate Professional Member Role: PCP Address: Address: [address] [place] [address] 3rd floor [place], [place] [address] Care Team Related Persons Name: KARTIK HAMILTON Address: Address: home [address] [address] [place] Name: GIOVANY HAMILTON Address: home [address] [facility] [address] [address] Name: SAMMY WHARTON Address: home [address] [facility] [address] [place] [address] Name: KAVITA URIAS Address: [address] Address: home [address] [address] [place]
--- OUTSIDE RECORDS SUMMARY | 2024-02-07 06:11 | XMS_ITS | Continuity of Care Document ---
Author Organization [facility] Caleb ramons [facility] Address [address] [facility], 4t [place] [address]- Care Team Providers Care Hairspring Setter Name Role Phone Lazarus Chahal MD Primary Care Physician [phone] [id number] Date(s): 02/06/20 - 04/04/20 [facility] Bluemadelin HuffmanMitrionicss [facility] [address] [facility], 4th [place] [address]- [facility] Attending Physician: Tay Mann MD Referring Physician: Catarina Yu MD Allergies, [...] 02/26/20 16:20:00 EDT, Route to Pharmacy Electronically, [id number], 165, cm, 02/06/20 14:42:00 EDT, Height, 94.8, kg, 02/12/20 16:09:00 EDT, Dry... Start Date: 02/26/20 Status: Ordered ibuprofen 800 mg oral tablet 800 mg, 1, tablet, By Mouth, Every 8 hours, # 40 tablet, Refills 0, Tot. Refills 0, Maintenance, 03/29/20 11:06:00 EDT, Route to Pharmacy Electronically, [facility] #[id number], 165, cm, 03/28/20 9:11:00 EDT, Height, 98, kg, 03/24/20 9:28:00 EDT,... Start Date: 03/29/20 Status: Ordered NIFEdipine 30 mg oral tablet, extended release 30 mg, 1, tablet, By Mouth, Daily, # 30 tablet, Refills 0, Tot. Refills 0, Maintenance, 03/29/20 11:07:00 EDT, Route to Pharmacy Electronically, [facility] #[id number], 165, cm, 03/28/20 9:11:00EDT, Height, 98, kg, 03/24/20 9:28:00 EDT, Dry Weight Start Date: 03/29/20 Status: Ordered oxyCODONE 5 mg oral tablet 5 mg, 1, tablet, By Mouth, Every 3 hours, PRN, (7-10), # 7 tablet, Refills 0, Tot. Refills 0, Maintenance, Pain , Severe, 03/29/20 11:07:00 EDT, Route to Pharmacy Electronically, [facility]#[id number], Partial fill upon patient request, 165, cm,... Start Date: 03/29/20 Status: Ordered simethicone 80 mg oral tablet, chewable 80 mg, Chew, 3 times a day, PRN, # 12 tablet, Refills 0, Tot. Refills 0, Maintenance, Gas, 03/29/2011:07:00 EDT, Route to Pharmacy Electronically, [facility] #[id number], 165, cm, 03/28/20 9:11:00 EDT, Height, 98, [...]
--- OUTSIDE RECORDS SUMMARY | 2024-02-07 06:11 | XMS_ITS | Continuity of Care Document ---
Author Organization [facility] Address [address] [facility], 4t [place] [address]- Care Team Providers Care Terrazzo Worker Apprentice Name Role Phone Kolton NOLAN, Dean Adame Primary Care Physician En[facility] Date(s): 02/02/22 - 02/09/22 [facility] Caleb Guillorys [facility] [address] [facility], 4th Floor [place], [place] [address] Attending Physician: Laura DODGE, Melanie Pate Allergies, Adverse Reactions, Alerts Substance Reaction [...] Refills, Soft Stop, 10/27/21 13:53:00 EDT, [id number], Partial fill upon patient request if the prescription is for a schedule II opioid drug., 165.5, cm, 10/13/21 17:30:00 EDT, Height, 96.3, kg, 10/03... Start Date: 10/27/21 Status: Ordered NIFEdipine (Eqv-Procardia XL) 30 mg oral tablet, extended release 1 tablet, By Mouth, Daily, # 90 tablet, 1 Refills, [facility], 165.5, cm, 02/01/21 14:07:00 EDT, Height, 94.9, kg, 01/01/21 18:12:00 EDT, Dry Weight Start Date: 06/09/21 Status: Ordered Paxlovid 150 mg-100 mg oral tablet See Instructions, 300 mg nirmatrelvir(2 tablets) with 100 mg ritonavir(1 tablet). All 3 tablets taken together twice daily for 5 days, with or without food, # 30 tablet, 0 Refills, Maintenance, 10/12/21 14:50:00 EDT, [facility]/pharmacy #[id number], Partial fill... Start Date: 10/12/21 Status: Ordered [...] oldest [Reference Range]: 1 Height 165.5 cm (02/02/22 9:41 AM) Weight 99.09 kg (02/02/22 9:41 AM) Body Mass Index [18.5-24.99] 36.18 *>HHI* (02/02/22 9:41 AM) Blood Pressure [90-138/55-84 mm Hg] 122/ 76mm Hg (02/02/22 9:41 AM) Blood pressure sites Arm, left (02/02/22 9:41 AM) Weight Obtained Via Standing scale (02/02/22 9:41 AM) Social History Social History Type Response Smoking Status Never (less than 100 in lifetime) entered on: 10/13/21 Sex Care Team Personnel Name: Dean Hi NP Address: [address] [place] [address] [address] [place], [place] [address]
--- OUTSIDE RECORDS SUMMARY | 2024-02-07 06:11 | XMS_ITS | Continuity of Care Document ---
Author Organization [facility] ter Address [address] [place] [address]- Care Team Providers Care Steel Erector Name Role Phone Mattie NOLAN, Kathy Mendoza Primary Care Physicia n [place] [facility] Date(s): 09/06/21 - 09/06/[address] [address]- Discharge Disposition: A-D/C Home Attending Physician: [place] [...] Mouth, Daily, # 90 tablet, 1 Refills, [facility], 165.5, cm, 02/01/21 14:07:00 EDT, Height, 94.9, [...] hypertension(Confirmed) 2018 Active Obese class II(Confirmed) Active Vital Signs Most recent to oldest [Reference Range]: 1 Weight 96.3 kg (09/06/21 11:15 AM) Oxygen Saturation [94-100 %] 100 % (09/06/21 11:15 AM) Pulse Rate [55-90 bpm] 78 bpm (09/06/21 11:15 AM) Blood Pressure [90-138/55-84 mm Hg] 137/ 82mm Hg (09/06/21 11:15 AM) Respiratory Rate [16-30 br/min] 18 br/mi n (09/06/21 11:15 AM) Temperature [96.8-100.4 DegF] 98.2 DegF (09/06/21 11:15 AM) Mode of Delivery (Oxygen) Room air (09/06/21 11:15 AM) Blood pressure sites Arm, right 1 (09/06/21 11:15 AM) Temperature Route Oral (09/06/21 11:15 AM) Dry Weight 96.3 kg (09/06/21 11:15 AM) 1Result Comment: right upper arm measured 37cm Social History Social History Type Response Smoking Status Never (less than 100 in lifetime) entered on: 03/23/20 Sex
--- OUTSIDE RECORDS SUMMARY | 2024-02-07 06:11 | XMS_ITS | Continuity of Care Document ---
Author Organization [facility] Address [address] [place] [address]- Care Team Providers Care Degreasing Solution Reclaimer Name Role Phone Mattie NOLAN, Kathy Mendoza Primary Care Physicia n Encounter [facility] Date(s): 12/03/20 - 01/02/21 [facility] [address] [place] [address] Attending Physician: AdmCiera cisneros Admitting Physician: Admtr, Ar8 Referring Physician: Admtr, [...] 12/09/20 16:13:00 EDT, Route to Pharmacy Electronically, [facility]/pharmacy #[id number], Partial fill upon patient requestif the prescription is for a schedule II opioid edgar... Start Date: 12/09/20 Stop Date: 07/07/21 Status: Ordered NIFEdipine 30 mg oral tablet, extended release 30 mg, 1, tablet, By Mouth, Daily, # 30 tablet, Refills 5, Tot. Refills 5, Maintenance, 12/10/20 15:18:00 EDT, Route to Pharmacy Electronically, [facility]/pharmacy #[id number], 165.5, cm, 11/19/20 15:50:00 EDT, [...]
--- OUTSIDE RECORDS SUMMARY | 2024-02-07 06:11 | XMS_ITS | Continuity of Care Document ---
Author Organization [facility] Adult Address [address] [place] [address]- Care Team Providers Care Acid Extractor Name Role Phone Dean Hi NP Primary Care Physician [place] [facility] [place] 12/22[place]21 - 01/21/22 [facility] Adult [address] [place] [address]- Allergies, Adverse Reactions, Alerts Substance Reaction Severity [...] 0 Refills, Soft Stop, 10/27/21 13:53:00 EDT, [facility]/pharmacy #[id number], Partial fill upon patient request if the prescription is for a schedule II opioid drug., 165.5, cm, 10/13/21 17:30:00 EDT, Height, 96.3, kg, 10/03... Start Date: 10/27/21 Status: Ordered NIFEdipine (Eqv-Procardia XL) 30 mg oral tablet, extended release 1 tablet, By Mouth, Daily, # 90 tablet, 1 Refills, [id number], 165.5, cm, 02/01/21 14:07:00 EDT, Height, 94.9, kg, 01/01/21 18:12:00 EDT, Dry Weight Start Date: 06/09/21 Status: Ordered Paxlovid 150 mg-100 mg oral tablet See Instructions, 300 mg nirmatrelvir(2 tablets) with 100 mg ritonavir(1 tablet). All 3 tablets taken together twice daily for 5 days, with or without food, # 30 tablet, 0 Refills, Maintenance, 10/12/21 14:50:00 EDT, [facility]/pharmacy #[id number], Partial fill... Start Date: 10/12/21 Status: Ordered [...]
--- OUTSIDE RECORDS SUMMARY | 2024-02-07 06:11 | XMS_ITS | Continuity of Care Document ---
Author Organization [facility] Address [address], [address] [place] [address]- Care Team Providers Care Vocational Rehabilitation Technician Name Role Phone Lazarus Chahal MD Primary Care Physician [phone] [id number] Date(s): 03/13/20 - 07/11/20 [facility] [place] [facility] [address], [address] [place], [place] [address] Attending Physician: Catarina Yu [...] 05/18/20 14:26:00 EST, Route to Pharmacy Electronically, [id number], 165, cm, 05/18/20 14:08:00 EST, Height, 98, [...]
--- OUTSIDE RECORDS SUMMARY | 2024-02-07 06:11 | XMS_ITS | Continuity of Care Document ---
Author Organization [facility] Address [address], [address] [place] [address]- Care Team Providers Care Plastic Design Applier Name Role Phone Mattie NOLAN, Kathy Mendoza Primary Care Physicia n [place] [facility] [place] - 09/05/21 [facility] [address], [address]th [place] [address]- Allergies, Adverse Reactions, Alerts Substance Reaction Severity [...] Mouth, Daily, # 90 tablet, 1 Refills, [id number], 165.5, cm, 02/01/21 14:07:00 EDT, Height, 94.9, [...]
--- OUTSIDE RECORDS SUMMARY | 2024-02-07 06:11 | XMS_ITS | Continuity of Care Document ---
Author Organization [facility] Address [address], [address]t [place] [address]- Care Team Providers Care Supervisor Word Processing Name Role Phone Lazarus Chahal MD Primary [id number]18[facility] - 05/17/20 [facility] [address], [address] [place], [place] [address] Attending Physician: Nga Sanderson MD Referring Physician: [...] 02/26/20 16:20:00 EDT, Route to Pharmacy Electronically, [facility] #[id number], 165, cm, 02/06/20 14:42:00 EDT, Height, 94.8, kg, 02/12/20 16:09:00 EDT, Dry... Start Date: 02/26/20 Status: Ordered ibuprofen 800 mg oral tablet 800 mg, 1, tablet, By Mouth, Every 8 hours, # 40 tablet, Refills 0, Tot. Refills 0, Maintenance, 03/29/20 11:06:00 EDT, Route to Pharmacy Electronically, [facility] #[id number], 165, cm, 03/28/20 9:11:00 EDT, Height, 98, kg, 03/24/20 9:28:00 EDT,... Start Date: 03/29/20 Status: Ordered NIFEdipine 30 mg oral tablet, extended release 30 mg, 1, tablet, By Mouth, Daily, # 30 tablet, Refills 0, Tot. Refills 0, Maintenance, 04/27/20 15:42:00 EST, Route to Pharmacy Electronically, [facility] #[id number], 165, cm, 03/28/20 9:11:00EDT, Height, 98, kg, 03/24/20 9:28:00 EDT, Dry Weight Start Date: 04/27/20 Status: Ordered simethicone 80 mg oral tablet, chewable 80 mg, Chew, 3 times a day, PRN, # 12 tablet, Refills 0, Tot. Refills 0, Maintenance, Gas, 03/29/2011:07:00 EDT, Route to Pharmacy Electronically, [facility] #[id number], 165, cm, 03/28/20 9:11:00 EDT, Height, 98, [...]
--- OUTSIDE RECORDS SUMMARY | 2024-02-07 06:11 | XMS_ITS | Continuity of Care Document ---
Author Organization [facility] Address [address], [address]t [place] [address]- Care Team Providers Care Dietary Aid Name Role Phone Kolton NOLAN, Dean Adame Primary Care Physician [phone] [place] [facility] [place]22 [facility] [address], [address] [place], [place] [address] Attending Physician: Ciera Núñez Admitting Physician: AdmCiera cisneros Referring Physician: AdmtrCiera Allergies, Adverse Reactions, Alerts Substance Reaction Severity [...] 0 Refills, Soft Stop, 03/28/22 11:00:00 EDT, [facility], Partial fill upon patient request if the prescription is for a schedule II opioid drug., 166, cm, 03/21/22 8:47:00 EDT, Height, 10... Start Date: 03/28/22 Status: Ordered naphazoline 0.012% ophthalmic gel forming solution 2 drops, Eyes, Both, 4 times a day, # 15 mL, 0 Refills, Maintenance, 04/07/22 9:35:00 EDT, Solution, [facility]/pharmacy #[id number], Partial fill upon patient request if the prescription is for a schedule II opioid drug., 2 drops Eyes, Both 4 times a day, 165, cm... Start Date: 04/07/22 Status: Ordered NIFEdipine (Eqv-Procardia XL) 30 mg oral tablet, extended release 1 tablet = 30 mg, By Mouth, Daily, # 90 tablet, 0 Refills, Maintenance, 03/17/22 14:21:00 EDT, ER Tablet, [id number], Partial fill upon patient request if the [...] lifetime) entered on: 10/13/21 Sex Note * Event Display: Genetic Labs, Non Authored Date: Patient Care team information Care Team Personnel Name: Dean Hi NP Position: [facility] Associate Professional Member Role: PCP Address: Address: [address] [place] [address] [address] [place], [place] [address] Care Team Related Persons Name: JILL HAMILTON Address: [address] Address: home [address] [address] [place] Name: KARTIK HAMILTON Address: [address] Address: home [address] [address] [place] Name: GIOVANY HAMILTON Address: home [address] [address] Name: SAMMY WHARTON Address: home [address] [place] [address]
--- OUTSIDE RECORDS SUMMARY | 2024-02-07 06:11 | XMS_ITS | Continuity of Care Document ---
Author Organization [facility] Address [address], [address]t [place] [address]- Care Team Providers Care Nipping Machine Operator Name Role Phone Kolton FLOWER SHOP MANAGER, Dean O Primary Care Physician Encounter [facility] [id number] Date(s): 02/17/22 - 02/24/22 [facility] [address], [address]th [address] [place], [place] [address] Attending Physician: Anastasiia Delgadillo MD [...] Mouth, Daily, # 90 tablet, 1 Refills, [id number], 165.5, cm, 02/01/21 14:07:00 EDT, Height, 94.9, [...] Personnel Name: Dean Hi NP Address: [address]rd [address] [place], [place] [address]
--- OUTSIDE RECORDS SUMMARY | 2024-02-07 06:11 | XMS_ITS | Continuity of Care Document ---
Author Organization [facility] Adult Address [address] [place] [address]- Care Team Providers Care Inspector Ball Points Name Role Phone Mattie NOLAN, Kathy Mendoza Primary Care Physicia n [place] [facility] [place] Date(s): 02/26/21 - 03/28/21 [facility] Adult [address] [place] [address]- Allergies, Adverse Reactions, Alerts Substance Reaction Severity [...] 12/10/20 15:18:00 EDT, Route to Pharmacy Electronically, [facility]/pharmacy #[id number], 165.5, cm, 11/19/20 15:50:00 EDT, Height, [...]
--- OUTSIDE RECORDS SUMMARY | 2024-02-07 06:11 | XMS_ITS | Continuity of Care Document ---
Author Organization [facility] Address [address], [address] [place] [address]- Care Team Providers Care Asbestos Wire Finisher Name Role Phone Lazarus Chahal MD Primary Care Physician [phone] [place] [facility] [place]19 - 01/26/20 [facility] [address], [address]th [place] [address]- [place] Allergies, Adverse Reactions, Alerts Substance Reaction Severity Status penicillin hives Active Medications albuterol inhaler (OP) 0 Refills, Maintenance Start Date: 12/11/19 Status: Ordered aspirin 81 mg oral delayed release tablet 162 mg, 2, tablet, By Mouth, Daily, # 90 tablet, Refills 6, Tot. Refills 6, Maintenance, 01/02/20 16:30:00 EDT, Route to Pharmacy Electronically, [facility] #[id number], 165, cm, 01/02/20 15:49:00 EDT, Height, 90.9, [...]
--- OUTSIDE RECORDS SUMMARY | 2024-02-07 06:11 | XMS_ITS | Continuity of Care Document ---
Author Organization [facility] Address [address], [address] [place] [address]- Care Team Providers Care Corporate Tax Manager Name Role Phone Lazarus Chahal MD Primary Care Physician [facility] [id number] Date(s): 05/18/20 - 05/25/20 [facility] [address], [address] [place], [place] [address] Attending Physician: Latonia Ramsey MD Allergies, Adverse Reactions, [...] 05/18/20 14:26:00 EST, Route to Pharmacy Electronically, [facility] #[id number], 165, cm, 05/18/20 14:08:00 EST, Height, 98, kg, 03/24/20 9:28:00 EDT, Dry Weight Start Date: 05/18/20 Status: Ordered Problem List Condition Effective Dates Status Health Status Inform ant Asthma(Confirmed) Active Chronic hypertension(Confirmed) 2018 Active Encounter for IUD insertion(Confirmed) Active exam(Confirmed) Active Severe preeclampsia(Confirmed) Active Vital Signs Most recent to oldest [Reference Range]: 1 Height 165 cm (05/18/20 2:08 PM) Weight 96.28 kg (05/18/20 2:08 PM) Body Mass Index [18.5-24.99] 35.36 *>HHI* (05/18/20 2:08 PM) Blood Pressure [90-138/55-84 mm Hg] 136/ 98mm Hg (05/18/20 2:08 PM) Weight Obtained Via Standing scale (05/18/20 2:08 PM) Social History Social History Type Response Smoking Status Never (less than 100 in lifetime) entered on: 03/23/20 Sex
--- OUTSIDE RECORDS SUMMARY | 2024-02-07 06:11 | XMS_ITS | Continuity of Care Document ---
Author Organization [facility] Adult Address [address] [place] [address]- Care Team Providers Care Dishwashing Machine Operator Name Role Phone Dean Hi NP Primary Care Physician Encounter [facility] Date(s): 11/06/23 - 11/13/23 [facility] Adult [address] [place] [address]- Encounter Diagnosis Chronic hypertension(Discharge Diagnosis) - 11/06/23 Asthma(Discharge Diagnosis) - 11/06/23 Obese class I(Discharge Diagnosis) - 11/06/23 Attending Physician: Not on Staff, Attending MD [...] rded hepatitis B adult vaccine 08/19/22 Given [id number] 12y+ bivalent booster vax 05/25/22 Recorded tetanus/diphtheria/pertussis, [...] 9:54:00 EDT, Route to Pharmacy Electronically, [facility]/pharmacy #[id number], Partial fill upon patient request if the prescription is for a schedule II opioid drug.... Start Date: 01/16/23 Status: Ordered liraglutide 18 mg/3 mL subcutaneous solution = 2.4 mg, Subcutaneous Injection, Daily, # 15 mL, 4 Refills, Maintenance, 09/07/24 17:22:00 EDT, Solution, [facility], Partial fill upon patient request if the prescription is for a schedule II opioid drug., 165, cm, 11/06/23 8:55:00... Start Date: 09/07/24 Stop Date: 12/01/25 Status: Ordered losartan 25 mg oral tablet 1 tablet = 25 mg, By Mouth, Daily, # 90 tablet, 0 Refills, Maintenance, 11/06/23 9:22:00 EDT, Tablet, [facility]/pharmacy #[id number], Partial fill upon patient request if the prescription is for a schedule II opioid drug., 165, cm, 11/06/23 8:55:00 EDT, Height, 9... Start Date: 11/06/23 Status: Ordered Mirena 52 mg intrauterine device 1 each = 52 mg, Intrauterine, Once, # 1 each, 0 Refills, Soft Stop, 03/28/22 11:00:00 EDT, [facility], Partial fill upon patient request if the prescription is for a schedule II opioid drug., 166, cm, 03/21/22 8:47:00 EDT, Height, 10... Start Date: 03/28/22 Status: Ordered NIFEdipine (Eqv-Procardia XL) 90 mg oral tablet, extended release 1 tablet, By Mouth, Daily, # 90 tablet, 1 Refills, Maintenance, 08/30/23 9:04:00 EDT, [id number], 165, cm, 05/04/23 12:10:00 EST, Height, 98, kg, 12/12/22 16:10:00 EDT, Dry Weight Start Date: 08/30/23 Status: Ordered Pen [place]worth, 31 G x 5 mm BD Ultra [...] Clinical Service Informant Chronic hypertension Discharge Diagnosis 11/06/23 Asthma Discharge Diagnosis 11/06/23 Obese class I Discharge Diagnosis 11/06/23 Vital Signs Most recent to oldest [Reference Range]: 1 2 3 Height 165 cm (11/06/23 9:23 AM) 165 cm (11/06/23 8:55 AM) 165 cm (11/06/23 8:50 AM) Weight 92 kg (11/06/23 8:50 AM) Oxygen Saturation [94-100 %] 99 % (11/06/23 8:50 AM) Pulse Rate [55-90 bpm] 96 bpm *H* (11/06/23 8:50 AM) Body Mass Index [18.5-24.99 kg/m2] 33.79 kg/m2 *>HHI* (11/06/23 8:50 AM) Blood Pressure [90-138/55-84 mm Hg] 142/84mm Hg *H* (11/06/23 9:23 AM) 144/107mm Hg *H* (11/06/23 8:55 AM) 151/109mm Hg *H* (11/06/23 8:50 AM) Mode of Delivery (Oxygen) Room air (11/06/23 8:50 AM) Blood pressure sites Arm, left (11/06/23 9:23 AM) Arm, left (11/06/23 8:55 AM) Arm, left (11/06/23 8:50 AM) Social History Social History Type Response Smoking Status Never (less than 100 in lifetime) entered on: 10/13/21 Sex Note * Nohemi Buchanan: PERFORM Event Display: Patient Education/Instruction Authored Date: Ambulatory Adult Visit Summary [facility] [address] [place] [address] Name: KAVITA URIAS : 1990?? Visit: 11/06/2023 08:44?? Ambulatory Visit Instructions ?? Your Care Team Primary Care Provider Dean Hi NP? This Visit Provider Dean Hi NP Your Diagnosis Chronic hypertension Asthma Obese class I Vitals Signs Pulse Rate:??96 bpm??High Height: 165 cm Systolic Blood Pressure:??142 mm Hg??High Weight: 92 kg Diastolic Blood Pressure: 84 mm Hg Body Mass Index:??33.79 kg/m2??Critical Oxygen Saturation: 99 % Body surface area: 2.05 What to do next Scheduled Follow-Up Appointments Monday 1:10 PM EDT ?? With: Dean Hi NP Where: [address] [address]- Status: Pending Future Orders Hemoglobin A1C (Monitoring) - Once, *Est. 05/04/23, Future Order?? Lipid Panel Non Fasting - Once, *Est. 05/04/23, Future Order?? ALT - Once, *Est. 05/04/23, Future Order?? TSH - Once, *Est. 05/04/23, Future Order?? Medications The list below reflects the information in our records and provided by you today along with any changes made during this visit. Please continue your medications until treatment is completed or stopped by your provider. If this is different from the information you have or there are other questions,please contact the prescribing provider. What How Much When Instructions New liraglutide (liraglutide 18 mg/ 3 mL subcutaneous solution) 2.4 Milligram Subcutaneous Injection Daily Duration: 90 Days Refills: 4 Pickup at [facility] New Losartan (losartan 25 mg oral tablet) 1 tab(s) Oral Daily Pickup at [facility]/pharmacy #[id number] Unchanged Albuterol (albuterol inhaler (OP)) Unchanged Aspirin (aspirin 81 mg oral delayed release tablet) 1 tab(s) Oral Daily Unchanged Durable Medical Equipment (Pen [place]worth, 31 G x 5 mm BD Ultra Fine III) See instructions use to inject Victoza daily ?? Unchanged Levonorgestrel (Mirena 52 mg intrauterine device) 1 Each Intrauterine Once Unchanged NIFEdipine (NIFEdipine (Eqv-Procardia XL) 90 mg oral tablet, extended release) 1 tab(s) Oral Daily Pharmacy Information [facility]: [address] [place], [place] [phone] [facility]/pharmacy #[id number]: [address] [place], [place] [phone] [phone] Medications and Immunizations Administered Medications Given During Visit No medications given during this visit.?? Allergies (NKA means No Known Allergies) penicillin??(hives) Education Materials Below is the list of Educational Leaflet Providered with your Visit summary. Web[employer] Ignite Patient Education - Discharge Instructions for High Blood Pressure (Hypertension)?? Common Emergency Awareness Tips IS IT A [...] are strongly encouraged to quit. Please call [employer] at [phone] or [phone] (6555) or log in to [email or web address] for referrals to smoking cessation programs. ?? The National Suicide Prevention Hotline is available 26/12 if you or someone you know needs to find a reason to keep living. By calling 5-608-326-[employer] (3403) you'll be connected to a skilled, trained counselor at a crisis center in your area. [facility] Portal You can view and manage your care through the patient portal or by using a health care katlin of your choosing. [employer] is a website that allows you to securely view your medical information including your hospital discharge summary, office visit summaries, medications and follow-up visits. You can also request appointments, renew medications, and request access to your medical information using a health care katlin of your choosing, or just ask a question. You can enroll at [email or web address] or register during your next office visit. [facility], in keeping with [facility] guidance, no longer requires face masks [...] primary care provider, you may find a [facility] provider by calling [facility] at [phone]. * Kolton NOLAN, Dean O: PERFORM Event Display: Patient Education Leaflets Authored Date: [id number] Discharge Instructions for High Blood Pressure (Hypertension) ?? [address] Discharge Instructions for High Blood Pressure (Hypertension) You have been diagnosed with high blood pressure. This is known as hypertension. This means the force of blood against your artery meehan is too strong. It means your heart is working hard to move blood. High blood pressure usually has no symptoms. But over time, it can cause serious health problems. High blood pressure raises your risk for these problems: ??? Heart attack ??? Stroke ??? Heart disease ??? Heart failure ??? Kidney disease ??? Vision loss With help from your healthcare provider, you can manage your blood pressure and protect your health. Blood pressure measurements are given as 2 numbers. Systolic blood pressure is the upper number. This is the pressure when the heart contracts or pumps. Diastolic blood pressure is the lower number. This is the pressure when the heart relaxes between beats. Blood pressure is grouped like this: ??? Normal blood pressure. This is systolic of less than 120 and diastolic of less than 80 (120/80)at rest ??? Elevated blood pressure. This is systolic of 120 to 129 and diastolic less than 80 at rest ??? Stage 1 high blood pressure. This is systolic is 130 to 139 or diastolic between 80 to 89 atrest ??? Stage 2 high blood pressure. This is when systolic is 140 or higher or the diastolic is 90or higher at rest Taking medicine ??? Learn to measure your own blood pressure. Keep a record of your results. Ask your healthcare provider what numbers mean that you need medical care. ??? Take your blood pressure medicine exactly as directed. Don???t skip doses. Missing doses??can cause your blood pressure to get out of control. ??? Ask your healthcare provider what to do if you miss a dose. ??? Don't take medicines that contain heart stimulants. This includes qigo-tea-pqnxzgs medicines. Check for warnings about high blood pressure on the label. Ask the pharmacist before buying a medicine you haven't used before. ??? Check with your healthcare provider before taking a decongestant. This includes medicines with pseudoephedrine or phenylephrine on the label. Ask the pharmacist if you are not sure. These can make high blood pressure worse. ??? If you take medicine to have sex, talk to your healthcare provider. Taking these medicines with a type of blood pressure medicine called nitrates can be dangerous. This can drop your blood pressure too low. ?? Lifestyle changes ??? Keep a healthy weight. Get help to lose any extra pounds. Meeting with a dietitian can help you make diet changes to help with weight loss. ??? Cut back on salt. To do this: o Limit canned, dried, packaged, and fast foods. o Don???t add salt to your food at the table. o Seasonfoods with herbs instead of salt when you cook. o Ask for no added salt when you eat out. o Have nomore than??1,500 mg a??day of sodium. You can make a positive change by??cutting back to even 2,300mg of sodium a day. Read all food labels to see how much sodium they have.? Follow the DASH eating plan. DASH stands for Dietary Approaches to Stop Hypertension.??This plan advises a way to eat for healthy blood pressure. The diet includes vegetables, fruits, whole grains, and other healthy foods. ??? Eat food rich in potassium. ??? Begin an exercise program. Talk with your healthcare provider before you get started. Work up to aerobic exercise 3 to 4 times a week for an average of 40 minutes at a time to lower blood pressure. Even simple activities can help blood pressure. These includewalking or gardening. ??? If you smoke, work to stop. Enroll in a stop- smoking program. This will improve your chance of success. Ask your healthcare provider about programs and medicines to help youstop smoking. ??? Limit drinks with caffeine to 2 per day. This includes such as coffee, black or green tea, and cola. ??? Never take stimulants such as amphetamines or cocaine. These drugs can be deadly for a person with high blood pressure. ??? Work to lessen your stress. You can learn ways to manage stress. ??? Limit how much alcohol you drink. This means no more than 1 drink a day for women and 2 drinks a day for men. ?? Follow-up care Make a follow-up appointment as directed. ?? When to call your healthcare provider Call your healthcare provider right away if you have any of these: ??? Moderate headache ??? Extreme drowsiness ??? Dizziness or fainting ??? Pulsating or rushing sound in your ears ??? Unexplained??nosebleed ??? Blood pressure measured at home that is higher than 180/110 or as directed by your healthcare provider ?? Call 911 Call 911 right away if you have any of these symptoms: ??? Chest pain or shortness of breath ??? Severe headache ??? Weakness, tingling, or numbness of your face, arms, or legs (especially on 1 side of the body) ??? Change in vision ??? Confusion, trouble speaking, or trouble understanding speech ?? Last Reviewed Date: 2021 ?? 2388-4055 [employer]. All rights reserved. This information is not intended as a substitute for professional medical care. Always follow your healthcare professional's instructions. ?? Patient Care team information Care Team Personnel Name: Dean Hi NP Position: S PCO Associate Professional Member Role: PCP Address: Address: [address] [address]rd [place] [address]- Care Team Related Persons Name: JILL HAMILTON Address: [address] Address: home [address] [place] [address] Name: KARTIK HAMILTON Address: [address] Address: home [address] [facility] [address] Name: GIOVANY HAMILTON Address: home [address] [address] Name: SAMMY WHARTON Address: home [address] [facility] [address] [place] [address]
--- OUTSIDE RECORDS SUMMARY | 2024-02-07 06:11 | XMS_ITS | Continuity of Care Document ---
Author Organization [facility] Reynaldo n's [facility] Address [address] [facility], 4t [place] [address]- Care Team Providers Care Director Speech And Hearing Name Role Phone Kolton COAL PIPELINE OPERATOR, Dean Adame Primary Care Physician [phone] Encounter [facility] Date(s): 03/17/22 - 04/16/22 [facility] Caleb Huffman's [facility] [address] [facility], 4th Floor [place], [place] [address] Allergies, Adverse Reactions, Alerts Substance Reaction [...] 0 Refills, Soft Stop, 03/28/22 11:00:00 EDT, [facility], Partial fill upon patient request [...] Associate Professional Member Role: PCP Address: Address: [address] [place] [address] 3rd [place] [address]- Care Team Related Persons Name: KARTIK HAMILTON Address: Address: home [address] [address] [place] Name: GIOVANY HAMILTON Address: home [address] [facility] [facility] [address] [address] Name: SAMMY WHARTON Address: home [address] [facility] [address] [place] [address] Name: KAVITA URIAS Address: [address] Address: home [address] [address] [place]
--- OUTSIDE RECORDS SUMMARY | 2024-02-07 06:12 | XMS_ITS | Continuity of Care Document ---
Author Organization [facility] Caleb Jacobs n[facility] Address [address] [facility], 4t [place] [address]- Care Team Providers Care Dry House Operator Name Role Phone Lazarsu Chahal MD Primary Care Physician [id number] Date(s): 02/04/20 - 03/05/20 [facility] Gilliammadelin HuffmanCydans [facility] [address] [facility], 4th [place] [address]- [place] Allergies, Adverse Reactions, Alerts Substance Reaction Severity Status penicillin hives Active Medications albuterol inhaler (OP) 0 Refills, Maintenance Start Date: 12/11/19 Status: Ordered aspirin 81 mg oral delayed release tablet 162 mg, 2, tablet, By Mouth, Daily, # 90 tablet, Refills 6, Tot. Refills 6, Maintenance, 02/26/20 16:20:00 EDT, Route to Pharmacy Electronically, [id number], 165, cm, 02/06/20 14:42:00 EDT, Height, 94.8, [...]
--- OUTSIDE RECORDS SUMMARY | 2024-02-07 06:12 | XMS_ITS | Continuity of Care Document ---
Author Organization [facility] Caleb Jacobs [employer] Address [address] [facility], 4t [place] [address]- Care Team Providers Care Certified Adaptive Physical Educator Name Role Phone Mattie NOLAN, Kathy Mendoza Primary Care Physicia n [id number] Date(s[facility] 08/30[facility]21 - 09/29/21 [facility] Calebmadelin HuffmanXL [facility] [address] [facility], 4th Floor [place], [place] [address] Allergies, Adverse Reactions, Alerts Substance [...] Mouth, Daily, # 90 tablet, 1 Refills, [id number], 165.5, cm, 02/01/21 14:07:00 EDT, Height, 94.9, [...]
--- OUTSIDE RECORDS SUMMARY | 2024-02-07 06:12 | XMS_ITS | Continuity of Care Document ---
Author Organization [facility] Adult Address [address] [place] [address]- Care Team Providers Care Nuclear Spectroscopist Name Role Phone Mattie NOLAN, Kathy Mendoza Primary Care Physicia n Encounter [facility] Date(s): 03/01/21 - 03/31/21 [facility] Adult [address] [place] [address]- Allergies, Adverse Reactions, Alerts Substance Reaction Severity [...] 12/10/20 15:18:00 EDT, Route to Pharmacy Electronically, [facility]/pharmacy #[id number], 165.5, cm, 11/19/20 15:50:00 EDT, Height, 98, [...]
--- OUTSIDE RECORDS SUMMARY | 2024-02-07 06:12 | XMS_ITS | Continuity of Care Document ---
Author Organization [facility] Reynaldo n's [facility] Address [address] [facility], 4t [place] [address]- Care Team Providers Care Yoghurt Maker Name Role Phone Kolton MELON PACKER, Dean Adame Primary Care Physician [phone] Encounter [facility] Date(s): 03/17/22 - 04/16/22 [facility] Girdlermadelin Huffman's [facility] [address] [facility], 4th Floor [place], [place] [address] Allergies, Adverse Reactions, Alerts Substance Reaction [...] 0 Refills, Soft Stop, 03/28/22 11:00:00 EDT, [facility], Partial fill upon patient request [...] Refills, Maintenance, 03/17/22 14:21:00 EDT, ER Tablet, [facility]/pharmacy #[id number], Partial fill upon patient request [...] Professional Member Role: PCP Address: Address: [address] [place] [address] 3rd floor [place], [place] [address] Care Team Related Persons Name: KARTIK HAMILTON Address: Address: home [address] [address] [place] Name: GIOVANY HAMILTON Address: home [address] [facility] [address] [address] Name: SAMMY WHARTON Address: home [address] [facility] [address] [place] [address] Name: KAVITA URIAS Address: [address] Address: home [address] [address] [place]
--- OUTSIDE RECORDS SUMMARY | 2024-02-07 06:12 | XMS_ITS | Continuity of Care Document ---
Author Organization [facility] Adult Address [address] [place] [address]- Care Team Providers Care Distance Education Coordinator Name Role Phone Kolton NOLAN, Dean Adame Primary Care Physician [phone] Encounter [facility] Date(s): 06/22/23 - 07/22/23 [facility] Adult [address] [place] [address] Allergies, Adverse Reactions, Alerts Substance Reaction Severity Status penicillin hives Active Immunizations Given and Recorded Vaccine Date Status Refusal Reason influenza virus vaccine, inactivated 03/16/23 Give n influenza virus vaccine, inactivated 05/20/22 Give n influenza virus vaccine, inactivated 11/09/21 Give n influenza virus vaccine, inactivated 03/10/20 Give n influenza virus vaccine, inactivated 04/06/18 Alfred rded hepatitis B adult vaccine 08/19/22 Given [id number] 12y+ bivalent booster vax 05/25/22 Recorded tetanus/diphtheria/pertussis, [...] 01/16/23 9:54:00 EDT, Route to Pharmacy Electronically, [facility]/pharmacy #[id number], Partial fill upon patient request if the prescription is for a schedule II opioid drug.... Start Date: 01/16/23 Status: Ordered liraglutide 18 mg/3 mL subcutaneous solution = 2.4 mg, Subcutaneous Injection, Daily, # 15 mL, 4 Refills, Maintenance, 06/15/23 17:22:00 EST, Solution, [facility]/pharmacy #[id number], Partial fill upon patient request if the prescription is for a schedule II opioid drug., 165, cm, 05/04/23 12:10:00 EST, Hei... Start Date: 06/15/23 Stop Date: 09/07/24 Status: Ordered Mirena 52 mg intrauterine device 1 each = 52 mg, Intrauterine, Once, # 1 each, 0 Refills, Soft Stop, 03/28/22 11:00:00 EDT, [facility], Partial fill upon patient request if the prescription is for a schedule II opioid drug., 166, cm, 03/21/22 8:47:00 EDT, Height, 10... Start Date: 03/28/22 Status: Ordered NIFEdipine (Eqv-Procardia XL) 90 mg oral tablet, extended release 1 tablet, By Mouth, Daily, # 90 tablet, 0 Refills, Maintenance, 02/19/23 15:29:00 EDT, [id number], 165, cm, 01/16/23 10:39:00 EDT, Height, 98, kg, 12/12/22 16:10:00 EDT, Dry Weight Start Date: 02/19/23 Status: Ordered Pen [place], 31 G x 5 mm BD Ultra [...] Associate Professional Member Role: PCP Address: Address: [address] [place] [address] 3rd [place] [address]- Care Team Related Persons Name: JILL HAMILTON Address: Address: home [address] [address] [place] Name: KARTIK HAMILTON Address: [address] Address: home [address] [address] [place] Name: ALFONSO GIOVANY Address: home [address] [place] [address] Name: SAMMY WHARTON Address: home [address] [facility] [address] [place] [address]
--- OUTSIDE RECORDS SUMMARY | 2024-02-07 06:12 | XMS_ITS | Continuity of Care Document ---
Author Organization [facility] Caleb Jacobs [facility] [facility] Address [address] [facility], 4t [place] [address]- Care Team Providers Care Civil Cad Designer Name Role Phone Lazarus Chahal MD Primary Care Physician [id number] Date(s): 02/26/20 - 03/04/20 [facility] Mantecamadelin HuffmanSavvySystemss [facility] [address] [facility], 4th [place] [address]- [facility] Attending Physician: Nga Sanderson MD Referring Physician: Lazarus Chahal MD Allergies, Adverse Reactions, Alerts Substance Reaction Severity Status penicillin hives Active Medications albuterol inhaler (OP) 0 Refills, Maintenance Start Date: 12/11/19 Status: Ordered aspirin 81 mg oral delayed release tablet 162 mg, 2, tablet, By Mouth, Daily, # 90 tablet, Refills 6, Tot. Refills 6, Maintenance, 02/26/20 16:20:00 EDT, Route to Pharmacy Electronically, [id number], 165, cm, 02/06/20 14:42:00 EDT, Height, 94.8, [...] recent to oldest [Reference Range]: 1 2 Blood Pressure [90-138/55-84 mm Hg] 143/ 95mm Hg *H* (02/26/20 4:30 PM) 142/98mm Hg *H* (02/26/20 4:15 PM) Social History Social History Type Response Smoking Status Never (less than 100 in lifetime); Tobacco user in household: No entered on: 12/30/19 Sex
--- OUTSIDE RECORDS SUMMARY | 2024-02-07 06:12 | XMS_ITS | Continuity of Care Document ---
Author Organization [facility] [employer] Address [address], 4t [place] [address]- Care Team Providers Care Circuit Manager Name Role Phone Mattie NOLAN, Kathy Mendoza Primary Care Physicia n [id number]): [facility] - 07/30/21 [facility] [address], 4th [place] [address]- Attending Physician: Laura DODGE, Melanie Pate Referring Physician: Carmen Cedeño CNM Allergies, Adverse [...] Mouth, Daily, # 90 tablet, 1 Refills, [facility] STORE [id number], 165.5, cm, 02/01/21 14:07:00 EDT, Height, 94.9, [...] oldest [Reference Range]: 1 Height 165.5 cm (07/23/21 2:20 PM) Weight 97.76 kg (07/23/21 2:20 PM) Body Mass Index [18.5-24.99] 35.69 *>HHI* (07/23/21 2:20 PM) Blood Pressure [90-138/55-84 mm Hg] 144/ 80mm Hg *H* (07/23/21 2:20 PM) Blood pressure sites Arm, left (07/23/21 2:20 PM) Weight Obtained Via Standing scale (07/23/21 2:20 PM) Social History Social History Type Response Smoking Status Never (less than 100 in lifetime) entered on: 03/23/20 Sex
--- OUTSIDE RECORDS SUMMARY | 2024-02-07 06:12 | XMS_ITS | Continuity of Care Document ---
Author Organization [facility] Adult Address [address] [place] [address]- Care Team Providers Care Sand Drier Name Role Phone Dean Hi NP Primary Care Physician [place] [facility] 03/23/23 - 04/22/23 [facility] Adult [address] [place] [address]- Allergies, Adverse Reactions, Alerts Substance Reaction Severity Status penicillin hives Active Immunizations Given and Recorded Vaccine Date Status Refusal Reason influenza virus vaccine, inactivated 03/16/23 Give n influenza virus vaccine, inactivated 05/20/22 Give n influenza virus vaccine, inactivated 11/09/21 Give n influenza virus vaccine, inactivated 03/10/20 Give n influenza virus vaccine, inactivated 04/06/18 Alfred rded hepatitis B adult vaccine 08/19/22 Given [id number] 12y+ bivalent booster vax 05/25/22 Recorded tetanus/diphtheria/pertussis, [...] 01/16/23 9:54:00 EDT, Route to Pharmacy Electronically, [facility]/pharmacy #[id number], Partial fill upon patient request if the prescription is for a schedule II opioid drug.... Start Date: 01/16/23 Status: Ordered liraglutide 18 mg/3 mL subcutaneous solution = 0.6 mg, Subcutaneous Injection, Daily, # 15 mL, 2 Refills, Maintenance, 03/24/23 9:29:00 EDT, Solution, [facility]/pharmacy #[id number], Partial fill upon patient request if the prescription is for a schedule II opioid drug. OK to dispense 2 pack, 165, cm, 03/16... Start Date: 03/24/23 Stop Date: 06/22/23 Status: Ordered Mirena 52 mg intrauterine device 1 each = 52 mg, Intrauterine, Once, # 1 each, 0 Refills, Soft Stop, 03/28/22 11:00:00 EDT, [facility], Partial fill upon patient request if the prescription is for a schedule II opioid drug., 166, cm, 03/21/22 8:47:00 EDT, Height, 10... Start Date: 03/28/22 Status: Ordered NIFEdipine (Eqv-Procardia XL) 90 mg oral tablet, extended release 1 tablet, By Mouth, Daily, # 90 tablet, 0 Refills, Maintenance, 02/19/23 15:29:00 EDT, [facility], 165, cm, 01/16/23 10:39:00 EDT, Height, 98, kg, 12/12/22 16:10:00 EDT, Dry Weight Start Date: 02/19/23 Status: Ordered Pen [place], 31 G x 5 mm BD Ultra [...] Role: PCP Address: Address: [address] [facility] 3rd [place] [address]- Care Team Related Persons Name: JILL HAMILTON Address: Address: home [address] [address] [place] Name: KARTIK HAMILTON Address: Address: home [address] [place] Name: GIOVANY HAMILTON Address: home [address] [place] [address] Name: WHARTONSAMMY Address: home [address] [facility] [address] [place] [address]
--- OUTSIDE RECORDS SUMMARY | 2024-02-07 06:12 | XMS_ITS | Continuity of Care Document ---
Author Organization [facility] Adult Address [address] [place] [address]- Care Team Providers Care Prom Burn Off Operator Name Role Phone Dean Hi NP Primary Care Physician [place] [facility] 03/16/23 - 03/23/23 [facility] Adult [address] [place] [address]- Encounter Diagnosis Chronic hypertension(Discharge Diagnosis) - 03/16/23 Severe obesity (BMI 35.0-39.9) with comorbidity(Discharge Diagnosis) - 03/16/23 Asthma(Discharge Diagnosis) - 03/16/23 Attending Physician: Not on Staff, Attending MD Referring Physician: Dean Hi NP Allergies, [...] rded hepatitis B adult vaccine 08/19/22 Given [id number] 12y+ bivalent booster vax 05/25/22 Recorded tetanus/diphtheria/pertussis, [...] 01/16/23 9:54:00 EDT, Route to Pharmacy Electronically, [facility]/pharmacy #[id number], Partial fill upon patient request if the prescription is for a schedule II opioid drug.... Start Date: 01/16/23 Status: Ordered liraglutide 18 mg/3 mL subcutaneous solution = 1.2 mg, Subcutaneous Injection, Daily, # 15 mL, 3 Refills, Maintenance, 03/22/23 12:00:00 EDT, [facility], [id number], Partial fill upon patient request if the prescription is for a schedule II opioid drug., 165, cm, 03/16/23 10:56:00 EDT, Hei... Start Date: 03/22/23 Stop Date: 07/20/23 Status: Ordered Mirena 52 mg intrauterine device 1 each = 52 mg, Intrauterine, Once, # 1 each, 0 Refills, Soft Stop, 03/28/22 11:00:00 EDT, [facility], Partial fill upon patient request if the prescription is for a schedule II opioid drug., 166, cm, 03/21/22 8:47:00 EDT, Height, 10... Start Date: 03/28/22 Status: Ordered NIFEdipine (Eqv-Procardia XL) 90 mg oral tablet, extended release 1 tablet, By Mouth, Daily, # 90 tablet, 0 Refills, Maintenance, 02/19/23 15:29:00 EDT, [facility], 165, cm, 01/16/23 10:39:00 EDT, Height, 98, kg, 12/12/22 16:10:00 EDT, Dry Weight Start Date: 02/19/23 Status: Ordered Problem List Condition Confirmation Course Effective Dates Status Health St atus Informant Asthma Confirmed Active Chronic hypertension Confirmed 2018 Active Severe obesity (BMI 35.0-39.9) with comorbidity Confirmed Active Diagnosis Diagnosis Type Effective Dates Health Status Clinical Service Informant Chronic hypertension Discharge Diagnosis 03/16/23 Severe obesity (BMI 35.0-39.9) with comorbidity Discharge Diagnosis 03/16/23 Asthma Discharge Diagnosis 03/16/23 Vital Signs Most recent to oldest [Reference Range]: 1 2 3 Height 165 cm (03/16/23 10:56 AM) 165 cm (03/16/23 10:46 AM) 165 cm (03/16/23 10:39 AM) Weight 104.6 kg (03/16/23 10:39 AM) Oxygen Saturation [94-100 %] 100 % (03/16/23 10:39 AM) Pulse Rate [55-90 bpm] 113 bpm *H* (03/16/23 10:39 AM) Body Mass Index [18.5-24.99 kg/m2] 38.42 kg/m2 *>HHI* (03/16/23 10:39 AM) Blood Pressure [90-138/55-84 mm Hg] 136/84mm Hg (03/16/23 10:56 AM) 142/95mm Hg *H* (03/16/23 10:46 AM) 135/90mm Hg (03/16/23 10:39 AM) Mode of Delivery (Oxygen) Room air (03/16/23 10:39 AM) Blood pressure sites Arm, left (03/16/23 10:56 AM) Arm, right (03/16/23 10:46 AM) Arm, right (03/16/23 10:39 AM) Weight Obtained Via Standing scale (03/16/23 10:39 AM) Social History Social History Type Response Smoking Status Never (less than 100 in lifetime) entered on: 10/13/21 Sex Note * Tsering Newell: PERFORM, SIGN, VERIFY Event Display: Patient Education/Instruction Authored Date: [id number] [facility] *[facility] Clinical Summary Name KAVITA URIAS Age 33 Years 1990 PCP Dean Hi NP PCP Visit Date 03/16/2023 10:34:00 Additional Instructions: Scheduled Appointments?? Future Appointments ?*[facility] ?[address] ?Phone:??--?Fax:??-- ?Appt. Date:??05/04/2023?11:40 AM ?Scheduled Provider:??Dean Hi NP Follow-Up Instructions ?? With: Address: When: Dean Hi NP 03/16/2023 12:00 AM Diagnosis Unspecified asthma, uncomplicated; Morbid (severe) obesity due to excess calories; Essential (primary) hypertension Medications: Please continue your medications until treatment is completed or stopped by your provider. Discuss any questions related to medications with your provider. New Medications [id number] [address], [place] [id number], [phone] semaglutide (Wegovy (0.25 mg dose) subcutaneous solution) 0.25 Milligram Subcutaneous Injection every week for 4 week(s). in the abdomen, thigh, or upper arm. Refills: 0. Next Dose: Medications to Continue with No Changes These medications were not printed or sent to your pharmacy Albuterol (albuterol inhaler (OP)) Next Dose: Aspirin (aspirin 81 mg oral delayed release tablet) 1 tab(s) Oral Daily. Refills: 3. Next Dose: Levonorgestrel (Mirena 52 mg intrauterine device) 1 Each Intrauterine once. Refills: 0. Next Dose: NIFEdipine (NIFEdipine (Eqv-Procardia XL) 90 mg oral tablet, extended release) 1 tab(s) Oral Daily.Refills: 0. Next Dose: No Longer Take the Following Medications Multivitamin, ( Multivitamins) Oral Daily. Allergy Info:?? penicillin Medications Given This Visit Medication Dose Route influenza virus vaccine, inactivated (influenza virus, inactivated vacc) 0.5 mL Intramuscular Future Orders ?No future orders Vital Signs Height 165 cm Weight 104.6 kg BMI 38.42 kg/m2 Blood Pressure 136 mm Hg/84 mm Hg Temperature Pulse Rate 113 bpm Respiratory Rate 02 Sat Mode of Delivery 100 %/Room air You can now view a summary of your hospital visit from the comfort of your home through a free online portal called [employer]. [employer] is a website that allows you to securely view your medical information including discharge summary, medications and follow-up visits. ??You can alsosend a secure electronic message to your doctor???s office to request appointments, renew medications or just ask a question. You can enroll at [email or web address] or register during your next office [...] primary care provider, you may find a [facility] provider by calling [facility] Link at [phone]. [facility], in keeping with [facility] guidance, no longer requires face masks [...] Professional Member Role: PCP Address: Address: [address] [facility] 3rd [place] [address]- [place] Care Team Related Persons Name: JILL HAMILTON Address: [address] Address: home [address] [address] Name: ALFONSO KARTIK Clau Address: [address] Address: home [address] [address] Name: GIOVANY HAMILTON Address: home [address] [address] Name: SAMMY WHARTON Address: home [address] [facility] [address] [place] [address]
--- OUTSIDE RECORDS SUMMARY | 2024-02-07 06:12 | XMS_ITS | Continuity of Care Document ---
Author Organization [facility] Address [address] [facility], 4t [place] [address]- Care Team Providers Care Office Communication Professor Name Role Phone Kolton RADIOLOGIST PHYSICIAN, Dean O Primary Care Physician [phone] [place] [facility] Date(s): 02/02/22 - 04/16/22 [facility] Huffman[facility] [address] [facility], 4th Floor [place], [place] [address] Attending Physician: Anastasiia Delgadillo MD Referring [...] 0 Refills, Soft Stop, 03/28/22 11:00:00 EDT, [facility], Partial fill upon patient request if the prescription is for a schedule II opioid drug., 166, cm, 03/21/22 8:47:00 EDT, Height, 10... Start Date: 03/28/22 Status: Ordered naphazoline 0.012% ophthalmic gel forming solution 2 drops, Eyes, Both, 4 times a day, # 15 mL, 0 Refills, Maintenance, 04/07/22 9:35:00 EDT, Solution, [facility]/pharmacy #[id number], Partial fill [...] Maintenance, 03/17/22 14:21:00 EDT, ER Tablet, [facility]/pharmacy #[id number], Partial fill upon [...] Team Personnel Name: Dean Hi NP Position: [facility] PCO Associate Professional Member Role: PCP Address: Address: [address] [place] [address] 3rd [place] [address]- Care Team Related Persons Name: KARTIK HAMILTON Address: Address: home [address] [address] Name: GIOVANY HAMILTON Address: home [address] [address] Name: SAMMY WHARTON Address: home [address] [facility] [address] [place] [address] Name: KAVITA URIAS Address: [address] Address: home [address] [address]
--- OUTSIDE RECORDS SUMMARY | 2024-02-07 06:12 | XMS_ITS | Continuity of Care Document ---
Author Organization [facility]do [facility] Address [address] [facility] [facility], 4t [place] [address]- Care Team Providers Care Extraction Machine Operator Name Role Phone Kolton NOLAN, Dean Adame Primary Care Physician [phone] Encounter [facility] Date(s): 02/02/22 - 04/16/22 [facility] [address] [facility], 4th [place] [address]- Attending Physician: Nga Sanderson MD Referring Physician: Melanie Sanchez MD Allergies, [...] Soft Stop, 03/28/22 11:00:00 EDT, [facility], Partial fill upon patient request if the prescription is for a schedule II opioid drug., 166, cm, 03/21/22 8:47:00 EDT, Height, 10... Start Date: 03/28/22 Status: Ordered naphazoline 0.012% ophthalmic gel forming solution 2 drops, Eyes, Both, 4 times a day, # 15 mL, 0 Refills, Maintenance, 04/07/22 9:35:00 EDT, Solution, [facility]/pharmacy #[id number], [...] Team Personnel Name: Dean Hi NP Position: [facility] PCO Associate Professional Member Role: PCP Address: Address: [address] [place] [address] 3rd [place] [address]- Care Team Related Persons Name: KARTIK HAMILTON Address: Address: home [address] [address] [place] Name: GIOVANY HAMILTON Address: home [address] [address] Name: SAMMY WHARTON Address: home [address] [facility] [address] [place] [address] Name: KAVITA URIAS Address: [address] Address: home [address] [address] [place]
--- OUTSIDE RECORDS SUMMARY | 2024-02-07 06:12 | XMS_ITS | Continuity of Care Document ---
Author Organization [facility] Adult Address [address] [place] [address]- Care Team Providers Care Photographic Equipment Assembler Name Role Phone Kolton NOLAN, Dean Adame Primary Care Physician Encounter [facility] Date(s): 08/19/22 - 08/26/22 [facility] Adult [address] [place], [place] [address] Attending Physician: Not on Staff, Attending MD Allergies, Adverse Reactions, Alerts Substance Reaction Severity Status penicillin hives Active Immunizations Given and Recorded Vaccine Date Status Refusal Reason hepatitis B adult vaccine 08/19/22 Given [id number] 12y+ bivalent booster vax 05/25/22 Recorded influenza [...] 0 Refills, Soft Stop, 03/28/22 11:00:00 EDT, [facility], Partial fill upon patient request if the [...] Associate Professional Member Role: PCP Address: Address: [address] [place] [address] 3rd [place] [address]- Care Team Related Persons Name: JILL HAMILTON Address: Address: home [address] [address] [place] Name: KARTIK HAMILTON Address: Address: home [address] [address] [place] Name: GIOVANY HAMILTON Address: home [address] [address] Name: SAMMY WHARTON Address: home [address] [facility] [address] [place] [address]
--- OUTSIDE RECORDS SUMMARY | 2024-02-07 06:12 | XMS_ITS | Continuity of Care Document ---
Author Organization [facility] [employer] Address [address] [facility], 4t [place] [address]- Care Team Providers Care Emergency Specialist Name Role Phone Mattie NOLAN, Kathy Mendoza Primary Care Physicia n [id number] Date(s): 10/11/21 - 11/10/21 [facility] [place] [employer]athanael[employer] [facility] [address] [facility], 4th Floor [place], [place] [address] Allergies, Adverse Reactions, Alerts Substance Reaction [...] 0 Refills, Soft Stop, 10/27/21 13:53:00 EDT, [facility]/pharmacy #[id number], Partial fill upon patient request if the prescription is for a schedule II opioid drug., 165.5, cm, 10/13/21 17:30:00 EDT, Height, 96.3, kg, 10/03... Start Date: 10/27/21 Status: Ordered NIFEdipine (Eqv-Procardia XL) 30 mg oral tablet, extended release 1 tablet, By Mouth, Daily, # 90 tablet, 1 Refills, [facility], 165.5, cm, 02/01/21 14:07:00 EDT, Height, 94.9, kg, 01/01/21 18:12:00 EDT, Dry Weight Start Date: 06/09/21 Status: Ordered Paxlovid 150 mg-100 mg oral tablet See Instructions, 300 mg nirmatrelvir(2 tablets) with 100 mg ritonavir(1 tablet). All 3 tablets taken together twice daily for 5 days, with or without food, # 30 tablet, 0 Refills, Maintenance, 10/12/21 14:50:00 EDT, [facility]/pharmacy #[id number], Partial fill... Start Date: [...]
--- OUTSIDE RECORDS SUMMARY | 2024-02-07 06:12 | XMS_ITS | Continuity of Care Document ---
Author Organization [facility] [employer] Address [address] [facility], 4t [place] [address]- Care Team Providers Care Doctor Of Nurse Anesthesia Practice Name Role Phone Mattie NOLAN, Kathy Mendoza Primary Care Physicia n [place] [facility] Date(s[facility] 12/10/20 - [facility]/09/21 [facility] [address] [facility], 4th Floor [place], [place] [address] Allergies, Adverse Reactions, Alerts Substance Reaction [...] 16:13:00 EDT, Route to Pharmacy Electronically, [facility]/pharmacy #[id number], Partial fill upon patient requestif the prescription is for a schedule II opioid edgar... Start Date: 12/09/20 Stop Date: 07/07/21 Status: Ordered NIFEdipine 30 mg oral tablet, extended release 30 mg, 1, tablet, By Mouth, Daily, # 30 tablet, Refills 5, Tot. Refills 5, Maintenance, 12/10/20 15:18:00 EDT, Route to Pharmacy Electronically, [facility]/pharmacy #[id number], 165.5, cm, 11/19/20 15:50:00 EDT, Height, [...]
--- OUTSIDE RECORDS SUMMARY | 2024-02-07 06:12 | XMS_ITS | Continuity of Care Document ---
Author Organization [facility] Address [address] [facility], 4t [place] [address]- Care Team Providers Care Poultry Hatchery Manager Name Role Phone Mattie NOLAN, aKthy Mendoza Primary Care Physicia n [id number] Date[facility]s): 07/29/21 - 08/28/21 [facility] Calebmadelin HuffmanLiquid Bronzes [facility] [address] [facility], 4th Floor [place], [place] [address] Allergies, Adverse Reactions, Alerts [...] Mouth, Daily, # 90 tablet, 1 Refills, [facility], 165.5, cm, 02/01/21 14:07:00 EDT, Height, 94.9, [...]
--- OUTSIDE RECORDS SUMMARY | 2024-02-07 06:12 | XMS_ITS | Continuity of Care Document ---
Author Organization [facility] Caleb Jacobs [employer] [facility] Address [address] [facility], 4t [place] [address]- Care Team Providers Care Admissions Rn Name Role Phone Lazarus Chahal MD [id number] - [facility]13[facility]20 [facility] Calebmadelin HuffmanL4 [employer] [facility] [address] [facility], 4th [place] [address]- [facility] Attending Physician: Catarina Yu MD Allergies, Adverse Reactions, Alerts Substance Reaction Severity Status penicillin hives Active Medications albuterol inhaler (OP) 0 Refills, Maintenance Start Date: 12/11/19 Status: Ordered aspirin 81 mg oral delayed release tablet 162 mg, 2, tablet, By Mouth, Daily, # 90 tablet, Refills 6, Tot. Refills 6, Maintenance, 01/02/20 16:30:00 EDT, [id number], 165, cm, 01/02/20 15:49:00 EDT, Height, 90.9, [...] oldest [Reference Range]: 1 Height 165 cm (02/06/20 2:42 PM) Weight 94 kg (02/06/20 2:42 PM) Body Mass Index [18.5-24.99] 34.53 *>HHI* (02/06/20 2:42 PM) Blood Pressure [90-138/55-84 mm Hg] 136/ 83mm Hg (02/06/20 2:42 PM) Blood pressure sites Arm, right (02/06/20 2:42 PM) Weight Obtained Via Standing scale (02/06/20 2:42 PM) Social History Social History Type Response Smoking Status Never (less than 100 in lifetime); Tobacco user in household: No entered on: 12/30/19 Sex
--- OUTSIDE RECORDS SUMMARY | 2024-02-07 06:12 | XMS_ITS | Continuity of Care Document ---
Author Organization [facility] Adult Address [address] [place] [address]- Care Team Providers Care Master Sonar Technician Name Role Phone Mattie NOLAN, Kathy Mendoza Primary Care Physicia n [place] [facility] 03/30/21 - 07/28/21 [facility] Adult [address] [place] [address]- [place] Attending Physician: Mattie NOLAN, Kathy Mendoza Allergies, [...] Mouth, Daily, # 90 tablet, 1 Refills, [facility], 165.5, cm, 02/01/21 14:07:00 EDT, Height, 94.9, [...]
--- OUTSIDE RECORDS SUMMARY | 2024-02-07 06:12 | XMS_ITS | Continuity of Care Document ---
Author Organization [facility] [employer] [employer] Address [address] [facility], [address]t [place] [address]- Care Team Providers Care Burr Filer Name Role Phone Mattie NOLAN, Kathy Mendoza Primary Care Physicia n Encounter [facility] Date(s): 12/29/20 - 02/17/21 [facility] [address] [facility], 4th [place] [address]- Attending Physician: Nga Sanderson MD Referring Physician: [...] 12/10/20 15:18:00 EDT, Route to Pharmacy Electronically, [facility]/pharmacy #[id number], 165.5, cm, 11/19/20 15:50:00 EDT, [...]
--- OUTSIDE RECORDS SUMMARY | 2024-02-07 06:12 | XMS_ITS | Continuity of Care Document ---
Author Organization [facility] Caleb ramons [facility] Address [address], [address] [place] [address]- Care Team Providers Care Special Education Associate Name Role Phone Lazarus Chahal MD Primary Care Physician [phone] [facility]counter [facility] [id number] Date(s): 01/06/20 - 04/04/20 [facility] Caleb Guillorys [facility] [address], [address]th [place] [address]- [facility] Attending Physician: Catarina Yu MD Allergies, Adverse [...] 02/26/20 16:20:00 EDT, Route to Pharmacy Electronically, [facility] #[id number], 165, cm, 02/06/20 14:42:00 EDT, Height, 94.8, kg, 02/12/20 16:09:00 EDT, Dry... Start Date: 02/26/20 Status: Ordered ibuprofen 800 mg oral tablet 800 mg, 1, tablet, By Mouth, Every 8 hours, # 40 tablet, Refills 0, Tot. Refills 0, Maintenance, 03/29/20 11:06:00 EDT, Route to Pharmacy Electronically, [facility] #[id number], 165, cm, 03/28/20 9:11:00 EDT, Height, 98, kg, 03/24/20 9:28:00 EDT,... Start Date: 03/29/20 Status: Ordered NIFEdipine 30 mg oral tablet, extended release 30 mg, 1, tablet, By Mouth, Daily, # 30 tablet, Refills 0, Tot. Refills 0, Maintenance, 03/29/20 11:07:00 EDT, Route to Pharmacy Electronically, [facility] #[id number], 165, cm, 03/28/20 9:11:00EDT, Height, 98, kg, 03/24/20 9:28:00 EDT, Dry Weight Start Date: 03/29/20 Status: Ordered oxyCODONE 5 mg oral tablet 5 mg, 1, tablet, By Mouth, Every 3 hours, PRN, (7-10), # 7 tablet, Refills 0, Tot. Refills 0, Maintenance, Pain , Severe, 03/29/20 11:07:00 EDT, Route to Pharmacy Electronically, [facility]#[id number], Partial fill upon patient request, 165, cm,... Start Date: 03/29/20 Status: Ordered simethicone 80 mg oral tablet, chewable 80 mg, Chew, 3 times a day, PRN, # 12 tablet, Refills 0, Tot. Refills 0, Maintenance, Gas, 03/29/2011:07:00 EDT, Route to Pharmacy Electronically, [facility] #[id number], 165, cm, 03/28/20 9:11:00 EDT, Height, 98, [...]
--- OUTSIDE RECORDS SUMMARY | 2024-02-07 06:12 | XMS_ITS | Continuity of Care Document ---
Author Organization [facility] Address Unknown Care Team Providers Care Senior Research Fellow Name Role Phone Kolton NOLAN, Dean Adame Primary Care Physician [phone] Encounter [facility] [place] [place] Date(s): 08/27/21 - 12/25/21 [facility] Attending Physician: Macy Simmons MD Referring Physician: Melanie Sanchez MD Allergies, [...] 0 Refills, Soft Stop, 10/27/21 13:53:00 EDT, [facility]/pharmacy #[id number], Partial fill upon patient request if the prescription is for a schedule II opioid drug., 165.5, cm, 10/13/21 17:30:00 EDT, Height, 96.3, kg, 10/03... Start Date: 10/27/21 Status: Ordered NIFEdipine (Eqv-Procardia XL) 30 mg oral tablet, extended release 1 tablet, By Mouth, Daily, # 90 tablet, 1 Refills, [id number], 165.5, cm, 02/01/21 14:07:00 EDT, Height, 94.9, kg, 01/01/21 18:12:00 EDT, Dry Weight Start Date: 06/09/21 Status: Ordered Paxlovid 150 mg-100 mg oral tablet See Instructions, 300 mg nirmatrelvir(2 tablets) with 100 mg ritonavir(1 tablet). All 3 tablets taken together twice daily for 5 days, with or without food, # 30 tablet, 0 Refills, Maintenance, 10/12/21 14:50:00 EDT, [facility]/pharmacy #[id number], Partial fill... Start Date: 10/12/21 Status: Ordered [...]
--- OUTSIDE RECORDS SUMMARY | 2024-02-07 06:12 | XMS_ITS | Continuity of Care Document ---
Author Organization [facility] Caleb Jacobs n's [facility] Address [address], [address] [place] [address]- Care Team Providers Care Automobile And Property Underwriter Name Role Phone Lazarus Chahal MD Primary Care Physician [id number] Date(s): 03/06/20 - 07/04/20 [facility] [place] [facility] [address], [address] [place], [place] [address] Attending Physician: Catarina Yu MD Allergies, [...] 05/18/20 14:26:00 EST, Route to Pharmacy Electronically, [facility] #[id number], 165, cm, 05/18/20 14:08:00 EST, Height, 98, [...]
--- OUTSIDE RECORDS SUMMARY | 2024-02-07 06:12 | XMS_ITS | Continuity of Care Document ---
Author Organization [facility] Reynaldo [facility] Address [address], [address] [place] [address]- Care Team Providers Care Sport Psychologist Name Role Phone Kolton MANAGER ACCESS, Dean Adame Primary Care Physician [id number] Date(s): 03/29/22 - 04/28/22 [facility]aleb [facility] [address], [address] [place], [place] [address] Allergies, Adverse Reactions, Alerts Substance [...] Soft Stop, 03/28/22 11:00:00 EDT, [facility], Partial fill upon patient request if the prescription is for a schedule II opioid drug., 166, cm, 03/21/22 8:47:00 EDT, Height, 10... Start Date: 03/28/22 Status: Ordered naphazoline 0.012% ophthalmic gel forming solution 2 drops, Eyes, Both, 4 times a day, # 15 mL, 0 Refills, Maintenance, 04/07/22 9:35:00 EDT, Solution, [facility]/pharmacy #[id number], Partial fill upon patient request if the prescription is for a schedule II opioid drug., 2 drops Eyes, Both 4 times a day, 165, cm... Start Date: 04/07/22 Status: Ordered NIFEdipine (Eqv-Procardia XL) 30 mg oral tablet, extended release 1 tablet = 30 mg, By Mouth, Daily, # 90 tablet, 0 Refills, Maintenance, 03/17/22 14:21:00 EDT, ER Tablet, [facility]/pharmacy #[id number], Partial fill upon patient request [...] Professional Member Role: PCP Address: Address: [address] [place] [address] [address] [place] [address]- Care Team Related Persons Name: KARTIK HAMILTON Address: Address: home [address] [address] [place] Name: GIOVANY HAMILTON Address: home [address] [address] Name: SAMMY WHARTON Address: home [address] [place] [address] Name: KAVITA URIAS Address: Address: home [address] [address] [place]
--- NOTE | 2024-02-07 06:45 | PHA.MEDREC ---
Pharmacy Consult ? Medication Reconciliation Pharmacy has completed the medication reconciliation. Reviewed med rec completed by nursing
[2024-02-07] MEDS: Lactated Ringers 1,000 ML 999 ML IV (06:48)
[2024-02-07] MEDS: Lactated Ringers 1,000 ML 100 ML IVCONT ×2 (06:48→22:14)
[2024-02-07] MEDS: Aprepitant 32 MG/4.4 ML VIAL IVPUSH (06:48)
[2024-02-07 07:03] LABS: Vitamin A 53 mcg/dL (38-98)
[2024-02-07 07:03] LABS: UPreg QC Valid YES; Urine Pregnancy NEGATIVE (NEGATIVE)
--- NOTE | 2024-02-07 07:34 | MHC.SHP ---
Pre-Procedural Eval Section A - 24 Hr Update-Section A only Date of Service: 02/07/24 The patient is an INPATIENT: Yes The patient has been examined within 24 hours of the surgical procedure. The History & Physical has been completed within 30 days and I have reviewed it.: Yes Section B - Complete if H&P > 30 days Chief Complaint: Obesity Relevant Family History (Specify if Yes): No Relevant Social History: None Present Medications: None Medical History: No relevant PMH History of Previous Operations: No relevant previous surgery Allergies: Allergies Allergy/AdvReac Type Severity Reaction Status Date / Time Penicillins [PENICILLINS] Allergy Intermediate SWELLING Verified 02/07/24 06:10 Review of Systems Sugical H&P ROS: Negative: Constitution, Cardiovascular, Respiratory, Neurological, Psychiatric, Hem-Onc, Allergic/Immunologic, Gastrointestinal, Genitourinary, Musculoskeletal, Integumentary, Endocrine and Eyes/Ears/Nose/Throat Exam Surgical H&P Exam: Normal: HEENT, Normal: Heart, Normal: Lungs, Normal: Extremities, Normal: Abdomen, Normal: Skin and Normal: Neurological Plan Diagnosis/Plan: Unchanged I have reviewed the history and physical and performed a pertinent physical examination on my patient. No changes have occurred unless specified. Time Spent With Patient Time: Total time managing care of this patient today ____ minutes.
--- NOTE | 2024-02-07 10:23 | PM.DS ---
DS: Providers Provider Date of Service: 02/08/24 Date of admission: 02/07/24 06:02 Primary care physician: BELL White DS: Summary Hospital Course Hospital Course: ADMITTING DIAGNOSIS: obesity, htn asthma ? DISCHARGE DIAGNOSIS: same, s/p laparoscopic sleeve gastrectomy, lysis of adhesions ? PAST SURGICAL HISTORY: back surgery, cesarian section ? PROCEDURE: upper endoscopy, laparoscopic sleeve gastrectomy and lysis of adhesions ? DISCHARGE SUMMARY: ? History of Present Illness: ? The patient is a?34 year-old woman with a BMI of?35.8 kg/m2 and associated co-morbidities as described above. The patient had extensive work-up,lost?40.4 lbs preoperatively and was electively scheduled for laparoscopic, possible open sleeve gastrectomy and gastropexy. Risks and complications of the surgery were discussed with the patient in advance, particularly the possibility of , pulmonary embolism, anastomotic leak, bleeding, bowel injury, GERD, cardiac, renal or pulmonary complications. The patient understood all the risks and was in agreement with the surgical plan. ? Hospital Course: ? The patient underwent an uneventful laparoscopic sleeve gastrectomy with gastropexy and lysis of adhesions on the day of admission. Postoperatively, the patient was transferred to the surgical floor. The patient received IV Acetaminophen and IV dilaudid for pain control. Patient was started on bariatric phase 1 diet POD #0. On postoperative day one, the patient was feeling well without nausea, vomiting, fevers, or tachycardia. The patient had some mild incisional pain and the abdomen was soft. ? On the morning of postoperative day one, the patient was continued on 1 ounce of water or ice every half hour. During the day, the patient did fairly well, having some incisional pain, but able to ambulate adequately and to tolerate liquids well. ? Since the patient is doing well, we decided that the patient was ready to be discharged. The patient was given instructions to follow-up with me next week and to call my office for any fever over 101, persistent abdominal pain, nausea, vomiting, GERD, symptoms of DVT such as calf tenderness, or leg swelling, or pulmonary embolism such as chest pain or shortness of breath. The patient was also instructed to drink 40-60 ounces of liquids per day using the 1-ounce cups. The patient had been given prescriptions for Tylenol for pain, Zofran prn for nausea, and pantoprazole and carafate previously. The patient was encouraged to ambulate and use the incentive spirometer. The patient was allowed to shower, but no baths, and encouraged to stay active at home. All of these instructions were given to the patient personally. All questions were answered and the patient understood all instructions, the instructions were also given to the patient in print. Time Attestation Total time managing care of this patient today: 25 mintues. Discharge Coordination Time (in mins): 25 Quality: Safe Use of Opioids Does Pt have an Active Cancer Diagnosis on the Problem List?: No Quality: Stroke Does the patient have a stroke diagnosis?: No Physical Exam Vital Signs: Vital Signs: Last Vital Signs Temp 97.4 F 02/07/24 10:15 Pulse 79 02/07/24 10:20 Resp 16 02/07/24 10:20 BP 139/96 H 02/07/24 10:20 Pulse Ox 100 02/07/24 10:20 O2 Del Method Simple Mask 02/07/24 10:20 O2 Flow Rate 6 02/07/24 10:20 BMI result Body Mass Index 29.2 DS: Data Data Completed and Pending Pending studies at discharge: Pending at discharge 02/07/24 10:17 Surgical Path [Surgical] [PTH] Routine Labs on day of discharge: Laboratory Results - last 24 hr 02/01/24 02/07/24 10:12 06:25 Vitamin A 53 Urine Test NEGATIVE Discharge Plan Discharge Anticipated Discharge Date/Time: 02/08/24 10:00 Patient Disposition: Home, Self-Care Discharge Diagnosis: s/p laparoscopic sleeve gastrectomy Referrals: Dean Hi FNP [Primary Care Provider] - 1 Week Discharge Medications: Continued albuterol sulfate 90 mcg/actuation HFA aerosol inhaler 2 puff inhalation Q6H PRN (Reason: Shortness Of Breath Or Wheezing) nifedipine 90 mg tablet extended release 90 mg PO DAILY losartan 25 mg tablet 25 mg PO DAILY pantoprazole 40 mg tablet,delayed release (DR/EC) 40 mg PO DAILY Qty: 90 0RF Discontinued cholecalciferol (vitamin D3) 125 mcg (5,000 unit) capsule 125 mcg PO DAILY Qty: 90 0RF aspirin 81 mg tablet,delayed release (DR/EC) 81 mg PO DAILY Discharge Orders: Discharge Order (Routine); Ordered 02/08/24 Ordered By: Rufus Stearns Activity on Discharge: No heavy lifting Stand Alone Forms: Patient Portal Discharge page Print Language: Monegasque Care Plan Goals: weight loss Health Concerns: obesity, htn Plan of Treatment: No tub baths, sex or returning to work until discussed at first post op appointment. No exercise, alcohol, tobacco or illegal drug use. Continue to use incentive spirometer hourly while awake. Walk in home for 5- 10 minutes every 2 hours during the first week. Follow all instructions in the bariatric handbook and call with any questions.Discharge Instructions 1. Please call your doctor or come back to the emergency room should any new symptoms arise. 2. You will receive a courtesy call from [facility] 24-48 hours after discharge. 3. Activity: abstain from alcohol, practice limited stair climbing, no bending, no driving, no exercise, no illicit substances, no lifting, no sex, no tub bath, no work. 4. Diet: continue as discussed with Dr. Stearns. 5. Dressing Change/Wound Care: Your incision is covered by clear bandages and guaze underneath. If the area is tender, you may apply an ice pack for short intervals (no more than 20 minutes on, followed by at least 20 minutes off). Do not apply heat. Do not use creams, lotions, or topical antibiotics unless instructed to do so by your surgeon. These can cause infection or allergic reaction. 6. Call your doctor if: - Your temperature exceeds 101.5 F - You experience excessive pain or swelling - You have an unexpected reaction to medication - You have excessive bleeding - You experience continued vomiting/nausea - Your incision begins to separate - Your incision shows signs of infection such as increased redness, swelling, excessive pain, heat, or drainage (light blood or clear fluid is normal) 7. General instructions: No lifting greater than 5 lbs for 1 week and not more than 20lbs the next 3?weeks. No driving until seen at the office in 5-7 days after surgery. If you do not move your bowels in the next 2 days, please tell?Dr. Stearns. Please walk around your home every hour or two to prevent blood clots from forming in your legs. You do not need to wake from sleeping to walk. Please sleep in a bed or couch to prevent kinking at the hips and knees. Please take your incentive spirometer (your lung appliance adjuster) home with you and use it for the next few days to prevent pneumonia. You may shower, no hot tubs, baths or swimming pools.?Please follow the post op diet instructions you are?given by Dr Stearns? and text me daily at 5-6pm for an update.?If you have any issues or concerns or questions please communicate this to him via text.? The Celebrate shakes have all of the bariatric vitamins you need if you consume these shakes. If you are drinking other protein shakes, you will need to purchase the Celebrate multivitamins and calcium that are available in the hospital gift shop on the first floor of the main hospital.??Do not take anything without first discussing with Dr Stearns. Please make sure you are consuming at least 40 ounces of fluids per day starting the?day AFTER your discharge from the hospital. Always drink 1-2 ml per minute using the 5ml?syringe. If you drink faster you may experience?bloating,?gas pain, burping, nausea or heartburn. In that case please slow down your pace and use the syringe to?understand better the?proper?pace and volume of drinking. Do not hesitate to contact the office with any questions at . The patient's medical history has been reviewed and they are considered low risk for post op DVT and therefore DVT prophylaxis is not considered necessary. Travel after surgery was reviewed. The patient has not disclosed any travel plans during the first 30 days after surgery and they have been advised that within the first 30 days after surgery any bus, plane, train or car travel over 2 hours in duration is contraindicated due to the possibility of developing blood clots from immobility. Any travel, needs to include periods of ambulation of 10 minutes in duration every 2 hours.? The patient was instructed to discuss any plans for travel during this period with their bariatric surgeon. Assessment: stable s/p laparoscopic sleeve gastrectomy
[2024-02-07 10:55] LABS: Hematocrit 37.3 % (37.0-47.0); Hemoglobin 12.4 g/dl (12.0-16.0)
--- NOTE | 2024-02-07 11:02 | PM.OP ---
Brief Operative Note Date of Service: 02/07/24 Pre-op diagnosis: Obesity with comorbidities (see below) Post-op diagnosis: same Procedure: INITIAL PATIENT BMI ON PRESENTATION AT OUR OFFICE: 35.9 kg/m2 LAST BMI BEFORE SURGERY: 29.9 kg/m2 COMORBIDITIES: hypertension on 2 medications, asthma, GERD, back pain, ?The patient presented to the Weight Management Program with significant obesity that was negatively impacting the patient's comorbidities as listed above.? The program is a phased program with a special focus on preoperative medical weight management to promote substantial weight loss and prepare the patients for the second phase of the program: bariatric surgery. The patient participated in an intensive weekly lifestyle ?intervention and exercise program during which the patient ?has lost between the initial office visit and the last preoperative visit 37.2lbs, or 17% of initial actual body weight. It was deemed appropriate for the patient to now have bariatric surgery. In light of the current Covid-19 pandemic and the well documented strong association of obesity and increased risk of worse outcomes if infected with Covid-19 (REFERENCES:https://pubmed.ncbi.nlm.nih.gov/05265036/,?https://pubmed.ncbi.nlm.nih.gov/02150950/), any delay in undergoing bariatric surgery may lead to the patient's worsening health condition and increased?risk of more severe Covid-19 disease if infected. In addition a recent?study from [facility] published in [facility] on 05/31/2021 ([email or web address]) found that, among patients with obesity, substantial weight loss achieved with surgery was associated with improved outcomes of COVID-19 infection. The findings suggest that obesity can be a modifiable risk factor for the severity of COVID-19 infection. In addition, the patient met the BMI-criteria for bariatric surgery based on the BMI on initial presentation. The patient should not be penalized for achieving such weight loss because ?it is not sustainable long-term without surgical intervention and it was achieved in preparation for bariatric surgery ?under my direction and based on my published research ([email or web address]).[email or web address] and?[email or web address].soard.org/article/[email or web address])97798-X/pdf) ?that a 10% preoperative weight loss improves long-term weight loss after surgery and reduces perioperative complications.? Insurance carriers such as [facility] have endorsed my recommendations ?and have included in their policies criteria to include a 10% preoperative weight loss requirement. PROCEDURE: Esophago-gastroscopy, laparoscopic lysis of adhesions, laparoscopic sleeve gastrectomy and laparoscopic gastropexy INDICATIONS: This is a 34 year-old female who was electively scheduled for laparoscopic, possibly open sleeve gastrectomy. The risks and complications of the procedure were discussed with the patient in advance, particularly the possibility of ; pulmonary embolism; staple line leak; bleeding; GERD; cardiac, pulmonary, or renal complications; as well as long-term problems such as insufficient weight loss, vitamin deficiency, strictures, or ulcers. The patient understood all the risks, and was in agreement to proceed with surgery. DESCRIPTION OF PROCEDURE: After informed consent was obtained from the patient, the patient was given preoperative antibiotics, and was transferred to the operating room. After successful induction of general anesthesia, pneumatic compression devices were placed on both lower extremities. An upper endoscopy was performed next. The oropharynx and esophagus appeared to be within normal limits. There was no diaphragmatic hernia present. The stomach was entered. Then after all fluid and air were suctioned and the stomach was fully decompressed, the scope was withdrawn and secured in the mid esophagus. The patient was then prepped and draped in the usual sterile manner, and abdominal access was established at the right upper quadrant with the Nelda technique. A 12 mm blunt port was inserted, and the abdomen was insufflated with CO2 to a pressure of 15 mmHg. Under direct visualization, additional ports were placed, specifically two 5 mm Versi-step ports to the left upper quadrant, and a 5 mm Versi-Step port to the right upper quadrant. 1% lidocaine plain was used to infiltrate all port sites as well as all fascia defects. Using the EndoClose suture passer device, I placed a #1 Polysorb tie across the falciform ligament in order to retract it up against the abdominal wall and prevent injury of the ligament with our instruments during the procedure. There were adhesions in the abdomen from previous involving the omentum and the anterior abdominal wall as well as the left lobe of the liver. Those were lysed completely with the ultrasonic device. Following that, the patient was placed in a steep reverse Trendelenburg position. An additional 5 mm port was placed to the right flank for the Mediflex retractor that was used to retract the left lobe of the liver. The gastro-esophageal fat pad was opened with the ultrasonic device (Thunderbeat, Olympus) and the anterior esophagus and hiatus were exposed. The angle of His was opened with the ultrasonic device the fundus of the stomach from any diaphragmatic and splenic attachments. I then opened the gastrocolic ligament between the transverse colon and the greater curvature of the stomach with the ultrasonic device to enter the lesser sac and facilitate the ligation of the short gastric vessels. I started at a mid-point along the greater curvature and using the Thunderbeat, all short gastric vessels were divided all the way to the angle of His until the left mima was completely dissected at its entirety. I then divided the gastro-colic ligament distally to a distance of about 3-4 cm proximal to the pylorus. There were extensive congenital adhesions between the pancreas and posterior gastric wall. Those were lysed completely with the ultrasonic device. Adhesiolysis took approximately 45 min to complete. The stomach was then divided transversely with two Endo GONSALO-45 purple and three GONSALO-60 articulating purple loads using the SIGNIA stapler and loads. Every effort was made that the gastric sleeve had a tubular shape and an even caliber throughout. Once the sleeve resection was completed, the staple line of the gastric sleeve was reinforced with Hemoclips. The resected stomach was retrieved without difficulty from the Nelda port. A gastropexy was then performed in order to prevent postoperative GERD and partial gastric volvulus. Several interrupted 2.0 Surgidac sutures were placed between the sleeve's staple line and the previously divided greater omentum and gastro-colic ligament using the Endo-Stitch device. ?An upper endoscopy was performed. There was no narrowing at the GE junction. The scope was easily advanced all the way to the pylorus which was clearly visualized. There was no narrowing anywhere and the sleeve's caliber was even throughout. The sleeve's staple line was inspected and there was no evidence of ischemia, bleeding or dehiscence. At that point the gastroscope was withdrawn from the patient?s mouth while we were decompressing the bowel and the stomach from any remaining air. I looked into the lesser sac to see how the sleeve was situating and it was situating well. There was no bleeding from the staple line, spleen, or short gastric vessels. The Mediflex retractor was removed, and the undersurface of the liver was inspected and there was no bleeding. The patient was placed in supine position. I closed the fascial defect of the 12 mm port site with a figure of eight #1 Polysorb suture. Then 30cc Ropivacaine plain with 10 mg of Dexamethasone were used to infiltrate the fascial closure as well as all skin incisions. At this point, the abdomen was deflated, all ports were removed under direct vision, and no bleeding was noted from any of the port sites. The skin incisions were irrigated with saline and were closed with 4-0 absorbable monofilament sutures. Steri-Strips and OpSites were used to cover all incisions. The patient was extubated and was transferred in stable condition to the recovery room for further care. I was present and performed all mesa parts of the procedure. Mr. Burnham was the logistics assistant. There were no residents to assist with this case. Jayesh Stearns MD, PhD, FACS Surgeon: Rufus Stearns MD Anesthesia: GETA, local and other (TAP block) Was an Home Office Claims Examiner used for this Procedure?: Yes Home Office Claims Examiner: Jovani Burnham Estimated blood loss (mL): 10 IV fluids (mL): 2,000 Urine output (mL): 0 (No Ruiz to record output) Pathology: other (Stomach) Condition: stable Disposition: PACU
[2024-02-07 11:09] LABS: Anion Gap 15 (12-20); Blood Urea Nitrogen 10 mg/dL (9-16); Calcium 8.8 mg/dL (8.4-10.2); Carbon Dioxide 19 mmol/L (22-29); Chloride 106 mmol/L (96-108); Creatinine Clr Calc Pharmacy 112.4; Estimated Glomerular Filt Rate > 60; Glucose Random 104 mg/dL (60-115); Potassium 4.3 mmol/L (3.3-5.1); Sodium 136 mmol/L (135-145)
--- NOTE | 2024-02-07 11:11 | P.PNGS_ITS ---
Subjective Subjective Date of Service: 02/08/24 Interval history: Feels well. Mild incisional pain. She is tolerating phase 1 bariatric diet Physical Exam 2 Vital Signs: Vital Signs: Last Vital Signs Temp 97.4 F 02/07/24 10:15 Pulse 66 02/07/24 11:00 Resp 15 02/07/24 11:00 BP 165/98 H 02/07/24 11:00 Pulse Ox 100 02/07/24 11:00 O2 Del Method Nasal Cannula 02/07/24 11:00 O2 Flow Rate 2 02/07/24 11:00 BMI result Body Mass Index 29.2 GI: Inspection: Yes normal to inspection, Yes incision (clean, dry and intact) and Yes obesity Palpation (GI): Soft to palpation Extrem: Right lower extremity: normal to inspection (no calf tenderness) L eft lower extremity: normal to inspection (no calf tenderness) Objective Data Active Medications Albuterol/Ipratropium (Albuterol/Iprat 2.5/0.5mg 3 Ml Ampul.Neb) 3 ml INHALE ONCE PRN PRN Reason: Bronchospasm/wheezing Stop: 02/07/24 13:36 Fentanyl (Fentanyl Citrate/Pf 100 Mcg/2 Ml Vial) 25 mcg IVPUSH Q5M PRN PRN Reason: Pain, Moderate to Severe (Pain Scale 4-10) Stop: 02/07/24 13:36 Hydromorphone HCl (Hydromorphone Hcl 0.5 Mg/0.5 Ml Syringe) 0.25 mg IVPUSH Q5M PRN PRN Reason: Pain, Moderate to Severe (Pain Scale 4-10) Stop: 02/07/24 13:36 Lactated Ringer's (Lr) 1,000 mls @ 100 mls/hr IVCONT .Q10H BRISA Last Admin: 02/07/24 06:48 Dose: 100 mls/hr Documented By: SIN Ondansetron HCl (Ondansetron Hcl 4 Mg/2 Ml Vial) 4 mg IVPUSH ONCE PRN PRN Reason: Nausea and Vomiting Stop: 02/07/24 13:36 Oxycodone HCl (Oxycodone Hcl Immed Release 5 Mg Tablet) 5 mg PO ONCE PRN PRN Reason: Pain, Moderate(Pain Scale 4-6) if no IV Access Stop: 02/07/24 13:36 Labs 09/05/24 05:35 02/08/24 05:35 Labs: Laboratory Results - last 24 hr 02/01/24 02/07/24 02/07/24 10:12 06:25 10:48 Anion Gap 15 Estim Creat Clear Calc 112.4 Estimated GFR > 60 Random Glucose 104 Calcium 8.8 D Vitamin A 53 Urine Test NEGATIVE Procedures Date of Service Date of Service: 02/08/24 Progress Note: A&P Assessment and plan (1) S/P laparoscopic sleeve gastrectomy: Status: Acute Assessment and Plan: s/p laparoscopic sleeve gastrectomy, lysis of adhesions and gastropexy Doing well Will check am labs and if OK the patient will be discharged home (2) Obesity: Status: Acute (3) Hypertension: Status: Acute (4) Back pain: Status: Acute (5) Asthma: Status: Acute (6) GERD (gastroesophageal reflux disease): Status: Acute (7) Esophagitis determined by biopsy: Status: Acute (8) Congenital intra-abdominal adhesions: Status: Acute Time Spent With Patient Time: Total time managing care of this patient today ____ minutes. Quality Stroke Does the patient have a stroke diagnosis?: No VTE Prior VTE?: No VTE Risk Level:: Surgical - moderate VTE Device Contraindication: N/A - Device Ordered VTE Drug Contraindication: Treatment Not Indicated
[2024-02-07] MEDS: ondansetron HCL 4 MG/2 ML VIAL IVPUSH ×2 (11:30→22:18)
[2024-02-07] MEDS: Losartan Potassium 25 MG TABLET PO (16:27)
[2024-02-07] MEDS: NIFEdipine ER 90 MG TAB.ER.24 PO (16:27)
--- NOTE | 2024-02-07 16:28 | PC.NURSE ---
elevated bp, patient states she did not take her bp meds this am, PA notified and meds given now
[2024-02-07] MEDS: Acetaminophen 1,000 MG/100 ML PIGGYBACK 16.7 MG IV ×2 (17:00→22:49)
[2024-02-07] MEDS: Famotidine/PF 20 MG/2 ML VIAL IVPUSH (21:09)
[2024-02-08 03:29] VITALS: BP 155/87; PULSE 78; RESP 16; TEMP 37.1; O2SAT 100
[2024-02-08] MEDS: Acetaminophen 1,000 MG/100 ML PIGGYBACK 16.7 MG IV (04:45)
[2024-02-08] MEDS: HYDROmorphone HCl 0.5 MG/0.5 ML SYRINGE 0.25 MG IVPUSH (04:55)
[2024-02-08 06:46] LABS: MANUAL DIFF FLAG NO
[2024-02-08 06:54] LABS: Basophils Percent Auto 0.2 % (0-2); Hematocrit 38.8 % (37.0-47.0); Imm Gran Abs Auto 0.06 X10*3/uL (0.00-0.03); Imm Gran Pct Auto 0.6 % (0.0-0.4); Lymphocytes Absolute Auto 1.8 X10*3/uL (1.2-4.9); Lymphocytes Percent Auto 17.3 % (20-40); Mean Corpuscular HGB Conc 33.5 g/dl (31.0-35.0); Mean Corpuscular Hemoglobin 29.1 pg (27.0-33.0); Mean Corpuscular Volume 86.8 fL (80.0-98.0); Mean Platelet Volume 11.6 fL (9.4-12.3); Monocytes Absolute Auto 0.7 X10*3/uL (0.1-1.2); Monocytes Percent Auto 6.2 % (2-11); Neutrophils Percent Auto 75.7 % (45-73); Platelet Count 221 X10*3/uL (160-400); Red Blood Count 4.47 X10*6/uL (4.20-5.50); Red Cell Distribution Width 12.8 % (11.0-16.0); White Blood Count 10.5 X10*3/uL (4.8-10.8)
[2024-02-08 07:13] LABS: Anion Gap 15 (12-20); Blood Urea Nitrogen 4 mg/dL (9-16); Calcium 9.3 mg/dL (8.4-10.2); Carbon Dioxide 22 mmol/L (22-29); Chloride 103 mmol/L (96-108); Estimated Glomerular Filt Rate > 60; Glucose Random 77 mg/dL (60-115); Potassium 3.6 mmol/L (3.3-5.1); Sodium 136 mmol/L (135-145)
[2024-02-08 07:35] VITALS: BP 134/79; PULSE 88; RESP 16; TEMP 36.4; O2SAT 99
[2024-02-08 07:36] VITALS: O2SAT 99
[2024-02-08] MEDS: NIFEdipine ER 90 MG TAB.ER.24 PO (07:42)
[2024-02-08] MEDS: Famotidine/PF 20 MG/2 ML VIAL IVPUSH (07:43)
[2024-02-08] MEDS: Losartan Potassium 25 MG TABLET PO (07:43)
--- NOTE | 2024-02-08 09:15 | HO.POSTANES ---
Post Anesthesia Evaluation Post Anesthesia Evaluation Date of Service: 02/07/24 Vital Signs: Vital Signs Temp Pulse Resp BP Pulse Ox O2 Del Method 02/08/24 07:36 99 Room Air 02/08/24 07:35 97.6 F 88 16 134/79 99 Room Air 02/08/24 03:29 98.7 F 78 16 155/87 H 100 Room Air Anesthesia: General Endotracheal-GETA Mental Status: Awake Pain Control: Satisfactory Nausea/Vomiting: None Hydration: Adequate Anesthesia-Related Issues: No Anes. Related Issues
--- NOTE | 2024-02-08 09:15 | MHC.CM.PN ---
Patient s/p ELIDA is discharge to home today self care. She is independent with all functional mobility. She has arranged for a ride home.
[2024-02-14 14:43] LABS: Vitamin B1 8 nmol/L (8-30)
== END 2024-02-08 09:09 | disposition home or self-care (01) | DRG 403 ==
LOC: HO.SSSA 10:25 → HO.S3 11:20
PROVIDERS: Nurse Practitioner; Physician Assistant Surgical; Admitting Provider Surgery; PCP Nurse Practitioner Family; Visit Provider Surgery
PROC: 0DB64Z3 Excision of Stomach, Percutaneous Endoscopic Approach, Vertical (ICD-10-PCS; CPT 43845; principal; 2024-02-07 07:30)
DX: E66.01 Morbid (severe) obesity due to excess calories (principal); Q43.3 Congenital malformations of intestinal fixation; I10 Essential (primary) hypertension; Z68.29 Body mass index [BMI] 29.0-29.9, adult; J45.909 Unspecified asthma, uncomplicated; K21.9 Gastro-esophageal reflux disease without esophagitis; M54.9 Dorsalgia, unspecified; Z79.899 Other long term (current) drug therapy
CPT/HCPCS: 36415; 80048; 80053; 80061; 81025; 82306; 82607; 82728; 83036; 83540; 84425; 84443; 84590; 84630; 85014; 85018; 85025; 85610; 85730; 86140; 86850; 86900; 86901; 88307; 88342; A4649; C9145; J0131; J1100; J1170; J1956; J2250; J2371; J2405; J2598; J2704; J2795; J3010; J7120

== ENCOUNTER → 2024-02-07 06:02 | Outpatient (BNV) | payer OTHER, SELFPAY | PROVIDERS: Admitting Provider Surgery; PCP Nurse Practitioner Family; Visit Provider Surgery | DX: E66.01 Morbid (severe) obesity due to excess calories (principal); Z68.35 Body mass index [BMI] 35.0-35.9, adult; Z90.3 Acquired absence of stomach [part of]; Z98.84 Bariatric surgery status | CPT/HCPCS: 43659; 43775; 99024; 99499 ==

== ENCOUNTER 2024-02-15 10:30 | Outpatient (AMB) | payer OTHER, SELFPAY ==
--- NOTE | 2024-02-15 10:41 | MHC.OFFVISWM ---
VS Expanded 02/15/24 10:52 BP 123/80 Blood Pressure Location Rt brachial Blood Pressure Position Sitting Pulse 98 Pulse Source Pulse Oximeter Temp 96.7 F L Temperature Source Temporal Artery Scan Pulse Oximetry 100 Oxygen Delivery Method Room Air Height 5 ft 5.5 in Weight 166 lb BMI 27.2 Body Fat % 34.6 Body Fat Mass 57.4 Fat Free Mass 108.4 Visceral Fat Rating 5.0 Body Water % 46.9 Body Water Mass 77.8 Muscle Mass/Score 103.0 Basal Metabolic Rate/Score 1,496 Intake Visit Reasons: (OV) PO LSG 02/07/24 Allergies Penicillins [PENICILLINS] Allergy (Intermediate, Verified 02/15/24 10:46) SWELLING HPI Comments Details: Pleasant 34-year-old female returns to the office today in follow-up. She is 8 days status post sleeve gastrectomy performed on 02/07/2024. She is tolerating 3 isopure shakes with half scoop each and proximally 60 oz of fluid daily. Positive bowel movement. No complaints. [facility] Medical History (Updated 02/09/24 @ 00:02 by Monty Melendez) Pre-op evaluation BMI 35.0-35.9,adult GERD (gastroesophageal reflux disease) Asthma Back pain Hypertension Obesity Surgical History (Updated 02/15/24 @ 10:47 by Leigh Berry CMA) S/P gastric sleeve procedure History of esophagogastroduodenoscopy (EGD) Previous back surgery History of delivery Social History Household Members: Family Housing: House Are you a primary assurance services manager health care to a significant other at home: No Do you presently have visiting nurse or other home services: No Alcohol intake: never Patient Tobacco Use Status: Never used Tobacco service: No Physical Exam GI Inspection: Yes incision (Clean, dry, intact) Assessment & Plan Assessment & Plan (1) S/P laparoscopic sleeve gastrectomy: Code(s): Z98.84 - Bariatric surgery status Category: Surgical Plan: POD 8 s/p LSG on 02/07/[address] Stearns Weight loss prior to surgery was 40.4 pounds or 18.4 % TBWL. Original weight on 10/16/2023 was 218.8 pounds and op weight was 178.4 pounds. Be sure to text Dr Stearns exactly 1 week after surgery your weight from your home scale so he can adjust your meal plan. Continue meal plan until f/u w Jovani in 2 weeks May shower, no submersion in bath for another week Continue abdominal binder with activity and exercise for the next 2 weeks. Exercise prior to surgery was treadmill and may resume No abdominal exercises for 6 weeks post operatively Will be emailed link to post op video for review Reminded of the pace of drinking, 2 mL per minute, 1 oz/15 min. Regarding the use of her losartan and nifedipine, she is no longer requiring these as blood pressure has been below 120 systolic daily
[2024-02-15 10:52] VITALS: BP 123/80; PULSE 98; TEMP 35.9; O2SAT 100; BMI 27.2
== END 2024-02-15 11:25 | disposition home or self-care (01) ==
PROVIDERS: PCP Nurse Practitioner Family; Visit Provider Physician Assistant Surgical
DX: Z98.84 Bariatric surgery status (principal)
CPT/HCPCS: 99024

== ENCOUNTER → 2024-02-15 10:30 | Outpatient (BNVA) | payer OTHER, SELFPAY | PROVIDERS: PCP Nurse Practitioner Family; Visit Provider Physician Assistant Surgical | DX: Z90.3 Acquired absence of stomach [part of] (principal) | CPT/HCPCS: 99212 ==

== ENCOUNTER 2024-03-08 11:28 | Outpatient (AMB) | payer OTHER, SELFPAY ==
--- NOTE | 2024-03-08 11:31 | MHC.OFFVISWM ---
VS Expanded 03/08/24 11:38 BP 134/81 Blood Pressure Location Rt brachial Blood Pressure Position Sitting Pulse 72 Pulse Source Pulse Oximeter Temp 98.1 F Temperature Source Temporal Artery Scan Pulse Oximetry 100 Oxygen Delivery Method Room Air Height 5 ft 5.5 in Weight 158 lb 3.2 oz BMI 25.9 Body Fat % 29.4 Body Fat Mass 46.6 Fat Free Mass 111.6 Visceral Fat Rating 4.0 Body Water % 50.6 Body Water Mass 80.0 Muscle Mass/Score 105.8 Basal Metabolic Rate/Score 1,515 Intake Visit Reasons: (OV) PO LSG 02/07/24 Block Breaker Operator Required: No Allergies Penicillins [PENICILLINS] Allergy (Intermediate, Verified 03/08/24 11:33) SWELLING Medication List - Last Reconciled 03/08/24 by MALCOLM Orta albuterol sulfate 90 mcg/actuation 2 puffs inhalation Q6H PRN pantoprazole 40 mg PO DAILY sucralfate (Carafate) 10 mL PO BID HPI Comments Details: This?a?34?yo female who is s/p LSG without hiatal hernia repair on?02/07/2024. Presents for 1 month post op visit. Weight today is 158.2 pounds, with a BMI of 25.9. There has been a 60.6 pound weight loss,(initial weight 218.8 pounds) since starting the program on 10/16/2023 reflecting a 27.6 % total body weight loss and a weight loss of 20.2 pounds since surgery (operative weight 178.4 pounds) reflecting a 11.3 % TBWL since surgery. No complaints of nausea, emesis, abdominal pain or reflux. Reports infrequent but normal bowel movements every 2-3 days and uses stool softeners regularly. Taking MVI Present meal plan includes: Premier protein ready to drink shake, 2 oz mixed with 6 oz of almond milk at 8-10 Pure protein bar at 11-2 3 tbsp Luxem[place] yogurt at 3 Half pure protein bar at 4-6 4 forks of scrambled eggs at 7 drinking 64 oz water ? Exercise routine includes: treadmill daily 300 calories. [facility] Medical History (Updated 02/09/24 @ 00:02 by Background Daemon) Pre-op evaluation BMI 35.0-35.9,adult GERD (gastroesophageal reflux disease) Asthma Back pain Hypertension Obesity Surgical History S/P gastric sleeve procedure History of esophagogastroduodenoscopy (EGD) Previous back surgery History of delivery Social History Household Members: Family Housing: House Are you a primary healthcare business analyst to a significant other at home: No Do you presently have visiting nurse or other home services: No Alcohol intake: never Patient Tobacco Use Status: Never used Tobacco service: No Physical Exam Const General: healthy appearing and no acute distress Resp Effort & Inspection: normal respiratory effort Auscultation: clear to auscultation bilaterally Cardio Rate: regular rate Rhythm: regular rhythm GI Auscultation: normal bowel sounds Extrem General: Yes normal to inspection Assessment & Plan Assessment & Plan (1) S/P laparoscopic sleeve gastrectomy: Code(s): Z98.84 - Bariatric surgery status Category: Surgical Plan: Patient is doing very well. She is satisfied with her meal plan overall. She offers no significant complaints at today's visit. She will continue her current meal plan and follow-up in the office in approximately 1 month. Encouraged to continue to text weights weekly and with any questions or concerns.
[2024-03-08 11:38] VITALS: BP 134/81; PULSE 72; TEMP 36.7; O2SAT 100; BMI 25.9
== END 2024-03-08 11:58 | disposition home or self-care (01) ==
PROVIDERS: PCP Nurse Practitioner Family; Visit Provider Physician Assistant Surgical
DX: Z98.84 Bariatric surgery status (principal)
CPT/HCPCS: 99024

== ENCOUNTER → 2024-03-08 11:28 | Outpatient (BNVA) | payer OTHER, SELFPAY | PROVIDERS: PCP Nurse Practitioner Family; Visit Provider Physician Assistant Surgical | DX: Z71.3 Dietary counseling and surveillance (principal); Z98.84 Bariatric surgery status | CPT/HCPCS: 99212 ==

== ENCOUNTER 2024-04-15 10:42 | Outpatient (AMB) | payer OTHER, SELFPAY ==
[2024-04-15 10:09] VITALS: BMI 22.0
--- NOTE | 2024-04-15 10:09 | A.OFFVIS_ITS ---
VS Expanded 04/15/24 10:09 Height 5 ft 5.5 in Weight 134 lb 8 oz BMI 22.0 Body Fat % 28.8 Visceral Fat Rating 5 Body Water % 48.9 Intake Visit Reasons: (TV) PO LSG 02/07/24 Allergies Penicillins [PENICILLINS] Allergy (Intermediate, Verified 03/08/24 11:33) SWELLING HPI Comments Details: This?a?34?yo female who is s/p LSG without hiatal hernia repair on?02/07/2024. Presents for 2 month post op visit. Weight today is 134.8 pounds, with a BMI of 25.9. There has been a 84 pound weight loss,(initial weight 218.8 pounds) since starting the program on 10/16/2023 reflecting a 38.3 % total body weight loss and a weight loss of 43.6 pounds since surgery (operative weight 178.4 pounds) reflecting a 24.4 % TBWL since surgery. No complaints of nausea, emesis, abdominal pain or reflux. Reports infrequent but normal bowel movements every 2- 3 days and uses stool softeners regularly. Taking MVI. Placed back on liquids due to low potassium and magnesium causing poor po intake. Now feels great. Taking celebrate mvi with bar in the morning, no nausea. Had new meal plan by Dr Pimentel Present meal plan includes: Pure protein bar 9-12 Premier protein ready to drink shake, 6 oz mixed with 6 oz of almond milk at 2-4 Pure protein bar at 6-9 drinking 48 oz water ? Exercise routine includes: treadmill daily, 60 min, 300 calories. Speed 2.8, incline 2 [facility] Medical History (Updated 02/09/24 @ 00:02 by Monty Melendez) Pre-op evaluation BMI 35.0-35.9,adult GERD (gastroesophageal reflux disease) Asthma Back pain Hypertension Obesity Surgical History S/P gastric sleeve procedure History of esophagogastroduodenoscopy (EGD) Previous back surgery History of delivery Social History Household Members: Family Housing: House Are you a primary health care law specialist to a significant other at home: No Do you presently have visiting nurse or other home services: No Alcohol intake: never Patient Tobacco Use Status: Never used Tobacco service: No Telehealth Telehealth Telehealth Platform: Telephone Location of provider rendering services: practice address Location of patient: address on file Patient Identification confirmed using: Name, : Yes Telehealth method: voice only Patient verbally consented to treatment: Yes Patient verbally consented to billing insurance company: Yes Patient informed of any privacy concerns related to visit: Yes Minutes spent on Phone/Video with Pt.: 15 Assessment & Plan Assessment & Plan (1) S/P laparoscopic sleeve gastrectomy: Code(s): Z98.84 - Bariatric surgery status Category: Surgical Plan: Patient has been communicating with Dr. Stearns. Her meal plan is being adjusted by him given her recent electrolyte abnormality. She is now feeling very well and has no complaints. She is going to update him tomorrow. I have recommended that she change her exercise routine slightly to include a speed of 3 and incline of 2-8. We will have her follow-up in the office as scheduled.
== END 2024-04-15 11:04 | disposition home or self-care (01) ==
LOC: HO.HBS 10:42
PROVIDERS: PCP Nurse Practitioner Family; Visit Provider Physician Assistant Surgical
DX: Z98.84 Bariatric surgery status (principal)
CPT/HCPCS: 99024

== ENCOUNTER → 2024-04-15 10:42 | Outpatient (BNVA) | payer OTHER, SELFPAY | PROVIDERS: PCP Nurse Practitioner Family; Visit Provider Physician Assistant Surgical | DX: Z71.3 Dietary counseling and surveillance (principal); Z98.84 Bariatric surgery status | CPT/HCPCS: 99212 ==

== ENCOUNTER 2024-05-10 09:00 | Outpatient (AMB) | payer OTHER, SELFPAY ==
[2024-05-10 09:00] VITALS: BMI 21.7
--- NOTE | 2024-05-10 09:00 | A.OFFVIS_ITS ---
VS Expanded 05/10/24 09:00 Height 5 ft 5.5 in Weight 132 lb 4 oz BMI 21.7 Body Fat % 28.2 Body Fat Mass 37.4 Visceral Fat Rating 4 Intake Visit Reasons: (TV) PO LSG 02/07/24 Analytical Scientist Required: No Allergies Penicillins [PENICILLINS] Allergy (Intermediate, Verified 03/08/24 11:33) SWELLING Medication List - Last Reconciled 05/10/24 by MALCOLM Orta albuterol sulfate 90 mcg/actuation 2 puffs inhalation Q6H PRN HPI Comments Details: This?a?34?yo female who is s/p LSG without hiatal hernia repair on?02/07/2024. Presents for 3 month post op visit. Weight today is 132.4 pounds, with a BMI of 21.7. There has been a 86.4 pound weight loss,(initial weight 218.8 pounds) since starting the program on 10/16/2023 reflecting a 39.4 % total body weight loss and a weight loss of 46 pounds since surgery (operative weight 178.4 pounds) reflecting a 25.7 % TBWL since surgery. No complaints of nausea, emesis, abdominal pain or reflux. Reports infrequent but normal bowel movements every 2-3 days and uses stool softeners regularly. Taking MVI. Now feels great. Taking celebrate mvi with bar in the morning, wants to switch. Overall very satisfied with her weight, weight loss, meal plan. Present meal plan includes: Pure protein bar 8-11 pure protein ready to drink shake, 6 oz mixed with 6 oz of almond milk at 12-2 Pure protein bar at 3-6 meal 3 forks protein and 3 forks veg drinking 68 oz water ? Exercise routine includes: treadmill daily, 60 min, 300-400 calories. Speed 3, incline 2-8 PFSH Medical History Pre-op evaluation BMI 35.0-35.9,adult GERD (gastroesophageal reflux disease) Asthma Back pain Hypertension Obesity Surgical History S/P gastric sleeve procedure History of esophagogastroduodenoscopy (EGD) Previous back surgery History of delivery Social History Household Members: Family Housing: House Are you a primary director of career resources to a significant other at home: No Do you presently have visiting nurse or other home services: No Alcohol intake: never Patient Tobacco Use Status: Never used Tobacco service: No Telehealth Telehealth Telehealth Platform: Telephone Location of provider rendering services: practice address Location of patient: address on file Patient Identification confirmed using: Name, : Yes Telehealth method: voice only Patient verbally consented to treatment: Yes Patient verbally consented to billing insurance company: Yes Patient informed of any privacy concerns related to visit: Yes Minutes spent on Phone/Video with Pt.: 12 Assessment & Plan Assessment & Plan (1) S/P laparoscopic sleeve gastrectomy: Code(s): Z98.84 - Bariatric surgery status Category: Surgical Plan: Patient has made excellent progress. Achieved a healthy weight and healthy lifestyle. Exercising regularly. Satisfied with her meal plan. Continue current plans, follow-up in the office as scheduled. Continue to communicate weekly.
== END 2024-05-10 09:19 | disposition home or self-care (01) ==
LOC: HO.HBS 09:04
PROVIDERS: PCP Nurse Practitioner Family; Visit Provider Physician Assistant Surgical
DX: Z71.3 Dietary counseling and surveillance (principal); Z98.84 Bariatric surgery status
CPT/HCPCS: 99213; G2211

== ENCOUNTER → 2024-05-10 09:00 | Outpatient (BNVA) | payer OTHER, SELFPAY | PROVIDERS: PCP Nurse Practitioner Family; Visit Provider Physician Assistant Surgical ==

== ENCOUNTER 2024-06-21 09:52 | Outpatient (AMB) | payer OTHER, SELFPAY ==
[2024-06-21 08:36] VITALS: BMI 21.5
--- NOTE | 2024-06-21 08:36 | A.OFFVIS_ITS ---
VS Expanded 06/21/24 08:36 Height 5 ft 5.5 in Weight 131 lb 4 oz BMI 21.5 Body Fat % 28 Body Fat Mass 36.8 Fat Free Mass 94.6 Visceral Fat Rating 4 Body Water % 49.3 Muscle Mass/Score 55 Intake Visit Reasons: (TV) PO LSG 02/07/24 Him Manager Required: No Allergies Penicillins [PENICILLINS] Allergy (Intermediate, Verified 03/08/24 11:33) SWELLING Medication List - Last Reconciled 06/21/24 by MALCOLM Orta albuterol sulfate 90 mcg/actuation 2 puffs inhalation Q6H PRN HPI Comments Details: This?a?34?yo female who is s/p LSG without hiatal hernia repair on?02/07/2024. Presents for 4 month post op visit. Weight today is 131.4 pounds, with a BMI of 21.5. There has been a 87.4 pound weight loss,(initial weight 218.8 pounds) since starting the program on 10/16/2023 reflecting a 39.8 % total body weight loss and a weight loss of 47 pounds since surgery (operative weight 178.4 pounds) reflecting a 26 % TBWL since surgery. No complaints of nausea, emesis, abdominal pain or reflux. Reports infrequent but normal bowel movements every 2- 3 days and uses stool softeners regularly. Taking MVI. Now feels great. Taking celebrate mvi with bar in the morning, wants to switch. Overall very satisfied with her weight, weight loss, meal plan. She is not feeling too well with hoarse voice. she's doing very well, following the meal plan. Does not wish to change her meal plan at this time Present meal plan includes: Pure protein bar 8-11 pure protein ready to drink shake, 6 oz mixed with 6 oz of almond milk at 12-2 Pure protein bar at 3-6 meal 3 forks protein and 3 forks veg drinking 60-70 oz water ? Exercise routine includes: treadmill daily, 60 min, 300 calories. Speed 3, incline 2-8 PFSH Medical History Pre-op evaluation BMI 35.0-35.9,adult GERD (gastroesophageal reflux disease) Asthma Back pain Hypertension Obesity Surgical History S/P gastric sleeve procedure History of esophagogastroduodenoscopy (EGD) Previous back surgery History of delivery Social History Household Members: Family Housing: House Are you a primary healthcare administration internship to a significant other at home: No Do you presently have visiting nurse or other home services: No Alcohol intake: never Patient Tobacco Use Status: Never used Tobacco service: No Telehealth Telehealth Telehealth Platform: Telephone Location of provider rendering services: practice address Location of patient: address on file Patient Identification confirmed using: Name, : Yes Telehealth method: voice only Patient verbally consented to treatment: Yes Patient verbally consented to billing insurance company: Yes Patient informed of any privacy concerns related to visit: Yes Minutes spent on Phone/Video with Pt.: 15 Assessment & Plan Assessment & Plan (1) S/P laparoscopic sleeve gastrectomy: Code(s): Z98.84 - Bariatric surgery status Category: Surgical Plan: Patient is doing very well. Achieved a healthy weight. Does not wish to change her meal plan. Is following it closely and exercising regularly. Continue current plans and follow-up in the office as scheduled. Encouraged to continue to text weekly with any questions or concerns as well as sending in her weight measurements.
--- OUTSIDE RECORDS SUMMARY | 2024-06-21 11:11 | XMS_ITS | Continuity of Care Document ---
Author Organization [facility] Address [address] [place] [address]- Care Team Providers Care Online Merchandising Specialist Name Role Phone Kolton NOLAN, Dean Adame [id number] Date(s[facility]/27[facility] - 06/03/24 [facility] [address] [place] [address]- Attending Physician: Gerald Barajas Referring Physician: Dean Hi NP Encounter Type: Office Visit Allergies, Adverse Reactions, Alerts Substance Criticality Severity Reaction Reaction Severity Status penicillin hives Active Immunizations Given and Recorded Vaccine Date Status Refusal Reason influenza virus vaccine, inactivated 05/09/24 Give n influenza virus vaccine, inactivated 03/16/23 Give n influenza virus vaccine, inactivated 05/20/22 Give n influenza virus vaccine, inactivated 11/09/21 Give n influenza virus vaccine, inactivated 03/10/20 Give n influenza virus vaccine, inactivated 04/06/18 Alfred rded hepatitis B adult vaccine 08/19/22 Given [id number] 12y+ bivalent booster vax 05/25/22 Recorded tetanus/diphtheria/pertussis, [...] Refills, Maintenance Start Date: 12/11/19 Status: Ordered Repeat number: 1 BD UF MINI PEN NEEDLE [id number] BD UF MINI PEN NEEDLE [id number], See Instructions, # 100 Unknown, 1 Refills, Maintenance, USE TO INJECT VICTOZA DAILY, 03/30/24 10:51:00 AM EDT, 165, cm, 03/18/24 19:10:00 EDT, Height, 69.5, kg, 03/18/24 19:10:00 EDT, Dry Weight Start Date: 03/30/24 Status: Ordered Quantity: 100.0 Unit: Unknown Repeat number: 1 Mirena 52 mg intrauterine device 1 each = 52 mg, Intrauterine, Once, # 1 each, 0 Refills, Soft Stop, 03/28/22 11:00:00 AM EDT, [facility], Partial fill upon patient request if the prescription is for a schedule II opioid drug., 166, cm, 03/21/22 8:47:00 EDT, Height, 100.4, kg, 02/20/22 23:46:00 EDT, Dry Weight Start Date: 03/28/22 Status: Ordered Quantity: 1.0 Unit: each Repeat number: 1 Pen Rome, 31 G x 5 mm BD Ultra Fine III See Instructions, # 100 each, Refills 3, Tot. Refills 3, Maintenance, use to inject Victoza daily, 03/28/23 2:20:00 PM EDT, Supply, 165, cm, 03/16/23 10:56:00 EDT, Height, 98, kg, 12/12/22 16:10:00 EDT, Dry Weight Start Date: 03/28/23 Status: Ordered Quantity: 100.0 Unit: each Repeat number: 4 Problem List Condition Confirmation Course Effective Dates Status Health St atus Informant Asthma Confirmed Active Chronic low back pain Confirmed Active H/O gastric sleeve Confirmed Active Chronic hypertension Confirmed 2018 Active Vital Signs Most recent to oldest [Reference Range]: 1 Height 165 cm (05/27/24 4:10 PM) Oxygen Saturation [94-100 %] 100 % (05/27/24 4:10 PM) Pulse Rate [55-90 bpm] 67 bpm (05/27/24 4:10 PM) Blood Pressure [90-138/55-84 mm Hg] 168/ 95mm Hg *H* (05/27/24 4:10 PM) Respiratory Rate [16-30 br/min] 12 br/mi n *L* (05/27/24 4:10 PM) Temperature [96.8-100.4 DegF] 97.5 DegF (05/27/24 4:10 PM) Mode of Delivery (Oxygen) Room air (05/27/24 4:10 PM) Blood pressure sites Arm, right (05/27/24 4:10 PM) Temperature Route Oral (05/27/24 4:10 PM) Social History Social History Type Response Smoking Status Never (less than 100 in lifetime) entered on: 10/13/21 Sex Female Sex Representation Female (finding) Note * Amanda Pierce: PERFORM Event Display: Patient Education/Instruction Authored Date: [id number] Ambulatory Adult Visit Summary [facility] [address] Name: KAVITA URIAS : 1990?? Visit: 05/27/2024 14:25?? Ambulatory Visit Instructions ?? Your Care Team Primary Care Provider Kolton NOLAN, Dean Adame? This Visit Provider [facility] [place] Your Diagnosis Bruise Vitals Signs Temperature: 97.5 DegF Height: 165 cm Pulse Rate: 67 bpm ?? Respiratory Rate:??12 br/min??Low ?? Systolic Blood Pressure:??168 mm Hg??High ?? Diastolic Blood Pressure:??95 mm Hg??High ?? Oxygen Saturation: 100 % ?? What to do next Instructions From Your Provider Go for your??x-ray and labs at [facility]. now. ??Will call later today with your x-ray result.??Your lab results will take 1 to 2 days??and are available through the portal. Cold compresses 15 to 20 minutes??3-4 times daily. Follow-up as needed for any worsening??bruising or new onset pain redness,??fever chills or fatigue??here, your primary care, or the ER. Future Orders XR Finger 3rd Left Hand, Routine, Reason for Exam: Other:, Patient Does Not Need Assistance, Once, *Est. 05/27/24, Order for Today CBC w/ Differential - Routine, Once, 05/27/24 16:37:00 EST, Order for Today, [facility], Blood?? Medications The list below reflects the information in our records and provided by you today along with any changes made during this visit. Please continue your medications until treatment is completed or stopped by your provider. If this is different from the information you have or there are other questions,please contact the prescribing provider. What How Much When Instructions Unchanged Albuterol (albuterol inhaler (OP)) Contact prescribing physician if questions or concerns ?? Unchanged Durable Medical Equipment (Pen Rome, 31 G x 5 mm BD Ultra Fine III) See instructions use to inject Victoza daily Contact prescribing physician if questions or concerns ?? Unchanged Levonorgestrel (Mirena 52 mg intrauterine device) 1 Each Intrauterine Once Contact prescribing physician if questions or concerns ?? Unchanged Miscellaneous Rx (BD UF MINI PEN NEEDLE [id number]) See instructions USE TO INJECT VICTOZA DAILY Contact prescribing physician if questions or concerns ?? Test Performed Below is a partial list of the tests performed during your Visit. You may have had other tests and procedures not included in this list. Please discuss all test results with your provider. CBC w/ Differential?-- Results Pending -- Medications and Immunizations Administered Medications Given During Visit No medications given during this visit.?? Allergies (NKA means No Known Allergies) penicillin??(hives) Education Materials Below is the list of Educational Leaflet Providered with your Visit summary. [employer] Ignite Patient Education - Finger Bruise (Contusion)?? Common Emergency Awareness Tips IS IT A [...] are strongly encouraged to quit. Please call [facility] at [phone] or [phone] ([phone]) or log in to [email or web address] for referrals to smoking cessation programs. ?? The National Suicide Prevention Hotline is available 26/12 if you or someone you know needs to find a reason to keep living. By calling 4-787-169-loea (0840) you'll be connected to a skilled, trained counselor at a crisis center in your area. [facility] You can view and manage your care through the patient portal or by using a health care katlin of your choosing. [employer] is a website that allows you to securely view your medical information including your hospital discharge summary, office visit summaries, medications and follow-up visits. You can also request appointments, renew medications, and request access to your medical information using a health care katlin of your choosing, or just ask a question. You can enroll at [email or web address] or register during your next office visit. [facility], in keeping with [facility] guidance, no longer requires face masks for [...] primary care provider, you may find a [facility] provider by calling [facility] at [phone]. * Harvey FOWLER, Gerald Bob: PERFORM Event Display: Patient Education Leaflets Authored Date: Finger Bruise (Contusion) ?? [id number] Finger Bruise (Contusion) You have a bruise (contusion). There is swelling and some bleeding under the skin, but no broken bones. This injury??generally??takes a few days to a few weeks to heal. During that time, the bruise will typically change in color from??reddish, to purplish-blue, to greenish-yellow, then to yellowish-brown. A finger bruise may be treated with a splint or benjy tape (taping the injured finger to the one next to it for support). Minor bruises likely will need no other treatment. Home care ??? Elevate the hand to reduce pain and swelling.??As much as possible, sit or lie down with the hand raised about the level of your heart.??This is most important during the first 48 hours. ??? Ice the finger to help reduce pain and swelling.??Wrap a cold source (ice pack??or ice cubes in a plastic bag) in a thin towel. Apply to the bruised finger for 20 minutes every 1 to 2 hours the first day. Continue this 3 to 4 times a day until the pain and swelling goes away. ??? If benjy tapewas applied and it becomes wet or dirty, change it. You may replace it with paper, plastic, or cloth tape.??Before taping, put a thin strip of cotton or gauze between the fingers to absorb sweat. This will help prevent any breakdown of skin or fungal infections.? Unless another medicine was prescribed, you can take acetaminophen, ibuprofen, or naproxen??to control pain. Talk with your provider before taking these medicines if you have chronic liver or kidney disease or ever had a stomach ulcer or gastrointestinal bleeding. ?? Follow up Follow up with your healthcare provider, or as advised. Call if you are not improving within??1 to 2 weeks. ?? When to get medical advice?? Call your healthcare provider right away if any of the following occur: ??? Pain or swelling gets worse ??? Finger, hand, or arm becomes cold, blue, numb, or tingly ??? Signs of infection:??Warmth, drainage, or increased redness or pain around the bruise ??? You can't move the injured finger or hand? Frequent bruising for unknown reason ??? The fingernail becomes raised, and blood seems to be collecting under the nail. This may need to be drained. ?? Last Reviewed Date: 2022 ?? [employer]. All rights reserved. This information is not intended as a substitute for professional medical care. Always follow your healthcare professional's instructions. ?? Patient Care team information Care Team Personnel Name: Phoebe Madsen Position: [facility] Outreach Member Role: Lifetime Consulting Physician Name: Dean Hi NP Position: [facility] PCO Associate Professional Member Role: PCP Address: [address] [place] [id number] Telecom: Care Team Related Persons Name: JILL HAMILTON Name: KARTIK HAMILTON Name: GIOVANY HAMILTON Name: SAMMY WHARTON Insurance Providers Guarantor name: KAVITA URIAS Health Plan Information #: 1 Payer: [facility] Member Number: [id number] Policy Number: NA Group Number: [id number] Health Plan Information #: 2 Payer: [facility] Member Number: [id number] Policy Number: NA Group Number: [id number]
== END 2024-06-21 10:20 | disposition home or self-care (01) ==
LOC: HO.HBS 09:52
PROVIDERS: PCP Nurse Practitioner Family; Visit Provider Physician Assistant Surgical
DX: Z71.3 Dietary counseling and surveillance (principal); Z90.3 Acquired absence of stomach [part of]; Z98.84 Bariatric surgery status
CPT/HCPCS: 98967

== ENCOUNTER 2024-07-17 10:12 | Outpatient (REF) | payer OTHER, SELFPAY | END 2024-07-17 10:13 | disposition home or self-care (01) | LOC: HO.LAB 10:12 | PROVIDERS: PCP Nurse Practitioner Family; Visit Provider Surgery | DX: Z13.89 Encounter for screening for other disorder (principal) ==

== ENCOUNTER 2024-07-25 10:46 | Outpatient (REF) | payer OTHER, SELFPAY ==
--- OUTSIDE RECORDS SUMMARY | 2024-07-25 11:57 | XMS_ITS | Continuity of Care Document ---
Author Organization [facility] Address [address] [place] [address]- Care Team Providers Care Licensed Loan Officer Assistant Name Role Phone Kolton NOLAN, Dean Adame Primary Care Physician [phone] Encounter [facility] Date(s): 05/27/24 - 06/26/24 [facility] [address] [place] [id number]- Encounter Type: Triage Allergies, Adverse Reactions, Alerts Substance Criticality Severity [...] rded hepatitis B adult vaccine 08/19/22 Given [id number] 12y+ bivalent booster vax 05/25/22 Recorded tetanus/diphtheria/pertussis, [...] number: 1 BD UF MINI PEN NEEDLE [id number] BD UF MINI PEN NEEDLE [id number], See Instructions, # 100 Unknown, 1 Refills, [...] Refills, Soft Stop, 03/28/22 11:00:00 AM EDT, [facility] [employer], Partial fill upon patient request if the prescription is for a schedule II opioid drug., 166, cm, 03/21/22 8:47:00 EDT, Height, 100.4, kg, 02/20/22 23:46:00 EDT, Dry Weight Start Date: 03/28/22 Status: Ordered Quantity: 1.0 Unit: each Repeat number: 1 Pen Labadie, 31 G x 5 mm BD Ultra [...] Confirmed Active Chronic hypertension Confirmed 2018 Active Social History Social History Type Response Smoking Status Never (less than 100 in lifetime) entered on: 10/13/21 Sex Female Sex Representation Female (finding) Patient Care team information Care Team Personnel Name: Phoebe Madsen Position: [facility] Outreach Member Role: Lifetime Consulting Physician Name: Dean Hi NP Position: [facility] PCO Associate Professional Member Role: PCP Address: [address] [place] [id number] Telecom: Care Team Related Persons Name: JILL HAMILTON Name: KARTIK HAMILTON Name: GIOVANY HAMILTON Name: SAMMY WHARTON Insurance Providers Guarantor name: [facility] Plan Information #: 1 Payer: [facility] Member Number: NA Policy Number: NA Group Number: NA
--- OUTSIDE RECORDS SUMMARY | 2024-07-25 11:57 | XMS_ITS | Clinical Summary ---
Author Organization [facility] Address [address] [place] [address] Care Team Providers Care Methods Engineer Name Role Phone Lazarus Chahal MD Primary Care Provider [phone] Allergies Active Allergy Reactions Criticality Noted Date Comments Penicillins Anaphylaxis High 12/22/2018 Social History Tobacco Use Types Packs/Day Years Used Date Smoking Tobacco: Never Assessed Sex and Gender Information Value Date Recorded Sex Assigned at Not on file Gender Identity Not on file Sexual Orientation Not on file Last Filed Vital Signs Vital Sign Reading Time Taken Comments Blood Pressure 119/65 12/22/2018 1:51 PM EDT Pulse 95 12/22/2018 1:51 PM EDT Temperature 36.2 ??C (97.2 ??F) 12/22/2018 1:51 PM ED T Respiratory Rate 18 12/22/2018 1:51 PM EDT Oxygen Saturation 94% 12/22/2018 1:51 PM EDT Inhaled Oxygen Concentration - - Weight - - Height - - Body Mass Index - - Plan of Treatment Health Maintenance Due Date Last Done Comments Hepatitis C Virus Screening 1990 HIV Screening 2003 DTaP/Tdap/Td Vaccines (1 - Tdap) 2009 Hepatitis B Vaccines (1 of 3 - 19+ 3-dose series) 2009 Pap Smear (Ages 21-65) 2011 Influenza Vaccine 01/04/2024 COVID-19 Vaccine ( - 2023-2 5 season) 2024 HPV Vaccines Aged Out No longer eligi ble based on patient's age to complete this topic Pneumococcal Vaccine: Pediat carolyne (0-5 Years) and At-Risk Patients (6 to 49 Years) Aged Out No longer eligible b ased on patient's age to complete this topic Care Teams Methods Engineer Relationship Specialty Start Date End Date Lazarus Chahal MD [address] [place] [address] [place] [id number] PCP - General 12/22/18
--- OUTSIDE RECORDS SUMMARY | 2024-07-25 11:57 | XMS_ITS | Clinical Summary ---
Author Organization [facility] ity Address [address] [place] [id number] Care Team Providers Care Glass Crusher Name Role Phone Lazarus Chahal MD Primary Care Provider [phone] Surgical History Surgery Date Site/Laterality Comments BACK SURGERY 04/2019 PROCEDURE: HISTORICAL BACK SURGERY; COMMENT: hx herinated disc TONSILLECTOMY PROCEDURE: HISTORICAL TONSILLECTOMY Medical History Medical History Date Comments Hypertension DX:Hypertension Asthma DX:Asthma Family History Medical History Relation Name Comments Asthma Brother 1 from an as thma attack No Known Problems Brother 2 Other: Caridac Disease Father stent No Known Problems Maternal Grandfather No Known Problems Maternal Grandmother Stroke Mother Lupus No Known Problems Paternal Grandfather ne jameson knew him No Known Problems Paternal Grandmother Asthma Sister 1 Asthma Sister 2 No Known Problems Sister 3 as a baby- all her organs were pushing her heart Breast cancer Neg Hx Cervical cancer Neg Hx Ovarian cancer Neg Hx Uterine cancer Neg Hx Relation Name Status Comments Brother 1 Brother 2 Alive Father Alive Maternal Grandfather Maternal Grandmother Mother Alive Paternal Grandfather Other Paternal Grandmother Sister 1 Alive Sister 2 Alive Sister 3 Social History Tobacco Use Types Packs/Day Years Used Date Smoking Tobacco: Never Smokeless Tobacco: Never Alcohol Use Standard Drinks/Week Comments No 0 (1 standard drink = 0.6 oz pur e alcohol) Comments Unknown Sex and Gender Information Value Date Recorded Sex Assigned at Not on file Legal Sex Female 5:43 AM EST Gender Identity Not on file Sexual Orientation Not on file Obstetrics History Plan of Treatment Health Maintenance Due Date Last Done Comments DTaP,Tdap,and Td Vaccines (1 - Tdap) 2009 Hepatitis B Vaccines (1 of 3 - 19+ 3-dose series) 2009 Pneumococcal Vaccine: Pediat rics (0 to 5 Years) and At-Risk Patients (6 to 64 Years) (1 of 2 - PCV) 2009 Cervical Cancer Screening: P ap Smear 2011 Depression Screening 05/08/2022 HIV Screening 05/08/2022 Hepatitis C Screening 05/08/2022 Social Influencers of Health Screening 05/08/2022 COVID-19 Vaccine (1 - 2023-2 5 season) 2024 Influenza Vaccine (#1) 2024 HIB Vaccines Aged Out No longer eligi ble based on patient's age to complete this topic HPV Vaccines Aged Out No longer eligi ble based on patient's age to complete this topic Hepatitis A Vaccines Aged Out No long er eligible based on patient's age to complete this topic IPV Vaccines Aged Out No longer eligi ble based on patient's age to complete this topic MMR Vaccines Aged Out No longer eligi ble based on patient's age to complete this topic Meningococcal ACWY Vaccine Aged Out N o longer eligible based on patient's age to complete this topic Meningococcal B Vacine Aged Out No lo nger eligible based on patient's age to complete this topic RSV Immunization Patients Un catarino 20 months Aged Out No longer eligible b ased on patient's age to complete this topic Varicella Vaccines Aged Out No longer eligible based on patient's age to complete this topic Care Teams Glass Crusher Relationship Specialty Start Date End Date Lazarus Chahal MD [address] [place] [address] Dr Aislinn MA PCP - General Internal Medicine 10/24/19
--- OUTSIDE RECORDS SUMMARY | 2024-07-25 11:57 | XMS_ITS | Continuity of Care Document ---
Author Organization [facility] Address [address] [place] [address]- Care Team Providers Care Cleaner And Polisher Name Role Phone Kolton NOLAN, Dean Adame Primary Care Physician Encounter [facility] [place] Date(s): 05/27/24 - 06/26/24 [facility] [address] [place] [address]- Attending Physician: Ciera Núñez Admitting Physician: AdmtrCiera Referring Physician: Admtr ArNevaeh Encounter Type: Triage Allergies, Adverse Reactions, Alerts [...] rded hepatitis B adult vaccine 08/19/22 Given [id number] 12y+ bivalent booster vax 05/25/22 Recorded tetanus/diphtheria/pertussis, [...] number: 1 BD UF MINI PEN NEEDLE [id number] BD UF MINI PEN NEEDLE [id number], See Instructions, # 100 Unknown, 1 Refills, [...] Refills, Soft Stop, 03/28/22 11:00:00 AM EDT, [facility], Partial fill upon patient request if the prescription is for a schedule II opioid drug., 166, cm, 03/21/22 8:47:00 EDT, Height, 100.4, kg, 02/20/22 23:46:00 EDT, Dry Weight Start Date: 03/28/22 Status: Ordered Quantity: 1.0 Unit: each Repeat number: 1 Pen [place], 31 G x 5 mm BD Ultra [...] Care Team Personnel Name: Phoebe Madsen Position: [facility] Outreach Member Role: Lifetime Consulting Physician Name: Dean Hi NP Position: [facility] PCO Associate Professional Member Role: PCP Address: [address] [place] [id number] Telecom: Care Team Related Persons Name: JILL HAMILTON Name: KARTIK HAMILTON Name: GIOVANY HAMILTON Name: SAMMY WHARTON Insurance Providers Guarantor name: [facility] Plan Information #: 1 Payer: [facility] Member Number: NA Policy Number: NA Group Number: NA
[2024-07-25 12:31] LABS: Estimated Average Glucose 97 mg/dL; Hemoglobin A1C 96.7612 umol/L; Total Hemoglobin (HGBA1C) 3141.7876 umol/L
[2024-07-25 12:33] LABS: Basophils Percent Auto 0.6 % (0-2); Eosinophils Absolute Auto 0.2 X10*3/uL (0.0-0.4); Eosinophils Percent Auto 5.6 % (0-4); Hematocrit 36.3 % (37.0-47.0); Hemoglobin 11.9 g/dl (12.0-16.0); Imm Gran Abs Auto 0.01 X10*3/uL (0.00-0.03); Imm Gran Pct Auto 0.3 % (0.0-0.4); Lymphocytes Absolute Auto 1.2 X10*3/uL (1.2-4.9); Lymphocytes Percent Auto 37.6 % (20-40); MANUAL DIFF FLAG SCAN; Mean Corpuscular HGB Conc 32.8 g/dl (31.0-35.0); Mean Corpuscular Hemoglobin 28.4 pg (27.0-33.0); Mean Corpuscular Volume 86.6 fL (80.0-98.0); Mean Platelet Volume 12.2 fL (9.4-12.3); Monocytes Absolute Auto 0.2 X10*3/uL (0.1-1.2); Monocytes Percent Auto 6.3 % (2-11); Neutrophils Absolute Auto 1.6 x10*3/uL (2.0-8.3); Neutrophils Percent Auto 49.6 % (45-73); Platelet Count 121 X10*3/uL (160-400); Red Blood Count 4.19 X10*6/uL (4.20-5.50); SCAN SMEAR FLAG 1; White Blood Count 3.2 X10*3/uL (4.8-10.8)
[2024-07-25 12:50] LABS: SLIDE REVIEW VERIFIED
[2024-07-25 12:51] LABS: Alanine Aminotransferase 35 U/L (0-31); Albumin Level 4.1 g/dL (3.5-5.0); Alkaline Phosphatase 106 U/L (39-117); Anion Gap 11 (12-20); Aspartate Amino Transferase 30 U/L (5-31); Bilirubin Total 0.3 mg/dL (0.0-1.0); Blood Urea Nitrogen 10 mg/dL (9-16); C Reactive Protein 0.19 mg/dL (< or = 0.50); Calcium 8.8 mg/dL (8.4-10.2); Carbon Dioxide 26 mmol/L (22-29); Chloride 107 mmol/L (96-108); Cholesterol 138 mg/dL (<200); Estimated Glomerular Filt Rate > 60; Glucose Random 74 mg/dL (60-115); HDL Cholesterol 45 mg/dL (>40); Iron 137 mcg/dL (30-160); LDL Cholesterol Calculated 82 mg/dL (<100); Percent Iron Saturation 70 % (15-50); Potassium 3.9 mmol/L (3.3-5.1); Sodium 140 mmol/L (135-145); Total Iron Binding Capacity 197 mcg/dL (228-428); Triglycerides 55 mg/dL (<150); Unsaturated Iron Binding 60 ug/dL
[2024-07-25 13:12] LABS: Ferritin 177 ng/mL (10-122); TSH reflex Free T4 1.58 uIU/mL (0.32-4.0); Vitamin D 25-OH Total 23.8 ng/mL (>30)
[2024-07-25 13:20] LABS: Folate 4.3 ng/mL (> or = 4.0); Vitamin B12 496 pg/mL (200-900)
[2024-07-25 13:44] LABS: Insulin 5 uU/mL (2-29)
[2024-07-29 01:44] LABS: Vitamin A 30 mcg/dL (38-98)
[2024-07-29 16:48] LABS: Zinc 57 mcg/dL (60-130)
[2024-07-31 15:13] LABS: Vitamin B1 8 nmol/L (8-30)
== END 2024-07-25 10:47 | disposition home or self-care (01) ==
LOC: HO.LAB 10:46
PROVIDERS: PCP Nurse Practitioner Family; Visit Provider Physician Assistant Surgical
DX: I10 Essential (primary) hypertension (principal); E55.9 Vitamin D deficiency, unspecified; Z98.84 Bariatric surgery status
CPT/HCPCS: 36415; 80053; 80061; 82306; 82607; 82728; 82746; 83036; 83525; 83540; 84425; 84443; 84590; 84630; 85025; 86140

== ENCOUNTER 2024-07-30 10:59 | Outpatient (AMB) | payer OTHER, SELFPAY ==
--- NOTE | 2024-07-30 11:01 | A.OFFVIS_ITS ---
VS Expanded 07/30/24 11:02 BP 138/84 Blood Pressure Location Lt brachial Blood Pressure Position Sitting Pulse 78 Pulse Oximetry 100 Height 5 ft 5.5 in Weight 132 lb 3.2 oz BMI 21.7 Body Fat % 14.4 Body Fat Mass 19.0 Fat Free Mass 113.0 Visceral Fat Rating 1.0 Body Water % 61.3 Body Water Mass 81.0 Muscle Mass/Score 107.4 Basal Metabolic Rate/Score 2,439 Intake Visit Reasons: (OV) PO LSG 02/07/24 Intake Note: She states there is a medication that Jovani sent yesterday but she is not sure the name. Starts with a G do not see on her med list. Varnish Thinner Required: No Allergies Penicillins [PENICILLINS] Allergy (Intermediate, Verified 07/30/24 11:02) SWELLING Medication List - Last Reconciled 07/30/24 by MALCOLM Orta albuterol sulfate 90 mcg/actuation 2 puffs inhalation Q6H PRN clotrimazole 1% (Antifungal (clotrimazole)) 1 appl topical BID vitamin A palmitate 3,000 mcg PO DAILY 90 days zinc acetate 50 mg PO DAILY HPI Comments Details: This?a?34?yo female who is s/p LSG without hiatal hernia repair on?02/07/2024. Presents for 5 month post op visit. Weight today is 132.2 pounds, with a BMI of 21.7. There has been a 86.6 pound weight loss,(initial weight 218.8 pounds) since starting the program on 10/16/2023 reflecting a 39.5 % total body weight loss and a weight loss of 46.2 pounds since surgery (operative weight 178.4 pounds) reflecting a 25.9 % TBWL since surgery. No complaints of nausea, emesis, abdominal pain or reflux. Reports infrequent but normal bowel movements every 2-3 days and uses stool softeners regularly. Taking MVI. Now feels great. Taking bariatric fusion mvi with bar in the morning, wants to switch. Overall very satisfied with her weight, weight loss, meal plan. She is feeling well and had her meal plan changed by Dr Pimentel. She is very satisfied with her new meal plan. She is complaining of excess skin of her abdomen and thighs. Clothing does not fit right. The skin would pinch. She has an itch above the pubic area. This would occur perhaps 5 x per month, she just tries not to scratch. Present meal plan includes: Pure shake 4 oz w 4 oz almond milk 8-11 4 forks protein and 4 forkd veg at 12-2 Pure protein bar at 3-6 7 pm meal 3 forks protein and 3 forks veg drinking 60-70 oz water ? Exercise routine includes: treadmill daily, 60 min, 300 calories. Speed 3, incline 2-8 PFSH Medical History Pre-op evaluation BMI 35.0-35.9,adult GERD (gastroesophageal reflux disease) Asthma Back pain Hypertension Obesity Surgical History S/P gastric sleeve procedure History of esophagogastroduodenoscopy (EGD) Previous back surgery History of delivery Social History Household Members: Family Housing: House Are you a primary caregiver assisted living to a significant other at home: No Do you presently have visiting nurse or other home services: No Alcohol intake: never Patient Tobacco Use Status: Never used Tobacco service: No Physical Exam Const General: healthy appearing and no acute distress Resp Effort & Inspection: normal respiratory effort Auscultation: clear to auscultation bilaterally Cardio Rate: regular rate Rhythm: regular rhythm GI Auscultation: normal bowel sounds Skin Other: Minimal erythema noted underneath the abdominal crease in the suprapubic region Extrem General: Yes normal to inspection Assessment & Plan Assessment & Plan (1) S/P laparoscopic sleeve gastrectomy: Code(s): Z98.84 - Bariatric surgery status Category: Surgical Plan: Overall, patient is doing well. She has achieved a healthy weight and is satisfied with her current meal plan as outlined above. We will encourage her to continue to do so. (2) Excess skin: Code(s): L98.7 - Excessive and redundant skin and subcutaneous tissue Category: Medical Plan: Clotrimazole prescriptive cream sent in. We will continue to monitor. Medications: New clotrimazole 1% (Antifungal (clotrimazole)) 1 appl topical BID 45 grams 2RF
[2024-07-30 11:02] VITALS: BP 138/84; PULSE 78; O2SAT 100; BMI 21.7
--- OUTSIDE RECORDS SUMMARY | 2024-07-30 13:18 | XMS_ITS | Clinical Summary ---
Author Organization [facility] Address [address] [place] [phone] Care Team Providers Care Surgical Assistant Name Role Phone Lazarus Chahal MD Primary Care Provider [phone] Surgical History Surgery Date Site/Laterality Comments BACK [...] age to complete this topic Care Teams Surgical Assistant Relationship Specialty Start Date End Date Lazarus Chahal MD [address] [place] [address] Dr Aislinn MA PCP - General Internal Medicine 10/24/19
--- OUTSIDE RECORDS SUMMARY | 2024-07-30 13:18 | XMS_ITS | Clinical Summary ---
Author Organization [facility] Address [address] [place] [address] Care Team Providers Care Roll Bucker Name Role Phone Lazarus Chahal MD Primary Care Provider [phone] Allergies Active Allergy Reactions Criticality Noted Date [...] age to complete this topic Care Teams Roll Bucker Relationship Specialty Start Date End Date Lazarus Chahal MD [address] [place] [address] [place] [address] PCP - General 12/22/18
== END 2024-07-30 11:23 | disposition home or self-care (01) ==
PROVIDERS: PCP Nurse Practitioner Family; Visit Provider Physician Assistant Surgical
DX: L98.7 Excessive and redundant skin and subcutaneous tissue (principal); Z98.84 Bariatric surgery status
CPT/HCPCS: 99213; G2211

== ENCOUNTER → 2024-07-30 10:59 | Outpatient (BNVA) | payer OTHER, SELFPAY | PROVIDERS: PCP Nurse Practitioner Family; Visit Provider Physician Assistant Surgical | DX: L98.7 Excessive and redundant skin and subcutaneous tissue (principal); Z98.84 Bariatric surgery status | CPT/HCPCS: 99212 ==

== ENCOUNTER 2024-08-30 09:43 | Outpatient (REF) | payer OTHER, SELFPAY ==
[2024-08-30 09:58] LABS: MANUAL DIFF FLAG NO
[2024-08-30 11:24] LABS: Basophils Absolute Auto 0.1 X10*3/uL (0.0-0.2); Eosinophils Absolute Auto 0.2 X10*3/uL (0.0-0.4); Eosinophils Percent Auto 3.1 % (0-4); Hematocrit 34.9 % (37.0-47.0); Hemoglobin 11.5 g/dl (12.0-16.0); Imm Gran Abs Auto 0.02 X10*3/uL (0.00-0.03); Imm Gran Pct Auto 0.4 % (0.0-0.4); Lymphocytes Absolute Auto 1.7 X10*3/uL (1.2-4.9); Mean Corpuscular Hemoglobin 28.7 pg (27.0-33.0); Monocytes Absolute Auto 0.3 X10*3/uL (0.1-1.2); Monocytes Percent Auto 6.6 % (2-11); Neutrophils Percent Auto 56.9 % (45-73); Platelet Count 215 X10*3/uL (160-400); Red Blood Count 4.01 X10*6/uL (4.20-5.50); Red Cell Distribution Width 14.6 % (11.0-16.0); White Blood Count 5.2 X10*3/uL (4.8-10.8)
== END 2024-08-30 09:44 | disposition home or self-care (01) ==
LOC: HO.LAB 09:43
PROVIDERS: Visit Provider Physician Assistant Surgical
DX: D64.9 Anemia, unspecified (principal)
CPT/HCPCS: 36415; 85025

== ENCOUNTER 2024-09-20 09:30 | Outpatient (AMB) | payer OTHER, SELFPAY ==
--- NOTE | 2024-09-20 09:20 | MHC.OFFVISWM ---
VS Expanded 09/20/24 09:22 Height 5 ft 5.5 in Weight 130 lb 6 oz BMI 21.4 Body Fat % 27.7 Body Fat Mass 36.2 Visceral Fat Rating 4 Body Water % 49.5 Muscle Mass/Score 88.6 Intake Visit Reasons: (TV) PO LSG 02/07/24 Allergies Penicillins [PENICILLINS] Allergy (Intermediate, Verified 07/30/24 11:02) SWELLING HPI Comments Details: This?a?34?yo female who is s/p LSG without hiatal hernia repair on?02/07/2024. Presents for 7 month post op visit. Weight today is 130.6 pounds, with a BMI of 21.4. There has been a 88.2 pound weight loss,(initial weight 218.8 pounds) since starting the program on 10/16/2023 reflecting a 40.3 % total body weight loss and a weight loss of 47.8 pounds since surgery (operative weight 178.4 pounds) reflecting a 26.7 % TBWL since surgery. No complaints of nausea, emesis, abdominal pain or reflux. Reports infrequent but normal bowel movements every 2-3 days and uses stool softeners regularly. Taking MVI. Now feels great. Taking bariatric fusion mvi with bar in the morning, wants to switch. Overall very satisfied with her weight, weight loss, meal plan. She is feeling well and had her meal plan changed by Dr Pimentel. She is very satisfied with her new meal plan. She is complaining of excess skin of her abdomen and thighs. Clothing does not fit right. The skin would pinch. She has an itch above the pubic area. Since her last visit, she has had to use the antifungal cream onto the abdomen 3 times. This resolved the rash but recurred with cessation. Present meal plan includes: Pure protein rtd shake 4 oz w 4 oz almond milk 8-11 4 forks protein and 4 forks veg at 12-2 Pure protein bar at 3-6 7 pm meal 3 forks protein and 3 forks veg drinking 60-70 oz water ? Exercise routine includes: treadmill 5 x per week, 1 hr 20 min, 350-400 calories. Speed 3, incline 2-8 PFSH Medical History Pre-op evaluation BMI 35.0-35.9,adult GERD (gastroesophageal reflux disease) Asthma Back pain Hypertension Obesity Surgical History S/P gastric sleeve procedure History of esophagogastroduodenoscopy (EGD) Previous back surgery History of delivery Social History Household Members: Family Housing: House Are you a primary career technical supervisor to a significant other at home: No Do you presently have visiting nurse or other home services: No Alcohol intake: never Patient Tobacco Use Status: Never used Tobacco service: No Telehealth Telehealth Telehealth Platform: Telephone Location of provider rendering services: practice address Location of patient: address on file Patient Identification confirmed using: Name, : Yes Telehealth method: voice only Patient verbally consented to treatment: Yes Patient verbally consented to billing insurance company: Yes Patient informed of any privacy concerns related to visit: Yes Minutes spent on Phone/Video with Pt.: 12 Assessment & Plan Assessment & Plan (1) S/P laparoscopic sleeve gastrectomy: Code(s): Z98.84 - Bariatric surgery status Category: Surgical Plan: Patient will continue current meal plan. Exercise plan is sufficient. We will have her return to the office as scheduled in November. Encouraged to text with any questions or concerns. (2) Excess skin: Code(s): L98.7 - Excessive and redundant skin and subcutaneous tissue Category: Medical Plan: Patient is showing resolution of her abdominal rash with use of clotrimazole cream however this is not a sustainable plan in the long run. She is going to need medically necessary skin removal surgery. We will continue to follow clinically and submit for insurance approval in the future.
[2024-09-20 09:22] VITALS: BMI 21.4
--- OUTSIDE RECORDS SUMMARY | 2024-09-20 10:16 | XMS_ITS | Clinical Summary ---
Author Organization [facility] Address [address] [place] [phone] Care Team Providers Care Release Of Information Specialist Name Role Phone Lazarus Chahal MD Primary Care Provider [phone] Surgical History Surgery Date Site/Laterality Comments BACK [...] Influencers of Health Screening 05/08/2022 COVID-19 Vaccine ( - 2023-2 5 season) 2024 Influenza Vaccine (Season Ended) 2025 HIB Vaccines Aged Out No longer eligi [...] age to complete this topic Meningococcal B Vaccine Aged Out No l onger eligible based on patient's age to complete this topic RSV Immunization Patients Un catarino 20 months Aged Out No longer eligible b ased on patient's age to complete this topic Varicella Vaccines Aged Out No longer eligible based on patient's age to complete this topic Care Teams Release Of Information Specialist Relationship Specialty Start Date End Date Lazarus Chahal MD [address] [place] [address] Dr Aislinn MA PCP - General Internal Medicine 10/24/19
--- OUTSIDE RECORDS SUMMARY | 2024-09-20 10:16 | XMS_ITS | Clinical Summary ---
Author Organization [facility] Address [address] [place] [address] Care Team Providers Care Manufacturing Worker Name Role Phone Lazarus Chahal MD Primary Care Provider [phone] Allergies Active Allergy Reactions Criticality Noted Date Comments Penicillins Anaphylaxis High 12/22/2018 Social History Tobacco Use Types Packs/Day Years Used Date Smoking Tobacco: Never Assessed Comments Unknown Sex and Gender Information Value Date Recorded Sex Assigned at Not on file Legal Sex Female 6:25 PM EST Gender Identity Not on file Sexual [...] on patient's age to complete this topic Insurance [facility] (AUTO/LIABILITY) Care Teams Manufacturing Worker Relationship Specialty Start Date End Date Lazarus Chahal MD [address] [place] [address] [place] [id number] PCP - General 12/22/18
== END 2024-09-20 09:46 | disposition home or self-care (01) ==
LOC: HO.HBS 09:40
PROVIDERS: PCP Nurse Practitioner Family; Visit Provider Physician Assistant Surgical
DX: L98.7 Excessive and redundant skin and subcutaneous tissue (principal); Z98.84 Bariatric surgery status
CPT/HCPCS: 99213

== ENCOUNTER 2024-11-25 10:47 | Outpatient (AMB) | payer BC, MEDICAID, SELFPAY ==
--- NOTE | 2024-11-25 11:02 | MHC.OFFVISWM ---
VS Expanded 11/25/24 11:07 BP 161/92 H Blood Pressure Location Rt brachial Blood Pressure Position Sitting Pulse 91 Pulse Source Pulse Oximeter Temp 98.1 F Temperature Source Temporal Artery Scan Pulse Oximetry 100 Oxygen Delivery Method Room Air Height 5 ft 5.5 in Weight 135 lb 6.4 oz BMI 22.2 Body Fat % 17.9 Body Fat Mass 24.2 Fat Free Mass 111.2 Visceral Fat Rating 1.0 Body Water % 58.8 Body Water Mass 79.6 Muscle Mass/Score 105.4 Basal Metabolic Rate/Score 1,472 Intake Visit Reasons: (OV) PO LSG 02/07/24 Allergies Penicillins (PENICILLINS) Allergy (Intermediate, Verified 11/25/24 11:05) SWELLING HPI Comments Details: This?a?34?yo female who is s/p LSG without hiatal hernia repair on?02/07/2024. Presents for 9 month post op visit. Weight today is 135.4 pounds, with a BMI of 22.2. There has been a 83.4 pound weight loss,(initial weight 218.8 pounds) since starting the program on 10/16/2023 reflecting a 38.1 % total body weight loss and a weight loss of 43 pounds since surgery (operative weight 178.4 pounds) reflecting a 24.1. % TBWL since surgery. No complaints of nausea, emesis, abdominal pain or reflux. Reports infrequent but normal bowel movements every 2-3 days and uses stool softeners regularly. Taking MVI. Now feels great. Taking bariatric fusion mvi with bar in the morning, wants to switch. Overall very satisfied with her weight, weight loss, meal plan. She is feeling well and had her meal plan changed by Dr Pimentel. She is very satisfied with her new meal plan. She is complaining of excess skin of her abdomen and thighs. Clothing does not fit right. The skin would pinch. She has an itch above the pubic area. Since her last visit, she has had to use the antifungal cream onto the abdomen 3 times. This resolved the rash but recurred with cessation. Present meal plan includes: Pure protein rtd shake 4 oz w 4 oz almond milk 8-11 4 forks protein and 4 forks veg at 12-2 Pure protein bar at 3-6 7 pm meal 3 forks protein and 3 forks veg drinking 60-70 oz water ? Exercise routine includes: Working extra and sleeping more walking a lot at work Previously walking on treadmill at home. [facility] Medical History Pre-op evaluation BMI 35.0-35.9,adult GERD (gastroesophageal reflux disease) Asthma Back pain Hypertension Obesity Surgical History S/P gastric sleeve procedure History of esophagogastroduodenoscopy (EGD) Previous back surgery History of delivery Social History Household Members: Family Housing: House Are you a primary patient care nursing assistant to a significant other at home: No Do you presently have visiting nurse or other home services: No Alcohol intake: never Patient Tobacco Use Status: Never used Tobacco service: No Physical Exam Const General: healthy appearing and no acute distress Resp Effort & Inspection: normal respiratory effort Auscultation: clear to auscultation bilaterally Cardio Rate: regular rate Rhythm: regular rhythm GI Auscultation: normal bowel sounds Extrem General: Yes normal to inspection Assessment & Plan Assessment & Plan (1) S/P laparoscopic sleeve gastrectomy: Code(s): Z98.84 - Bariatric surgery status Category: Surgical Plan: Patient has not been exercising due to work requirements. Discussed using body weight exercises at home. She additionally walks all day long for her job. She has been having to work over time. She is satisfied with her meal plan and wants to continue as such. Regarding her rash, she continues to have intermittent rash to the abdomen secondary to excess skin. This improves with the use of prescription antifungal creams. We will continue to monitor clinically, consider adding steroid if necessary. Likely submit for medically necessary skin removal surgery once insurance requirements are met.
[2024-11-25 11:07] VITALS: BP 161/92; PULSE 91; TEMP 36.7; O2SAT 100; BMI 22.2
--- OUTSIDE RECORDS SUMMARY | 2024-11-25 12:07 | XMS_ITS | Clinical Summary ---
Author Organization [facility] Address [address] [place] [phone] Care Team Providers Care Able Bodied Watchman Name Role Phone Lazarus Chahal MD Primary Care Provider [phone] Surgical History Surgery Date Site/Laterality Comments BACK [...] age to complete this topic Care Teams Able Bodied Watchman Relationship Specialty Start Date End Date Lazarus Chahal MD [address] [place] [address] Dr Aislinn MA PCP - General Internal Medicine 10/24/19
== END 2024-11-25 11:24 | disposition home or self-care (01) ==
LOC: HO.HBS 10:47
PROVIDERS: PCP Nurse Practitioner Family; Visit Provider Physician Assistant Surgical
DX: Z71.3 Dietary counseling and surveillance (principal); Z90.3 Acquired absence of stomach [part of]; Z98.84 Bariatric surgery status
CPT/HCPCS: 99213

== ENCOUNTER 2025-02-07 09:56 | Outpatient (AMB) | payer BC, MEDICAID, SELFPAY ==
--- NOTE | 2025-02-07 10:05 | A.OFFVIS_ITS ---
VS Expanded 02/07/25 10:08 BP 157/87 H Blood Pressure Location Rt brachial Blood Pressure Position Sitting Pulse 88 Pulse Source Pulse Oximeter Temp 97.9 F Temperature Source Temporal Artery Scan Pulse Oximetry 100 Oxygen Delivery Method Room Air Height 5 ft 5.5 in Weight 136 lb BMI 22.3 Body Fat % 20.5 Body Fat Mass 27.8 Fat Free Mass 108.0 Visceral Fat Rating 0 Body Water % 57.0 Body Water Mass 77.4 Muscle Mass/Score 102.6 Basal Metabolic Rate/Score 1,438 Intake Visit Reasons: (OV) PO LSG 02/07/24 Steam Setter Required: No Allergies Penicillins (PENICILLINS) Allergy (Intermediate, Verified 02/07/25 10:06) SWELLING Medication List - Last Reconciled 02/07/25 by MALCOLM Orta albuterol sulfate 90 mcg/actuation 2 puffs inhalation Q6H PRN clotrimazole 1% (Antifungal (clotrimazole)) 1 appl topical BID vitamin A palmitate 3,000 mcg PO DAILY 90 days zinc acetate 50 mg PO DAILY HPI Comments Details: This?a?34?yo female who is s/p LSG without hiatal hernia repair on?02/07/2024. Presents for 1 year post op visit. Weight today is 136 pounds, with a BMI of 22.3. There has been a 83.4 pound weight loss,(initial weight 218.8 pounds) since starting the program on 10/16/2023 reflecting a 38.1 % total body weight loss and a weight loss of 43 pounds since surgery (operative weight 178.4 pounds) reflecting a 24.1. % TBWL since surgery. No complaints of nausea, emesis, abdominal pain or reflux. Reports infrequent but normal bowel movements every 2-3 days and uses stool softeners regularly. Taking MVI. Now feels great. Taking bariatric fusion mvi with bar in the morning, wants to switch. Overall very satisfied with her weight, weight loss, meal plan. She is feeling well and had her meal plan changed by Dr Pimentel. She is very satisfied with her new meal plan. She is complaining of excess skin of her abdomen and thighs. Clothing does not fit right. The skin would pinch. She has an itch above the pubic area. Since her last visit, she has had to use the antifungal cream onto the abdomen 2-3 times per month. This resolved the rash but recurred with cessation. Present meal plan includes: Pure protein rtd shake 4 oz w 4 oz almond milk 8-11 4 forks protein and 4 forks veg at 12-2 Pure protein bar at 3-6 7 pm meal 3 forks protein and 3 forks veg drinking 60-70 oz water ? Exercise routine includes: Working extra and sleeping more walking a lot at work, 14-16 k steps Previously walking on treadmill at home. Any post op complications: none ABNER: never DM: never HTN: resolved Hyperlipidemia: never GERD:?0-5 scale ??0 = no symptoms ??1 = symptoms noticeable but not bothersome 2 =symptoms bothersome but not daily ? 3 = symptoms bothersome and daily 4 = symptoms affect daily activities 5 = symptoms are incapacitating, unable to do daily activities ? How bad is the heartburn: 0 ? Heartburn while lying down: 0 ? Heartburn when standing up: 0 ? Heartburn after meals: 0 ? Does heartburn change your diet: 0 ? Does heartburn wake you up from sleep: 0 ? Do you have difficulty swallowin ? Do you have pain with swallowin ? If you take medicine for your reflux, does this affect your daily life: 0 Satisfaction with present condition - satisfied or not satisfied: satisfied [facility] Medical History Pre-op evaluation BMI 35.0-35.9,adult GERD (gastroesophageal reflux disease) Asthma Back pain Hypertension Obesity Surgical History S/P gastric sleeve procedure History of esophagogastroduodenoscopy (EGD) Previous back surgery History of delivery Social History Household Members: Family Housing: House Are you a primary children's zoo caretaker to a significant other at home: No Do you presently have visiting nurse or other home services: No Alcohol intake: never Patient Tobacco Use Status: Never used Tobacco service: No Physical Exam Vital Signs: Last Vital Signs Temp 97.9 F 02/07/25 10:08 Pulse 88 02/07/25 10:08 BP 157/87 H 02/07/25 10:08 Pulse Ox 100 02/07/25 10:08 Oxygen Delivery Method Room Air 02/07/25 10:08 BMI result Body Mass Index 22.3 Const General: cooperative and no acute distress Orientation/consciousness: patient oriented x3 Resp Effort & Inspection: normal respiratory effort Auscultation: clear to auscultation bilaterally Cardio Rate: regular rate Rhythm: regular rhythm GI Inspection: Yes normal to inspection and Yes incision (well healed) Palpation (GI): Soft to palpation and no masses Neuro General: patient oriented x3 Assessment & Plan Assessment & Plan (1) S/P laparoscopic sleeve gastrectomy: Code(s): Z98.84 - Bariatric surgery status Category: Surgical Plan: Patient is doing very well. She will continue with her current meal plan and while she is not formally doing cardiovascular activity, she is walking excessively for work. She has maintained a healthy weight. We will check 1 year postop labs. Given her excess skin of her abdomen due to weight loss, she has developed recurrent panniculitis. She will continue with the PRN clotrimazole cream and follow-up in the office in 6 months, sooner should there be any questions or concerns. Likely will need medically necessary skin removal surgery of the abdomen. Orders: Orders Insulin Today D64.9 - Anemia, unspecified, E55.9 - Vitamin D deficiency, unspecified, Z98.84 - Bariatric surgery status IRON PROFILE Today D64.9 - Anemia, unspecified, E55.9 - Vitamin D deficiency, unspecified, Z98.84 - Bariatric surgery status Vitamin B12 and Folate Today D64.9 - Anemia, unspecified, E55.9 - Vitamin D deficiency, unspecified, Z98.84 - Bariatric surgery status C Reactive Protein Today D64.9 - Anemia, unspecified, E55.9 - Vitamin D deficiency, unspecified, Z98.84 - Bariatric surgery status Hemoglobin A1c Today D64.9 - Anemia, unspecified, E55.9 - Vitamin D deficiency, unspecified, Z98.84 - Bariatric surgery status Complete Blood Count Auto Diff Today D64.9 - Anemia, unspecified, E55.9 - Vitamin D deficiency, unspecified, Z98.84 - Bariatric surgery status Lipid Panel Today D64.9 - Anemia, unspecified, E55.9 - Vitamin D deficiency, unspecified, Z98.84 - Bariatric surgery status Comprehensive Met. Panel Today D64.9 - Anemia, unspecified, E55.9 - Vitamin D deficiency, unspecified, Z98.84 - Bariatric surgery status Zinc Today D64.9 - Anemia, unspecified, E55.9 - Vitamin D deficiency, unspecified, Z98.84 - Bariatric surgery status Vitamin B1 Today D64.9 - Anemia, unspecified, E55.9 - Vitamin D deficiency, unspecified, Z98.84 - Bariatric surgery status Vitamin A Today D64.9 - Anemia, unspecified, E55.9 - Vitamin D deficiency, unspecified, Z98.84 - Bariatric surgery status TSH reflex Free T4 Today D64.9 - Anemia, unspecified, E55.9 - Vitamin D deficiency, unspecified, Z98.84 - Bariatric surgery status Ferritin Today D64.9 - Anemia, unspecified, E55.9 - Vitamin D deficiency, unspecified, Z98.84 - Bariatric surgery status Vitamin D 25-OH Total Today D64.9 - Anemia, unspecified, E55.9 - Vitamin D deficiency, unspecified, Z98.84 - Bariatric surgery status
[2025-02-07 10:08] VITALS: BP 157/87; PULSE 88; TEMP 36.6; O2SAT 100; BMI 22.3
--- OUTSIDE RECORDS SUMMARY | 2025-02-07 10:43 | XMS_ITS | Clinical Summary ---
Author Organization [facility] Address [id number] [place] [id number] Care Team Providers Care Retail Merchandising Manager Name Role Phone Lazarus Chahal MD Primary Care Provider [phone] Surgical History Surgery Date Site/Laterality Comments BACK [...] 5 Years) and At-Risk Patients (6 to 49 Years) (1 of 2 - PCV) 2009 Cervical Cancer Screening: P ap Smear 2011 HIV Screening 05/08/2022 Hepatitis C Screening 05/08/2022 Social Influencers of Health Screening 05/08/2022 Depression Screening 06/05/2024 COVID-19 Vaccine (1 - 2023-2 5 season) 2025 Influenza Vaccine (#1) 2025 HIB Vaccines Aged Out No longer [...] age to complete this topic Care Teams Retail Merchandising Manager Relationship Specialty Start Date End Date Lazarus Chahal MD [address] [place] [address] Dr Aislinn MA PCP - General Internal Medicine 10/24/19
--- OUTSIDE RECORDS SUMMARY | 2025-02-07 10:43 | XMS_ITS | Clinical Summary ---
Author Organization [facility] Address [address] [place] [address] Care Team Providers Care Plant Health Manager Name Role Phone Lazarus Chahal MD Primary Care Provider [phone] Allergies Active Allergy Reactions Criticality Noted Date [...] 95 12/22/2018 1:51 PM EDT Temperature 36.2 C (97.2 F) 12/22/2018 1:51 PM EDT Respiratory Rate 18 12/22/2018 1:51 PM EDT [...] series) 2009 Pap Smear (Ages 21-65) 2011 HPV Vaccines (1 - 3-dose SCD M series) 2017 COVID-19 Vaccine ( - 2023-2 5 season) 2024 Influenza Vaccine 01/03/2025 Pneumococcal Vaccine: Pediat carolyne (0-5 Years) and At-Risk Patients (6 to 49 Years) Aged Out No longer eligible b ased on patient's age to complete this topic Insurance [facility] (AUTO/LIABILITY) Care Teams Plant Health Manager Relationship Specialty Start Date End Date Lazarus Chahal MD [address] [place] [address] [place] [id number] PCP - General 12/22/18
== END 2025-02-07 10:21 | disposition home or self-care (01) ==
LOC: HO.HBS 09:57
PROVIDERS: PCP Nurse Practitioner Family; Visit Provider Physician Assistant Surgical
DX: Z71.3 Dietary counseling and surveillance (principal); Z90.3 Acquired absence of stomach [part of]; Z98.84 Bariatric surgery status
CPT/HCPCS: 99213

== ENCOUNTER 2025-02-07 09:56 | Outpatient (REF) | payer BC, MEDICAID, SELFPAY ==
[2025-02-07 10:42] LABS: MANUAL DIFF FLAG NO
[2025-02-07 11:03] LABS: Hematocrit 38.2 % (37.0-47.0); Hemoglobin 12.7 g/dl (12.0-16.0); Imm Gran Abs Auto 0.01 X10*3/uL (0.00-0.03); Imm Gran Pct Auto 0.2 % (0.0-0.4); Lymphocytes Absolute Auto 1.7 X10*3/uL (1.2-4.9); Mean Corpuscular HGB Conc 33.2 g/dl (31.0-35.0); Mean Corpuscular Hemoglobin 29.1 pg (27.0-33.0); Mean Corpuscular Volume 87.4 fL (80.0-98.0); NRBC Abs Auto 0.000 X10*3/uL (0.0-0.012); NRBC Pct Auto 0.0 /100WBC (0.0-0.2); Platelet Count 216 X10*3/uL (160-400); Red Blood Count 4.37 X10*6/uL (4.20-5.50); White Blood Count 4.8 X10*3/uL (4.8-10.8)
[2025-02-07 11:11] LABS: Hemoglobin A1C 98.0321 umol/L; Total Hemoglobin (HGBA1C) 3285.0317 umol/L
[2025-02-07 11:41] LABS: Alanine Aminotransferase 13 U/L (0-31); Albumin Level 4.6 g/dL (3.5-5.0); Alkaline Phosphatase 75 U/L (39-117); Anion Gap 9 (12-20); Aspartate Amino Transferase 16 U/L (5-31); Blood Urea Nitrogen 10 mg/dL (9-16); Calcium 8.9 mg/dL (8.4-10.2); Carbon Dioxide 27 mmol/L (22-29); Chloride 106 mmol/L (96-108); Cholesterol 183 mg/dL (<200); Estimated Glomerular Filt Rate > 60; HDL Cholesterol 54 mg/dL (>40); Iron 140 mcg/dL (30-160); Percent Iron Saturation 54 % (15-50); Potassium 4.3 mmol/L (3.3-5.1); Sodium 138 mmol/L (135-145); Total Iron Binding Capacity 259 mcg/dL (228-428); Total Protein 7.2 g/dL (6.5-8.0); Triglycerides 55 mg/dL (<150); Unsaturated Iron Binding 119 ug/dL
[2025-02-07 12:05] LABS: Ferritin 55 ng/mL (10-122)
[2025-02-07 12:10] LABS: Folate 7.0 ng/mL (> or = 4.0); Vitamin B12 449 pg/mL (200-900)
== END 2025-02-07 09:57 | disposition home or self-care (01) ==
LOC: HO.LAB 09:56
PROVIDERS: PCP Nurse Practitioner Family; Visit Provider Physician Assistant Surgical
DX: Z98.84 Bariatric surgery status (principal); E55.9 Vitamin D deficiency, unspecified; D64.9 Anemia, unspecified; Z13.6 Encounter for screening for cardiovascular disorders
CPT/HCPCS: 36415; 80053; 80061; 82306; 82607; 82728; 82746; 83036; 83525; 83540; 84425; 84443; 84590; 84630; 85025; 86140